=== PATIENT | male | born 1970 | race Two or more races ===

== ENCOUNTER 2023-01-15 14:01 | Outpatient (OUT) | payer MEDICAID, SELFPAY ==
--- NOTE | 2023-01-15 14:15 | ECG_ITS ---
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
[2023-01-15 15:31] LABS: Basophils Absolute Auto 0.1 10^3/uL (0.0-0.1); Basophils Percent Auto 0.5 % (0.2-2.0); Eosinophils Absolute Auto 0.2 10^3/uL (0.0-0.7); Hematocrit 49.3 % (42.0-54.0); Hemoglobin 16.5 g/dL (14.0-18.0); Immature Granulocytes Abs Auto 0.05 10^3/uL (0.00-0.03); Immature Granulocytes Pct Auto 0.5 % (0.0-0.5); Lymphocytes Percent Auto 26.6 % (20.5-60.0); Mean Corpuscular HGB Conc 33.5 g/dL (29.9-35.2); Mean Corpuscular Hemoglobin 26.8 pg (25.9-34.0); Mean Corpuscular Volume 80.2 fL (80.0-94.0); Mean Platelet Volume 10.3 fL (9.5-13.5); Monocytes Absolute Auto 0.8 10^3/uL (0.3-0.8); Neutrophils Percent Auto 63.4 % (43.0-75.0); Platelet Count 332 10^3/uL (150-450); Red Blood Count 6.15 10^6/uL (4.70-6.10); Red Cell Distribution Width 13.2 % (11.0-15.0); White Blood Count 11.1 10^3/uL (4.0-11.0)
[2023-01-15 15:54] LABS: Partial Thromboplastin Time 26.9 sec (22.3-36.2); Prothrombin Time 9.5 sec (9.0-11.6)
[2023-01-15 15:57] LABS: INR <0.93
[2023-01-15 16:13] LABS: Anion Gap 14.4; BUN Creatinine Ratio 12.8; Calcium 9.3 mg/dL (8.5-10.1); Carbon Dioxide 25.8 mmol/L (21.0-32.0); Chloride 96 mmol/L (98-107); Estimated GFR (African America >60 (>=60); Estimated GFR (Non-African Ame 52 (>=60); Glucose 239 mg/dL (74-106); Potassium 3.2 mmol/L (3.5-5.1); Sodium 133 mmol/L (136-145)
== END 2023-01-15 14:02 | disposition home or self-care (01) ==
PROVIDERS: Visit Provider Otolaryngology
DX: Z01.812 Encounter for preprocedural laboratory examination (principal); Z01.810 Encounter for preprocedural cardiovascular examination; J34.2 Deviated nasal septum; J34.3 Hypertrophy of nasal turbinates; E11.9 Type 2 diabetes mellitus without complications
CPT/HCPCS: 80048; 85025; 85610; 85730; 93005

== ENCOUNTER 2023-02-26 11:37 | Outpatient (OUT) | payer MEDICAID, SELFPAY | END 2023-02-26 11:38 | disposition home or self-care (01) | LOC: PST 11:38 | PROVIDERS: Visit Provider Otolaryngology | DX: Z01.818 Encounter for other preprocedural examination (principal); J34.2 Deviated nasal septum; J34.3 Hypertrophy of nasal turbinates; E11.9 Type 2 diabetes mellitus without complications ==

== ENCOUNTER 2023-03-05 07:06 | Day surgery (SDC) | payer MEDICAID, SELFPAY ==
[2023-03-05] VITALS (9 sets, daily range): BP systolic 115–129; BP diastolic 78–93; PULSE 50–85; RESP 14–49; TEMP 36.3–36.5; O2SAT 94–97; BMI 32.5
--- NOTE | 2023-03-05 | OP_ITS ---
OPERATION DATE: ??03/05/2023 PRIMARY CARE PHYSICIAN:? Elda Ritchie D.O. SURGEON:? Sara Saab M.D. PREOPERATIVE DIAGNOSIS:? Deviated nasal septum and bilateral inferior turbinate hypertrophy. POSTOPERATIVE DIAGNOSIS: Deviated nasal septum and bilateral inferior turbinate hypertrophy. PROCEDURE:? Septoplasty and bilateral inferior turbinate submucosal resection. ANESTHESIA:? General endotracheal. COMPLICATIONS:? None. FINDINGS:? Marked buckling and overlapping of the cartilaginous septum to the left with areas of septal cartilage which had multiple layers.? Bilateral inferior turbinate hypertrophy. INDICATIONS:? This 52-year-old man with an apparent remote history of a severe nasal fracture presented with bilateral nasal obstruction, unresponsive to aggressive medical management, due to deviated nasal septum and inferior turbinate hypertrophy. PROCEDURE:? Patient identified in the holding area and taken back to the OR where he was placed in a supine position.? After induction of general endotracheal anesthesia, the table was turned, the head elevated 20 degrees and the face draped in a sterile fashion.? Afrin soaked pledgets were placed in each side of the nose and, after waiting adequate time for decongestion, the nose was copiously irrigated.? Lidocaine 1% with 1:100,000 epinephrine was then injected into the inferior turbinates.? After waiting adequate time for hemostasis, the right nose was approached with the nasal speculum.? A stab incision was made anteriorly in the inferior turbinate and a caudal elevator was used to create a tunnel along the medial surface of the turbinate bone.? A 2.0 mm microdebrider blade was then used to exenterate the submucosal tissues of the turbinate and the turbinate was outfractured.? ?Attention was then turned to the left inferior turbinate and the same procedure performed.? Then lidocaine 1% with 1:100,000 epinephrine was injected into the nasal septum and floor of the nose on each side.? After waiting adequate time for hemostasis, a left sided [place] incision was made and then a mucoperichondrial and mucoperiosteal flap was elevated on the left hand side.? As the flap was being elevated, it became apparent that there was both buckling and overlapping of the cartilaginous septum with a large section of cartilaginous septum overlapping and extending into almost the left lateral nasal wall.? This cartilage was then trimmed with a 15 blade knife until the anterior most portion of the cartilage and the posterior portion of the cartilage were in continuity with each other.? Removing this section of cartilage resulted in a dramatic improvement of the left nasal airway with only some mild buckling persisting.? The 15 blade knife was then used to carefully trim a residual portion of the buccal cartilage down to the floor of nose, and this resulted in an equal left and right airway.? At this point, given the patient?s prior history, it was decided that further efforts to improve the nasal airway would likely cause undermining of underlying nasal structure.? Both sides of the nose and the septal flap were copiously irrigated.? The [place] incision was closed with a 5-0 chromic suture and bilateral ventilating silastic splints were coated with antibiotic ointment and sutured in place with a 2-0 nylon transseptal stitch.? The patient was then awakened and taken to the recovery room in good condition.? . LANCED
[2023-03-05 08:39] LABS: Glucometer 363 mg/dL (74-106)
[2023-03-05] MEDS: LACTATED RINGER'S SOLUTION 1,000 ML 50 ML IV (08:45)
[2023-03-05] MEDS: LIDOCAINE HCL 1%-EPINEPHRINE 1:100,000 20 ML MDV INJ (11:27)
[2023-03-05] MEDS: LACTATED RINGER'S SOLUTION 1,000 ML 1000 ML IV (11:40)
[2023-03-05] MEDS: BACITRACIN OINTMENT 28.4 GM TUBE 1 APPLIC TOPICAL (11:48)
== END 2023-03-05 13:21 | disposition home or self-care (01) ==
PROVIDERS: PCP Physician Assistant; Visit Provider Otolaryngology
PROC: (CPT 160; principal; 2023-03-05 09:10)
DX: J34.2 Deviated nasal septum (principal); J34.3 Hypertrophy of nasal turbinates; E11.9 Type 2 diabetes mellitus without complications; G47.33 Obstructive sleep apnea (adult) (pediatric); J32.9 Chronic sinusitis, unspecified; E78.5 Hyperlipidemia, unspecified; I10 Essential (primary) hypertension; Z79.84 Long term (current) use of oral hypoglycemic drugs
CPT/HCPCS: 30140; 30520; 36415; 82948; 88304; 88311; J2704

== ENCOUNTER 2023-09-03 14:33 | Emergency (ER) | payer MEDICAID, SELFPAY ==
[2023-09-03 14:41] VITALS: BP 156/98; PULSE 108; RESP 20; TEMP 36.4; O2SAT 95; BMI 32.9
--- NOTE | 2023-09-03 14:48 | ED.GENADUL1 ---
HPI - General Adult General Chief complaint: Extremity Problem, Nontraumatic Stated complaint: LOWER EXTREMITY PAIN, LEFT FOOT Time Seen by Provider: 09/03/23 14:46 Source: patient Mode of arrival: walk-in Limitations: no limitations History of Present Illness HPI narrative: Patient is a 53-year-old Male who presents to the ER for pain in the left foot and right wrist. Patient states the symptoms have been ongoing for years. He does report hitting the right wrist over a year ago and states pain flares up from time to time over the distal right ulna. His most pressing complaint is a 1 month increase in pain to the ball of the left great toe on the plantar aspect of the foot. He has a history of diabetes. He states he had his left knee evaluated by orthopedics 1 month ago with arthroscopy performed. He has not informed his orthopedist of any of his other joint complaints. He has been using ibuprofen. No fevers or vomiting. Related Data Home Medications ?Medication ?Instructions ?Recorded ?Confirmed amlodipine 5 mg tablet 5 mg PO QDAY 01/15/23 09/03/23 empagliflozin 25 mg tablet 25 mg PO DAILY 01/15/23 09/03/23 (Jardiance) losartan/hct 100 mg PO DAILY 01/15/23 03/05/23 losartan 100 1 tab PO DAILY 09/03/23 09/03/23 mg-hydrochlorothiazide 12.5 mg tablet metformin 1,000 mg tablet 1,000 mg PO BID 09/03/23 09/03/23 sitagliptin phosphate 100 mg 100 mg PO DAILY 09/03/23 09/03/23 tablet (Januvia) Previous Rx's ?Medication ?Instructions ?Recorded hydrocodone 5 mg-acetaminophen 325 1 tab PO Q6H PRN pain 3 days #12 09/03/23 mg tablet tabs ketorolac 10 mg tablet 10 mg PO TID PRN pain #10 tabs 09/03/23 Allergies Allergy/AdvReac Type Severity Reaction Status Date / Time No Known Drug Allergies Allergy Verified 03/05/23 08:27 Review of Systems ROS Constitutional Denies: fever or chills Ears, nose, mouth, and throat Denies: throat pain or nasal congestion Cardiovascular Denies: chest pain Respiratory Denies: shortness of breath or cough Gastrointestinal Denies: nausea or vomiting Musculoskeletal Reports: extremity pain, extremity swelling and joint pain; Denies: back pain or neck pain Integumentary/Breast Denies: rash Neurological Denies: headache Hematologic/Lymphatic Denies: easy bruising or easy bleeding [facility] Medical History (Updated 09/03/23 @ 16:05 by GALEN De La Torre) Cataracts, bilateral ?H26.9 - Unspecified cataract (ICD-10) Respiratory arrest ?R09.2 - Respiratory arrest (ICD-10) Acquired equinus deformity of right foot ?M21.6X1 - Other acquired deformities of right foot (ICD-10) Broken finger ?S62.609A - Fracture of unspecified phalanx of unspecified finger, initial encounter for closed fracture (ICD-10) COVID-19 ?U07.1 - COVID-19 (ICD-10) Arthritis ?M19.90 - Unspecified osteoarthritis, unspecified site (ICD-10) Dog bite ?W54.0XXA - Bitten by dog, initial encounter (ICD-10) Facial laceration ?S01.81XA - Laceration without foreign body of other part of head, initial encounter (ICD-10) Hypertension ?I10 - Essential (primary) hypertension (ICD-10) Hyperlipidemia ?E78.5 - Hyperlipidemia, unspecified (ICD-10) Diabetes ?E11.9 - Type 2 diabetes mellitus without complications (ICD-10) Derangement of right knee ?M23.91 - Unspecified internal derangement of right knee (ICD-10) Arthritis of knee ?M17.10 - Unilateral primary osteoarthritis, unspecified knee (ICD-10) Hypertrophy of both inferior nasal turbinates ?J34.3 - Hypertrophy of nasal turbinates (ICD-10) Deviated septum ?J34.2 - Deviated nasal septum (ICD-10) Chronic sinusitis ?J32.9 - Chronic sinusitis, unspecified (ICD-10) Sleep apnea ?G47.30 - Sleep apnea, unspecified (ICD-10) Surgical History (Updated 01/15/23 @ 14:32 by Mackenzie Dickson RN) H/O wisdom tooth extraction ?K08.409 - Partial loss of teeth, unspecified cause, unspecified class (ICD-10) History of phacoemulsification of cataract of right eye with intraocular lens implantation ?Z98.41 - Cataract extraction status, right eye (ICD-10) ?Z96.1 - Presence of intraocular lens (ICD-10) H/O knee surgery ?Z98.890 - Other specified postprocedural states (ICD-10) H/O facial fracture repair ?Z98.890 - Other specified postprocedural states (ICD-10) ?Z87.81 - Personal history of (healed) traumatic fracture (ICD-10) History of appendectomy ?Z90.49 - Acquired absence of other specified parts of digestive tract (ICD-10) Family History (Updated 01/15/23 @ 14:35 by Mackenzie Dickson RN) Other Family history of diabetes mellitus Heart disease Hyperlipidemia Kidney failure Social History Within the past year, how often did you have a drink containing alcohol: monthly or less Within the past year, how many standard drinks containing alcohol did you have on a typical day: 1 or 2 Within the past year, how often did you have six or more drinks on one occasion: less than monthly Total score: 1 Score interpretation: A score less than 4 is consistent with normal alcohol consumption. Smoking status: Never smoker Second hand tobacco smoke exposure: Yes Non-prescribed substance use: denies use Previous occupational history: unemployed Known occupational exposures/hazards: No Highest level of school completed/degree received: high school graduate Are you now , , , , never or living with a partner: In a typical week, how many times do you talk on the telephone with family, friends, or neighbors: twice per week How often do you get together with friends or relatives: once per week Little interest or pleasure in doing things: not at all Feeling down, depressed, or hopeless: not at all Feel stressed/tense/nervous/anxious/difficulty sleeping: decline to answer Life stressors: divorce/separation Do you think of yourself as: straight/heterosexual Gender Identity: male Exam Narrative Exam Narrative: Gen.: Awake, alert, in no distress Head: Normocephalic, atraumatic ENT: Moist mucous membranes Respiratory: No respiratory distress Extremities: Moves extremities equally, Tenderness of the dorsum of the right wrist with normal range of motion, no obvious deformity. Tenderness and swelling with mild erythema noted to the plantar aspect of the left foot at the first MTP joint. No obvious deformity or ecchymosis Psych: Normal mood and affect Neuro: No focal neuro deficit Skin: Warm, dry, intact Constitutional Vital Signs, click to edit/add: Last Vital Signs Temp 97.6 F 09/03/23 14:41 Pulse 108 H 09/03/23 14:41 Resp 20 09/03/23 14:41 BP 156/98 H 09/03/23 14:41 Pulse Ox 95 09/03/23 14:41 O2 Del Method Room Air 09/03/23 14:41 Course Vital Signs Vital signs: Vital Signs Temperature 97.6 F 09/03/23 14:41 Pulse Rate 108 H 09/03/23 14:41 Respiratory Rate 20 09/03/23 14:41 Blood Pressure 156/98 H 09/03/23 14:41 Pulse Oximetry 95 09/03/23 14:41 Oxygen Delivery Method Room Air 09/03/23 14:41 Temperature 97.6 F 09/03/23 14:41 Pulse Rate 108 H 09/03/23 14:41 Respiratory Rate 20 09/03/23 14:41 Blood Pressure 156/98 H 09/03/23 14:41 Pulse Oximetry 95 09/03/23 14:41 Oxygen Delivery Method Room Air 09/03/23 14:41 Medical Decision Making MDM Narrative Medical decision making narrative: X-rays of the left foot and right wrist with no evidence of acute process. Labs show the patient has elevated uric acid, otherwise stable labs. He will be treated for gout with a short course of analgesics and anti-inflammatories. As he has diabetes we will avoid steroids. Follow-up with PCP and orthopedics and return to the ER if symptoms change or worsen Medical Records Medical records reviewed: Yes I reviewed the patient's medical records Lab Data Lab results reviewed: Yes I reviewed the patient's lab results Labs: Lab Results 09/03/23 Range/Units 15:28 WBC 12.3 H (4.0-11.0) 10^3/uL RBC 5.92 (4.70-6.10) 10^6/uL Hgb 15.5 (14.0-18.0) g/dL Hct 47.4 (42.0-54.0) % MCV 80.1 (80.0-94.0) fL MCH 26.2 (25.9-34.0) pg MCHC 32.7 (29.9-35.2) g/dL RDW 13.2 (11.0-15.0) % Plt Count 326 (150-450) 10^3/uL MPV 10.1 (9.5-13.5) fL Neut % (Auto) 51.9 (43.0-75.0) % Lymph % (Auto) 34.4 (20.5-60.0) % Gove % (Auto) 9.3 (1.7-12.0) % Eos % (Auto) 3.3 (0.9-7.0) % Baso % (Auto) 0.7 (0.2-2.0) % Neut # (Auto) 6.4 (1.4-6.5) 10^3/uL Lymph # (Auto) 4.2 H (1.2-3.8) 10^3/uL Gove # (Auto) 1.2 H (0.3-0.8) 10^3/uL Eos # (Auto) 0.4 (0.0-0.7) 10^3/uL Baso # (Auto) 0.1 (0.0-0.1) 10^3/uL Abs Immat Gran (auto) 0.05 H (0.00-0.03) 10^3/uL Imm/Tot Granulo (auto) 0.4 (0.0-0.5) % ESR 39 H (<=20) mm/hr Sodium 140 (136-145) mmol/L Potassium 3.5 (3.5-5.1) mmol/L Chloride 100 (98-107) mmol/L Carbon Dioxide 24.3 (21.0-32.0) mmol/L Anion Gap 19.2 BUN 22.0 H (7.0-18.0) mg/dL Creatinine 1.34 H (0.70-1.30) mg/dL Est GFR ( Amer) >60 (>=60) Est GFR (Non-Af Amer) 55 L (>=60) BUN/Creatinine Ratio 16.4 Glucose 198 H (74-106) mg/dL Uric Acid 10.3 H (3.5-7.2) mg/dL Calcium 9.2 (8.5-10.1) mg/dL C-Reactive Protein 0.83 H (<=0.50) mg/dL Imaging Data xr foot: Attestation: I have reviewed the pertinent imaging results. Radiologist's impression: ITS Impressions Foot X-Ray 09/03/23 15:20 IMPRESSION: Moderate first metatarsal-phalangeal joint osteoarthritis Electronically authenticated by: PEG BANERJEE Date: 09/03/2023 15:41 Wrist X-Ray 09/03/23 15:20 IMPRESSION: Mild osteoarthritis Electronically authenticated by: PEG BANERJEE Date: 09/03/2023 15:39 Discharge Plan Discharge Stand Alone Forms: Portal Instructions Chief Complaint: Extremity Problem, Nontraumatic Clinical Impression: Gout, Acute pain of right wrist, Acute pain of left foot Patient Disposition: Home, Self-Care Time of Disposition Decision: 16:04 Condition: Good Prescriptions / Home Meds: New hydrocodone-acetaminophen 5-325 mg tablet 1 tab PO Q6H PRN (Reason: pain) 3 Days Qty: 12 0RF Rx Instructions: DX: M10.9 ketorolac 10 mg tablet 10 mg PO TID PRN (Reason: pain) Qty: 10 0RF No Action Jardiance 25 mg tablet 25 mg PO DAILY losartan/hct 100 mg PO DAILY amlodipine 5 mg tablet 5 mg PO QDAY losartan-hydrochlorothiazide 100-12.5 mg tablet 1 tab PO DAILY metformin 1,000 mg tablet 1,000 mg PO BID Januvia 100 mg tablet 100 mg PO DAILY Print Language: Telugu Instructions: Gout (ED), Arthralgia (ED) Additional Instructions: Follow up with your orthopedist Referrals: Alex Gorman [Primary Care Provider] - 1 week
--- NOTE | 2023-09-03 15:20 | XR_ITS ---
The [address] [address] Patient Name: GIDEON JOSUE MRN: [id number] date: 1970 Sex: M Assigned Patient Location: ER Current Patient Location: ER Accession/Order Number: [id number] Exam Date: 09/03/2023 15:05 Report Date: 09/03/2023 15:39 At the request of: JB MCKAY Procedure: XR wrist RT min 3V PROCEDURE: XR wrist RT min 3V COMPARISON: None. HISTORY: pain FINDINGS: BONES:No acute fracture or dislocation. Mild degenerative changes along the medial carpus SOFT TISSUES:Negative. No visible soft tissue swelling. EFFUSION:None visible. OTHER: Negative. XR/XR wrist RT min 3V IMPRESSION: Mild osteoarthritis Electronically authenticated by: PEG BANERJEE Date: 09/03/2023 15:39
--- NOTE | 2023-09-03 15:20 | XR_ITS ---
The [address] [address] Patient Name: GIDEON JOSUE MRN: [id number] date: 1970 Sex: M Assigned Patient Location: ER Current Patient Location: ER Accession/Order Number: [id number] Exam Date: 09/03/2023 15:05 Report Date: 09/03/2023 15:41 At the request of: JB MCKAY Procedure: XR foot LT min 3V PROCEDURE: XR foot LT min 3V COMPARISON: None. HISTORY: left foot pain FINDINGS: BONES:No acute fracture or dislocation. Moderate degenerative change of the first metatarsal phalangeal joint with joint space narrowing and marginal osteophyte formation. Mild enthesopathic spurring of the calcaneus at the Achilles insertion SOFT TISSUES:Negative. No visible soft tissue swelling. EFFUSION:None visible. OTHER: Negative. XR/XR foot LT min 3V IMPRESSION: Moderate first metatarsal-phalangeal joint osteoarthritis Electronically authenticated by: PEG BANERJEE Date: 09/03/2023 15:41
[2023-09-03 15:37] LABS: Basophils Absolute Auto 0.1 10^3/uL (0.0-0.1); Basophils Percent Auto 0.7 % (0.2-2.0); Eosinophils Absolute Auto 0.4 10^3/uL (0.0-0.7); Eosinophils Percent Auto 3.3 % (0.9-7.0); Hematocrit 47.4 % (42.0-54.0); Hemoglobin 15.5 g/dL (14.0-18.0); Immature Granulocytes Abs Auto 0.05 10^3/uL (0.00-0.03); Immature Granulocytes Pct Auto 0.4 % (0.0-0.5); Lymphocytes Absolute Auto 4.2 10^3/uL (1.2-3.8); Lymphocytes Percent Auto 34.4 % (20.5-60.0); Mean Corpuscular HGB Conc 32.7 g/dL (29.9-35.2); Mean Corpuscular Hemoglobin 26.2 pg (25.9-34.0); Mean Corpuscular Volume 80.1 fL (80.0-94.0); Mean Platelet Volume 10.1 fL (9.5-13.5); Monocytes Absolute Auto 1.2 10^3/uL (0.3-0.8); Monocytes Percent Auto 9.3 % (1.7-12.0); Neutrophils Absolute Auto 6.4 10^3/uL (1.4-6.5); Neutrophils Percent Auto 51.9 % (43.0-75.0); Platelet Count 326 10^3/uL (150-450); Red Blood Count 5.92 10^6/uL (4.70-6.10); Red Cell Distribution Width 13.2 % (11.0-15.0); White Blood Count 12.3 10^3/uL (4.0-11.0)
[2023-09-03 15:46] LABS: Erythrocyte Sedimentation Rate 39 mm/hr (<=20)
[2023-09-03 15:52] LABS: Anion Gap 19.2; BUN Creatinine Ratio 16.4; C Reactive Protein 0.83 mg/dL (<=0.50); Calcium 9.2 mg/dL (8.5-10.1); Carbon Dioxide 24.3 mmol/L (21.0-32.0); Chloride 100 mmol/L (98-107); Estimated GFR (African America >60 (>=60); Estimated GFR (Non-African Ame 55 (>=60); Glucose 198 mg/dL (74-106); Potassium 3.5 mmol/L (3.5-5.1); Sodium 140 mmol/L (136-145); Uric Acid 10.3 mg/dL (3.5-7.2)
== END 2023-09-03 16:21 | disposition home or self-care (01) ==
PROVIDERS: Physician Assistant; Emergency Provider Emergency Medicine; PCP Physician Assistant
DX: M10.9 Gout, unspecified (principal); M79.672 Pain in left foot; M25.531 Pain in right wrist; E11.9 Type 2 diabetes mellitus without complications; Z79.84 Long term (current) use of oral hypoglycemic drugs; Z79.899 Other long term (current) drug therapy; Z86.16 Personal history of COVID-19; M19.90 Unspecified osteoarthritis, unspecified site; I10 Essential (primary) hypertension; E78.5 Hyperlipidemia, unspecified; G47.30 Sleep apnea, unspecified; Z90.49 Acquired absence of other specified parts of digestive tract; Z98.890 Other specified postprocedural states; Z98.41 Cataract extraction status, right eye; Z96.1 Presence of intraocular lens
CPT/HCPCS: 36415; 73110; 73630; 80048; 84550; 85025; 85652; 86140; 99284

== ENCOUNTER 2023-09-10 19:25 | Emergency (ER) | payer MEDICAID, SELFPAY ==
[2023-09-10 19:28] VITALS: BP 152/104; PULSE 114; RESP 22; TEMP 36.8; O2SAT 96; BMI 32.8
--- NOTE | 2023-09-10 19:39 | ECG_ITS ---
The 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
--- NOTE | 2023-09-10 19:39 | XR_ITS ---
The [address] [address] Patient Name: GIDEON JOSUE MRN: [id number] date: 1970 Sex: M Assigned Patient Location: ER Current Patient Location: ER Accession/Order Number: [id number] Exam Date: 09/10/2023 19:48 Report Date: 09/10/2023 20:26 At the request of: CINDI LOERA Procedure: XR chest 1V EXAM: XR chest 1V HISTORY: CP COMPARISON: 02/26/2021 and earlier TECHNIQUE: AP portable upright chest x-ray FINDINGS: Clear lungs without infiltrate or edema. Normal heart size for technique. No pleural effusion or pneumothorax. XR/XR chest 1V IMPRESSION: Negative chest x-ray, no acute findings. Clear lungs. Electronically authenticated by: SAUL GAYLE Date: 09/10/2023 20:26
--- NOTE | 2023-09-10 19:40 | ED_ITS ---
HPI - General Adult General Chief complaint: Extremity Injury, Upper Stated complaint: Upper Extremity Pain Time Seen by Provider: 09/10/23 19:33 Source: patient Mode of arrival: walk-in History of Present Illness HPI narrative: 53-year-old male presents for pain in his left shoulder which goes into his left upper chest. No injury. He has had it continuously since last night and the pain is moderate to severe. No fever cough or complaints of shortness of breath or back pain. The pain does not go into his lower arm. No pain on the right side of his chest or his right arm. Related Data Home Medications ?Medication ?Instructions ?Recorded ?Confirmed amlodipine 5 mg tablet 5 mg PO QDAY 01/15/23 09/03/23 empagliflozin 25 mg tablet 25 mg PO DAILY 01/15/23 09/03/23 (Jardiance) losartan/hct 100 mg PO DAILY 01/15/23 03/05/23 losartan 100 1 tab PO DAILY 09/03/23 09/03/23 mg-hydrochlorothiazide 12.5 mg tablet metformin 1,000 mg tablet 1,000 mg PO BID 09/03/23 09/03/23 sitagliptin phosphate 100 mg 100 mg PO DAILY 09/03/23 09/03/23 tablet (Januvia) Previous Rx's ?Medication ?Instructions ?Recorded hydrocodone 5 mg-acetaminophen 325 1 tab PO Q6H PRN pain 3 days #12 09/03/23 mg tablet tabs ketorolac 10 mg tablet 10 mg PO TID PRN pain #10 tabs 09/03/23 acetaminophen 300 mg-codeine 30 mg 1 tab PO Q6H PRN pain 5 days #20 09/10/23 tablet tabs ibuprofen 800 mg tablet 800 mg PO Q8H PRN pain #20 tabs 09/10/23 Allergies Allergy/AdvReac Type Severity Reaction Status Date / Time No Known Drug Allergies Allergy Verified 03/05/23 08:27 Review of Systems ROS Narrative A ten point review of systems is negative except as noted above. [facility] Medical History (Updated 09/10/23 @ 21:40 by Adams Kowalski MD) Cataracts, bilateral ?H26.9 - Unspecified cataract (ICD-10) Respiratory arrest ?R09.2 - Respiratory arrest (ICD-10) Acquired equinus deformity of right foot ?M21.6X1 - Other acquired deformities of right foot (ICD-10) Broken finger ?S62.609A - Fracture of unspecified phalanx of unspecified finger, initial encounter for closed fracture (ICD-10) COVID-19 ?U07.1 - COVID-19 (ICD-10) Arthritis ?M19.90 - Unspecified osteoarthritis, unspecified site (ICD-10) Dog bite ?W54.0XXA - Bitten by dog, initial encounter (ICD-10) Facial laceration ?S01.81XA - Laceration without foreign body of other part of head, initial encounter (ICD-10) Hypertension ?I10 - Essential (primary) hypertension (ICD-10) Hyperlipidemia ?E78.5 - Hyperlipidemia, unspecified (ICD-10) Diabetes ?E11.9 - Type 2 diabetes mellitus without complications (ICD-10) Derangement of right knee ?M23.91 - Unspecified internal derangement of right knee (ICD-10) Arthritis of knee ?M17.10 - Unilateral primary osteoarthritis, unspecified knee (ICD-10) Hypertrophy of both inferior nasal turbinates ?J34.3 - Hypertrophy of nasal turbinates (ICD-10) Deviated septum ?J34.2 - Deviated nasal septum (ICD-10) Chronic sinusitis ?J32.9 - Chronic sinusitis, unspecified (ICD-10) Sleep apnea ?G47.30 - Sleep apnea, unspecified (ICD-10) Surgical History (Updated 01/15/23 @ 14:32 by Mackenzie Dickson RN) H/O wisdom tooth extraction ?K08.409 - Partial loss of teeth, unspecified cause, unspecified class (ICD- 10) History of phacoemulsification of cataract of right eye with intraocular lens implantation ?Z98.41 - Cataract extraction status, right eye (ICD-10) ?Z96.1 - Presence of intraocular lens (ICD-10) H/O knee surgery ?Z98.890 - Other specified postprocedural states (ICD-10) H/O facial fracture repair ?Z98.890 - Other specified postprocedural states (ICD-10) ?Z87.81 - Personal history of (healed) traumatic fracture (ICD-10) History of appendectomy ?Z90.49 - Acquired absence of other specified parts of digestive tract (ICD- 10) Family History (Updated 01/15/23 @ 14:35 by Mackenzie Dickson RN) Other Family history of diabetes mellitus Heart disease Hyperlipidemia Kidney failure Social History Within the past year, how often did you have a drink containing alcohol: monthly or less Within the past year, how many standard drinks containing alcohol did you have on a typical day: 1 or 2 Within the past year, how often did you have six or more drinks on one occasion: less than monthly Total score: 1 Score interpretation: A score less than 4 is consistent with normal alcohol consumption. Smoking status: Never smoker Second hand tobacco smoke exposure: Yes Non-prescribed substance use: denies use Previous occupational history: unemployed Known occupational exposures/hazards: No Highest level of school completed/degree received: high school graduate Are you now , , , , never or living with a partner: In a typical week, how many times do you talk on the telephone with family, friends, or neighbors: twice per week How often do you get together with friends or relatives: once per week Little interest or pleasure in doing things: not at all Feeling down, depressed, or hopeless: not at all Feel stressed/tense/nervous/anxious/difficulty sleeping: decline to answer Life stressors: divorce/separation Do you think of yourself as: straight/heterosexual Gender Identity: male Exam Narrative Exam Narrative: Nurses note and vital signs reviewed and patient is not hypoxic. General: The patient appears uncomfortable and in no apparent respiratory distress. Skin: Warm, dry, no pallor noted. There is no rash noted. Head: Normocephalic, atraumatic Eye: Normal conjunctiva, no drainage Ears, Nose, Mouth, and Throat: oral mucosa is moist. Nares patent. Cardiovascular: Regular Rate and Rhythm Respiratory: Patient is in no distress, no accessory muscle use, lungs are clear to auscultation, no wheezing, rales or rhonchi Back: non-tender GI: Soft and nontender Musculoskeletal: Left shoulder is nontender nonswollen. No bruise or rash. Radial pulse 2+ Neurological: A&O, normal speech Psychiatric: Cooperative Constitutional Vital Signs, click to edit/add: Last Vital Signs Temp 98.2 F 09/10/23 19:28 Pulse 114 H 09/10/23 19:28 Resp 22 09/10/23 19:28 BP 152/104 H 09/10/23 19:28 Pulse Ox 96 09/10/23 19:28 O2 Del Method Room Air 09/10/23 19:28 Course Vital Signs Vital signs: Vital Signs Temperature 98.2 F 09/10/23 19:28 Pulse Rate 114 H 09/10/23 19:28 Respiratory Rate 22 09/10/23 19:28 Blood Pressure 152/104 H 09/10/23 19:28 Pulse Oximetry 96 09/10/23 19:28 Oxygen Delivery Method Room Air 09/10/23 19:28 Temperature 98.2 F 09/10/23 19:28 Pulse Rate 114 H 09/10/23 19:28 Respiratory Rate 22 09/10/23 19:28 Blood Pressure 152/104 H 09/10/23 19:28 Pulse Oximetry 96 09/10/23 19:28 Oxygen Delivery Method Room Air 09/10/23 19:28 Medical Decision Making MDM Narrative Medical decision making narrative: His workup including troponin is negative. He said the pain all day and it is worse with movement. X-ray finding of degenerative changes at the acromioclavicular joint was discussed with the patient. He has an established orthopedist and he will follow-up with him and he is provided pain medication. At this point I do not suspect cardiac etiology. Treatment diagnosis and follow-up were discussed with the patient. Lab Data Lab results reviewed: Yes I reviewed the patient's lab results Labs: Lab Results 09/10/23 Range/Units 19:47 WBC 16.0 H (4.0-11.0) 10^3/uL RBC 6.15 H (4.70-6.10) 10^6/uL Hgb 16.0 (14.0-18.0) g/dL Hct 49.3 (42.0-54.0) % MCV 80.2 (80.0-94.0) fL MCH 26.0 (25.9-34.0) pg MCHC 32.5 (29.9-35.2) g/dL RDW 13.3 (11.0-15.0) % Plt Count 338 (150-450) 10^3/uL MPV 10.1 (9.5-13.5) fL Seg Neuts % (Manual) 69.0 Band Neutrophils % 2.0 (0-5) % Lymphocytes % (Manual) 11.0 L (20.5-60.0) % Atypical Lymphs % (Man) 4.0 % Monocytes % (Manual) 11.0 (1.7-12.0) % Eosinophils % (Manual) 3.0 (0.9-7.0) % Basophils % (Manual) 0.0 L (0.2-2.0) % Neutrophils # (Manual) 11.04 H (1.4-6.5) 10^3/uL Band Neutrophils # 0.3 (0.0-0.3) 10^3/uL Lymphocytes # (Manual) 1.76 (1.20-3.80) 10^3/uL Abs Atypical Lymphs Man 0.64 Monocytes # (Manual) 1.76 H (0.30-0.80) 10^3/uL Eosinophils # (Manual) 0.48 (0.00-0.70) 10^3/uL Basophils # (Manual) 0.00 (0.00-0.10) 10^3/uL Sodium 130 L (136-145) mmol/L Potassium 4.0 (3.5-5.1) mmol/L Chloride 94 L (98-107) mmol/L Carbon Dioxide 25.4 (21.0-32.0) mmol/L Anion Gap 14.6 BUN 21.0 H (7.0-18.0) mg/dL Creatinine 1.51 H (0.70-1.30) mg/dL Est GFR ( Amer) 58 L (>=60) Est GFR (Non-Af Amer) 48 L (>=60) BUN/Creatinine Ratio 13.9 Glucose 288 H (74-106) mg/dL Calcium 9.1 (8.5-10.1) mg/dL Troponin I High Sens <4.0 L (4.0-76.1) pg/mL Imaging Data Chest x-ray: Radiologist's impression: ITS Impressions Chest X-Ray 09/10/23 19:39 IMPRESSION: Negative chest x-ray, no acute findings. Clear lungs. Electronically authenticated by: SAUL GAYLE Date: 09/10/2023 20:26 Shoulder X-Ray 09/10/23 20:37 IMPRESSION: Negative for fracture or dislocation. Mild AC joint DJD. Electronically authenticated by: SAUL GAYLE Date: 09/10/2023 21:17 ECG Data Attestation: I personally reviewed and interpreted this ECG as follows: (EKG on my interpretation shows sinus rhythm with a rate of 108. No acute change.) Discharge Plan Discharge Stand Alone Forms: Portal Instructions Chief Complaint: Extremity Injury, Upper Clinical Impression: Acute pain of left shoulder Patient Disposition: Home, Self-Care Time of Disposition Decision: 21:38 Condition: Good Mode of Transportation: Private Vehicle Prescriptions / Home Meds: New acetaminophen-codeine 300-30 mg tablet 1 tab PO Q6H PRN (Reason: pain) 5 Days Qty: 20 0RF ibuprofen 800 mg tablet 800 mg PO Q8H PRN (Reason: pain) Qty: 20 0RF No Action Jardiance 25 mg tablet 25 mg PO DAILY losartan/hct 100 mg PO DAILY amlodipine 5 mg tablet 5 mg PO QDAY losartan-hydrochlorothiazide 100-12.5 mg tablet 1 tab PO DAILY metformin 1,000 mg tablet 1,000 mg PO BID Januvia 100 mg tablet 100 mg PO DAILY hydrocodone-acetaminophen 5-325 mg tablet 1 tab PO Q6H PRN (Reason: pain) 3 Days Qty: 12 0RF Rx Instructions: DX: M10.9 ketorolac 10 mg tablet 10 mg PO TID PRN (Reason: pain) Qty: 10 0RF Print Language: Indonesian Instructions: Shoulder Pain (ED) Additional Instructions: For follow-up with your orthopedist Referrals: Alex Gorman [Primary Care Provider] - 1 week
--- NOTE | 2023-09-10 19:50 | PC.NURSE ---
Pt reports left shoulder pain that began last night around 3am, pt cooncerned for disslocation due to hx of shoulder dislocation 40 years ago. Pt ahs pain with any small movement. Took 1 norco around 5pm with no relief.
[2023-09-10 19:53] LABS: Hematocrit 49.3 % (42.0-54.0); Mean Corpuscular HGB Conc 32.5 g/dL (29.9-35.2); Mean Corpuscular Volume 80.2 fL (80.0-94.0); Mean Platelet Volume 10.1 fL (9.5-13.5); Platelet Count 338 10^3/uL (150-450); Red Blood Count 6.15 10^6/uL (4.70-6.10); Red Cell Distribution Width 13.3 % (11.0-15.0)
[2023-09-10 20:13] LABS: Anion Gap 14.6; BUN Creatinine Ratio 13.9; Calcium 9.1 mg/dL (8.5-10.1); Carbon Dioxide 25.4 mmol/L (21.0-32.0); Chloride 94 mmol/L (98-107); Estimated GFR (African America 58 (>=60); Estimated GFR (Non-African Ame 48 (>=60); Glucose 288 mg/dL (74-106); Sodium 130 mmol/L (136-145); Troponin I High Sensitivity <4.0 pg/mL (4.0-76.1)
[2023-09-10 20:15] LABS: Atypical Lymphocytes Abs Man 0.64; Band Neutrophils Absolute 0.3 10^3/uL (0.0-0.3); Eosinophils Absolute Manual 0.48 10^3/uL (0.00-0.70); Lymphocytes Absolute Manual 1.76 10^3/uL (1.20-3.80); Monocytes Absolute Manual 1.76 10^3/uL (0.30-0.80); Segmented Neut Absolute Manual 11.04 10^3/uL (1.4-6.5)
--- NOTE | 2023-09-10 20:37 | XR_ITS ---
The [address] [address] Patient Name: GIDEON JOSUE MRN: [id number] date: 1970 Sex: M Assigned Patient Location: ER Current Patient Location: ER Accession/Order Number: [id number] Exam Date: 09/10/2023 20:56 Report Date: 09/10/2023 21:17 At the request of: CINDI LOERA Procedure: XR shoulder LT min 2V EXAM: XR shoulder LT min 2V HISTORY: Atraumatic pain COMPARISON: None. TECHNIQUE: The neutral, external rotation, Y view left shoulder. FINDINGS: No fracture or dislocation. Minor spurring of the AC joint. Articular surfaces glenoid smooth. No focal bone lesion. No soft tissue calcification. Visualized clavicle, left ribs and left lung unremarkable. XR/XR shoulder LT min 2V IMPRESSION: Negative for fracture or dislocation. Mild AC joint DJD. Electronically authenticated by: SAUL GAYLE Date: 09/10/2023 21:17
[2023-09-10] MEDS: KETOROLAC TROMETHAMINE 30 MG/ML VIAL IVP (21:30)
[2023-09-10 21:56] VITALS: BP 148/98; PULSE 94; RESP 18; O2SAT 97
== END 2023-09-10 21:56 | disposition home or self-care (01) ==
PROVIDERS: Emergency Provider Emergency Medicine; PCP Physician Assistant
DX: M25.512 Pain in left shoulder (principal); Z79.84 Long term (current) use of oral hypoglycemic drugs; Z79.899 Other long term (current) drug therapy; M19.90 Unspecified osteoarthritis, unspecified site; I10 Essential (primary) hypertension; E78.5 Hyperlipidemia, unspecified; E11.9 Type 2 diabetes mellitus without complications; G47.30 Sleep apnea, unspecified; Z90.49 Acquired absence of other specified parts of digestive tract; Z98.890 Other specified postprocedural states
CPT/HCPCS: 36415; 71045; 73030; 80048; 84484; 85007; 85027; 93005; 96374; 99285

== ENCOUNTER 2024-06-30 18:42 | Emergency (ER) | payer MEDICAID, SELFPAY ==
[2024-06-30 18:50] VITALS: BP 140/82; PULSE 81; TEMP 36.8; O2SAT 96; BMI 34.5
--- NOTE | 2024-06-30 19:28 | ECG_ITS ---
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
--- NOTE | 2024-06-30 19:28 | XR_ITS ---
The [address] [address] Patient Name: GIDEON JOSUE MRN: [id number] date: 1970 Sex: M Assigned Patient Location: ER Current Patient Location: Accession/Order Number: [id number] Exam Date: 06/30/2024 19:50 Report Date: 06/30/2024 20:22 At the request of: JB MCKAY Procedure: XR chest 1V SINGLE VIEW CHEST: 06/30/2024 7:50 PM EST CLINICAL HISTORY:Epigastric pain COMPARISONS: None. TECHNIQUE: Single frontal view of the chest, utilizing portable technique. Portable radiography should be considered a technically compromised study. Strongly consider dedicated PA and lateral chest radiographs, as clinically indicated. FINDINGS: LINES AND TUBES: Cardiac monitoring leads and wires overlie the patient. CARDIAC SILHOUETTE: Within normal limits. MEDIASTINAL AND HILAR CONTOUR: Within normal limits. PULMONARY PARENCHYMA AND PLEURA: No consolidation, edema, effusion, or pneumothorax. OSSEOUS STRUCTURES:Nothing significant. OTHER COMMENTS:None. XR/XR chest 1V IMPRESSION: No acute cardiopulmonary disease. This report was generated with voice recognition software. Effort has been made to ensure accuracy of this report, however, occasional wording errors may persist. Please contact our office with any questions. Electronically authenticated by: TORRES JAMES Date: 06/30/2024 20:22
--- NOTE | 2024-06-30 19:28 | CT_ITS ---
The [address] [address] Patient Name: GIDEON JOSUE MRN: [id number] date: 1970 Sex: M Assigned Patient Location: ER Current Patient Location: Accession/Order Number: [id number] Exam Date: 06/30/2024 19:50 Report Date: 06/30/2024 20:21 At the request of: JB MCKAY Procedure: CT abdomen pelvis w con CT OF THE ABDOMEN AND PELVIS WITH CONTRAST: 06/30/2024 7:50 PM EST CLINICAL HISTORY: Abdominal pain. COMPARISONS: None. TECHNIQUE: Thin section axial CT images were obtained from the lung bases to the pubis symphysis. This CT exam was performed using one or more of the following dose reduction techniques: Automated exposure control, adjustment of the mA and/or kV according to patient size, or use of iterative reconstruction technique. Thin section coronal and sagittal images were reconstructed from the axial data set. All images were reviewed and interpreted. CONTRAST: Intravenous contrast was administered. Type and amount is documented at the local institution. FINDINGS: LUNG BASES: No consolidation or pleural fluid. LIVER: Diffuse hepatic steatosis with secondary mild hepatic enlargement. No liver mass or cyst. Normal portal vein enhancement. GALLBLADDER: Normal. BILIARY TREE: No ductal dilatation. PANCREAS: Normal. SPLEEN: Normal. ADRENALS: Normal. KIDNEYS: Normal, without urolithiasis or hydronephrosis. URINARY BLADDER: Grossly unremarkable. PELVIC STRUCTURES: Unremarkable. BOWEL: No evidence of obstruction, gross mass, or inflammatory change. There is minimal diverticulosis. There is no evidence of diverticulitis. APPENDIX: The appendix is not clearly identified and there are no secondary findings to suggest acute appendicitis. LYMPH NODES: No pathologically enlarged lymph nodes identified. PERITONEUM: No intraperitoneal free air. No free intraperitoneal fluid. MESENTERY: Unremarkable. RETROPERITONEUM: The retroperitoneum is unremarkable. AORTA: Normal in caliber. BODY WALL: No body wall mass. OSSEOUS STRUCTURES: Severe degenerative disc disease with endplate sclerosis and vacuum disc phenomenon at L5-S1. Osseous structures and joints otherwise normal for age. CT/CT abdomen pelvis w con IMPRESSION: 1. No acute abdominal or pelvic pathology. 2. Severe hepatic steatosis with mild hepatic enlargement. 3. Incidental diverticulosis without evidence of colitis. Electronically authenticated by: TORRES Saleh: 06/30/2024 20:21
--- NOTE | 2024-06-30 19:29 | ED.ABDPAIN1 ---
HPI - Abdominal Pain General Chief Complaint: Abdominal Pain Stated Complaint: Abdominal Pain Time Seen by Provider: 06/30/24 19:15 Source: patient Mode of arrival: walk-in History of Present Illness HPI narrative: Patient is a 54-year-old male who presents to the emergency department for evaluation of epigastric pain for the last 4 days. He states the pain is now starting to move down into the umbilicus. He has had no vomiting or diarrhea. He states he took Pepto-Bismol at the beginning of the course of his illness and noticed that his stools were dark and tarry. He has subsequently stopped the Pepto-Bismol and his stool is now back to a normal light brown color. He has not had any chest pain or upper respiratory symptoms. He reports a previous appendectomy, no other abdominal surgeries. Related Data Home Medications ?Medication ?Instructions ?Recorded ?Confirmed amlodipine 5 mg tablet 5 mg PO QDAY 01/15/23 09/03/23 empagliflozin 25 mg tablet 25 mg PO DAILY 01/15/23 09/03/23 (Jardiance) losartan/hct 100 mg PO DAILY 01/15/23 03/05/23 losartan 100 1 tab PO DAILY 09/03/23 09/03/23 mg-hydrochlorothiazide 12.5 mg tablet metformin 1,000 mg tablet 1,000 mg PO BID 09/03/23 09/03/23 sitagliptin phosphate 100 mg 100 mg PO DAILY 09/03/23 09/03/23 tablet (Januvia) Previous Rx's ?Medication ?Instructions ?Recorded hydrocodone 5 mg-acetaminophen 325 1 tab PO Q6H PRN pain 3 days #12 09/03/23 mg tablet tabs ketorolac 10 mg tablet 10 mg PO TID PRN pain #10 tabs 09/03/23 acetaminophen 300 mg-codeine 30 mg 1 tab PO Q6H PRN pain 5 days #20 09/10/23 tablet tabs ibuprofen 800 mg tablet 800 mg PO Q8H PRN pain #20 tabs 09/10/23 hyoscyamine sulfate 0.125 mg 0.125 mg PO Q6H PRN abdominal pain 06/30/24 tablet (Levsin) #12 tabs ondansetron 4 mg disintegrating 4 mg PO Q6H PRN nausea and 06/30/24 tablet vomiting #12 tabs pantoprazole 40 mg tablet,delayed 40 mg PO DAILY #7 tabs 06/30/24 release (Protonix) Allergies Allergy/AdvReac Type Severity Reaction Status Date / Time No Known Drug Allergies Allergy Verified 03/05/23 08:27 Review of Systems ROS Constitutional Denies: fever or chills Ears, nose, mouth, and throat Denies: throat pain or nasal congestion Cardiovascular Denies: chest pain Respiratory Denies: shortness of breath Gastrointestinal Reports: abdominal pain; Denies: nausea, vomiting or diarrhea Genitourinary Denies: painful urination Musculoskeletal Denies: back pain Integumentary/Breast Denies: rash Neurological Denies: numbness in extremities or weakness in extremities Hematologic/Lymphatic Denies: easy bruising or easy bleeding [facility] Medical History (Updated 06/30/24 @ 21:02 by GALEN De La Torre) Cataracts, bilateral ?H26.9 - Unspecified cataract (ICD-10) Respiratory arrest ?R09.2 - Respiratory arrest (ICD-10) Acquired equinus deformity of right foot ?M21.6X1 - Other acquired deformities of right foot (ICD-10) Broken finger ?S62.609A - Fracture of unspecified phalanx of unspecified finger, initial encounter for closed fracture (ICD-10) COVID-19 ?U07.1 - COVID-19 (ICD-10) Arthritis ?M19.90 - Unspecified osteoarthritis, unspecified site (ICD-10) Dog bite ?W54.0XXA - Bitten by dog, initial encounter (ICD-10) Facial laceration ?S01.81XA - Laceration without foreign body of other part of head, initial encounter (ICD-10) Hypertension ?I10 - Essential (primary) hypertension (ICD-10) Hyperlipidemia ?E78.5 - Hyperlipidemia, unspecified (ICD-10) Diabetes ?E11.9 - Type 2 diabetes mellitus without complications (ICD-10) Derangement of right knee ?M23.91 - Unspecified internal derangement of right knee (ICD-10) Arthritis of knee ?M17.10 - Unilateral primary osteoarthritis, unspecified knee (ICD-10) Hypertrophy of both inferior nasal turbinates ?J34.3 - Hypertrophy of nasal turbinates (ICD-10) Deviated septum ?J34.2 - Deviated nasal septum (ICD-10) Chronic sinusitis ?J32.9 - Chronic sinusitis, unspecified (ICD-10) Sleep apnea ?G47.30 - Sleep apnea, unspecified (ICD-10) Surgical History (Updated 01/15/23 @ 14:32 by Mackenzie Dickson RN) H/O wisdom tooth extraction ?K08.409 - Partial loss of teeth, unspecified cause, unspecified class (ICD-10) History of phacoemulsification of cataract of right eye with intraocular lens implantation ?Z98.41 - Cataract extraction status, right eye (ICD-10) ?Z96.1 - Presence of intraocular lens (ICD-10) H/O knee surgery ?Z98.890 - Other specified postprocedural states (ICD-10) H/O facial fracture repair ?Z98.890 - Other specified postprocedural states (ICD-10) ?Z87.81 - Personal history of (healed) traumatic fracture (ICD-10) History of appendectomy ?Z90.49 - Acquired absence of other specified parts of digestive tract (ICD-10) Family History (Updated 01/15/23 @ 14:35 by Mackenzie Dickson RN) Other Family history of diabetes mellitus Heart disease Hyperlipidemia Kidney failure Social History Within the past year, how often did you have a drink containing alcohol: monthly or less Within the past year, how many standard drinks containing alcohol did you have on a typical day: 1 or 2 Within the past year, how often did you have six or more drinks on one occasion: less than monthly Total score: 1 Score interpretation: A score less than 4 is consistent with normal alcohol consumption. Smoking status: Never smoker Second hand tobacco smoke exposure: Yes Non-prescribed substance use: denies use Previous occupational history: unemployed Known occupational exposures/hazards: No Highest level of school completed/degree received: high school graduate Are you now , , , , never or living with a partner: In a typical week, how many times do you talk on the telephone with family, friends, or neighbors: twice per week How often do you get together with friends or relatives: once per week Little interest or pleasure in doing things: not at all Feeling down, depressed, or hopeless: not at all Feel stressed/tense/nervous/anxious/difficulty sleeping: decline to answer Life stressors: divorce/separation Do you think of yourself as: straight/heterosexual Gender Identity: male Exam Narrative Exam Narrative: Gen.: Awake, alert, in no distress Head: Normocephalic, atraumatic ENT: Moist mucous membranes Respiratory: No respiratory distress, lungs clear bilaterally Cardio: Regular rate and rhythm Gastrointestinal: Abdomen is soft, nondistended and nontender to palpation Extremities: Moves extremities equally Psych: Normal mood and affect Neuro: No focal neuro deficit Skin: Warm, dry, intact Constitutional Vital Signs, click to edit/add: Last Vital Signs Temp 98.3 F 06/30/24 18:50 Pulse 81 06/30/24 18:50 Resp 16 06/30/24 18:50 BP 140/82 06/30/24 18:50 Pulse Ox 96 06/30/24 18:50 O2 Del Method Room Air 06/30/24 18:50 Course Vital Signs Vital signs: Vital Signs Temperature 98.3 F 06/30/24 18:50 Pulse Rate 81 06/30/24 18:50 Respiratory Rate 16 06/30/24 18:50 Blood Pressure 140/82 06/30/24 18:50 Pulse Oximetry 96 06/30/24 18:50 Oxygen Delivery Method Room Air 06/30/24 18:50 Temperature 98.3 F 06/30/24 18:50 Pulse Rate 81 06/30/24 18:50 Respiratory Rate 16 06/30/24 18:50 Blood Pressure 140/82 06/30/24 18:50 Pulse Oximetry 96 06/30/24 18:50 Oxygen Delivery Method Room Air 06/30/24 18:50 MDM - Abdominal Pain MDM Narrative Medical decision making narrative: Patient is found to have mild acute kidney injury with an increase of his typical creatinine at 1.5-1.6 in the past to 2.4 today. BUN is 31. Lactic acid is minimally elevated at 2.1. The remainder of the labs are unremarkable. Patient has not been vomiting and requested to not be given any pain medication in the ER for his abdominal pain. He is resting comfortably on reevaluation. EKG, chest x-ray and CT of the abdomen show the patient has hepatic steatosis with no other acute process. Abdomen is soft and benign, vital signs are stable. Patient will be placed on Protonix and Levsin for home. Follow-up with PCP for reevaluation and return to the emergency department if symptoms change or worsen. Patient was given IV fluids in the ER for his increasing creatinine and BUN. He was encouraged to keep up with fluids for home. SUPERVISED APC VISIT, PHYSICIAN ATTESTATION: Based on the medical record the care appears appropriate. ? Medical Records Attestation: I reviewed the patient's medical records. Lab Data Attestation: I reviewed the patient's lab results. Labs: Lab Results 06/30/24 06/30/24 Range/Units 19:40 20:25 WBC 10.6 (4.0-11.0) 10^3/uL RBC 5.73 (4.70-6.10) 10^6/uL Hgb 15.3 (14.0-18.0) g/dL Hct 46.8 (42.0-54.0) % MCV 81.7 (80.0-94.0) fL MCH 26.7 (25.9-34.0) pg MCHC 32.7 (29.9-35.2) g/dL RDW 13.2 (11.0-15.0) % Plt Count 275 (150-450) 10^3/uL MPV 10.3 (9.5-13.5) fL Neut % (Auto) 58.9 (43.0-75.0) % Lymph % (Auto) 25.8 (20.5-60.0) % [place] % (Auto) 11.8 (1.7-12.0) % Eos % (Auto) 2.7 (0.9-7.0) % Baso % (Auto) 0.5 (0.2-2.0) % Neut # (Auto) 6.3 (1.4-6.5) 10^3/uL Lymph # (Auto) 2.7 (1.2-3.8) 10^3/uL [place] # (Auto) 1.3 H (0.3-0.8) 10^3/uL Eos # (Auto) 0.3 (0.0-0.7) 10^3/uL Baso # (Auto) 0.1 (0.0-0.1) 10^3/uL Abs Immat Gran (auto) 0.03 (0.00-0.03) 10^3/uL Imm/Tot Granulo (auto) 0.3 (0.0-0.5) % PT 11.9 H (9.0-11.6) sec INR 1.14 Sodium 138 (136-145) mmol/L Potassium 4.6 (3.5-5.1) mmol/L Chloride 103 (98-107) mmol/L Carbon Dioxide 25.7 (21.0-32.0) mmol/L Anion Gap 13.9 BUN 31.0 H (7.0-18.0) mg/dL Creatinine 2.44 H (0.70-1.30) mg/dL Est GFR ( Amer) 34 L (>=60 mL/min/1.73m^2) Est GFR (Non-Af Amer) 28 L (>=60 mL/min/1.73m^2) BUN/Creatinine Ratio 12.7 Glucose 176 H (74-106) mg/dL Lactate 2.1 H (0.4-2.0) mmol/L Calcium 9.2 (8.5-10.1) mg/dL Total Bilirubin 0.5 (0.2-1.0) mg/dL AST 15 (15-37) U/L ALT 33 (16-63) U/L Alkaline Phosphatase 95 (46-116) U/L Troponin I High Sens <4.0 L (4.0-76.1) pg/mL Total Protein 7.9 (6.4-8.2) g/dL Albumin 3.8 (3.4-5.0) g/dL Globulin 4.1 g/dL Albumin/Globulin Ratio 0.9 Lipase 65.0 (16.0-77.0) U/L Urine Color Lt. yellow (YELLOW) Urine Clarity Clear (CLEAR) Urine pH 6.0 (5.0-9.0) Ur Specific [place] <=1.005 A (1.005-1.025) Urine Protein Negative (NEG/TRACE) mg/dL Urine Glucose (UA) Negative (NEGATIVE) mg/dL Urine Ketones Negative (NEGATIVE) mg/dL Urine Occult Blood Negative (NEGATIVE) Urine Nitrite Negative (NEGATIVE) Urine Bilirubin Negative (NEGATIVE) Urine Urobilinogen 0.2 (0.2-1.0) EU/dL Ur Leukocyte Esterase Negative (NEGATIVE) Imaging Data CT scan - abdomen: Attestation: I have reviewed the pertinent imaging results. Radiologist's impression: ITS Impressions Abdomen/Pelvis CT 06/30/24 19:28 IMPRESSION: 1. No acute abdominal or pelvic pathology. 2. Severe hepatic steatosis with mild hepatic enlargement. 3. Incidental diverticulosis without evidence of colitis. Electronically authenticated by: TORRES JAMES Date: 06/30/2024 20:21 Chest X-Ray 06/30/24 19:28 IMPRESSION: No acute cardiopulmonary disease. This report was generated with voice recognition software. Effort has been made to ensure accuracy of this report, however, occasional wording errors may persist. Please contact our office with any questions. Electronically authenticated by: TORRES JAMES Date: 06/30/2024 20:22 ECG Data Attestation: I personally reviewed and interpreted this ECG as follows: (Normal sinus rhythm at a rate of 70, no acute ST elevation or ectopy. EKG reviewed by attending physician.) Discharge Plan Discharge Chief Complaint: Abdominal Pain Clinical Impression: Abdominal pain, Acute kidney injury Patient Disposition: Home, Self-Care Time of Disposition Decision: 21:03 Condition: Good Prescriptions / Home Meds: New pantoprazole [Protonix] 40 mg tablet,delayed release (DR/EC) 40 mg PO DAILY Qty: 7 0RF hyoscyamine sulfate [Levsin] 0.125 mg tablet 0.125 mg PO Q6H PRN (Reason: abdominal pain) Qty: 12 0RF ondansetron 4 mg tablet,disintegrating 4 mg PO Q6H PRN (Reason: nausea and vomiting) Qty: 12 0RF No Action Jardiance 25 mg tablet 25 mg PO DAILY losartan/hct 100 mg PO DAILY amlodipine 5 mg tablet 5 mg PO QDAY losartan-hydrochlorothiazide 100-12.5 mg tablet 1 tab PO DAILY metformin 1,000 mg tablet 1,000 mg PO BID Januvia 100 mg tablet 100 mg PO DAILY hydrocodone-acetaminophen 5-325 mg tablet 1 tab PO Q6H PRN (Reason: pain) 3 Days Qty: 12 0RF Rx Instructions: DX: M10.9 ketorolac 10 mg tablet 10 mg PO TID PRN (Reason: pain) Qty: 10 0RF acetaminophen-codeine 300-30 mg tablet 1 tab PO Q6H PRN (Reason: pain) 5 Days Qty: 20 0RF ibuprofen 800 mg tablet 800 mg PO Q8H PRN (Reason: pain) Qty: 20 0RF Print Language: Czech Instructions: Acute Abdominal Pain (ED) Additional Instructions: Please keep drinking fluids at home, please avoid taking NSAIDs like motrin (ibuprofen) or aleve (naproxen) Referrals: Alex Gorman [Primary Care Provider] - 1 week
[2024-06-30 19:51] LABS: Basophils Absolute Auto 0.1 10^3/uL (0.0-0.1); Basophils Percent Auto 0.5 % (0.2-2.0); Eosinophils Absolute Auto 0.3 10^3/uL (0.0-0.7); Eosinophils Percent Auto 2.7 % (0.9-7.0); Hematocrit 46.8 % (42.0-54.0); Hemoglobin 15.3 g/dL (14.0-18.0); Immature Granulocytes Abs Auto 0.03 10^3/uL (0.00-0.03); Immature Granulocytes Pct Auto 0.3 % (0.0-0.5); Lymphocytes Absolute Auto 2.7 10^3/uL (1.2-3.8); Lymphocytes Percent Auto 25.8 % (20.5-60.0); Mean Corpuscular HGB Conc 32.7 g/dL (29.9-35.2); Mean Corpuscular Hemoglobin 26.7 pg (25.9-34.0); Mean Corpuscular Volume 81.7 fL (80.0-94.0); Mean Platelet Volume 10.3 fL (9.5-13.5); Monocytes Absolute Auto 1.3 10^3/uL (0.3-0.8); Monocytes Percent Auto 11.8 % (1.7-12.0); Neutrophils Absolute Auto 6.3 10^3/uL (1.4-6.5); Neutrophils Percent Auto 58.9 % (43.0-75.0); Platelet Count 275 10^3/uL (150-450); Red Blood Count 5.73 10^6/uL (4.70-6.10); Red Cell Distribution Width 13.2 % (11.0-15.0); White Blood Count 10.6 10^3/uL (4.0-11.0)
[2024-06-30 20:10] LABS: INR 1.14; Prothrombin Time 11.9 sec (9.0-11.6)
[2024-06-30 20:23] LABS: Alanine Aminotransferase 33 U/L (16-63); Albumin Globulin Ratio 0.9; Albumin Level 3.8 g/dL (3.4-5.0); Alkaline Phosphatase 95 U/L (46-116); Anion Gap 13.9; Aspartate Amino Transferase 15 U/L (15-37); BUN Creatinine Ratio 12.7; Bilirubin Total 0.5 mg/dL (0.2-1.0); Calcium 9.2 mg/dL (8.5-10.1); Carbon Dioxide 25.7 mmol/L (21.0-32.0); Chloride 103 mmol/L (98-107); Estimated GFR (African America 34 (>=60 mL/min/1.73m^2); Estimated GFR (Non-African Ame 28 (>=60 mL/min/1.73m^2); Globulin 4.1 g/dL; Glucose 176 mg/dL (74-106); Potassium 4.6 mmol/L (3.5-5.1); Sodium 138 mmol/L (136-145); Total Protein 7.9 g/dL (6.4-8.2)
[2024-06-30 20:25] LABS: Troponin I High Sensitivity <4.0 pg/mL (4.0-76.1)
[2024-06-30 20:29] LABS: Lactate/Lactic Acid 2.1 mmol/L (0.4-2.0)
[2024-06-30 20:32] LABS: Bilirubin Urine NEGATIVE (NEGATIVE); Blood Urine NEGATIVE (NEGATIVE); Clarity Urine CLEAR (CLEAR); Color Urine LT. YELLOW (YELLOW); Glucose Urine UA NEGATIVE (NEGATIVE); Ketones Urine NEGATIVE (NEGATIVE); Leukocyte Esterase Urine NEGATIVE (NEGATIVE); Nitrite Urine NEGATIVE (NEGATIVE); Protein Urine NEGATIVE (NEG/TRACE); Specific Gravity Urine <=1.005 (1.005-1.025); Urobilinogen Urine 0.2 EU/dL (0.2-1.0)
[2024-06-30 20:36] LABS: Urine Microscopic Indicated NO
[2024-06-30] MEDS: 0.9 % SODIUM CHLORIDE 1,000 ML 1000 ML IV (20:44)
== END 2024-06-30 21:45 | disposition home or self-care (01) ==
PROVIDERS: Physician Assistant; Emergency Provider Emergency Medicine; PCP Physician Assistant
DX: R10.13 Epigastric pain (principal); N17.9 Acute kidney failure, unspecified; Z90.49 Acquired absence of other specified parts of digestive tract; K76.0 Fatty (change of) liver, not elsewhere classified; K57.90 Diverticulosis of intestine, part unspecified, without perforation or abscess without bleeding
CPT/HCPCS: 36415; 71045; 74177; 80053; 81003; 83605; 83690; 84484; 85025; 85610; 93005; 99285; Q9967

== ENCOUNTER 2024-11-14 23:12 | Emergency (ER) | payer MEDICAID, SELFPAY ==
[2024-11-14 23:18] VITALS: BP 186/106; PULSE 76; TEMP 36.7; O2SAT 96; BMI 82.9
--- OUTSIDE RECORDS SUMMARY | 2024-11-14 23:18 | XMS_ITS | CCD ---
Author Organization [facility] Care Team Providers Care Credit Administration Specialist Name Role Phone GALEN MCKAY Consulting Unavailable PAY, DR MEJIA Attending Unavailable PAY, DR MEJIA Admitting Unavailable REQUEST, NONE LISTED Primary Care Unavaila ble PAY, DR MEJIA Attending Unavailable PAY, DR MEJIA Admitting Unavailable WEST, DR PEG Xavier Consulting Unavailable REQUEST, NONE LISTED Primary Care Unavaila ble PAY, DR MEJIA Consulting Unavailable GALEN MCKAY Consulting Unavailable Shahram Vergara Unavailable DO Shahram Vergara Attending Provider NON STAFF Primary Care Provider UnavailMERLE Roman Primary Care Provider DO Shahram Vergara Attending Provider [phone] MERLE Gorman Primary Care Provider NELLY DON Attending UnavailPARKER Roman Referring Unavailable PARKER GORMAN Primary Care Unavailable BOMMANA, FERMIN GOPALA R Admitting Unavailab le ARUN, FERMIN GOPALA R Attending Unavailab JOSEF Wheeler Referring Un[facility] Unava ilable AMMY FLEMING Consulting Unavailable SARA WALKER Referring Unavailable SERVICES, [facility] Care Unava ilable MYNOR JOSHUA Attending Unavailable KELLY PORRAS Referring Unavailable MYNOR JOSHUA Attending Unavailable MYNOR JOSHUA Referring Unavailable MYNOR JOSHUA Attending Unavailable MYNOR JOSHUA [facility]ending [facility] Shahram Vergara DO Attending Provider [phone] Parker Gorman PA-C Primary Care Provider Parker Gorman PA-C [facility] Provider Shahram Vergara DO A Attending Provider Vita BLOOM, Parker Machado Primary Care Provider Services, [facility] Care Provider JANET VENTURA Attending Unavailable KELLY PORRAS Referring Unavailable SERVICES, [facility] Care Unava ilable JANET VENTURA Attending Unavailable SERVICES, [facility] Care Unava ilable Lelo Vergarain A Attending Unavailable Alejandra Shahram A Admitting Unavailable Parker Gorman Primary Care Unavailable Lelo Vergarain A Attending Unavailable Alejandra Shahram A Admitting Unavailable Parker Gorman Primary Care Unavailable Lelo Vergarain A Attending Unavailable Lelo Vergarain A Admitting Unavailable Parker Gorman Primary Care Unavailable Shahram Vergara A Attending Unavailable Parker Gorman Primary Care Unavailable Lelo Vergarain A Admitting Unavailable Services, [facility] Primary Care Provider SARA CARRIZALES Attending Unavailable PARKER GORMAN Referring Unavailable SERVICES, [facility] Primary Care Unava ilable SERVICES, [facility] Care Unava ilable MASON AMAYA Attending Unavailable MASON AMAYA Referring Unavailable SERVICES, [facility] Unava ilable SERVICES, [facility] Unava ilable LYUDMILA PLATA Attending Unavailable LELO VERGARAIN A Referring Unavailable SERVICES, [facility] Unava ilable JANET VENTURA Referring Unavailable SERVICES, [facility] Care Unava ilable PORRAS, KELLY Referring Unavailable PARKER GORMAN Primary Care Unavailable KELLY PORRAS Referring Unavailable PARKER GORMAN Primary Care Unavailable SHAHRAM VERGARA A Referring Unavailable SERVICES, [facility] Care Unava ilable SERVICES, [facility] Care Unava ilable RUFINO MEHTA Attending Unavailable KARINE BALTAZAR Attending Unavailable SERVICES, [facility] Unava ilable JANET VENTURA Referring Unavailable SERVICES, [facility] Unava ilable SARA CARRIZALES Attending Unavailable SARA CARRIZALES Referring Unavailable SERVICES, [facility] Unava ilable SVETA CORNELL Attending Unavailable SVETA CORNELL Referring Unavailable SERVICES, [facility] Care Unava ilable SVETA CORNELL Attending Unavailable SERVICES, [facility] Unava ilable PORRAS, KELLY Referring Unavailable PARKER GORMAN Primary Care Unavailable Medications Current Medications Medication Drug Class(es) Dates Sig (Normalized) Sig (Original) [id number] 200 actuat albuterol 0.09 mg/actuat metered dose inhaler (20 sources) beta2-Adrenergic Agonist take 2 puff(s) by inhalation every six hours as needed for wheezing albuterol (PROVENTIL HFA;VENTOLIN HFA) 90 mcg/actuation inhaler Inhale 2 puffs every 6 (six) hours as needed for wheezing. Active atorvastatin 40 mg oral tablet (20 sources) HMG-CoA Reductase Inhibitor Start: 11-07-2023 End: 11-08-2023 take 1 tablet by mouth once daily atorvastatin (LIPITOR) 40 mg tablet Take 1 tablet (40 mg total) by mouth nightly. 30 tablet 11/08/2023 Active carvedilol 12.5 mg oral tablet (18 sources) alpha-Adrenergic Lanie, beta-Adrenergic Lanie Start: 12-03-2023 take 1 tablet by mouth in the morning, then take 1 tablet by mouth at bedtime carvediloL (COREG) 12.5 mg tablet Take 1 tablet (12.5 mg total) by mouth in the morning and 1 tablet (12.5 mg total) before bedtime. 180 tablet 3 12/03/2023 Active colchicine 0.6 mg oral tablet (7 sources) Start: 07-31-2024 End: 08-03-2024 take 2 tablets by mouth once, then take 1 tablet by mouth every hour Colchicine 0.6 mg tablet Active 0.6 MG PO Once August 03, 2024 3:43pm take two tablets now, then take one tablet in one hour may repeat in 72 hours if needed docosahexaenoic acid/epa (FISH OIL ORAL) (2 sources) docosahexaenoic acid/epa (FISH OIL ORAL) Take by mouth. Active hydroCHLOROthiazide 12.5 mg / losartan potassium 100 mg oral tablet (20 sources) Thiazide Diuretic, Angiotensin 2 Receptor Lanie Start: 03-26-2023 take 1 tablet by mouth once daily Losartan-Hydrochlor othiazide 100-12.5 mg tablet Active 1 TAB PO Daily March 26, 2023 12:00am take 1 tablet by jaimie th once in the morning losartan-hydroCHLOROthiazide (HYZAAR) 10 0-12.5 mg per tablet Take 1 tablet by mouth in the morning. Active ibuprofen 200 mg oral capsule (20 sources) Nonsteroidal Anti-inflammatory Drug Start: 07-31-2024 End: 08-03-2024 take 4 capsules by mouth three times daily Ibuprofen 200 mg capsule Active 800 MG PO Three times daily 90 August 03, 2024 3:43pm Start: 03-26-2023 End: 07-31-2024 take 4 capsules by mouth once daily Ibuprofen 200 mg Capsule Discontinued 800 MG PO Daily March 26, 2023 12:00am July 31, 2024 11:13am Start: 03-26-2023 take 800 mg by mouth once kitty y Ibuprofen Active 800 MG PO Daily March 26, 2023 12:00am lidocaine 0.05 mg/mg medicated patch (4 sources) Antiarrhythmic, Amide Local Anesthetic Start: 07-03-2024 apply 1 dose transdermal route once daily, then apply 1 dose transdermal route every twelve hours lidocaine (LIDODERM) 5 % Place 1 patch on the skin daily. Remove & Discard patch within 12 hours or as directed by MD Anabel carter 07/03/2024 Active metFORMIN hydrochloride 1000 mg oral tablet (20 sources) Biguanide Start: 07-23-2023 take 1 tablet by mouth in the morning, then take 1 tablet by mouth at mealtime metFORMIN (GLUCOPHAGE) 1000 mg tablet Take 1 tablet (1,000 mg total) by mouth in the morning and 1 tablet (1,000 mg total) in the evening. Take with meals. 07/23/2023 Active naproxen 500 mg oral tablet (3 sources) Nonsteroidal Anti-inflammatory Drug Start: 08-19-2024 take 1 tablet by mouth twice daily Naproxen 500 mg tablet Active 500 MG PO Twice daily 60 August 19, 2024 1:00am SITagliptin 100 mg oral tablet (20 sources) Dipeptidyl Peptidase 4 Inhibitor Start: 03-26-2023 End: 11-08-2023 take 1 tablet by mouth once daily Sitagliptin Phosphate (Januvia) 100 mg tablet Active 100 MG PO Daily March 26, 2023 12:00am Completed/Discontinued Medications Medication Drug Class(es) Dates Sig (Normalized) Sig (Original) acetaminophen 325 mg oral tablet (16 sources) Start: 11-07-2023 End: 11-08-2023 take 1 tablet by mouth every four hours as needed for pain and headache and fever 650 mg, oral, Every 4 hours PRN, mild pain - pain scale 1-3, headaches, temperature greater than 38 C, Temperature greater than 38.3 C, Starting on Sat11/07/23 at 1135, [Warning: Total Acetaminophen not to exceed more than 4 grams (4000 mg) in 24 hours] Start: 03-26-2023 Acetaminophen (Tylenol Ex Str Arthritis Pain) 500 mg Tablet Active 1000 MG PO Daily as needed for Pain March 26, 2023 12:00am amLODIPine 10 mg oral tablet (20 sources) Dihydropyridine Calcium Channel Lanie Start: 11-08-2023 End: 12-03-2023 take 10 mg by mouth once daily 10 mg, oral, Daily, First dose (after last modification) on Sat11/08/23 at 0900, Look-alike/sound-alike medication - verify indication for use. Avoid grapefruit juice. Start: 03-26-2023 End: 04-01-2024 take 1 tablet by mouth once daily Amlodipine 5 mg tablet Discontinued 5 MG PO Daily March 26, 2023 12:00am April 01, 2024 1:39pm aspirin 81 mg delayed release oral tablet (14 sources) Platelet Aggregation Inhibitor, Nonsteroidal Anti-inflammatory Drug Start: 11-08-2023 End: 11-08-2023 take 81 mg by mouth once daily 81 mg, oral, Daily, First dose on Sat11/08/23 at 0900, Do not crush or chew. Start: 08-02-2023 End: 04-01-2024 take 1 tablet by mouth twice daily Aspirin 81 mg tablet,chewable Discontinued 81 MG PO Twice daily August 02, 2023 1:00am April 01, 2024 1:38pm FreeTextSi tablet Orally Twice a day; Note: Source Status: Start; Refills: 0; Qty: 42 Tablet; Provider: Alejandra So Start: 07-17-2023 take 1 tablet by jaimie every twelve hours Aspirin 81 MG 1 tablet Orally Twice a day for 21 days Jun, Active 100 ml calcium gluconate 20 mg/ml injection (1 source) Start: 11-07-2023 End: 11-08-2023 take 4-4.3 mg intravenously every hour as needed 2,000 mg, intravenous, at 50 mL/hr, Administer over 2 Hours, As needed, ionized calcium 4 to 4.3 mg/dL, Starting on Alyx 11/07/23 at 1135, IV Administration of calcium via a central or deep vein preferred. Avoid administration in small hand veins VESICANT (RED) calcium gluconate 3,000 mg in sodium chloride 0.9 % 100 mL IVPB (1 source) Start: 11-07-2023 End: 11-08-2023 take 3.5-3.9 mg intravenously every hour as needed 3,000 mg, intravenous, at 43.3 mL/hr, Administer over 3 Hours, As needed, ionized calcium 3.5 to 3.9 mg/dL, Starting on Alyx 11/07/23 at 1135, IV Administration of calcium via a central or deep vein preferred. Avoid administration in small hand veins VESICANT (RED) calcium gluconate 4,000 mg in sodium chloride 0.9 % 250 mL IVPB (1 source) Start: 11-07-2023 End: 11-08-2023 take 3.4 mg intravenously every hour as needed 4,000 mg, intravenous, at 72.5 mL/hr, Administer over 4 Hours, As needed, ionized calcium 3.4 mg/dL or less, Starting on Alyx 11/07/23 at 1135, IV administration of calcium via a central or deep vein is preferred. Avoid administration in small hand veins. VESICANT (RED) docusate sodium 50 mg / sennosides, fci 8.6 mg oral tablet (1 source) Start: 11-07-2023 End: 11-08-2023 take 1 tablet by mouth every twelve hours as needed for constipation 1 tablet, oral, Every 12 hours PRN, constipation, Starting on Alyx 11/07/23 at 1135 empagliflozin 10 mg oral tablet (20 sources) Sodium-Glucose Cotransporter 2 Inhibitor Start: 11-08-2023 End: 11-08-2023 take 25 mg by mouth once daily 25 mg, oral, Daily, First dose (after last modification) on Sat11/08/23 at 0900 Start: 07-23-2023 End: 07-22-2024 take 1 tablet by mouth once daily Empagliflozin (Jardiance) 25 mg tablet Discontinued 25 MG PO Daily July 23, 2023 1:00am July 22, 2024 2:54pm glucagon (rdna) 1 mg injection (1 source) Antihypoglycemic Agent Start: 11-07-2023 End: 11-08-2023 1 mg, intramuscular, As needed, low blood sugar, blood glucose less than 70 mg/dL and unconscious or NPO without IV access., Starting on Alyx 11/07/23 at 1135, If conscious and not NPO, immediately follow with meal tray or high protein (7Grams) snack if tray not available. If NPO, initiate IV 5% Dextrose/Water at 100 mL/hr and contact prescriber for additional orders. If blood glucose is not greater than 70 mg/dL after initial treatment, repeat treatment. 150 ml glucose 50 mg/ml injection (3 sources) Start: 11-07-2023 End: 11-08-2023 15 g, oral, As needed, low blood sugar, blood glucose less than 70 mg/dL, Starting on Alyx 11/07/23 at 1135, If patient conscious and taking PO. If blood glucose is not greater than 70 mg/dL after initial treatment, repeat treatment. Start: 11-07-2023 End: 11-08-2023 25 mL, intravenous, As neede d, low blood sugar, blood glucose less than 70 mg/dL and unconscious or NPO with IV access, Starting on Alyx 11/07/23 at 1135, Push over 1-3 minutes STAT. If conscious and not NPO, immediately follow with meal tray or high protein (7 grams) snack if tray not available. If NPO, initiate 5% dextrose in water at 100 mL/hr and contact prescriber for additional orders. If blood glucose is not greater than 70 mg/dL after initial treatment, repeat treatment. VESICANT (RED) Warning: HYPERTONIC solution. Start: 11-07-2023 End: 11-08-2023 take 70 mg intravenously every hour 100 mL/hr, intravenous, Continuous PRN, blood glucose less than 70 mg/dL, Starting on Alyx 11/07/23 at 1135, Use immediately following dextrose 50% or glucagon treatment for patients who are unconscious or NPO. Contact prescriber for additional orders. If blood glucose is not greater than 70 mg/dL after initial treatment, repeat treatment. indomethacin 50 mg oral capsule (7 sources) Nonsteroidal Anti-inflammatory Drug Start: 07-31-2024 End: 08-19-2024 take 1 capsule by mouth three times daily at mealtime Indomethacin 50 mg capsule Discontinued 50 MG PO Three times daily 42 August 03, 2024 3:43pm August 19, 2024 3:58pm administer with food or milk 3 ml insulin lispro 100 unt/ml pen injector (2 sources) Insulin Analog Start: 11-08-2023 End: 11-08-2023 inject 400 mg by subcutaneous injection three times daily at mealtime, then inject 2 [IU] by subcutaneous injection 15 minutes after mealtime 2-10 Units, subcutaneous, 3 times daily with meals, First dose on Sat11/08/23 at 0800, Daytime hyperglycemia dosing. For blood glucose 151-200 mg/dL, give 2 units. For blood glucose 201-250 mg/dL, give 4 units. For blood glucose 251-300 mg/dL, give 6 units. For blood glucose 301-350 mg/dL, give 8 units. For blood glucose 351-400 mg/dL, give 10 units. Give even if NPO or meals skipped. Do NOT give more often then every 4 hours when NPO. Notify prescriber if blood glucose greater than 400 mg/dL. Look-alike/sound- alike medication - verify indication for use. Prime with 2 units of insulin prior to administration. Prandial/suppleme ntal Insulin. Pre-filled pens stable 28 days at room temperature. Insulin lispro should be administered within 15 minutes before or immediately after a meal. Start: 11-07-2023 End: 11-08-2023 inject 400 mg by subcutaneous injection once daily, then inject 2 [IU] by subcutaneous injection 15 minutes after mealtime 2-8 Units, subcutaneous, Nightly, First dose on Sat11/07/23 at 2200, Bedtime hyperglycemia dosing. For blood glucose 201-250 mg/dL, give 2 units. For blood glucose 251-300 mg/dL, give 4 units. For blood glucose 301-350 mg/dL, give 6 units. For blood glucose 351-400 mg/dL, give 8 units. Give even if NPO or meals skipped. Do NOT give more often then every 4 hours when NPO. Notify prescriber if blood glucose greater than 400 mg/dL. Look-alike/sound-alike medication - verify indication for use. Prime with 2 units of insulin prior to administration. Prandial/supplemental Insulin. Pre-filled pens stable 28 days at room temperature. Insulin lispro should be administered within 15 minutes before or immediately after a meal. losartan (COZAAR) 50 mg, hydroCHLOROthiazide (HYDRODIURIL) 12.5 mg for HYZAAR 50/12.5 (1 source) Start: 11-08-2023 End: 11-08-2023 take 1 dose by mouth once daily oral, Daily, First dose (after last modification) on Sat11/08/23 at 0900, Give both components as replacement for Hyzaar 50/12.5. 50 ml magnesium sulfate 40 mg/ml injection (2 sources) Start: 11-07-2023 End: 11-08-2023 2,000 mg, intravenous, at 25 mL/hr, Administer over 120 Minutes, As needed, Magnesium level 1.7 to 1.9 mg/dL, or Ionized Magnesium level 0.45 to 0.5 mmol/L., Starting on Alyx 11/07/23 at 1135, Recheck magnesium level 4 hours after infusion complete. With each magnesium result continue the replacement orders as needed. Start: 11-07-2023 End: 11-08-2023 4,000 mg, intravenous, at 25 mL/hr, Administer over 240 Minutes, As needed, Magnesium level 1.6 mg/dL or less, or Ionized Magnesium level 0.44 mmol/L or less, Starting on Alyx 11/07/23 at 1135, Recheck magnesium level 4 hours after infusion complete. With each magnesium result continue the replacement orders as needed. methylPREDNISolone 4 mg oral tablet (15 sources) Corticosteroid Start: 07-31-2024 End: 08-19-2024 Methylprednisolone 4 mg tablets,dose pack Discontinued 0 PO per package directions August 03, 2024 3:43pm August 19, 2024 3:58pm PO PER PKG DIR for 6 days Start: 07-22-2024 End: 07-31-2024 take 1 tablet by mouth once Methylprednisolone (Medrol (Gd)) 4 mg tablets,dose pack Discontinued 0 PO per package directions July 22, 2024 1:00am July 31, 2024 10:19am PO PER PKG DIR for 6 days 2 ml ondansetron 2 mg/ml injection (1 source) Serotonin-3 Receptor Antagonist Start: 11-07-2023 End: 11-08-2023 take 4 mg intravenously every eight hours as needed for nausea and vomiting 4 mg, intravenous, Every 8 hours PRN, nausea, vomiting, Starting on Sat11/07/23 at 1135, Administer over 2-5 minutes. oxyCODONE hydrochloride 5 mg oral tablet (13 sources) Opioid Agonist Start: 08-02-2023 End: 08-05-2023 take 1 tablet by mouth every four hours as needed for pain Oxycodone 5 mg tablet Discontinued 1 TAB PO Every 4 hours August 02, 2023 1:00am August 05, 2023 2:13pm FreeTextSi tablet Orally Every 4 hours, as needed for pain; Note: Source Status: StartDEA # [id number]; Refills: 0; Qty: 42 Tablet; Provider: Alejandra So Start: 07-17-2023 take 1 tablet by jaimie th every four hours as needed for pain oxyCODONE HCl 5 MG 1 tablet Orally Every 4 hours, as needed for pain for 7 days LIZZ # [id number] Jun, Active Potassium Chloride (1 source) Start: 11-07-2023 End: 11-08-2023 potassium chloride (K-TAB,KLOR-CON) CR tablet 30-50 mEq 1000 ml sodium chloride 9 mg/ml injection (7 sources) Start: 11-08-2023 End: 11-08-2023 take 250 mL intravenously every hour 250 mL/hr, intravenous, Continuous, Starting on Sat11/08/23 at 0900, For 2 hours Start: 11-07-2023 End: 11-08-2023 3 mL, intravenous, Every 12 hours scheduled, First dose on Sat11/07/23 at 1145 Start: 11-07-2023 End: 11-08-2023 Start: 11-07-2023 End: 11-08-2023 take 20 mL intravenously every hour as needed 20 mL/hr, intravenous, Continuous PRN, to maintain patency of lines, Starting on Sat11/07/23 at 1135 Start: 11-07-2023 End: 11-08-2023 take 25 mL intravenously every hour as needed 25 mL, intravenous, at 100 mL/hr, Administer over 15 Minutes, As needed, line care, line care after IVPB administration, Starting on Alyx 11/07/23 at 1135 sodium phosphate 20 mmol in sodium chloride 0.9 % 250 mL IVPB (1 source) Start: 11-07-2023 End: 11-08-2023 sodium phosphate 20 mmol in sodium chloride 0.9 % 250 mL IVPB traMADol hydrochloride 50 mg oral tablet (8 sources) Opioid Agonist Start: 07-22-2024 End: 07-31-2024 take 1 tablet by mouth every four hours as needed for pain Tramadol 50 mg tablet Discontinued 50 MG PO Every 4 hours as needed for pain 30 July 22, 2024 1:00am July 31, 2024 10:19am Dispense quantity of thirty tablets M79.631 Problems Active Problems Problem Classification Problem Date Documented Date Episodic/Chronic Acute myocardial infarction (20 sources) Non-ST elevation (NSTEMI) myocardial infarction; Translations: [Acute non-ST segment elevation myocardial infarction] Onset: 11-07-2023 11-07-2023 Chronic Diabetes mellitus without complication (14 sources) Type 2 diabetes mellitus without complications; Translations: [Diabetes mellitus] Onset: 11-06-2021 08-02-2023 Chronic Disorders of lipid metabolism (3 sources) Hyperlipidemia; Translations: [Hyperlipidemia, unspecified] Onset: 06-08-2024 06-05-2024 Chronic Essential hypertension (20 sources) Hypertensive disorder; Translations: [Essential (primary) hypertension] Onset: 10-09-2023 08-02-2023 Chronic Gout and other crystal arthropathies (13 sources) Gout; Translations: [Gout, unspecified] 07-31-2024 Chronic Joint disorders and dislocations; trauma-related (6 sources) Derangement of left knee; Translations: [Unspecified internal derangement of left knee] Chronic Osteoarthritis (1 source) Primary osteoarthritis, left shoulder; Translations: [Primary osteoarthritis, left shoulder] Onset: 07-03-2024 Chronic Other aftercare (1 source) FDC (current) use of oral hypoglycemic drugs; Translations: [BEVERAGE INSPECTION MACHINE TENDER USE ORAL HYPOGLYCEMIC DX] Onset: 05-23-2022 Episodic Other aftercare (1 source) Other extermination inspector (current) drug therapy; Translations: [OTH BEVERAGE INSPECTION MACHINE TENDER CURRENT DRUG THERAPY] Onset: 05-23-2022 Episodic Other aftercare (6 sources) Encounter for removal of sutures; Translations: [Encounter for removal of sutures] 08-05-2023 Episodic Other bone disease and musculoskeletal deformities (6 sources) Chondromalacia, left knee; Translations: [Chondromalacia] Episodic Other bone disease and musculoskeletal deformities (12 sources) Chondromalacia; Translations: [Chondromalacia, right knee] 08-02-2023 Episodic Other bone disease and musculoskeletal deformities (3 sources) Chondromalacia, right knee; Translations: [Chondromalacia] 08-05-2023 Episodic Other bone disease and musculoskeletal deformities (11 sources) Chondromalacia; Translations: [Chondromalacia, left knee] 09-02-2023 Episodic Other connective tissue disease (8 sources) Pain of right forearm; Translations: [Pain in right forearm] 07-22-2024 Episodic Other connective tissue disease (19 sources) Pain in right forearm; Translations: [Pain in limb] Onset: 07-29-2024 07-22-2024 Episodic Other connective tissue disease (1 source) Pain in upper limb Onset: 07-03-2024 Episodic Other non-traumatic joint disorders (4 sources) Pain in right knee; Translations: [PAIN IN RIGHT KNEE] Onset: 05-21-2022 Episodic Other non-traumatic joint disorders (1 source) Effusion, right knee; Translations: [EFFUSION RIGHT KNEE] Onset: 05-23-2022 Episodic Other non-traumatic joint disorders (3 sources) Other instability, left knee Episodic Other non-traumatic joint disorders (3 sources) Pain in left knee Episodic Other non-traumatic joint disorders (8 sources) Pain in elbow; Translations: [Pain in right elbow] 07-22-2024 Episodic Other non-traumatic joint disorders (9 sources) Pain in wrist; Translations: [Pain in right wrist] Onset: 07-17-2024 07-22-2024 Episodic Other non-traumatic joint disorders (7 sources) Pain in right wrist; Translations: [Pain in joint, forearm] Onset: 07-22-2024 08-19-2024 Episodic Other non-traumatic joint disorders (1 source) Pain in right elbow; Translations: [Pain in right elbow] Onset: 07-22-2024 Episodic Other nutritional; endocrine; and metabolic disorders (1 source) Obese class I; Translations: [Obesity (BMI 30.0-34.9)] 06-05-2024 Chronic Other nutritional; endocrine; and metabolic disorders (1 source) Obesity, unspecified; Translations: [Obesity, unspecified] Onset: 09-02-2024 Chronic Other upper respiratory infections (20 sources) Chronic sinusitis; Translations: [Chronic sinusitis, unspecified] Onset: 11-06-2022 01-21-2023 Chronic Residual codes; unclassified (3 sources) Obstructive sleep apnea (adult) (pediatric); Translations: [OBSTRUCTIVE SLEEP APNEA] Onset: 05-23-2022 Chronic Residual codes; unclassified (20 sources) Obstructive sleep apnea syndrome; Translations: [Obstructive sleep apnea (adult) (pediatric)] Onset: 03-26-2013 01-21-2023 Chronic Residual codes; unclassified (3 sources) Sleep related hypoxemia; Translations: [Sleep related hypoventilation in conditions classified elsewhere] 06-08-2024 Chronic Residual codes; unclassified (1 source) Sleep related hypoventilation in conditions classified elsewhere; Translations: [Sleep related hypoventilation in conditions classified elsewhere] Onset: 09-02-2024 Chronic Residual codes; unclassified (1 source) Sleep apnea Onset: 12-11-2023 Chronic Residual codes; unclassified (12 sources) Postprocedural state finding; Translations: [Other specified postprocedural states] 08-02-2023 Episodic Residual codes; unclassified (7 sources) Other specified postprocedural states; Translations: [Other postprocedural status] 08-05-2023 Episodic Residual codes; unclassified (8 sources) Inflammatory disorder 07-22-2024 Episodic Residual codes; unclassified (1 source) Pain, unspecified; Translations: [Pain, unspecified] Onset: 07-03-2024 Episodic Sprains and strains (20 sources) Injury of shoulder and upper arm; Translations: [Strain of muscle, fascia and tendon of other parts of biceps, unspecified arm, initial encounter] Onset: 07-29-2024 07-22-2024 Episodic Unclassified (1 source) New Patient Onset: 12-11-2023 Unclassified (1 source) Obesity, class 1; Translations: [Obesity, class 1] Onset: 06-08-2024 Unclassified (1 source) Hand Pain, Injury Onset: 12-12-2023 Past or Other Problems Problem Classification Problem Date Documented Date Episodic/Chronic Allergic reactions (1 source) Unspecified contact dermatitis, unspecified cause; Translations: [UNS CONTACT DERMATITIS UNS CAUSE] Onset: 11-06-2021 Episodic Mood disorders (20 sources) Mood disorders Onset: 11-07-2023 11-07-2023 Nonspecific chest pain (3 sources) Chest pain, unspecified; Translations: [Chest pain] Onset: 10-29-2023 Episodic Other connective tissue disease (1 source) Hand pain Onset: 12-12-2023 Episodic Other lower respiratory disease (2 sources) Shortness of breath; Translations: [Shortness of breath] Onset: 10-09-2023 Episodic Other lower respiratory disease (20 sources) Dyspnea; Translations: [Shortness of breath] Onset: 10-09-2023 10-09-2023 Episodic Other screening for suspected conditions (not mental disorders or infectious disease) (20 sources) Electrocardiogram abnormal; Translations: [Abnormal electrocardiogram [ECG] [EKG]] Onset: 01-21-2023 01-21-2023 Episodic Other skin disorders (3 sources) Rash and other nonspecific skin eruption; Translations: [RASH OTH NONSPECIFIC SKIN ERUPTION] Onset: 11-03-2021 Episodic Other upper respiratory disease (20 sources) Deviated nasal septum; Translations: [Deviated nasal septum] Onset: 11-19-2022 01-21-2023 Episodic Other upper respiratory disease (20 sources) Hypertrophy of nasal turbinates; Translations: [Hypertrophy of nasal turbinates] Onset: 11-19-2022 01-21-2023 Episodic Results Test Name Value Interpretation Reference Range Facility X-ray reportOrdered By: Vel Dominguez on 09-09-2024 Study report [facility] [address] [place] [address] XRay Report Signed Patient: Merlin Fish MR#: [id number] : 1970 Acct:[id number] Age/Sex: 54 / M ADM Date: 5 Loc: [facility] Room: Type: [facility] Attending Dr: Shahram Vergara DO Copies to: Shahram Vergara DO~ Ordering Provider: Shahram Vergara DO Date of Service: 09/09/24 XR/XR wrist RT min 3V*: M25.531 - Pain in right wrist RIGHT WRIST - 4 views CLINICAL HISTORY: Injury right wrist. Now with pain for one day. COMPARISON: Right wrist 07/22/2024 FINDINGS: No focal soft tissue abnormality. No acute bony process is seen. Mild degenerative changes involving the carpus particularly involving the scaphotrapezial joint. No bony erosions. XR/XR wrist RT min 3V* IMPRESSION: MILD DEGENERATIVE CHANGES WITHOUT ACUTE BONY PROCESS. Impression dictated by: Dorina Hollins Jr..OAbraham09/09/2024 5:56 PM Dictation Location: RADIO-PC-18 Transcribed By: SAMIA 09/09/241755 Dictated By: Mauro Dominguez Jr, DO 09/09/241754 Signed By: 09/09/241755 [facility] XR wrist RT min 3V*on 2024 XR wrist RT min 3V* [facility] [address] [place] [address] XRay Report Signed Patient: Merlin Fish MR#: [id number] : 1970 Acct:[id number] Age/Sex: 54 / M ADM Date: 09/09/24 Loc: [facility] Room: Type: [facility] Attending Dr: Shahram Vergara DO Copies to: Shahram Vergara DO Ordering Provider: Shahram Vergara DO Date of Service: 09/09/24 XR/XR wrist RT min 3V*: M25.531 - Pain in right wrist RIGHT WRIST - 4 views CLINICAL HISTORY: Injury right wrist. Now with pain for one day. COMPARISON: Right wrist 07/22/2024 FINDINGS: No focal soft tissue abnormality. No acute bony process is seen. Mild degenerative changes involving the carpus particularly involving the scaphotrapezial joint. No bony erosions. XR/XR wrist RT min 3V* IMPRESSION: MILD DEGENERATIVE CHANGES WITHOUT ACUTE BONY PROCESS. Impression dictated by: Faith Hollins Jr.OAbraham09/09/2024 5:56 PM Dictation Location: RADIO-PC-18 Transcribed By: SAMIA 09/09/241755 Dictated By: Mauro Dominguez Jr, DO 09/09/241754 Signed By: 09/09/241755 Normal [facility] MR forearm RT wo conon 07-29 MR forearm RT wo con [facility] [place] [id number] MRI Report Signed Patient: Merlin Fish MR#: [id number] : 1970 Acct:[id number] Age/Sex: 54 / M ADM Date: 07/29/24 Loc: [facility] Room: Type: [facility] Attending Dr: Shahram Vergara DO Copies to: Shahram Vergara DO Ordering Provider: Shahram Vergara DO Date of Service: 07/29/24 MR/MR forearm RT wo con: eval for bicipital aponeurosis MRI of the right forearm without contrast Routine technique HISTORY: Injury 3 weeks ago. Pain around wrist. Evaluate bicipital aponeurosis. Radius and ulna are intact. No fracture. No bone marrow edema. No bony lesion. Normal Homogeneous normal signal intensity of the muscles. Hematoma or edema. The distal biceps tendon intact. No bursitis. Diffuse subcutaneous soft tissue edema of the wrist. No fluid collection. MR/MR forearm RT wo con IMPRESSION: Intact distal biceps tendon. No bursitis. Soft tissue swelling of the wrist. No bone marrow edema or acute fracture. Impression dictated by: Carl Quiñones M.D.07/29/2024 9:48 AM Dictation Location: RADIO--23 Transcribed By: SAMIA 07/29/24947 Dictated By: Carl Quiñones DO 07/29/24917 Signed By: 07/29/24947 Normal [facility] Magnetic resonance imaging r eportOrdered By: Carl Quiñones on 07-29-2024 Study report [facility] [place] [id number] MRI Report Signed Patient: Merlin Fish MR#: [id number] : 1970 Acct:[id number] Age/Sex: 54 / M ADM Date: 5 Loc: [facility] Room: Type: [facility] Attending Dr: Shahram Vergara DO Copies to: Shahram Vergara DO~ Ordering Provider: Shahram Vergara DO Date of Service: 07/29/24 MR/MR forearm RT wo con: eval for bicipital aponeurosis MRI of the right forearm without contrast Routine technique HISTORY: Injury 3 weeks ago. Pain around wrist. Evaluate bicipital aponeurosis. Radius and ulna are intact. No fracture. No bone marrow edema. No bony lesion. Normal Homogeneous normal signal intensity of the muscles. Hematoma oredema. The distal biceps tendon intact. No bursitis. Diffuse subcutaneous soft tissue edema of the wrist. No fluid collection. MR/MR forearm RT wo con IMPRESSION: Intact distal biceps tendon. No bursitis. Soft tissue swelling of the wrist. No bone marrow edema or acute fracture. Impression dictated by: Carl Quiñones M.D.07/29/2024 9:48 AM Dictation Location: [place] [address] Transcribed By: [facility] 07/29/24947 Dictated By: Carl Quiñones DO 07/29/2418 Signed By: 07/29/2448 [facility] Basic Metabolic Panelon Anion gap [Moles/Vol] 12.4 mmol/L Normal 6.0-15.0 [facility] Comment on above: Performed By: #### B MP, CRP, CBC, ESR #### [facility] [address] [place] [address] [place] Calcium [Mass/Vol] 9.1 mg/dL Normal 8.6-10.3 [facility] Comment on above: Performed By: #### B MP, CRP, CBC, ESR #### [facility] [address] [place] [id number] [place] Chloride [Moles/Vol] 103 mmol/L Normal 98-107 [facility] Comment on above: Performed By: #### B MP, CRP, CBC, ESR #### [facility] [address] [place] [address] [place] CO2 [Moles/Vol] 27.7 mmol/L Normal 21.0-31.0 [facility] Comment on above: Performed By: #### B MP, CRP, CBC, ESR #### [facility] [address] Creatinine [Mass/Vol] 1.40 mg/dL High 0.70-1.30 [facility] Comment on above: Performed By: #### B MP, CRP, CBC, ESR #### [address] Estimated GFR 58.989 mL/Min Normal [facility] Comment on above: Performed By: #### B MP, CRP, CBC, ESR #### [address] Glucose [Mass/Vol] 284 mg/dL High 70-100 [facility] Comment on above: Result Comment: [facility] Glucose Reference Range is dependent on time and content of last meal. Glucose of more than 200 mg/dL in a nonstressed, ambulatory subject supports the diagnosis of Diabetes Mellitus. ADA recommended reference range Performed By: #### B MP, CRP, CBC, ESR #### [address] Potassium [Moles/Vol] 4.1 mmol/L Normal 3.5-5.1 [facility] Comment on above: Performed By: #### B MP, CRP, CBC, ESR #### [address] Sodium [Moles/Vol] 139 mmol/L Normal 136-145 [facility] Comment on above: Performed By: #### B MP, CRP, CBC, ESR #### [address] Urea nitrogen [Mass/Vol] 18 mg/dL Normal 7-25 [facility] Comment on above: Performed By: #### B MP, CRP, CBC, ESR #### [address] Basophils Auto (Bld) [#/Vol] Ordered By: Shahram Vergara on 07-22-2024 Basophils (Bld) [#/Vol] Automated basoph il count 0.0-0.2 [facility] Basophils/100 WBC Auto (Bld) Ordered By: Shahram Vergara on 07-22-2024 Basophils/100 WBC (Bld) Automated basophil % . [facility] C reactive protein [Mass/vol ume] in Serum or PlasmaOrdered By: Shahram Vergara on 07-22-2024 CRP [Mass/Vol] C reactive protein [Mass/volume] in Serum or Plasma High 0.0-0.5 [facility] C-Reactive Proteinon 025 C-Reactive Protein 1.2 mg/dL High 0.0-0.5 [facility] Comment on above: Result Comment: PERF ORMED BY: [facility] [address] [facility] [place] [address] PATHOLOGIST [employer] ENGAG[employer] MANAGER KEITH AGUILAR M.D. Performed By: #### B MP, CRP, CBC, ESR #### [facility] [address] Calcium [Mass/volume] in Ser um or PlasmaOrdered By: Shahram Vergara on 07-22-2024 Calcium [Mass/Vol] Calcium [Mass/volume] in Serum or Plasma 8.6-10.3 [facility] Carbon dioxide, total [Moles /volume] in Serum or PlasmaOrdered By: Shahram Vergara on 07-22-2024 CO2 [Moles/Vol] Carbon dioxide, total [Moles/volume] in Serum or Plasma 21.0-31.0 [facility] Chloride [Moles/volume] in S stacy or PlasmaOrdered By: Shahram Vergara on 07-22-2024 Chloride [Moles/Vol] Chloride [Moles/volume] in Serum or Plasma 98-107 [facility] Complete Blood Count Auto Di ffon 07-22-2024 Basophils (Bld) [#/Vol] 0.1 10*3/uL Normal 0.0-0.2 [facility] Comment on above: Performed By: #### B MP, CRP, CBC, ESR #### [facility] [address] [place] [id number] [place] Basophils/100 WBC (Bld) 0.5 % Normal . [facility] Comment on above: Performed By: #### B MP, CRP, CBC, ESR #### [address] Eosinophils (Bld) [#/Vol] 0.3 10*3/uL Normal 0.0-0.45 [facility] Comment on above: Performed By: #### B MP, CRP, CBC, ESR #### [address] Eosinophils/100 WBC (Bld) 3.4 % Normal . [facility] Comment on above: Performed By: #### B MP, CRP, CBC, ESR #### [address] Erythrocyte distribution width (RBC) [Ratio] 13.6 % Normal 12.0-14.8 [facility] Comment on above: Performed By: #### B MP, CRP, CBC, ESR #### [address] Hematocrit (Bld) [Volume fraction] 41.2 % Normal 38.8-50.0 [facility] Comment on above: Performed By: #### B MP, CRP, CBC, ESR #### [address] Hemoglobin (Bld) [Mass/Vol] 13.9 g/dL Normal 13.0-17.0 [facility] Comment on above: Performed By: #### B MP, CRP, CBC, ESR #### [address] Lymphocytes (Bld) [#/Vol] 3.1 10*3/uL Normal 1.00-4.8 [facility] Comment on above: Performed By: #### B MP, CRP, CBC, ESR #### [address] Lymphocytes/100 WBC (Bld) 30.9 % Normal . [facility] Comment on above: Performed By: #### B MP, CRP, CBC, ESR #### [address] MCH (RBC) [Entitic mass] 27.0 pg Low 27.5-35.2 [facility] Comment on above: Performed By: #### B MP, CRP, CBC, ESR #### [address] MCV (RBC) [Entitic vol] 79.8 fL Low 83.5-101 [facility] Comment on above: Performed By: #### B MP, CRP, CBC, ESR #### [address] Mean Corpuscular HGB Conc 33.8 g/dL Normal 32.5-35.6 [facility] Comment on above: Performed By: #### B MP, CRP, CBC, ESR #### [address] Monocytes (Bld) [#/Vol] 0.9 10*3/uL High 0.0-0.8 [facility] Comment on above: Performed By: #### B MP, CRP, CBC, ESR #### [address] Monocytes/100 WBC (Bld) 8.8 % Normal . [facility] Comment on above: Performed By: #### B MP, CRP, CBC, ESR #### [address] Neutrophils (Bld) [#/Vol] 5.7 10*3/uL Normal 1.8-7.7 [facility] Comment on above: Performed By: #### B MP, CRP, CBC, ESR #### [address] Neutrophils/100 WBC (Bld) 56.4 % Normal . [facility] Comment on above: Performed By: #### B MP, CRP, CBC, ESR #### [address] NRBC% 0.0 /100{WBC} Normal 0-0.5 [facility] Comment on above: Performed By: #### B MP, CRP, CBC, ESR #### [facility] [address] Platelet mean volume (Bld) [Entitic vol] 8.8 fL Normal 6.6-10.1 [facility] Comment on above: Performed By: #### B MP, CRP, CBC, ESR #### [facility] [address] Platelets (Bld) [#/Vol] 293 10*3/uL Normal 150-450 [facility] Comment on above: Performed By: #### B MP, CRP, CBC, ESR #### [facility] [address] RBC (Bld) [#/Vol] 5.16 10*6/uL Normal 3.90-5.[address] [facility] Comment on above: Performed By: #### B MP, CRP, CBC, ESR #### [facility] [address] WBC (Bld) [#/Vol] 10.1 10*3/uL Normal 4.1-10.[address] [facility] Comment on above: Performed By: #### B MP, CRP, CBC, ESR #### [facility] [address] Creatinine [Mass/volume] in Serum or PlasmaOrdered By: Shahram Vergara on 07-22-2024 Creatinine [Mass/Vol] Creatinine [Mass/volume] in Serum or Plasma High 0.70-1.30 [facility] Eosinophils Auto (Bld) [#/Vo l]Ordered By: Shahram Vergara on 07-22-2024 Eosinophils (Bld) [#/Vol] Automated eosinophil count 0.0-0.45 [facility] Eosinophils/100 WBC Auto (Bl d)Ordered By: Shahram Vergara on 07-22-2024 Eosinophils/100 WBC (Bld) Automated eosinophil % . [facility] Erythrocyte Sedimentation Ra lesvia 07-22-2024 ESR (Bld) [Velocity] 38 mm/h High 0-19 [facility] Comment on above: Result Comment: PERF ORMED BY: [facility] [address] [place] [address] PATHOLOGIST SALES ENGAGEMENT MANAGER KEITH AGUILAR M.D. Performed By: #### B MP, CRP, CBC, ESR #### [facility] [address] Erythrocyte distribution wid th Auto (RBC) [Ratio]Ordered By: Shahram Vergara on 07-22-2024 Erythrocyte distribution width (RBC) [Ratio] Erythrocyte distribution width [Ratio] by Automated count 12.0-14.8 [facility] Erythrocyte sedimentation ra te by Photometric methodOrdered By: Shahram Vergara on 07-22-2024 ESR Photometric method (Bld) [Velocity] Erythrocyte sedimentation rate by Photometric method High 0-19 [facility] Glucose [Mass/volume] in Ser um or PlasmaOrdered By: Shahram Vergara on 07-22-2024 Glucose [Mass/Vol] Glucose [Mass/volume] in Serum or Plasma High 70-100 [facility] Comment on above: ADA recommended refe rence rangeRandom Glucose Reference Range is dependent on time and content of last meal. Glucose of more than 200 mg/dL in a nonstressed, ambulatory subject supports the diagnosis of Diabetes Mellitus. Hematocrit Auto (Bld) [Volum e fraction]Ordered By: Shahram Vergara on 07-22-2024 Hematocrit (Bld) [Volume fraction] Hematocrit [Volume Fraction] of Blood by Automated count 38.8-50.0 [facility] Hemoglobin [Mass/volume] in BloodOrdered By: Shahram Vergara on 07-22-2024 Hemoglobin (Bld) [Mass/Vol] Hemoglobin [Mass/volume] in Blood 13.0-17.0 [facility] Leukocytes [#/volume] correc nataliia for nucleated erythrocytes in Blood by Automated counOrdered By: Shahram Vergara on 07-22-2024 WBC corrected for nucl RBC Auto (Bld) [#/Vol] Leukocytes [#/volume] corrected for nucleated erythrocytes in Blood by Automated coun 4.1-10.5 [facility] Lymphocytes Auto (Bld) [#/Vo l]Ordered By: Shahram Vergara on 07-22-2024 Lymphocytes (Bld) [#/Vol] Lymphocytes [#/volume] in Blood by Automated count 1.00-4.8 [facility] Lymphocytes/100 WBC Auto (Bl d)Ordered By: Shahram Vergara on 07-22-2024 Lymphocytes/100 WBC (Bld) Lymphocytes/100 leukocytes in Blood by Automated count . [facility] MCH Auto (RBC) [Entitic mass ]Ordered By: Shahram Vergara on 07-22-2024 MCH (RBC) [Entitic mass] MCH [Entitic mass] by Automated count Low 27.5-35.2 [facility] MCHC Auto (RBC) [Mass/Vol]Or dered By: Shahram Vergara on 07-22-2024 MCHC (RBC) [Mass/Vol] MCHC [Mass/volume] by Automated count 32.5-35.6 [facility] MCV Auto (RBC) [Entitic vol] Ordered By: Shahram Vergara on 07-22-2024 MCV (RBC) [Entitic vol] MCV [Entitic vol ume] by Automated count Low 83.5-101 [facility] Monocytes Auto (Bld) [#/Vol] Ordered By: Shahram Vergara on 07-22-2024 Monocytes (Bld) [#/Vol] Automated blood monocyte count High 0.0-0.8 [facility] Monocytes/100 WBC Auto (Bld) Ordered By: Shahram Vergara on 07-22-2024 Monocytes/100 WBC (Bld) Automated monocyte % . [facility] Neutrophils Auto (Bld) [#/Vo l]Ordered By: Shahram Vergara on 07-22-2024 Neutrophils (Bld) [#/Vol] Neutrophils [#/volume] in Blood by Automated count 1.8-7.7 [facility] Neutrophils/100 WBC Auto (Bl d)Ordered By: Shahram Vergara on 07-22-2024 Neutrophils/100 WBC (Bld) Automated neutrophil % . [facility] No Panel InformationOrdered By: Shahram Vergara on 07-22-2024 Estimated GFR (CKD-EPI) 58.989 mL/Min [facility] Creatinine Clearance (Chem N/A [facility] Nucleated erythrocytes [Pres ence] in Blood by Automated countOrdered By: Shahram Vergara on 07-22-2024 Nucleated RBC Auto Ql (Bld) Nucleated erythrocytes [Presence] in Blood by Automated count 0-0.5 [facility] Platelet mean volume Auto (B ld) [Entitic vol]Ordered By: Shahram Vergara on 07-22-2024 Platelet mean volume (Bld) [Entitic vol] Platelet mean volume [Entitic volume] in Blood by Automated count 6.6-10.1 [facility] Platelets Auto (Bld) [#/Vol] Ordered By: Shahram Vergara on 07-22-2024 Platelets (Bld) [#/Vol] Platelets [#/vol ume] in Blood by Automated count 150-450 [facility] Potassium [Moles/volume] in Serum or PlasmaOrdered By: Shahram Vergara on 07-22-2024 Potassium [Moles/Vol] Potassium [Moles/volume] in Serum or Plasma 3.5-5.1 [facility] RBC Auto (Bld) [#/Vol]Ordere d By: Shahram Vergara on 07-22-2024 RBC (Bld) [#/Vol] Erythrocytes [#/volume] in Blood by Automated count 3.90-5.60 [facility] Serum or plasma anion gap de terminationOrdered By: Shahram Vergara on 07-22-2024 Anion gap [Moles/Vol] Serum or plasma anion gap determination 6.0-15.0 [facility] Sodium [Moles/volume] in Ser um or PlasmaOrdered By: Shahram Vergara on 07-22-2024 Sodium [Moles/Vol] Sodium [Moles/volume] in Serum or Plasma 136-145 [facility] Urea nitrogen [Mass/volume] in Serum or PlasmaOrdered By: Shahram Vergara on 07-22-2024 Urea nitrogen [Mass/Vol] Urea nitrogen [Mass/volume] in Serum or Plasma 7-25 [facility] WBC Auto (Bld) [#/Vol]Ordere d By: Shahram Vergara on 07-22-2024 WBC (Bld) [#/Vol] Leukocytes [#/volume] in Blood by Automated count 4.1-10.5 [facility] X-ray reportOrdered By: Vel Dominguez on 07-22-2024 Study report [facility] [address] [place] [address] XRay Report Signed Patient: Merlin Fish MR#: [id number] : 1970 Acct:[id number] Age/Sex: 54 / M ADM Date: 5 Loc: [facility] Room: Type: REG CLI Attending Dr: Shahram Vergara DO Copies to: Shahram Vergara DO~ Ordering Provider: Shahram Vergara DO Date of Service: 07/22/24 XR/XR elbow RT 2V: M25.521 - Pain in right elbow RIGHT ELBOW - 2 views. CLINICAL HISTORY: Right upper extremity pain and decreased range of motion. COMPARISON: None FINDINGS: No focal soft tissue abnormality. No elbow joint effusion. No acute bony process is seen. Irregularity is seen along the epicondyles suggestive of priorinjury. XR/XR elbow RT 2V IMPRESSION: NO ACUTE BONY PROCESS. Impression dictated by: Mauro Dominguez Jr., D.OAbraham07/22/2024 4:20 PM Dictation Location: [place] [address] Transcribed By: [facility] 07/22/24 1620 Dictated By: Mauro Dominguez Jr, DO 07/22/24 1619 Signed By: 07/22/24 1620 [facility] X-ray reportOrdered By: Haroon Quiñones on 07-22-2024 Study report [facility] [address] [place] [address] XRay Report Signed Patient: Merlin Fish MR#: [id number] : 1970 Acct:[id number] Age/Sex: 54 / M ADM Date: 5 Loc: [facility] Room: Type: REG CLI Attending Dr: Shahram Vergara DO Copies to: Shahram Vergara DO~ Ordering Provider: Shahram Vergara DO Date of Service: 07/22/24 XR/XR wrist RT min 3V*: M25.531 - Pain in right wrist 4 views right wrist plain film COMPARISON: None HISTORY: Right wrist pain for one week. Painful range of motion. ACUTE FINDINGS: None DEGENERATIVE CHANGE: Mild SOFT TISSUE FINDINGS: Unremarkable JOINT EFFUSION: None POSTOP CHANGES: None BONE MINERALIZATION: Adequate XR/XR wrist RT min 3V* IMPRESSION: Mild degenerative changes. Impression dictated by: Carl Quiñones M.D.07/22/2024 4:15 PM Dictation Location: RADIO-PC-20 Transcribed By: [facility] 07/22/24 1615 Dictated By: Carl Quiñones DO 07/22/24 161 Signed By: 07/22/24 1615 [facility] XR elbow RT 2Von 07-22-2024 XR elbow RT 2V [facility] [address] [place] [address] XRay Report Signed Patient: Merlin Fish MR#: [id number] : 1970 Acct:[id number] Age/Sex: 54 / M ADM Date: 07/22/24 Loc: [facility] Room: Type: [facility] Attending Dr: Shahram Vergara DO Copies to: Shahram Vergara DO Ordering Provider: Shahram Vergara DO Date of Service: 07/22/24 XR/XR elbow RT 2V: M25.521 - Pain in right elbow RIGHT ELBOW - 2 views. CLINICAL HISTORY: Right upper extremity pain and decreased range of motion. COMPARISON: None FINDINGS: No focal soft tissue abnormality. No elbow joint effusion. No acute bony process is seen. Irregularity is seen along the epicondyles suggestive of prior injury. XR/XR elbow RT 2V IMPRESSION: NO ACUTE BONY PROCESS. Impression dictated by: Mauro Dominguez Jr., D.OAbraham07/22/2024 4:20 PM Dictation Location: RADIO-PC-19 Transcribed By: [facility] 07/22/24 1620 Dictated By: Mauro Dominguez Jr, DO 07/22/24 161 Signed By: 07/22/24 1620 Normal [facility] XR wrist RT min 3V*on 2024 XR wrist RT min 3V* [facility] [address] [place] [address] XRay Report Signed Patient: Merlin Fish MR#: [id number] : 1970 Acct:[id number] Age/Sex: 54 / M ADM Date: 07/22/24 Loc: [facility] Room: Type: [facility] Attending Dr: Shahram Vergara DO Copies to: Shahram Vergara DO Ordering Provider: Shahram Vergara DO Date of Service: 07/22/24 XR/XR wrist RT min 3V*: M25.531 - Pain in right wrist 4 views right wrist plain film COMPARISON: None HISTORY: Right wrist pain for one week. Painful range of motion. ACUTE FINDINGS: None DEGENERATIVE CHANGE: Mild SOFT TISSUE FINDINGS: Unremarkable JOINT EFFUSION: None POSTOP CHANGES: None BONE MINERALIZATION: Adequate XR/XR wrist RT min 3V* IMPRESSION: Mild degenerative changes. Impression dictated by: Carl Quiñones M.D.07/22/2024 4:15 PM Dictation Location: [facility] Transcribed By: [facility] 07/22/24 1615 Dictated By: Carl Quiñones DO 07/22/24 1613 Signed By: 07/22/24 1615 Normal [facility] XR WRIST RT MIN 3 VWSon 06-19 XR WRIST RT MIN 3 VWS XR WRIST RT MIN 3 VWS CLINICAL INFORMATION: Right wrist pain TECHNIQUE: XR WRIST RT MIN 3 VWS 3 views of the right wrist are obtained. There is no acute osseous, articular, or soft tissue abnormality. IMPRESSION: Negative exam. Finalized by Karl Ontiveros MD on 07/17/2024 12:29 PM Normal [facility] XR SHOULDER LT MIN 2 VWSon 0 07-03-2024 XR SHOULDER LT MIN 2 VWS XR SHOULDER LT MIN 2 VWS History: Pain Exam/Technique: AP Grashey and scapular Y views of the left shoulder were obtained. Comparison: None Findings: There are osteoarthritic changes in the acromioclavicular joint. There is no evidence for an acute osseous abnormality. No dislocation is demonstrated. 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 Otherwise normal left shoulder. Finalized by Peg Lopez MD on 07/03/2024 8:30 PM Normal [facility] XR HAND LT MIN 3 VWSon 12-11 XR HAND LT MIN 3 VWS XR HAND LT MIN 3 VW S XR HAND LT MIN 3 VWS CLINICAL INFORMATION: pain COMPARISON: None. IMPRESSION: * No evidence of acute fracture. Scattered degenerative changes. Degenerative changes are most significant in the first carpometacarpal and triscaphe the regions. Finalized by Jonh Enriquez MD on 12/12/2023 3:46 PM Normal [facility] CBC AND AUTO DIFFon 11-08-19 ABSOLUTE BASOPHIL 0.1 X10E9/L Normal 0.0-0.2 [facility] Comment on above: Performed By: #### C PATRICIA [facility], 34347-3 #### [facility] ([id number]) [address], [address] [place] [address] ABSOLUTE NEUTROPHIL 9.7 X10E9/L High 1.5-6.6 [facility] Comment on above: Performed By: #### C PATRICIA [facility], 80085-1 #### [facility] ([id number]) [address], [address] [place] [address] Basophils/100 WBC (Bld) 0.9 % Normal P [facility] Comment on above: Performed By: #### Ricardo GOMEZ CMP, 90140-5 #### [facility] ([id number]) [address], [address] [place] [address] Eosinophils (Bld) [#/Vol] 0.4 10*3/uL Normal 0.0-0.4 [facility] Comment on above: Performed By: #### C PATRICIA, CMP, 48898-2 #### [facility] ([id number]) [address], [address] [place] [address] Eosinophils/100 WBC (Bld) 2.6 % Normal [facility] Comment on above: Performed By: #### Ricardo GOMEZ CMP, #### [facility] ([id number]) [address], [address] [place] [address] Erythrocyte distribution width (RBC) [Ratio] 14.9 % Normal 11.5-15.0 [facility] Comment on above: Performed By: #### Ricardo GOMEZ CMP, #### [facility] ([id number]) [address], [address] [place] [address] Hematocrit (Bld) [Volume fraction] 49.2 % High 39-49 [facility] Comment on above: Performed By: #### Ricardo GOMEZ CMP, #### [facility] ([id number]) [address], [address] [place] [address] Hemoglobin (Bld) [Mass/Vol] 16.2 g/dL Normal 13.0-17.0 [facility] Comment on above: Performed By: #### Ricardo GOMEZ CMP, #### [facility] ([id number]) [address], [address] [place] [address] Lymphocytes (Bld) [#/Vol] 4.7 10*3/uL High 1.0-3.5 [facility] Comment on above: Performed By: #### Ricardo GOMEZ CMP, #### [facility] ([id number]) [address], [address] [place] [address] Lymphocytes/100 WBC (Bld) 28.7 % Normal [facility] Comment on above: Performed By: #### Ricardo GOMEZ CMP, #### [facility] ([id number]) [address], [address] [place] [address] MCH (RBC) [Entitic mass] 26.3 pg Low 27-34 [facility] Comment on above: Performed By: #### C PATRICIA, CMP, #### [facility] ([id number]) [address], [address] [place] [address] MCHC (RBC) [Mass/Vol] 32.9 g/dL Normal 32-36 [facility] Comment on above: Performed By: #### C BCA, CMP, #### [facility] ([id number]) [address], [address] [place] [address] MCV (RBC) [Entitic vol] 80 fL Normal 80-100 [facility] Comment on above: Performed By: #### C BCA, CMP, #### [facility] ([id number]) [address], [address] [place] [address] Monocytes (Bld) [#/Vol] 1.3 10*3/uL High 0-0.9 [facility] Comment on above: Performed By: #### C BCA, CMP, #### [facility] ([id number]) [address], [address] [place] [address] Monocytes/100 WBC (Bld) 8.2 % Normal [facility] Comment on above: Performed By: #### C BCA, CMP, #### [facility] ([id number]) [address], [address] [place] [address] Neutrophils/100 WBC (Bld) 59.6 % Normal [facility] Comment on above: Performed By: #### C BCA, CMP, #### [facility] ([id number]) [address], [address] [place] [address] Platelet mean volume (Bld) [Entitic vol] 9.0 fL Normal 7-12 [facility] Comment on above: Performed By: #### C BCA, CMP, #### [facility] ([id number]) [address], [address] [place] [address] Platelets (Bld) [#/Vol] 273 10*3/uL Normal 150-450 [facility] Comment on above: Performed By: #### Ricardo GOMEZ CMP, 00611-0 #### [facility] ([id number]) [address], [address] [place] [address] RBC COUNT 6.16 X10E12/L High 4.10-5.70 [facility] Comment on above: Performed By: #### Ricardo GOMEZ CMP, 29866-1 #### [facility] ([id number]) [address], [address] [place] [address] WBC (Bld) [#/Vol] 16.2 10*3/uL High 4.0-11.0 [facility] Comment on above: Performed By: #### Ricardo GOMEZ CMP, 68329-1 #### [facility] ([id number]) [address], [address] [place] [address] CBC auto differentialon 05-2 Basophils (Bld) [#/Vol] 0.1 10*3/uL [facility] Basophils/100 WBC (Bld) 0.9 % P [facility] Eosinophils (Bld) [#/Vol] 0.4 10*3/uL [facility] Eosinophils/100 WBC (Bld) 2.6 % [facility] Erythrocyte distribution width (RBC) [Ratio] 14.9 % 11.5 - 15.0 % [facility] Hematocrit (Bld) [Volume fraction] 49.2 % High 39 - 49 % [facility] Hemoglobin (Bld) [Mass/Vol] 16.2 g/dL 13.0 - 17.0 g/dL [facility] Interpretation and review of laboratory results Abnormal [facility] Lymphocytes (Bld) [#/Vol] 4.7 10*3/uL High [facility] Lymphocytes/100 WBC (Bld) 28.7 % [facility] MCH (RBC) [Entitic mass] 26.3 pg Low 27 - 34 pg [facility] MCHC (RBC) [Mass/Vol] 32.9 g/dL 32 - 36 g/dL [facility] MCV (RBC) [Entitic vol] 80 fL 80 - 100 fL [facility] Monocytes (Bld) [#/Vol] 1.3 10*3/uL High [facility] Monocytes/100 WBC (Bld) 8.2 % P [facility] Neutrophils (Bld) [#/Vol] 9.7 10*3/uL High [facility] Neutrophils/100 WBC (Bld) 59.6 % [facility] Platelet mean volume (Bld) [Entitic vol] 9.0 fL 7 - 12 fL [facility] Platelets (Bld) [#/Vol] 273 10*3/uL [facility] RBC (Bld) [#/Vol] 6.16 10*6/uL High [facility] WBC corrected for nucl RBC Auto (Bld) [#/Vol] 16.2 High [facility] COMPREHENSIVE METABOLIC PANE Reynaldo 11-08-2023 Albumin [Mass/Vol] 4.5 g/dL Normal 3.2-5.3 [facility] Comment on above: Performed By: #### C PATRICIA, CMP, 06139-4 #### [facility] ([id number]) [address], [address] [place] [address] ALP [Catalytic activity/Vol] 76 U/L Normal 39-130 [facility] Comment on above: Performed By: #### C BCA, CMP, 39486-4 #### [facility] ([id number]) [address], [address] [place] [address] ALT [Catalytic activity/Vol] 21 U/L Normal 0-40 [facility] Comment on above: Performed By: #### C BCA, CMP, 44693-6 #### [facility] ([id number]) [address], [address] [place] [address] Anion gap [Moles/Vol] 12 mmol/L Normal 5-15 [facility] Comment on above: Performed By: #### C BCA, CMP, #### [facility] ([id number]) [address], [address] [place] [address] AST [Catalytic activity/Vol] 14 U/L Normal 0-41 [facility] Comment on above: Performed By: #### C BCA, CMP, #### [facility] ([id number]) [address], [address] [place] [address] Bilirubin [Mass/Vol] 1.0 mg/dL Normal 0.3-1.2 [facility] Comment on above: Performed By: #### C BCA, CMP, #### [facility] ([id number]) [address], [address] [place] [address] Calcium [Mass/Vol] 9.3 mg/dL Normal 8.5-10.5 [facility] Comment on above: Performed By: #### C BCA, CMP, #### [facility] ([id number]) [address], [address] [place] [address] Chloride [Moles/Vol] 100 mmol/L Normal 98-109 [facility] Comment on above: Performed By: #### C BCA, CMP, #### [facility] ([id number]) [address], [address] [place] [address] CO2 [Moles/Vol] 25 mmol/L Normal 22-32 [facility] Comment on above: Performed By: #### C BCA, CMP, 82415-9 #### [facility] ([id number]) [address], [address] [place] [address] Creatinine [Mass/Vol] 1.04 mg/dL Normal 0.60-1.30 [facility] Comment on above: Result Comment: METH OD TRACEABLE TO IDMS STANDARD Performed By: #### C PATRICIA CMP, #### [facility] ([id number]) [address], [address] [place] [address] GFR/1.73 sq M.predicted among non-blacks MDRD (S/P/Bld) [Vol rate/Area] 85 mL/min/{1.73_m2} Normal >59 [facility] Comment on above: Result Comment: Reported eGFR is based on the CKD-EPI 2020 equation that does not use a race coefficient. Performed By: #### C PATRICIA CMP, #### [facility] ([id number]) [address], [address] [place] [address] Glucose [Mass/Vol] 164 mg/dL High 65-99 [facility] Comment on above: Performed By: #### Ricardo GOMEZ CMP, #### [facility] ([id number]) [address], [address] [place] [address] Potassium [Moles/Vol] 4.3 mmol/L Normal 3.5-5.0 [facility] Comment on above: Performed By: #### Ricardo GOMEZ CMP, #### [facility] ([id number]) [address], [address] [place] [address] Protein [Mass/Vol] 7.8 g/dL Normal 6.0-8.0 [facility] Comment on above: Performed By: #### C PATRICIA CMP, #### [facility] ([id number]) [address], [address] [place] [address] Sodium [Moles/Vol] 137 mmol/L Normal 134-146 [facility] Comment on above: Performed By: #### C BCA CMP, #### [facility] ([id number]) [address], [address] [place] [address] Urea nitrogen [Mass/Vol] 20 mg/dL Normal 5- [facility] Comment on above: Performed By: #### C BCA, [facility], 18190-0 #### [facility] ([id number]) [address], [address] [place] [address] Cardiac Invasiveon Cath EF Calculated 65 % [facility] 1. Angiographically normal coronary arteries 2. 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 Most likely clinically insignificant given normal echocardiogram and age of 53 with no previous clinical presentation. 3. Normal left ventricular end-diastolic pressure Recommendations: 1. Continue medical therapy. 2. Risk factor modification. Coronary Findings Diagnostic Dominance: Left Left Main: The vessel was visualized by angiography and is angiographically normal. Left Anterior Descending: The vessel was visualized by angiography and is angiographically normal. Left Circumflex: The vessel was visualized by angiography and is angiographically normal. 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 It appears to be of no clinical significance as the patient's echocardiogram is normal and he is 53 years old. Right Coronary Artery: The vessel was visualized by angiography and is angiographically normal. Intervention No interventions have been documented. Left Ventricle The left ventricular size is normal. The left ventricular systolic function is normal. LV end diastolic pressure is normal. The ejection fraction is calculated to be 65%. There are no wall motion abnormalities in the left ventricle. Wall Motion The following segments are normal: mid anterior, mid inferior, basilar anterior, basilar inferior, apical anterior and apical inferior. XPER [facility] Study observation (narrative) [facility] Comprehensive metabolic pane reynaldo 11-08-2023 Albumin [Mass/Vol] 4.5 g/dL 3.2 - 5.3 g/dL [facility] ALP [Catalytic activity/Vol] 76 U/L 39 - 130 U/L [facility] ALT No additional P-5'-P [Catalytic activity/Vol] 21 U/L 0 - 40 U/L [facility] Anion gap [Moles/Vol] 12 mmol/L 5 - 15 mmol/L [facility] AST [Catalytic activity/Vol] 14 U/L 0 - 41 U/L [facility] Bilirubin [Mass/Vol] 1.0 mg/dL 0.3 - 1 .2 mg/dL [facility] Calcium [Mass/Vol] 9.3 mg/dL 8.5 - 10. 5 mg/dL [facility] Chloride [Moles/Vol] 100 mmol/L 98 - 10 9 mmol/L [facility] CO2 [Moles/Vol] 25 mmol/L 22 - 32 mmol/L [facility] Creatinine [Mass/Vol] 1.04 mg/dL 0.60 - 1.30 mg/dL [facility] Comment on above: METHOD TRACEABLE TO [facility] STANDARD eGFR (CKD-EPI)non-race dependent 85 - PINF [facility] Comment on above: Reported eGFR is based on the CKD-EPI 2020 equation that does not use a race coefficient. Glucose [Mass/Vol] 164 mg/dL High 65 - 99 mg/dL [facility] Interpretation and review of laboratory results Abnormal [facility] Potassium [Moles/Vol] 4.3 mmol/L 3.5 - 5.0 mmol/L [facility] Protein [Mass/Vol] 7.8 g/dL 6.0 - 8.0 g/dL [facility] Sodium [Moles/Vol] 137 mmol/L 134 - 146 mmol/L [facility] Urea nitrogen [Mass/Vol] 20 mg/dL 5 - 23 mg/dL [facility] Glucose Glucometer (BldC) [M ass/Vol]on 11-08-2023 Glucose [Mass/Vol] 157 mg/dL High 65-99 [facility] Glucose [Mass/Vol] 157 mg/dL High 65 - 99 mg/dL [facility] Interpretation and review of laboratory results Abnormal [facility] Glucose [Mass/Vol] 188 mg/dL High 65-99 [facility] MAGNESIUMon 11-08-2023 Magnesium [Mass/Vol] 2.1 mg/dL Normal 1.8-2.6 [facility] Comment on above: Performed By: #### C BCA, CMP, 74187-6 #### [facility] ([id number]) [address] [place] [address] Magnesiumon 11-08-2023 Magnesium [Mass/Vol] 2.1 mg/dL 1.8 - 2 .6 mg/dL [facility] No Panel Informationon 11-07 [facility] CBC AND AUTO DIFFon 11-07-19 ABSOLUTE BASOPHIL 0.1 X10E9/L Normal 0.0-0.2 [facility] Comment on above: Performed By: #### Ricardo GOMEZ CMP, #### [facility] ([id number]) [address], [address] [place] [address] ABSOLUTE NEUTROPHIL 8.7 X10E9/L High 1.5-6.6 [facility] Comment on above: Performed By: #### Ricardo GOMEZ CMP, #### [facility] ([id number]) [address], [facility] [address] [place] [address] Basophils/100 WBC (Bld) 0.4 % Normal [facility] Comment on above: Performed By: #### Ricardo GOMEZ CMP, #### [facility] ([id number]) [address], [address] [place] [address] Eosinophils (Bld) [#/Vol] 0.3 10*3/uL Normal 0.0-0.4 [facility] Comment on above: Performed By: #### Ricardo GOMEZ CMP, #### [facility] ([id number]) [address], [address] [place] [address] Eosinophils/100 WBC (Bld) 2.0 % Normal [facility] Comment on above: Performed By: #### Ricardo GOMEZ CMP, #### [facility] ([id number]) [address], [address] [place] [address] Erythrocyte distribution width (RBC) [Ratio] 14.6 % Normal 11.5-15.0 [facility] Comment on above: Performed By: #### Ricardo GOMEZ CMP, #### [facility] ([id number]) [address], [address] [place] [address] Hematocrit (Bld) [Volume fraction] 45.5 % Normal 39-49 [facility] Comment on above: Performed By: #### C BCA, CMP, #### [facility] ([id number]) [address], [address] [place] [address] Hemoglobin (Bld) [Mass/Vol] 14.9 g/dL Normal 13.0-17.0 [facility] Comment on above: Performed By: #### C PATRICIA, CMP, #### [facility] ([id number]) [address], [address] [place] [address] Lymphocytes (Bld) [#/Vol] 4.2 10*3/uL High 1.0-3.5 [facility] Comment on above: Performed By: #### Ricardo BCA, CMP, #### [facility] ([id number]) [address], [address] [place] [address] Lymphocytes/100 WBC (Bld) 28.9 % Normal [facility] Comment on above: Performed By: #### Ricardo BCA, CMP, #### [facility] ([id number]) [address], [address] [place] [address] MCH (RBC) [Entitic mass] 26.2 pg Low 27-34 [facility] Comment on above: Performed By: #### C BCA, CMP, #### [facility] ([id number]) [address], [address] [place] [address] MCHC (RBC) [Mass/Vol] 32.7 g/dL Normal 32-36 [facility] Comment on above: Performed By: #### C BCA, CMP, #### [facility] ([id number]) [address], [address] [place] [address] MCV (RBC) [Entitic vol] 80 fL Normal 80-100 P [facility] Comment on above: Performed By: #### Ricardo GOMEZ, CMP, #### [facility] ([id number]) [address], [address] [place] [address] Monocytes (Bld) [#/Vol] 1.2 10*3/uL High 0-0.9 [facility] Comment on above: Performed By: #### Ricardo GOMEZ, CMP, #### [facility] ([id number]) [address] [place] [address] Monocytes/100 WBC (Bld) 8.3 % Normal [facility] Comment on above: Performed By: #### Ricardo GOMEZ, CMP, #### [facility] ([id number]) [address] [place] [address] Neutrophils/100 WBC (Bld) 60.4 % Normal [facility] Comment on above: Performed By: #### Ricardo GOMEZ, CMP, #### [facility] ([id number]) [address] [place] [address] Platelet mean volume (Bld) [Entitic vol] 8.6 fL Normal 7-12 [facility] Comment on above: Performed By: #### Ricardo BCA, CMP, #### [facility] ([id number]) [address], [address] [place] [address] Platelets (Bld) [#/Vol] 265 10*3/uL Normal 150-450 [facility] Comment on above: Performed By: #### Ricardo BCA, CMP, #### [facility] ([id number]) [address], [address] [place] [address] RBC COUNT 5.68 X10E12/L Normal 4.10-5.70 [facility] Comment on above: Performed By: #### C PATRICIA [facility], 22437-9 #### [facility] ([id number]) [address] [place] [address] WBC (Bld) [#/Vol] 14.4 10*3/uL High 4.0-11.0 [facility] Comment on above: Performed By: #### C PATRICIA, [facility], 14509-9 #### [facility] ([id number]) [address] [place] [address] CBC auto differentialon 10-16 Basophils (Bld) [#/Vol] 0.1 10*3/uL [facility] Basophils/100 WBC (Bld) 0.4 % P [facility] Eosinophils (Bld) [#/Vol] 0.3 10*3/uL [facility] Eosinophils/100 WBC (Bld) 2.0 % [facility] Erythrocyte distribution width (RBC) [Ratio] 14.6 % 11.5 - 15.0 % [facility] Hematocrit (Bld) [Volume fraction] 45.5 % 39 - 49 % [facility] Hemoglobin (Bld) [Mass/Vol] 14.9 g/dL 13.0 - 17.0 g/dL [facility] Interpretation and review of laboratory results Abnormal [facility] Lymphocytes (Bld) [#/Vol] 4.2 10*3/uL High [facility] Lymphocytes/100 WBC (Bld) 28.9 % [facility] MCH (RBC) [Entitic mass] 26.2 pg Low 27 - 34 pg [facility] MCHC (RBC) [Mass/Vol] 32.7 g/dL 32 - 36 g/dL P [facility] MCV (RBC) [Entitic vol] 80 fL 80 - 100 fL [facility] Monocytes (Bld) [#/Vol] 1.2 10*3/uL High [facility] Monocytes/100 WBC (Bld) 8.3 % P [facility] Neutrophils (Bld) [#/Vol] 8.7 10*3/uL High [facility] Neutrophils/100 WBC (Bld) 60.4 % [facility] Platelet mean volume (Bld) [Entitic vol] 8.6 fL 7 - 12 fL [facility] Platelets (Bld) [#/Vol] 265 10*3/uL [facility] RBC (Bld) [#/Vol] 5.68 10*6/uL [facility] WBC corrected for nucl RBC Auto (Bld) [#/Vol] 14.4 High [facility] COMPREHENSIVE METABOLIC PANE Reynaldo 11-07-2023 Albumin [Mass/Vol] 4.3 g/dL Normal 3.2-5.3 [facility] Comment on above: Performed By: #### C PATRICIA CMP, 68078-8 #### [facility] ([id number]) [address], [address] [place] [address] ALP [Catalytic activity/Vol] 71 U/L Normal 39-130 [facility] Comment on above: Performed By: #### Ricardo BCA, CMP, 85081-4 #### [facility] ([id number]) [address], [address] [place] [address] ALT [Catalytic activity/Vol] 17 U/L Normal 0-40 [facility] Comment on above: Performed By: #### Ricardo BCA, CMP, #### [facility] ([id number]) [address] [place] [address] Anion gap [Moles/Vol] 15 mmol/L Normal 5-15 [facility] Comment on above: Performed By: #### Ricardo BCA, CMP, 32360-1 #### [facility] ([id number]) [address], [address] [place] [address] AST [Catalytic activity/Vol] 15 U/L Normal 0-41 [facility] Comment on above: Performed By: #### C BCA, CMP, #### [facility] ([id number]) [address], [address] [place] [address] Bilirubin [Mass/Vol] 0.4 mg/dL Normal 0.3-1.2 [facility] Comment on above: Performed By: #### C BCA, CMP, 32594-8 #### [facility] ([id number]) [address], [address] [place] [address] Calcium [Mass/Vol] 9.6 mg/dL Normal 8.5-10.5 [facility] Comment on above: Performed By: #### Ricardo GOMEZ, CMP, #### [facility] ([id number]) [address], [address] [place] [address] Chloride [Moles/Vol] 99 mmol/L Normal 98-109 [facility] Comment on above: Performed By: #### Ricardo GOMEZ, [facility], #### [facility] ([id number]) [address], [address] [place] [address] CO2 [Moles/Vol] 24 mmol/L Normal 22-32 [facility] Comment on above: Performed By: #### C BCA, CMP, #### [facility] ([id number]) [address], [address] [place] [address] Creatinine [Mass/Vol] 1.09 mg/dL Normal 0.60-1.30 [facility] Comment on above: Result Comment: METH OD TRACEABLE TO IDMS STANDARD Performed By: #### C PATRICIA, CMP, #### [facility] ([id number]) [address], [address] [place] [address] GFR/1.73 sq M.predicted among non-blacks MDRD (S/P/Bld) [Vol rate/Area] 80 mL/min/{1.73_m2} Normal >59 [facility] Comment on above: Result Comment: Reported eGFR is based on the CKD-EPI 2020 equation that does not use a race coefficient. Performed By: #### C ALEXANDRA GOMEZ, 34923-4 #### [facility] ([id number]) [address], [address] [place] [address] Glucose [Mass/Vol] 171 mg/dL High 65-99 [facility] Comment on above: Performed By: #### C ALEXANDRA GOMEZ, 08194-1 #### [facility] ([id number]) [address], [address] [place] [address] Potassium [Moles/Vol] 3.4 mmol/L Low 3.5-5.0 [facility] Comment on above: Performed By: #### Ricardo GOMEZ CMP, 69408-0 #### [facility] ([id number]) [address], [address] [place] [address] Protein [Mass/Vol] 7.5 g/dL Normal 6.0-8.0 [facility] Comment on above: Performed By: #### C ALEXANDRA GOMEZ, 48529-4 #### [facility] ([id number]) [address], [address] [place] [address] Sodium [Moles/Vol] 138 mmol/L Normal 134-146 [facility] Comment on above: Performed By: #### Ricardo GOMEZ CMP, #### [facility] ([id number]) [address], [address] [place] [address] Urea nitrogen [Mass/Vol] 24 mg/dL High 5-23 [facility] Comment on above: Performed By: #### Ricardo GOMEZ CMP, 66545-0 #### [facility] ([id number]) [address], [address] [place] [address] Comprehensive metabolic pane reynaldo 11-07-2023 Albumin [Mass/Vol] 4.3 g/dL 3.2 - 5.3 g/dL [facility] ALP [Catalytic activity/Vol] 71 U/L 39 - 130 U/L [facility] ALT No additional P-5'-P [Catalytic activity/Vol] 17 U/L 0 - 40 U/L [facility] Anion gap [Moles/Vol] 15 mmol/L 5 - 15 mmol/L [facility] AST [Catalytic activity/Vol] 15 U/L 0 - 41 U/L [facility] Bilirubin [Mass/Vol] 0.4 mg/dL 0.3 - 1 .2 mg/dL [facility] Calcium [Mass/Vol] 9.6 mg/dL 8.5 - 10. 5 mg/dL [facility] Chloride [Moles/Vol] 99 mmol/L 98 - 10 9 mmol/L [facility] CO2 [Moles/Vol] 24 mmol/L 22 - 32 mmol/L [facility] Creatinine [Mass/Vol] 1.09 mg/dL 0.60 - 1.30 mg/dL [facility] Comment on above: METHOD TRACEABLE TO [facility] STANDARD eGFR (CKD-EPI)non-race dependent 80 - PINF [facility] Comment on above: Reported eGFR is based on the CKD-EPI 2020 equation that does not use a race coefficient. Glucose [Mass/Vol] 171 mg/dL High 65 - 99 mg/dL [facility] Interpretation and review of laboratory results Abnormal [facility] Potassium [Moles/Vol] 3.4 mmol/L Low 3.5 - 5.0 mmol/L [facility] Protein [Mass/Vol] 7.5 g/dL 6.0 - 8.0 g/dL [facility] Sodium [Moles/Vol] 138 mmol/L 134 - 146 mmol/L [facility] Urea nitrogen [Mass/Vol] 24 mg/dL High 5 - 23 mg/dL [facility] Glucose Glucometer (BldC) [M ass/Vol]on 11-07-2023 Glucose [Mass/Vol] 188 mg/dL High 65 - 99 mg/dL [facility] Interpretation and review of laboratory results Abnormal [facility] Glucose [Mass/Vol] 167 mg/dL High 65-99 [facility] Glucose [Mass/Vol] 167 mg/dL High 65 - 99 mg/dL [facility] Interpretation and review of laboratory results Abnormal [facility] MAGNESIUMon 11-07-2023 Magnesium [Mass/Vol] 2.1 mg/dL Normal 1.8-2.6 [facility] Comment on above: Performed By: #### 2 823-3, 73580-9 #### [facility] ([id number]) [address], [address] [place] [address] Magnesium [Mass/Vol] 1.9 mg/dL Normal 1.8-2.6 [facility] Comment on above: Performed By: #### C BCA, CMP, #### [facility] ([id number]) [address], [address] [place] [address] Magnesiumon 11-07-2023 Magnesium [Mass/Vol] 2.1 mg/dL 1.8 - 2 .6 mg/dL [facility] Magnesium [Mass/Vol] 1.9 mg/dL 1.8 - 2 .6 mg/dL [facility] No Panel Informationon 11-06 [facility] POTASSIUMon 11-07-2023 Potassium [Moles/Vol] 4.1 mmol/L Normal 3.5-5.0 [facility] Comment on above: Performed By: #### 2 823-3, #### [facility] ([id number]) [address], [address] [place] [address] Potassiumon 11-07-2023 Potassium [Moles/Vol] 4.1 mmol/L 3.5 - 5.0 mmol/L [facility] CBC AND AUTO DIFFon 11-06-19 24 ABSOLUTE BASOPHIL 0.1 X10E9/L Normal 0.0-0.2 [facility] Comment on above: Performed By: #### 4 8066-5, 89677-2, 3040-3, CBCA, CMP #### [facility] ([id number]) [address] [place] [address] ABSOLUTE NEUTROPHIL 13.4 X10E9/L High 1.5-6.6 [facility] Comment on above: Performed By: #### 4 8066-5, 39323-9, 3040-3, CBCA, CMP #### [facility] ([id number]) [address] [place] [address] Basophils/100 WBC (Bld) 0.4 % Normal [facility] Comment on above: Performed By: #### 4 8066-5, 05457-9, 3040-3, CBCA, CMP #### [facility] ([id number]) [address] [place] [address] Eosinophils (Bld) [#/Vol] 0.1 10*3/uL Normal 0.0-0.4 [facility] Comment on above: Performed By: #### 4 8066-5, 97055-4, 3040-3, CBCA, CMP #### [facility] ([id number]) [address] [place] [address] Eosinophils/100 WBC (Bld) 0.8 % Normal [facility] Comment on above: Performed By: #### 4 8066-5, 83189-1, 3040-3, CBCA, CMP #### [facility] ([id number]) [address] [place] [address] Erythrocyte distribution width (RBC) [Ratio] 14.9 % Normal 11.5-15.0 [facility] Comment on above: Performed By: #### 4 8066-5, 49876-9, 3040-3, CBCA, CMP #### [facility] ([id number]) [address] [place] [address] Hematocrit (Bld) [Volume fraction] 45.1 % Normal 39-49 [facility] Comment on above: Performed By: #### 4 8066-5, 49901-8, 3040-3, CBCA, CMP #### [facility] ([id number]) [address] [place] [address] Hemoglobin (Bld) [Mass/Vol] 15.5 g/dL Normal 13.0-17.0 [facility] Comment on above: Performed By: #### 4 8066-5, 56111-9, 3040-3, CBCA, CMP #### [facility] ([id number]) [address] [place] [address] Lymphocytes (Bld) [#/Vol] 2.1 10*3/uL Normal 1.0-3.5 [facility] Comment on above: Performed By: #### 4 8066-5, 53949-9, 3040-3, CBCA, CMP #### [facility] ([id number]) [address] [place] [address] Lymphocytes/100 WBC (Bld) 12.8 % Normal [facility] Comment on above: Performed By: #### 4 8066-5, 47402-7, 3040-3, CBCA, CMP #### [facility] ([id number]) [address] [place] [address] 16180 MCH (RBC) [Entitic mass] 26.9 pg Low 27-34 [facility] Comment on above: Performed By: #### 4 8066-5, 24456-5, 3040-3, CBCA, CMP #### [facility] ([id number]) [address] [place] [address] MCHC (RBC) [Mass/Vol] 34.3 g/dL Normal 32-36 [facility] Comment on above: Performed By: #### 4 8066-5, 54860-7, 3040-3, CBCA, CMP #### [facility] ([id number]) [address] [place] [address] [place] [address] MCV (RBC) [Entitic vol] 78 fL Low 80-100 [facility] Comment on above: Performed By: #### 4 8066-5, 30243-6, 3040-3, CBCA, CMP #### [facility] ([id number]) [address] [place] [address] Monocytes (Bld) [#/Vol] 0.9 10*3/uL Normal 0-0.9 [facility] Comment on above: Performed By: #### 4 8066-5, 15832-5, 3040-3, CBCA, CMP #### [facility] ([id number]) [address] [place] [address] 46233 Monocytes/100 WBC (Bld) 5.7 % Normal [facility] Comment on above: Performed By: #### 4 8066-5, 74607-9, 3040-3, CBCA, CMP #### [facility] ([id number]) [address] [place] [address] 98473 Neutrophils/100 WBC (Bld) 80.3 % Normal [facility] Comment on above: Performed By: #### 4 8066-5, 93410-4, 3040-3, CBCA, CMP #### [facility] ([id number]) [address] [place] [address] [place] [address] Platelet mean volume (Bld) [Entitic vol] 8.3 fL Normal 7-12 [facility] Comment on above: Performed By: #### 4 8066-5, 84975-4, 3040-3, CBCA, CMP #### [facility] ([id number]) [address] [place] [address]116 Platelets (Bld) [#/Vol] 307 10*3/uL Normal 150-450 [facility] Comment on above: Performed By: #### 4 8066-5, 65836-8, 3040-3, CBCA, CMP #### [facility] ([id number]) [address] [place] [address] 45[address] RBC COUNT 5.75 X10E12/L High 4.10-5.70 [facility] Comment on above: Performed By: #### 4 8066-5, 01034-8, 3040-3, CBCA, CMP #### [facility] ([id number]) [address] [place] [address] 56342 WBC (Bld) [#/Vol] 16.7 10*3/uL High 4.0-11.0 [facility] Comment on above: Performed By: #### 4 8066-5, 67292-8, 3040-3, CBCA, CMP #### [facility] ([id number]) [address] [place] [address] COMPREHENSIVE METABOLIC PANE [facility] 11-06-2023 Albumin [Mass/Vol] 4.5 g/dL Normal 3.2-5.3 [facility] Comment on above: Performed By: #### 4 8066-5, 40951-1, 3040-3, CBCA, CMP #### [facility] ([id number]) [address] [place] [address] ALP [Catalytic activity/Vol] 78 U/L Normal 39-130 [facility] Comment on above: Performed By: #### 4 8066-5, 91337-8, 3040-3, CBCA, CMP #### [facility] ([id number]) [address] [place] [address] 38372 ALT [Catalytic activity/Vol] 27 U/L Normal 0-40 [facility] Comment on above: Performed By: #### 4 8066-5, 38705-4, 3040-3, CBCA, CMP #### [facility] ([id number]) [address] [place] [address] 81093 Anion gap [Moles/Vol] 12 mmol/L Normal 5-15 [facility] Comment on above: Performed By: #### 4 8066-5, 94358-0, 3040-3, CBCA, CMP #### [facility] ([id number]) [address] [place] [address] 41189 AST [Catalytic activity/Vol] 19 U/L Normal 0-41 [facility] Comment on above: Performed By: #### 4 8066-5, 23338-0, 3040-3, CBCA, CMP #### [facility] ([id number]) [address] [place] [address] 14082 Bilirubin [Mass/Vol] 0.7 mg/dL Normal 0.3-1.2 [facility] Comment on above: Performed By: #### 4 8066-5, 65781-5, 3040-3, CBCA, CMP #### [facility] ([id number]) [address] [place] [address] 36464 Calcium [Mass/Vol] 9.3 mg/dL Normal 8.5-10.5 [facility] Comment on above: Performed By: #### 4 8066-5, 88140-3, 3040-3, CBCA, CMP #### [facility] ([id number]) [address] [place] [address] 31571 Chloride [Moles/Vol] 101 mmol/L Normal 98-109 [facility] Comment on above: Performed By: #### 4 8066-5, 19570-4, 3040-3, CBCA, CMP #### [facility] ([id number]) [address] [place] [address] 86686 CO2 [Moles/Vol] 23 mmol/L Normal 22-32 [facility] Comment on above: Performed By: #### 4 8066-5, 41717-2, 3040-3, CBCA, CMP #### [facility] ([id number]) [address] [place] [address]40 Creatinine [Mass/Vol] 1.31 mg/dL High 0.70-1.20 [facility] Comment on above: Result Comment: METH OD TRACEABLE TO IDMS STANDARD Performed By: #### 4 8066-5, 01002-5, 3040-3, CBCA, CMP #### [facility] ([id number]) [address] [place] [address] 72292 GFR/1.73 sq M.predicted among non-blacks MDRD (S/P/Bld) [Vol rate/Area] 64 mL/min/{1.73_m2} Normal >59 [facility] Comment on above: Result Comment: Reported eGFR is based on the CKD-EPI 2020 equation that does not use a race coefficient. Performed By: #### 4 8066-5, 69710-7, 3040-3, CBCA, CMP #### [facility] ([id number]) [address] [place] [address] 36187 Glucose [Mass/Vol] 226 mg/dL High 65-99 [facility] Comment on above: Performed By: #### 4 8066-5, 40830-5, 3040-3, CBCA, CMP #### [facility] ([id number]) [address] [place] [address] 28487 Potassium [Moles/Vol] 3.6 mmol/L Normal 3.5-5.0 [facility] Comment on above: Performed By: #### 4 8066-5, 05763-1, 3040-3, CBCA, CMP #### [facility] ([id number]) [address] [place] [address] 22912 Protein [Mass/Vol] 8.1 g/dL High 6.0-8.0 [facility] Comment on above: Performed By: #### 4 8066-5, 04437-7, 3040-3, CBCA, CMP #### [facility] ([id number]) [address] [place] [address] 64353 Sodium [Moles/Vol] 136 mmol/L Normal 134-146 [facility] Comment on above: Performed By: #### 4 8066-5, 12865-0, 3040-3, CBCA, CMP #### [facility] ([id number]) [address] [place] [address] 95395 Urea nitrogen [Mass/Vol] 26 mg/dL High 5-23 [facility] Comment on above: Performed By: #### 4 8066-5, 23911-0, 3040-3, CBCA, CMP #### [facility] ([id number]) [address] [place] [address] 36190 Fibrin D-dimer DDU (PPP) [Ma ss/Vol]on 11-06-2023 D DIMER <150 Normal <255 [facility] Comment on above: Result Comment: Results <255 ng/mL DDU: The presence of a VTE can safely be excluded with a negative D-Dimer result and Wells score. A negative result doesn't exclude the possibility of DIC. The test be repeated along with other diagnostic tests if the patient's symptoms persist or worsen. [email or web address] Performed By: #### 4 8066-5, 03852-1, 3040-3, CBCA, CMP #### [facility] ([id number]) [address] [place] [address] 35038 LIPASEon 11-06-2023 Lipase [Catalytic activity/Vol] 62 U/L High 17-40 [facility] Comment on above: Performed By: #### 4 8066-5, 26530-5, 3040-3, CBCA, CMP #### [facility] ([id number]) [address] [place] [address] 26457 Troponin I.cardiac High sens itivity method [Mass/Vol]on 11-06-2023 1 HOUR TROP I, HIGH SENSITIVITY 4 ng/L Normal <21 [facility] Comment on above: Performed By: #### 8 9579-7 #### [facility] ([id number]) [address] [place] [address] 63369 TROPONIN I, HIGH SENSITIVITY 3 ng/L Normal <21 [facility] Comment on above: Performed By: #### 4 8066-5, 73537-6, 3040-3, CBCA, CMP #### [facility] ([id number]) [address] [place] [address] 66631 XR CHEST 1 VWon 11-06-2023 XR CHEST 1 VW XR CHEST 1 VW Clinical history: Left-sided chest pain. Comparisons: 11/30/2014 through 11/05/2022. Findings: Portable upright chest radiograph obtained 3:42 PM. Heart size and pulmonary vasculature appear within normal limits. Lungs appear clear. There is no pleural effusion nor pneumothorax. IMPRESSION: No evidence for acute cardiopulmonary disease. Finalized by Everton Alarcon MD on 11/06/2023 3:47 PM Normal [facility] Alanine aminotransferase [En zymatic activity/volume] in Serum or PlasmaOrdered By: Shahram Vergara on 03-26-2023 ALT [Catalytic activity/Vol] 12 U/L 7-52 [facility] Albumin [Mass/volume] in Ser um or Plasma by Bromocresol green (BCG) dye binding methoOrdered By: Shahram Vergara on 03-26-2023 Albumin BCG dye [Mass/Vol] 4.3 g/dL 3.5-5.7 [facility] Alkaline phosphatase [Enzyma tic activity/volume] in Serum or PlasmaOrdered By: Shahram Vergara on 03-26-2023 ALP [Catalytic activity/Vol] 115 U/L 34-104 [facility] Aspartate aminotransferase [ Enzymatic activity/volume] in Serum or PlasmaOrdered By: Shahram Vergara on 03-26-2023 AST [Catalytic activity/Vol] 13 U/L 13-39 [facility] Basophils Auto (Bld) [#/Vol] Ordered By: Shahram Vergara on 03-26-2023 Basophils (Bld) [#/Vol] 0.1 10*3/uL 0.0-0.2 [facility] Basophils/100 WBC Auto (Bld) Ordered By: Shahram Vergara on 03-26-2023 Basophils/100 WBC (Bld) 0.7 % . F [facility] Bilirubin.total [Mass/volume ] in Serum or PlasmaOrdered By: Shahram Vergara on 03-26-2023 Bilirubin [Mass/Vol] 0.5 mg/dL 0.3-1.0 [facility] Calcium [Mass/volume] in Ser um or PlasmaOrdered By: Shahram Vergara on 03-26-2023 Calcium [Mass/Vol] 9.7 mg/dL 8.6-10.3 [facility] Carbon dioxide, total [Moles /volume] in Serum or PlasmaOrdered By: Shahram Vergara on 03-26-2023 CO2 [Moles/Vol] 29.0 mmol/L 21.0-31.0 [facility] Chloride [Moles/volume] in S stacy or PlasmaOrdered By: Shahram Vergara on 03-26-2023 Chloride [Moles/Vol] 93 mmol/L 98-107 [facility] Creatinine [Mass/volume] in Serum or PlasmaOrdered By: Shahram Vergara on 03-26-2023 Creatinine [Mass/Vol] 0.99 mg/dL 0.70-1.30 [facility] Eosinophils Auto (Bld) [#/Vo l]Ordered By: Shahram Vergara on 03-26-2023 Eosinophils (Bld) [#/Vol] 0.1 10*3/uL 0.0-0.45 [facility] Eosinophils/100 WBC Auto (Bl d)Ordered By: Shahram Vergara on 03-26-2023 Eosinophils/100 WBC (Bld) 1.5 % . [facility] Erythrocyte distribution wid th Auto (RBC) [Ratio]Ordered By: Shahram Vergara on 03-26-2023 Erythrocyte distribution width (RBC) [Ratio] 13.3 % 12.0-14.8 [facility] Globulin Calc (S) [Mass/Vol] Ordered By: Shahram Vergara on 03-26-2023 Globulin (S) [Mass/Vol] 3.3 g/dL [facility] Glucose [Mass/volume] in Ser um or PlasmaOrdered By: Shahram Vergara on 03-26-2023 Glucose [Mass/Vol] 389 mg/dL 70-100 [facility] Comment on above: ADA recommended refe rence range Glucose mean value [Mass/vol ume] in Blood Estimated from glycated hemoglobinOrdered By: Shahram Vergara on 03-26-2023 Average glucose Estimated from glycated hemoglobin (Bld) [Mass/Vol] 433 mg/dL [facility] Hematocrit Auto (Bld) [Volum e fraction]Ordered By: Shahram Vergara on 03-26-2023 Hematocrit (Bld) [Volume fraction] 45.1 % 38.8-50.0 [facility] Hemoglobin [Mass/volume] in BloodOrdered By: Shahram Vergara on 03-26-2023 Hemoglobin (Bld) [Mass/Vol] 15.3 g/dL 13.0-17.0 [facility] Laboratory - Hematology and Cell countsOrdered By: Shahram Vergara on 03-26-2023 HbA1c (Bld) [Mass fraction] 16.7 % 4.3-5.6 [facility] Comment on above: Increased risk for d iabetes: 5.7 - 6.4diabetes: >6.4glycemic control for adults with diabetes: <7.0 Leukocytes [#/volume] correc nataliia for nucleated erythrocytes in Blood by Automated counOrdered By: Shahram Vergara on 03-26-2023 WBC corrected for nucl RBC Auto (Bld) [#/Vol] 9.5 10*3/uL 4.1-10.5 [facility] Lymphocytes Auto (Bld) [#/Vo l]Ordered By: Shahram Vergara on 03-26-2023 Lymphocytes (Bld) [#/Vol] 2.2 10*3/uL 1.00-4.8 [facility] Lymphocytes/100 WBC Auto (Bl d)Ordered By: Shahram Vergara on 03-26-2023 Lymphocytes/100 WBC (Bld) 23.6 % . [facility] MCH Auto (RBC) [Entitic mass ]Ordered By: Shahram Vergara on 03-26-2023 MCH (RBC) [Entitic mass] 26.8 pg 27.5-35.2 [facility] MCHC Auto (RBC) [Mass/Vol]Or dered By: Shahram Vergara on 03-26-2023 MCHC (RBC) [Mass/Vol] 33.9 g/dL 32.5-35.6 [facility] MCV Auto (RBC) [Entitic vol] Ordered By: Shahram Vergara on 03-26-2023 MCV (RBC) [Entitic vol] 79.2 fL 83.5-101 F [facility] Monocytes Auto (Bld) [#/Vol] Ordered By: Shahram Vergara on 03-26-2023 Monocytes (Bld) [#/Vol] 0.7 10*3/uL 0.0-0.8 [facility] Monocytes/100 WBC Auto (Bld) Ordered By: Shahram Vergara on 03-26-2023 Monocytes/100 WBC (Bld) 7.1 % . F [facility] Neutrophils Auto (Bld) [#/Vo l]Ordered By: Shahram Vergara on 03-26-2023 Neutrophils (Bld) [#/Vol] 6.4 10*3/uL 1.8-7.7 [facility] Neutrophils/100 WBC Auto (Bl d)Ordered By: Shahram Vergara on 03-26-2023 Neutrophils/100 WBC (Bld) 67.1 % . [facility] No Panel InformationOrdered By: Shahram Vergara on 03-26-2023 Estimated GFR (CKD-EPI) > 60.0 mL/Min [facility] Creatinine Clearance (Chem N/A [facility] Nucleated erythrocytes [Pres ence] in Blood by Automated countOrdered By: Shahram Vergara on 03-26-2023 Nucleated RBC Auto Ql (Bld) 0.2 /100{WBC} 0-0.5 [facility] Platelet mean volume Auto (B ld) [Entitic vol]Ordered By: Shahram Vergara on 03-26-2023 Platelet mean volume (Bld) [Entitic vol] 8.9 fL 6.6-10.1 [facility] Platelets Auto (Bld) [#/Vol] Ordered By: Shahram Vergara on 03-26-2023 Platelets (Bld) [#/Vol] 325 10*3/uL 150-450 [facility] Potassium [Moles/volume] in Serum or PlasmaOrdered By: Shahram Vergara on 03-26-2023 Potassium [Moles/Vol] 3.7 mmol/L 3.5-5.1 [facility] Protein [Mass/volume] in Ser um or PlasmaOrdered By: Shahram Vergara on 03-26-2023 Protein [Mass/Vol] 7.6 g/dL 6.4-8.9 [facility] RBC Auto (Bld) [#/Vol]Ordere d By: Shahram Vergara on 03-26-2023 RBC (Bld) [#/Vol] 5.69 10*6/uL 3.90-5.60 [facility] Serum or plasma albumin/glob ulin mass ratioOrdered By: Shahram Vergara on 03-26-2023 Albumin/Globulin [Mass ratio] 1.3 {ratio} [facility] Serum or plasma anion gap de terminationOrdered By: Shahram Vergara on 03-26-2023 Anion gap [Moles/Vol] 14.7 mmol/L 6.0-15.0 [facility] Sodium [Moles/volume] in Ser um or PlasmaOrdered By: Shahram Vergara on 03-26-2023 Sodium [Moles/Vol] 133 mmol/L 136-145 [facility] Urea nitrogen [Mass/volume] in Serum or PlasmaOrdered By: Shahram Vergara on 03-26-2023 Urea nitrogen [Mass/Vol] 13 mg/dL 7-25 [facility] WBC Auto (Bld) [#/Vol]Ordere d By: Shahram Vergara on 03-26-2023 WBC (Bld) [#/Vol] 9.5 10*3/uL 4.1-10.5 [facility] XR knee LT 3Von 02-25-2023 XR knee LT 3V [facility] [employer] Other XR knee LT 3V [facility] [employer] Other XR knee LT 3V 1[address] [facility] [employer] Other XR knee LT 3[place] [address] [facility] [employer] Other XR knee LT 3V XRay Report [employer] Other XR knee LT 3V Signed [employer] Other XR knee LT 3V Patient: Merlin Fish MR#: [id number] Win[place] [employer] Other XR knee LT 3V 9556 [employer] Other XR knee LT 3V : 1970 Acct:[id number] [employer] Other XR knee LT 3V Age/Sex: 52 / M ADM Date: 02/25/23 [employer] Other XR knee LT 3V Loc: SOXD Room: Type: [facility] [employer] Other XR knee LT 3V Attending Dr: Shahram Vergara DO [employer] Other XR knee LT 3V Copies to: Shahram Vergara DO [employer] Other XR knee LT 3V Ordering Provider: Shahram Vergara DO [employer] Other XR knee LT 3V Date of Service: 02/25/23 [employer] Other XR knee LT 3V XR/XR knee LT 3V - NOT FOR ER USE: PAIN [employer] Other XR knee LT 3V LEFT KNEE - 3 views No rt [employer] Other XR knee LT 3V CLINICAL HISTORY: Left knee pain for one year. [employer] Other XR knee LT 3V COMPARISON: None [employer] Other XR knee LT 3V FINDINGS: [employer] Other XR knee LT 3V No knee joint effusion. Mild degenerative changes without acute bony process. Calcification is [employer] Other XR knee LT 3V seen along the medial condyle of the femur suggestive of prior injury. [employer] Other XR knee LT 3V XR/XR knee LT 3V - NOT FOR ER USE [employer] Other XR knee LT 3V IMPRESSION: [employer] Other XR knee LT 3V MILD DEGENERATIVE CHANGES WITHOUT ACUTE BONY PROCESS. [employer] Other XR knee LT 3V Impression dictated by: Mauro Dominguez Jr., Yecenia02/25/2023 4:20 PM [employer] Other XR knee LT 3V Dictation Location: [place] [address] [employer] Other XR knee LT 3V Transcribed By: PWS 02/25/23 [facility] [employer] Other XR knee LT 3V Dictated By: Mauro Dominguez Jr, DO 02/25/23 1619 [employer] Other XR knee LT 3V Signed By: [employer] Other XR knee LT 3V 02/25/23 1620 [employer] Other US ANGELITO DOP LEG RTon 05-21-20 US ANGELITO DOP LEG RT EXAMINATION: US ANGELITO DOP LEG RT HISTORY: Deep venous thrombosis COMPARISON: No relevant comparison available. TECHNIQUE: Grayscale, color and Doppler ultrasound FINDINGS: Region: Right leg Thrombus: None Flow: Normal Augmentation: Normal Compressibility: Normal IMPRESSION: No deep or superficial vein thrombus in the right leg *Exam performed in accordance with [facility] practice guidelines- Peripheral venous ultrasound, September 10, 2009. Electronically authenticated by: PEG BANERJEE Date: 2022-05-21 15:[address] [facility] Vital Signs Date Time Vital Sign Value Performing Clinician Facility 09-28-2024 20:26-0400 Body height 170.2 cm [facility] 3 [facility] 09-28-2024 20:26-0400 Body mass index (BMI) [Ratio] 34.46 kg/m2 P[facility] 3 [facility] 09-28-2024 20:26-0400 Body weight 99.79 kg [facility] 3 [facility] 07-22-2024 13:52-0500 Body height 170.18 cm Parker Gorman PA-C Work Phone: [facility] 07-22-2024 13:52-0500 Body mass index (BMI) [Ratio] 34.2 kg/m2 Parker Gorman PA-C Work Phone: [facility] 07-22-2024 13:52-0500 Body weight 99 kg Parker Gorman PA-C Work Phone: [facility] 06-08-2024 11:32-0500 Body height 170.2 cm Karine Baltazar MD Work Phone: [facility] 06-08-2024 11:32-0500 Body mass index (BMI) [Ratio] 34.46 kg/m2 Karine Baltazar MD Work Phone: [facility] 06-08-2024 11:32-0500 Body weight 99.79 kg Karine Baltazar MD Work Phone: [facility] 06-08-2024 11:32-0500 Diastolic blood pressure 76 mm[Hg] Karine Baltazar MD Work Phone: [facility] 06-08-2024 11:32-0500 Heart rate 76 /min Karine Baltazar MD Work Phone: [facility] 06-08-2024 11:32-0500 SaO2% (BldA) [Mass fraction] 95 % Karine Baltazar MD Work Phone: [facility] 06-08-2024 11:32-0500 Systolic blood pressure 110 mm[Hg] Karine Baltazar MD Work Phone: [facility] 03-31-2024 08:30-0400 Body height 170.18 cm [facility] 03-31-2024 08:30-0400 Body mass index (BMI) [Ratio] 34.4 kg/m2 [facility] 03-31-2024 08:30-0400 Body weight 99.79 kg [facility] 12-03-2023 10:40-0400 Body height 170.2 cm Sara Carrizales MD Work Phone: [facility] 12-03-2023 10:40-0400 Body mass index (BMI) [Ratio] 34.46 kg/m2 Sara Carrizales MD Work Phone: [facility] 12-03-2023 10:40-0400 Body weight 99.79 kg Sara Carrizales MD Work Phone: [facility] 12-03-2023 10:40-0400 Diastolic blood pressure 78 mm[Hg] Sara Carrizales MD Work Phone: [facility] 12-03-2023 10:40-0400 Heart rate 81 /min Sara Carrizales MD Work Phone: [facility] 12-03-2023 10:40-0400 SaO2% (BldA) [Mass fraction] 97 % Sara Carrizales MD Work Phone: [facility] 12-03-2023 10:40-0400 Systolic blood pressure 120 mm[Hg] Sara Carrizales MD Work Phone: [facility] 11-08-2023 11:37-0400 Body temperature 97.5 [degF] Saar Carrizales MD Work Phone: [facility] 11-08-2023 11:37-0400 Diastolic blood pressure 83 mm[Hg] Sara Carrizales MD Work Phone: [facility] [employer] [facility] 11-08-2023 11:37-0400 Heart rate 76 /min Sara Carrizales MD Work Phone: [facility] 11-08-2023 11:37-0400 SaO2% (BldA) [Mass fraction] 95 % Sara Carrizales MD Work Phone: [facility] [employer] [facility] 11-08-2023 11:37-0400 Systolic blood pressure 116 mm[Hg] Sara Carrizales MD Work Phone: [facility] [employer] [facility] 11-08-2023 09:40-0400 Respiratory rate 14 /min Sara Carrizales MD Work Phone: [facility] 11-08-2023 05:00-0400 Body mass index (BMI) [Ratio] 33.91 kg/m2 Sara Carrizales MD Work Phone: [facility] [employer] [facility] 11-08-2023 05:00-0400 Body weight 98.2 kg Sara Carrizales MD Work Phone: [facility] [employer] [facility] 11-07-2023 10:54-0400 Body height 170.2 cm Sara Carrizales MD Work Phone: [facility] [employer] [facility] 10-09-2023 15:07-0400 Body height 170.2 cm Nelly Don MD Work Phone: [facility] [employer] [facility] 10-09-2023 15:07-0400 Body mass index (BMI) [Ratio] 34.07 kg/m2 Nelly Don MD Work Phone: [facility] [employer] [facility] 10-09-2023 15:07-0400 Body weight 98.66 kg Nelly Don MD Work Phone: [facility] [employer] [facility] 10-09-2023 15:07-0400 Diastolic blood pressure 80 mm[Hg] Nelly Don MD Work Phone: [facility] [employer] [facility] 10-09-2023 15:07-0400 Heart rate 49 /min Nelly Don MD Work Phone: [facility] 10-09-2023 15:07-0400 SaO2% (BldA) [Mass fraction] 96 % Nelly Don MD Work Phone: [facility] 10-09-2023 15:07-0400 Systolic blood pressure 126 mm[Hg] Nelly Don MD Work Phone: [facility] 09-02-2023 13:24-0400 Body height 170.18 cm [facility] 09-02-2023 13:24-0400 Body mass index (BMI) [Ratio] 32.9 kg/m2 [facility] 09-02-2023 13:24-0400 Body weight 95.33 kg [facility] 07-23-2023 14:21-0500 Diastolic blood pressure 78 mm[Hg] [facility] 07-23-2023 14:21-0500 Heart rate 80 /min [facility] 07-23-2023 14:21-0500 Respiratory rate 16 /min [facility] 07-23-2023 14:21-0500 SaO2% (BldA) [Mass fraction] 90 % [facility] 07-23-2023 14:21-0500 Systolic blood pressure 117 mm[Hg] [facility] 07-23-2023 13:20-0500 Inhaled oxygen flow rate 8 L/min [facility] 07-23-2023 13:05-0500 Body temperature 97.3 [degF] [facility] 07-23-2023 10:36-0500 Body height 170.18 cm [facility] 07-23-2023 10:36-0500 Body mass index (BMI) [Ratio] 32.8 kg/m2 [facility] 07-23-2023 10:36-0500 Body weight 95.25 kg [facility] 07-17-2023 14:45-0500 Body height 170.18 cm Shahram Vergara Other [facility] 07-17-2023 14:45-0500 Body mass index (BMI) [Ratio] 32.89 kg/m2 Shahram Vergara Other [employer] [facility] [employer] Other 07-17-2023 14:45-0500 Body weight 95.26 kg Shahram Vergara Other [employer] [facility] [employer] Other 07-17-2023 14:45-0500 Body weight 95.25 kg [facility] 03-26-2023 14:38-0400 Body height 170.18 cm PASydney Gorman Work Phone: [facility] 03-26-2023 14:38-0400 Body temperature 98.2 [degF] MERLE Gorman Work Phone: [facility] 03-26-2023 14:38-0400 Body weight 93.6 kg MERLE Gorman Work Phone: [facility] 03-26-2023 14:38-0400 Diastolic blood pressure 81 mm[Hg] MERLE Gorman Work Phone: [facility] 03-26-2023 14:38-0400 Heart rate 79 /min MERLE Gorman Work Phone: [facility] 03-26-2023 14:38-0400 Respiratory rate 16 /min MERLE Gorman Work Phone: [facility] 03-26-2023 14:38-0400 SaO2% (BldA) [Mass fraction] 97 % MERLE Gorman Work Phone: [facility] 03-26-2023 14:38-0400 Systolic blood pressure 117 mm[Hg] MERLE Gorman Work Phone: [facility] 03-25-2023 14:15-0400 Body height 170.18 cm Shahram Vergara Other [employer] [facility] [employer] Other 03-25-2023 14:15-0400 Body mass index (BMI) [Ratio] 30.07 kg/m2 Shahram Vergara Other [employer] Other 03-25-2023 14:15-0400 Body weight 87.09 kg Shahram Vergara Other [employer] Other 02-25-2023 15:30-0400 Body height 170.18 cm Shahram Vergara Other [employer] Other 02-25-2023 15:30-0400 Body mass index (BMI) [Ratio] 32.89 kg/m2 Shahram Vergara Other [employer] Other 02-25-2023 15:30-0400 Body weight 95.26 kg Shahram Vergara Other [employer] Other Encounters Encounter Date Encounter Type Care Provider Facility Start: 10-08-2024 End: 10-08-2024 Telephone encounter Hedy Us MD Work Phone: [facility] Start: 09-28-2024 End: 09-28-2024 Clinical Support [facility] Sleep Lab 3 [place] - Sleep Disorders Comment on above: CINTHYA (obstructive sle ep apnea) Start: 09-15-2024 ambulatory SHAHRAM VERGARA [facility] Start: 09-09-2024 End: 09-09-2024 ambulatory Parker Gorman PA-C Work Phone: [facility] Work Phone: Start: 09-09-2024 End: 09-09-2024 Patient encounter procedure Parker Gorman PA-C Work Phone: [facility] Work Phone: Start: 09-09-2024 End: 09-09-2024 Patient encounter procedure Parker Gorman PA-C Work Phone: [facility] Start: 09-09-2024 End: 09-09-2024 ambulatory Parker SHOEMAKERC Work Phone: [facility] Work Phone: Start: 09-04-2024 End: 09-04-2024 [facility] [employer]OCI[employer]DEEP [employer] Work Phone: [facility] Comment on above: CINTHYA (obstructive sle ep apnea) (Primary Dx) Start: 09-02-2024 End: 09-02-2024 ambulatory CHRISTIANACARE Mari [facility] [place] [place] Ambulatory [facility] Start: 08-24-2024 ambulatory SHAHRAM VERGARA [facility] Start: 08-19-2024 End: 08-19-2024 ambulatory Parker Gorman PA-C Work Phone: [facility] Work Phone: Start: 08-19-2024 End: 08-19-2024 Patient encounter procedure Parker Gorman PA-C Work Phone: [facility] Work Phone: Start: 07-31-2024 End: 07-31-2024 ambulatory Parker SHOMEAKERC Work Phone: [facility] Work Phone: Start: 07-31-2024 End: 07-31-2024 Patient encounter procedure Parker Gorman PA-C Work Phone: [facility] Work Phone: Start: 07-29-2024 End: 07-29-2024 Patient encounter procedure Parker SHOEMAKERC Work Phone: [facility] [address] Work Phone: Start: 07-29-2024 End: 07-29-2024 ambulatory Parker AARON-C Work Phone: [facility] Work Phone: Start: 07-22-2024 End: 07-22-2024 Patient encounter procedure Parker Gorman PA-C Work Phone: [facility] [address] [place] Work Phone: Start: 07-22-2024 End: 07-22-2024 ambulatory Parker Gorman PA-C Work Phone: [facility] Work Phone: Start: 07-22-2024 End: 07-22-2024 ambulatory Parker Carter Gorman PA-C Work Phone: [facility] Work Phone: Start: 07-22-2024 End: 07-22-2024 Patient encounter procedure Parker Gorman PA-C Work Phone: [facility] Work Phone: Start: 07-17-2024 End: 07-17-2024 Emergency department patient visit [facility] Start: 07-03-2024 End: 07-03-2024 Emergency department patient visit [facility] Start: 07-01-2024 Non-patient / Non-visit Parker Gorman PA-C Work Phone: [facility] Work Phone: Start: 06-23-2024 End: 06-23-2024 Orders Only Yolanda [facility] Comment on above: CINTHYA (obstructive sle ep apnea) (Primary Dx); Hypoxemia associated with sleep Start: 06-08-2024 End: 06-08-2024 Telephone encounter Hedy Us MD Work Phone: [facility] Comment on above: Obstructive sleep ap pito (adult) (pediatric) (Primary Dx); Hypoxemia associated with sleep Sleep Lab (PAP) Start: 06-08-2024 End: 06-08-2024 Office outpatient visit 15 minutes Karine Baltazar MD Work Phone: [facility] Comment on above: Primary hypertension (Primary Dx); Hyperlipidemia, unspecified hyperlipidemia type; Obesity (BMI 30.0-34.9) Start: 06-08-2024 End: 06-08-2024 ambulatory KARINE BALTAZAR [facility] Start: 06-05-2024 End: 06-05-2024 Telephone encounter Nicci Dyer CMA [facility] Start: 06-01-2024 ambulatory JANET VENTURA [facility] Start: 05-12-2024 End: 05-12-2024 Telephone encounter Janet Ventura [employer]EP [employer] Work Phone: [facility] - Sleep Disorders Comment on above: Sleep Lab (HST) CINTHYA (obstructive sle ep apnea) (Primary Dx) Start: 04-01-2024 End: 04-01-2024 ambulatory [facility] Work Phone: Start: 04-01-2024 End: 04-01-2024 Patient encounter procedure [facility] Work Phone: Start: 01-22-2024 End: 02-05-2024 Telephone encounter Mackenzie Omalley RN [facility] Start: 01-02-2024 End: 01-02-2024 ambulatory MYNOR JOSHUA Not Available Start: 12-24-2023 End: 12-24-2023 Telephone encounter Yolanda Jean Baptiste [facility] Start: 12-16-2023 End: 12-16-2023 Telephone encounter Janet Ventura [employer]OCIATE[employer]DEEP [employer] [facility] Comment on above: Sleep Lab (Split nig ht ) Start: 12-13-2023 End: 12-13-2023 Telephone encounter Janet Ventura [employer]OCIATE[employer]DEEP [employer] Work Phone: [facility] - Sleep Disorders Comment on above: Sleep Lab (PT Inquir y) Start: 12-12-2023 End: 12-13-2023 Emergency department patient visit MASON AMAYA [facility] Start: 12-12-2023 End: 12-12-2023 ambulatory [facility] Start: 12-11-2023 End: 12-11-2023 ambulatory JANET VENTURA [facility] Start: 12-05-2023 End: 12-05-2023 ambulatory MYNOR JOSHUA Not Available Start: 12-03-2023 End: 12-03-2023 Office outpatient visit 15 minutes Sara Carrizales MD Work Phone: [facility] Comment on above: NSTEMI (non-ST eleva nataliia myocardial infarction) ([facility]) (Primary Dx); Essential hypertension; Shortness of breath Start: 12-03-2023 End: 12-03-2023 ambulatory [facility] Start: 12-02-2023 End: 12-02-2023 Telephone encounter Yesenia Babcock CMA [facility] Start: 11-13-2023 End: 11-13-2023 ambulatory MYNOR JOSHUA Not Available Start: 11-08-2023 End: 11-08-2023 ambulatory SARA Dorina [facility] Start: 11-07-2023 End: 11-08-2023 Evaluation and management of inpatient [facility]ER[facility] Start: 11-07-2023 End: 11-08-2023 Evaluation and management [facility] Work Phone: [facility] - GEN 5 Acute Start: 11-06-2023 End: 11-08-2023 Emergency department patient visit [facility] Start: 10-30-2023 End: 11-05-2023 Telephone encounter Gayatri Flores RN [facility] Comment on above: Abnormal Stress Test Start: 10-29-2023 End: 10-29-2023 [facility] Start: 10-29-2023 End: 10-29-[address] [facility] Start: 10-28-2023 End: 10-28-2023 ambulatory [facility] Work Phone: Start: 10-28-2023 End: 10-28-2023 Patient encounter procedure [facility] Work Phone: Start: 10-23-2023 End: 10-23-2023 ambulatory MYNOR JOSHUA Not Available Start: 10-09-2023 End: 10-09-2023 ambulatory NELLY DON [facility] Start: 10-09-2023 End: 10-09-2023 Office outpatient visit 15 minutes Nelly Don MD Work Phone: [facility] Comment on above: Essential hypertensi on (Primary Dx); Shortness of breath Start: 10-08-2023 End: 10-08-2023 Telephone encounter Yesenia Babcock CMA [facility] Start: 09-02-2023 End: 09-02-2023 ambulatory [facility] Work Phone: Start: 09-02-2023 End: 09-02-2023 Patient encounter procedure [facility] Work Phone: Start: 08-05-2023 End: 08-05-2023 ambulatory [facility] Work Phone: Start: 08-05-2023 End: 08-05-2023 Patient encounter procedure [facility] Work Phone: Start: 07-23-2023 Non-patient / Non-visit [facility] Work Phone: Start: 07-17-2023 End: 07-17-2023 ambulatory Shahram Vergara Other [employer] Other Start: 07-17-2023 Encounter for other preprocedural examination Shahram Vergara [facility] Start: 07-17-2023 Office outpatient vi sit 25 minutes Shahram Vergara [facility] Start: 07-17-2023 End: 07-17-2023 Patient encounter procedure [facility] Start: 04-04-2023 End: 04-04-2023 ambulatory MERLE Gorman Work Phone: [facility] Work Phone: Start: 04-04-2023 End: 04-04-2023 Departed Referred MERLE Gorman Work Phone: [facility] [place] Start: 03-26-2023 End: 03-26-2023 ambulatory NON STAFF [facility] Work Phone: Start: 03-26-2023 End: 03-26-2023 Patient encounter procedure DO Shahram Vergara Work Phone: [facility] Work Phone: Start: 03-25-2023 End: 03-25-2023 ambulatory Shahram Vergara Other [employer] Other Start: 03-25-2023 Office outpatient vi sit 25 minutes Shahram Vergara [facility] Start: 03-20-2023 End: 03-20-2023 ambulatory NON STAFF [facility] Work Phone: Start: 03-20-2023 End: 03-20-2023 Patient encounter procedure DO Shahram Vergara Work Phone: [facility] [place] Work Phone: Start: 02-25-2023 End: 02-25-2023 ambulatory Shahram Vergara Other [employer] Other Start: 02-25-2023 Office outpatient ne w 45 minutes Shahram Vergara [facility] Start: 02-25-2023 End: 02-25-2023 Patient encounter procedure DO Shahram Vergara Work Phone: [facility] Start: 05-21-2022 End: 05-21-[address] CARL LAINEZ Facility: Start: 11-03-2021 End: 11-03-2021 ambulatory GALEN MCKAY Facility: Procedures Date Procedure Procedure Detail Performing Clinician Start: 09-09-2024 Plain X-ray of right wrist Parker Vita PA-C Work Phone: Start: 07-29-2024 MRI of right forearm Jaret dunbar Vita PA-C Work Phone: Start: 07-22-2024 Plain X-ray of right elbow Parker Vita PA-C Work Phone: Start: 07-22-2024 Plain X-ray of right wrist Parker Vita PA-C Work Phone: Start: 12-03-2023 Follow-up visit Follow-up SARA CARRIZALES Start: 11-08-2023 CARDIAC INVASIVE Sara Carrizales MD Work Phone: Start: 11-08-2023 CARDIAC INVASIVE Sara Carrizales MD Work Phone: Start: 11-08-2023 End: 11-08-2023 Comprehensive metabolic panel Hue Eller [employer]OCI[employer] Work Phone: Start: 11-07-2023 Gluc bld gluc mntr d ev cleared fda spec home use Fermin Mejía MD Work Phone: Start: 11-07-2023 Assay of magnesium Fermin Mejía MD Work Phone: Start: 11-07-2023 Gluc bld gluc mntr d ev cleared fda spec home use Fermin Mejía MD Work Phone: Start: 11-07-2023 Comprehensive metabo lic panel Hue Eller [employer]OCI[employer]EP [employer] Work Phone: Start: 11-07-2023 Adult depression scr eening assessment Yesenia Babcock CMA Start: 10-09-2023 Follow-up visit Follow-up PAVEL DON Start: 03-20-2023 MRI of left knee DO Masoud Vergara Work Phone: Start: 02-25-2023 X-ray of left knee DO Jimmy Vergara Work Phone: Plan of Treatment Date Care Activity Detail Author Start: 09-28-2025 Adult BMI Screening Adult BMI Screen ing [facility] Start: 09-02-2025 Adult BMI Screening Adult BMI Screen ing [facility] Start: 09-02-2025 Tobacco Screening Tobacco Screening [facility] Start: 06-08-2025 Adult BMI Screening Adult BMI Screen ing [facility] Start: 06-08-2025 Tobacco Screening Tobacco Screening [facility] Start: 06-01-2025 Adult BMI Screening Adult BMI Screen ing [facility] Start: 06-01-2025 Tobacco Screening Tobacco Screening [facility] Start: 03-10-2025 End: 03-10-2025 Patient encounter procedure 03/10/2025 2:45 PM EDT Office Visit [facility] [address] [place] [address] Janet Ventura, SCHOOL [employer]GE PROGRAM ASSOCIATE-[employer]EP [employer]OOK [address] [place] [address], [facility] [address] [id number] [facility] Start: 02-15-2025 Influenza vaccination Influenza Vacc ine [facility] Start: 12-15-2024 Tobacco Screening Tobacco Screening [facility] Start: 12-11-2024 Adult BMI Screening Adult BMI Screen ing [facility] Start: 12-11-2024 Tobacco Screening Tobacco Screening [facility] Start: 12-02-2024 Adult BMI Screening Adult BMI Screen ing [facility] Start: 12-02-2024 Tobacco Screening Tobacco Screening [facility] Start: 11-07-2024 Adult BMI Screening Adult BMI Screen ing [facility] Start: 11-06-2024 Depression Screening Depression Scre ening [facility] Start: 11-06-2024 Tobacco Screening Tobacco Screening [facility] Start: 10-28-2024 Adult BMI Screening Adult BMI Screen ing [facility] Start: 10-28-2024 Tobacco Screening Tobacco Screening [facility] Start: 09-28-2024 End: 09-28-2024 Clinical Support 09/28/2024 8:00 PM EDT Clinical Support [facility] [address] [place] [address] [facility] Start: 09-09-2024 Plain X-ray of right wrist XR wrist RT min 3V* [facility] Start: 09-09-2024 XR Wrist - right GE 3 Views [facility] Start: 09-02-2024 End: 09-02-2024 Patient encounter procedure 09/02/2024 2:45 PM EDT Office Visit [facility] [address] [place] [address] Janet Ventura, SCHOOL AGE PROGRAM ASSOCIATE[employer]DEEP [employer]OOK [address] [address] [facility] Start: 08-04-2024 End: 08-04-2024 Clinical Support 08/04/2024 8:00 PM EST Clinical Support [facility] [address] [place] [address] [facility] Start: 07-22-2024 Plain X-ray of right elbow XR elbow RT 2V [facility] Start: 07-22-2024 XR Elbow - right 2 Views [facility] Start: 07-22-2024 Plain X-ray of right wrist XR wrist RT min 3V* [facility] Start: 07-22-2024 XR Wrist - right GE 3 Views [facility] Start: 06-24-2024 End: 06-24-2024 Patient encounter procedure 06/24/2024 3:15 PM EST Office Visit [facility] [address] [place] [id number] Janet Ventura, SCHOOL AGE PROGRAM ASSOCIATE-DEEP [employer]OOK [address] [address] [facility] Start: 06-08-2024 End: 06-08-2025 Polysomnography 4 or more parameters with PAP titration Polysomnography 4 or more parameters with PAP titration Sleep Center Routine Obstructive sleep apnea (adult) (pediatric) Hypoxemia associated with sleep Expected: 06/08/2024 (Approximate), Expires: 06/08/2025 [facility] Work Phone: Comment on above: Expected: 06/08/2024 (Approximate), Expires: 06/08/2025 Start: 06-08-2024 End: 06-08-2024 Patient encounter procedure 06/08/2024 11:45 AM EST Office Visit [facility] [address] [id number] Karine Baltazar MD [address] [place] [address] [facility] Start: 06-01-2024 End: 06-01-2024 Clinical Support 06/01/2024 7:00 PM EST Clinical Support [facility] [address] [place] [id number] [facility] Start: 05-20-2024 End: 05-20-2024 Clinical Support 05/20/2024 8:00 PM EST Clinical Support [facility] [address] [place] [id number] [facility] Start: 05-01-2024 End: 05-01-2024 Admission to same day surgery center 05/01/2024 7:30 AM EST - 05/01/2024 9:00 AM EST Surgery [facility] [address] [place] [id number] Mynor Joshua, ABBIE [address] [place], [place] [id number] REPAIR MUSCLE RECESSION GASTROCNEMIUS [53780 (CPT )] [facility] Comment on above: REPAIR MUSCLE RECESS ION GASTROCNEMIUS [71648 (CPT )] Start: 05-01-2024 End: 05-01-2024 Gastrocnemius recession REPAIR MUSCLE RECESSION GASTROCNEMIUS GASTROCNEMIUS EQUINUS; insertional calcific tenorrhaphy 05/01/2024 7:30 AM EST [facility] Start: 05-01-2024 Subsequent hospital visit by physician 05/01/2024 7:30 AM EST Hospital Encounter [facility] [address] [place] [id number] Mynor Joshua, ABBIE [address] [place], [place] [id number] [facility] Start: 05-01-2024 End: 05-01-2024 Tenolysis flxr/xtnsr tendon leg&/ankle 1 each TENOLYSIS ANKLE/FOOT GASTROCNEMIUS EQUINUS; insertional calcific tenorrhaphy 05/01/2024 7:30 AM EST [facility] Start: 04-06-2024 End: 04-06-2024 Patient encounter procedure 04/06/2024 2:15 PM EDT Procedure visit [facility] [address] [facility] [place] [phone] [facility] Start: 02-16-2024 COVID-19 Vaccine ( season) COVID-19 Vaccine ( season) [facility] Start: 02-16-2024 Influenza vaccination Influenza Vacc ine [facility] Start: 02-15-2024 Adult BMI Screening Adult BMI Screen ing [facility] Start: 01-29-2024 Tobacco Screening Tobacco Screening [facility] Start: 12-11-2023 End: 12-11-2023 Patient encounter procedure 12/11/2023 11:00 AM EDT [facility] [address] [place] [address] Janet Ventura, SCHOOL AGE PROGRAM ASSOCIATE-DEEP FAT FRY COOK [address] [facility], [address] [place] [address] [facility] Start: 12-03-2023 End: 12-03-2023 Patient encounter procedure 12/03/2023 10:45 AM EDT Office Visit [facility] [address] [facility] [address] [place] [phone] Sara Carrizales MD [address], [place] [id number] [facility] Start: 10-09-2023 End: 10-09-2023 Patient encounter procedure 10/09/2023 3:15 PM EDT Office Visit [facility] [address] [place] [phone] Nelly Don MD [address] [place] [address] [facility] Start: 07-23-2023 End: 07-23-2023 [facility] Start: 04-04-2023 Arthroscopy of knee OR Knee Ar throscopy (Left) [facility] Start: 02-15-2023 COVID-19 Vaccine ( season) COVID-19 Vaccine ( season) [facility] Start: 2018 Administration of varicella zoster vaccine Zoster (Shingles) Vaccine (1 of 2) [facility] Start: 1987 DTaP,Tdap and Td Vac cines (1 - Tdap) DTaP,Tdap and Td Vaccines (1 - Tdap) [facility] Start: 1986 Adult BMI Follow Up Plan Adult BMI F ollow Up Plan [facility] Start: 1986 Diabetic foot examination Diabetic F oot Exam [facility] Start: 1980 Depression Screening Depression Scre ening [facility] Start: 1968 Glaucoma screening Diabetic Op hthalmology Exam [facility] Start: 1968 Statin Use: Cardiovascular Statin Use: Cardiovascular [facility] Start: 1968 Statin Use: Diabetic Statin Use: Chiara betic [facility] Glucose measurement estimated from glycated hemoglobin [facility] Hemoglobin A1c measurement [facility] End: 05-12-2025 Home sleep study Home sleep study Sleep Center Routine CINTHYA (obstructive sleep apnea) 1 Occurrences starting 05/12/2024 until 05/12/2025 [facility] Work Phone: Comment on above: 1 Occurrences starti ng 05/12/2024 until 05/12/2025 End: 06-08-2025 Lipid 1996 panel - Serum or Plasma Lipid profile Lab Routine Primary hypertension Hyperlipidemia, unspecified hyperlipidemia type 1 Occurrences starting 06/08/2024 until 06/08/2025 [facility] Work Phone: Comment on above: 1 Occurrences starti ng 06/08/2024 until 06/08/2025 End: 11-03-2024 Lipid 1996 panel - Serum or Plasma Lipid profile Lab Routine Mixed hyperlipidemia 1 Occurrences starting 11/04/2023 until 11/03/2024 [facility] Work Phone: Comment on above: 1 Occurrences starti ng 11/04/2023 until 11/03/2024 MR Forearm - right W O contrast [facility] Patient referral [facility] Work Phone: End: 12-02-2024 Pulmonary function test Complete PFT w/ BD (Spirometry (Flow Volume Loop) pre/post short acting bronchodilator w/ DLCO (diffusion study) and Lung Volume) Pulmonary function test Complete PFT w/ BD (Spirometry (Flow Volume Loop) pre/post short acting bronchodilator w/ DLCO (diffusion study) and Lung Volume) PFT Routine Shortness of breath 1 Occurrences starting 12/03/2023 until 12/02/2024 [facility] Work Phone: Comment on above: 1 Occurrences starti ng 12/03/2023 until 12/02/2024 [facility] Immunizations Immunization Date Immunization Notes Care Provider Fa cility 04-18-2021 COVID-19 mRNA, Comirnaty (Pfizer) DO Shahram Vergara Work Phone: [facility] 03-28-2021 COVID-19 mRNA, Comirnaty (Pfizer) DO Shahram Alejandra Work Phone: [facility] Payers Date Payer Category Payer Self-pay 2022 Medicaid [id number] 1968 Unknown [id number] 2.16.84 0.1.875758.3.579.2.593 1968 Unknown [id number] 2.16.84 0.1.123133.3.579.2.593 1968 Unknown [id number] 2.16.8 40.1.455612.3.579.2.1286 1968 Unknown [id number] 2.16.8 40.1.031370.3.579.2.1286 1968 Unknown [id number] 2.16.8 40.1.978875.3.579.2.1286 1968 Unknown [id number] 2.16.84 0.1.320163.3.579.2.1259 1968 Unknown [id number] 2.16.84 0.1.579167.3.579.2.1259 1968 Unknown [id number] 2.16.84 0.1.787508.3.579.2.1259 1968 Unknown [id number] 2.16.84 0.1.837916.3.579.2.1259 1968 Unknown [id number] 2.16.84 0.1.935450.3.579.2.1259 1968 Unknown [id number] 2.16. 840.1.022116.3.579.2.1286 1968 Unknown [id number] 2.16.8 40.1.059668.3.579.2.1286 1968 Unknown [id number] 2.16. 840.1.999879.3.579.2.1285 1968 Unknown [id number] 2.16. 840.1.844483.3.579.2.1285 1968 Unknown [id number] 2.16. 840.1.127539.3.579.2.1285 1968 Unknown [id number] 2.16. 840.1.428990.3.579.2.1285 1968 Unknown [id number] 2.16. 840.1.196230.3.579.2.1285 1968 Unknown [id number] 2.16.8 40.1.619215.3.579.2.1285 1968 Unknown [id number] 2.16.8 40.1.835672.3.579.2.1285 1968 Unknown [id number] 2.16.8 40.1.821629.3.579.2.1285 1968 Unknown [id number] 2.16.8 40.1.411086.3.579.2.1285 1968 Unknown [id number] 2.16.8 40.1.657912.3.579.2.1285 1968 Unknown [id number] 2.16.8 40.1.787518.3.579.2.1285 1968 Unknown [id number] 2.16.8 40.1.643528.3.579.2.1285 1968 Unknown [id number] 2.16.8 40.1.067172.3.579.2.1285 1968 Unknown [id number] 2.16.8 40.1.733437.3.579.2.1285 1968 Unknown [id number] 2.16.8 40.1.791970.3.579.2.1285 1968 Unknown [id number] 2.16.8 40.1.684657.3.579.2.1286 1968 Unknown [id number] 2.16.8 40.1.971959.3.579.2.1286 1961 Medicaid [id number] 1959 Unknown [id number] Unknown [id number] 2.16.8 40.1.982222.3.579.2.531 Unknown [id number] 2.16.8 40.1.451400.3.579.2.531 Unknown [id number] 2.16.8 40.1.095506.3.579.2.531 Unknown [id number] 2.16.8 40.1.125244.3.579.2.531 Social History Date Type Detail Facility Start: 07-28-2020 End: 11-07-2023 Sex Assigned At [facility] [employer] Other Start: 1970 Sex Assigned At Male F [facility] Start: 09-06-2022 End: 03-26-2023 Tobacco smoking status NHIS Never smoked tobacco (finding) [facility] Start: 09-06-2022 Tobacco use and exposure Smokeless tobacco non-user [facility] Start: 06-01-2024 End: 09-02-2024 Alcoholic beverage intake Current drinker of alcohol (finding) [facility] Start: 07-28-2020 End: 11-07-2023 History of Social function [facility] Has the [employer], or C-sam threatened to shut off services in your home in past 12Mo No [facility] How often to you hav e a drink containing alcohol? Monthly or less [facility] How many standard drinks containing alcohol do you have on a typical day? 1 or 2 [facility] How often do you hav e 6 or more drinks on 1 occasion? Never [facility] How hard is it for y ou to pay for the very basics like food, housing, medical care, and heating Not hard at all [facility] Start: 11-05-2022 Alcohol Comment occasional [facility] Start: 1970 Sex assigned at Not on file [facility] Start: 01-20-2015 End: 09-10-2024 Sex Male (finding) [facility] Procedure Code Equipment Code Equipment Origin al Text Equipment Identifier Dates Acrysof Iq Vivit y Uv Iol [id number] Start: 11-29-2022 Clinical Notes 05-21-2022 to 10-08-2024 Telephone Encounter - Hedy Us MD - 10/08/2024 1:21 PM EDTTelephone Encounter - Jennifer Duran - 10/08/2024 1:21 PM EDTTelephone Encounter - Hedy Us MD - 10/08/2024 1:21 PM EDT Note Date & Type Note Facility 10-08-2024 Miscellaneous Notes Formattin g of this note might be different from the original. Patient of SK Please let him know results BiPAP ordered Titration study on 09/28/2024 (Mkgseg=730.0 lbs; BMI=34.5 kg/m2) DIAGNOSIS: Obstructive Sleep Apnea (G47.33) Periodic Limb Movements of Sleep - ICD Code R25.9 COMMENTS: This titration tested CPAP settings of 19-20 cm of water with EPR of 3. CPAP failed to treat this patient's obstructive sleep apnea and BiPAP was then initiated. BiPAP 25/19 cm of water effectively treated this patient's obstructive sleep apnea and was tested in lateral REM and NREM sleep. Scored hypopneas at this setting lacked clear obstructive features. There was no sleep related hypoventilation. There were clusters of frequent periodic leg movements. Faxed all information to [facility] for switch to BiPAP setup. Patient informed through DME letter and lvm. Recall placed for RV with SK for compliance as current 03/10/25 likely too far out. documented in this encounter [facility] 10-08-2024 Telephone encount er Note Patient of SK Please let him know results BiPAP ordered Titration study on 09/28/2024 (Ihemqp=246.0 lbs; BMI=34.5 kg/m2) DIAGNOSIS: Obstructive Sleep Apnea (G47.33) Periodic Limb Movements of Sleep - ICD Code R25.9 COMMENTS: This titration tested CPAP settings of 19-20 cm of water with EPR of 3. CPAP failed to treat this patient's obstructive sleep apnea and BiPAP was then initiated. BiPAP 25/19 cm of water effectively treated this patient's obstructive sleep apnea and was tested in lateral REM and NREM sleep. Scored hypopneas at this setting lacked clear obstructive features. There was no sleep related hypoventilation. There were clusters of frequent periodic leg movements. [facility]: 10-08-2024 Telephone encount er Note Faxed all information to [facility] for switch to BiPAP setup. Patient informed through DME letter and lvm. Recall placed for RV with SK for compliance as current 03/10/25 likely too far out. [facility] 09-04-2024 Miscellaneous Notes Formattin g of this note might be different from the original. PAP mask and supplies order with supportive documentation faxed to [facility]. documented in this encounter [facility] 09-04-2024 Telephone encount er Note PAP mask and supplies order with supportive documentation faxed to [facility]. [facility] 07-22-2024 Evaluation note Diagnosis Onset Date Resolution Right forearm pain acute Februa 2024 1:50pm [facility] Work Phone: 1(799) 124-632402-05-2025 Evaluation note* Diagnosis Onset Date Resolution Status Admit Date Right forearm pain acute Februa 2024 1:50pm Gout acute July 31, 2024 9:12am Right forearm pain acute Februa 2024 9:12am [facility] Work Phone: 1(331) 539-480702-05-2025 Evaluation note* Diagnosis Onset Date Resolution Status Admit Date Right forearm pain acute Februa 2024 1:50pm Gout acute July 31, 2024 9:12am Right forearm pain acute Februa 2024 9:12am Gout acute August 19 1:33pm Right forearm pain acute August 19, 2024 1:33pm Right wrist pain acute August h2024 1:33pm [facility] Work Phone: 1(258) 407-983802-05-2025 Evaluation note* Diagnosis Onset Date Resolution Status Admit Date Right forearm pain acute 2024 1:50pm Gout acute July 31, 2024 9:12am Right forearm pain acute 2024 9:12am Gout acute August 19 1:33pm Right forearm pain acute August 19, 2024 1:33pm Right wrist pain acute August h2024 1:33pm Gout acute September 09 2:43pm Right forearm pain acute September 09, 2024 2:43pm Right wrist pain acute September 092024 2:43pm [facility] Work Phone: 1(853) 922-443301-07-2025 Miscellaneous Notes* Telephone Encounter - Yolanda Jean Baptiste - 06/23/2024 2:49 PM EST Images from the original note were not included. Per sleep lab, 08/06 titration pending due to having same code as originally ordered Split study. Ptcompleted HST vs Split, which showed severe CINTHYA and hypoxemia with titration /TCO2 recommended. [place],can't submit for approval again for 90 days. Tried calling for P/P and each time spent 45 min-1hour holding with no answer. Per SK, ok to order APAP with pulse ox to be done once compliant. Sleeplab r/s his titration appt for 09/28 in case ends up being needed -will cx if not necessary. Reviewed plan for APAP setup and compliance RV with SK on 09/02 / overnight pulse ox and possible titration as needed on 09/28 (cx if not needed)- pt voiced understanding. Faxed all info for APAP setupto Zena at [facility] for amber setup due to severity. Fax confirmation received. documented in this encounterMansfield HospitalTSO3 [facility] [id number] Telephone encounter Note* Telephone Encounter - Yolanda Zi Jean Baptiste - 06/23/2024 2:49 PM EST Images from the original note were not included. Per sleep lab, 08/06 titration pending due to having same code as originally ordered Split study. Ptcompleted HST vs Split, which showed severe CINTHYA and hypoxemia with titration /TCO2 recommended. [place],can't submit for approval again for 90 days. Tried calling for P/P and each time spent 45 min-1hour holding with no answer. Per SK, ok to order APAP with pulse ox to be done once compliant. Sleeplab r/s his titration appt for 09/28 in case ends up being needed -will cx if not necessary. Reviewed plan for APAP setup and compliance RV with SK on 09/02 / overnight pulse ox and possible titration as needed on 09/28 (cx if not needed)- pt voiced understanding. Faxed all info for APAP setupto Zena at [facility] for amber setup due to severity. Fax confirmation received. [facility] [employer][id number] History of Present illness Narrative* Karine Baltazar MD - 06/08/2024 11:45 AM EST Merlin Fish Date of visit: 06/08/2024 Date of : 1970 Age: 54 y.o. Patient Active Problem List Diagnosis Chronic sinusitis DNS (deviated nasal septum) Hypertrophy of both inferior nasal turbinates Obstructive sleep apnea syndrome Abnormal EKG Essential hypertension Shortness of breath NSTEMI (non-ST elevated myocardial infarction) ([facility]) No Known Allergies Current Outpatient Medications Medication Sig Dispense Refill albuterol (PROVENTIL HFA;VENTOLIN HFA) 90 mcg/actuation inhaler Inhale 2 puffs every 6 (six) hours as needed for wheezing. atorvastatin (LIPITOR) 40 mg tablet Take 1 tablet (40 mg total) by mouth nightly. 30 tablet 0 carvediloL (COREG) 12.5 mg tablet Take 1 tablet (12.5 mg total) by mouth in the morning and 1 tablet (12.5 mg total) before bedtime. 180 tablet 3 empagliflozin (JARDIANCE) 25 mg tablet tablet TAKE 1 TABLET BY MOUTH ONCE DAILY Oral for 90 Days losartan-hydroCHLOROthiazide (HYZAAR) 100-12.5 mg per tablet Take 1 tablet by mouth in the morning. metFORMIN (GLUCOPHAGE) 1000 mg tablet Take 1 tablet (1,000 mg total) by mouth in the morning and 1 tablet (1,000 mg total) in the evening. Take with meals. SITagliptin phosphate (JANUVIA) 100 mg tablet Take 1 tablet (100 mg total) by mouth in the morning. No current facility-administered medications for this visit. Chief Complaint Patient presents with Follow-up 6 mo f/u-l/s TLM-no labs or testing-sched appt wpt History of Present Illness Patient is here for follow-up visit. Has been having recurrent atypical type chest pain. Had a heart catheterization in October that showed no significant coronary disease. Stated that he still has occasional discomfort in his left upper chest occurs once or twice per month, not related to exertion, sharp in nature, last for seconds up to a minute. When it happens he feels short of breath although does not feel short of breath otherwise. No dyspnea with exertion. No palpitations. No dizzy spells orsyncope or presyncope no orthopnea. Occasional pedal edema. No tobacco use or alcohol use or recreational drug use. Vitals within normal limits. Scheduled to have sleep study done in July. Past Medical History: Diagnosis Date Abnormal EKG Arthritis Asthma Cataract Diabetes ([facility]) Diabetes mellitus type 2, controlled ([facility]) Headache Hyperlipidemia Hypertension Sleep apnea Visual impairment No data recorded No data recorded No data recorded Past Surgical History: Procedure Laterality Date APPENDECTOMY Cardiac Invasive N/A 11/08/2023 Performed by Sara Carrizales MD at [facility] CATH [facility]S Coronary angiogram and left ventricular gram/pressure N/A 11/08/2023 Performed by Sara Carrizales MD at [facility] CARDIAC CATH LABS EXTRACTION CATARACT INTRAOCULAR LENS Right 11/29/2022 Performed by Marya Robbins MD at [facility] EXPRESS KNEE SURGERY x4 WISDOM TOOTH EXTRACTION Family History Problem Relation Age of Onset Diabetes Mother Heart disease Father Diabetes Father Social History Socioeconomic History Marital status: Legally Spouse name: Not on file Number of children: Not on file Years of education: Not on file Highest education level: Not on file Occupational History Not on file Tobacco Use Smoking status: Never Smokeless tobacco: Never Vaping Use Vaping status: Never Used Substance and Sexual Activity Alcohol use: Yes Comment: occasional Drug use: Never Sexual activity: Defer Partners: Female Other Topics Concern Caffeine Use Yes Social History Narrative Not on file Social Drivers of Health Financial Resource Strain: Low Risk (11/07/2023) Overall Financial Resource Strain (CARDIA) Difficulty of Paying Living Expenses: Not hard at all Food Insecurity: No Food Insecurity (06/08/2024) Hunger Screening Food Insecurity - Worry: Never True Food Insecurity - Inability: Never True Transportation Needs: No Transportation Needs (11/07/2023) PRAPARE - Transportation Lack of Transportation (Medical): No Lack of Transportation (Non-Medical): No Physical Activity: Not on file Stress: Not on file Social Connections: Not on file Interpersonal Safety: Not At Risk (11/07/2023) Humiliation, Afraid, Rape, and Kick questionnaire Fear of Current or Ex-Partner: No Emotionally Abused: No Physically Abused: No Sexually Abused: No Housing Instability: Low Risk (11/07/2023) Housing Instability Housing Instability: No Review of Systems Review of Systems Respiratory: Negative for cough, hemoptysis and wheezing. Musculoskeletal: Positive for joint pain. Gastrointestinal: Negative for abdominal pain, change in bowel habit and hematochezia. Genitourinary: Negative for dysuria and hematuria. Neurological: Positive for headaches. Negative for focal weakness and paresthesias. CARDIOVASCULAR: Please review HPI. Physical Examination General appearance: Alert, oriented and cooperative. In no acute distress. Skin: Warm and dry to touch. Head: Normocephalic, without obvious abnormality, atraumatic. Ears, Nose, Mouth, Throat: Throat clear without erythema or exudate. Dentition intact. Eyes: Conjunctivae unremarkable, EOM intact. Neck: No JVD, No carotid bruit. Neck supple, trachea midline. Respiratory: Clear to auscultation bilaterally, no use of accessory muscles. Cardiovascular: RRR with normal S1 and S2 with no murmurs. Gastrointestinal: Soft, non-tender. Bowel sounds normal. Musculoskeletal: No peripheral edema. Neurologic: Oriented to time, person and place, affect appropriate. No focal/major motor defects noted. Psychiatric: Appropriate mood, memory and judgement. VITAL SIGNS: BP 110/76 (BP Site: Left Arm, BP Postition: Sitting) Pulse 76 Ht 170.2 cm (5' 7 ) Wt 99.8 kg (220 lb) SpO2 95% BMI 34.46 kg/m No orders of the defined types were placed in this encounter. There are no discontinued medications. IMPRESSIONS/PLAN 1. Primary hypertension - Lipid profile; Future 2. Hyperlipidemia, unspecified hyperlipidemia type - Lipid profile; Future 3. Obesity (BMI 30.0-34.9) Previous cardiac related labs and test results were reviewed and discussed with the patient. Noncardiac type chest pain Hypertension Angiographically normal coronary arteries [facility] 10/2023 Normal EF TTE 02/2023 Hyperlipidemia -07/2022: Total cholesterol 176, HDL 38, LDL 67, triglycerides 357 Type 2 diabetes mellitus Asthma Sleep apnea/ scheduled for sleep study 07/2023 Obesity, BMI 34 Patient here for follow-up visit. Has some noncardiac type chest pain which could be GI in nature. Recommended considering seeing agricultural inspector if discomfort becomes more frequent and to discuss with PCP. No further ischemic workup planned at this time. Routine lipid function test ordered. Will follow-up on results with recommendations as needed. No change in his medications. Patient would like to continue follow-up with his PCP and come back to our office as needed moving forward. Patient to call us with any cardiac questions or concerns TODAYS ORDERS Orders Placed This Encounter Procedures Lipid profile FOLLOW UP Return if symptoms worsen or fail to improve. PCP: [facility] [place] Referring Physician: No referring provider defined for this encounter. documented in this encounterMansfield HospitalTSO3 [facility] [id number] Miscellaneous Notes* Telephone Encounter - Jeannine Peres - 06/08/2024 11:42 AM EST 06/08 Order received STAT Scheduled PAP at [facility] on 08/04/24 Chat to pre auth [employer] Medicaid PAP Order and use 12/11/23 [facility] Notes STAT due to Severe CINTHYA, Run with TCO2, wakeful baseline to start * Telephone Encounter - Marci Carroll - 06/08/2024 11:42 AM EST Pt has a previously denied auth (SN from ) with same code 66711 within the past 90 days.. Ins can not submit another auth until 08/04/24 There is an option for an appeal to be filed for the 81648 code will have to either call [phone] Or fax a request and clinicals to [phone] C#[id number] [facility] Rhoda Ness# [id number] Thank you documented [facility] Telephone encounter Note* Telephone Encounter - Jeannine Peres - 06/08/2024 11:42 AM EST 06/08 Order received STAT Scheduled PAP at [facility] on 08/04/24 Chat to pre auth [place] Medicaid PAP Order and use 12/11/23 [facility] Notes STAT due to Severe CINTHYA, Run with TCO2, wakeful baseline to start [facility]12-23-2024 Telephone encounter Note* Telephone Encounter - Marci Carroll - 06/08/2024 11:42 AM EST Pt has a previously denied auth (SN from ) with same code 05134 within the past 90 days.. Ins can not submit another auth until 08/04/24 There is an option for an appeal to be filed for the 78829 code will have to either call [phone] Or fax a request and clinicals to [phone] C#[id number] [facility] Rhoda Ness# [id number] Thank you [facility]12-23-2024 Miscellaneous Notes* Telephone Encounter - Hedy Us MD - 06/08/2024 10:03 AM EST Patient of Janetzi Ventura Please let him know results. IN Lab CPAP titration recommended with TCO2 Janet, he will need the order, would add comments to expedite due to severity and his ESS Home sleep apnea test on 2024-06-01 (WARD (3%)=83.1 events/hour; WARD (4%)=76.1 events/hour; Alfredo SpO2=68.0%; Asxxmo=272.0 lbs; BMI=34.5 kg/m2) DIAGNOSIS: Obstructive Sleep Apnea (G47.33) Sleep Related Hypoxemia - ICD code G47.36 COMMENTS: This home sleep apnea test demonstrates severe obstructive sleep apnea characterized primarily by obstructive apneas and hypopneas. There were additional central and mixed apneas. Please note that some of the scored obstructive apneas appeared to have decreased respiratory effort but were associated with snoring. While oxygen saturations typically returned to the low-to-mid nineties after events,there was a period where baseline oxygen saturations were maintained 87-88% for over 5 minutes in the absence of obstructive events. Clinical correlation recommended for possible underlying cardio-pulmonary disease. TREATMENT CONSIDERATIONS: A CPAP titration with transcutaneous CO2 monitoring is recommended. If treatment other than CPAP isbeing considered, an in lab baseline polysomnogram should be considered to clarify the degree of central and mixed events. * Telephone Encounter - Jennifer Duran - 06/08/2024 10:03 AM EST LVM with HST results, recommended sleeping Sides only and/or partially elevated while waiting for treatment. Ticket Worker provided her direct number for call back if questions and Sleep Lab number to schedule. Order placed and note to HUB for scheduling. documented in this encounterWayne Hospital12-23-2024 Telephone encounter Note* Telephone Encounter - Hedy Us MD - 06/08/2024 10:03 AM EST Patient of Janet Ventura Please let him know results. IN Lab CPAP titration recommended with TCCecy Gonzales, he will need the order, would add comments to expedite due to severity and his ESS Home sleep apnea test on 2024-06-01 (WARD (3%)=83.1 events/hour; WARD (4%)=76.1 events/hour; Alfredo SpO2=68.0%; Qaezfv=931.0 lbs; BMI=34.5 kg/m2) DIAGNOSIS: Obstructive Sleep Apnea (G47.33) Sleep Related Hypoxemia - ICD code G47.36 COMMENTS: This home sleep apnea test demonstrates severe obstructive sleep apnea characterized primarily by obstructive apneas and hypopneas. There were additional central and mixed apneas. Please note that some of the scored obstructive apneas appeared to have decreased respiratory effort but were associated with snoring. While oxygen saturations typically returned to the low-to-mid nineties after events,there was a period where baseline oxygen saturations were maintained 87-88% for over 5 minutes in the absence of obstructive events. Clinical correlation recommended for possible underlying cardio-pulmonary disease. TREATMENT CONSIDERATIONS: A CPAP titration with transcutaneous CO2 monitoring is recommended. If treatment other than CPAP isbeing considered, an in lab baseline polysomnogram should be considered to clarify the degree of central and mixed events. [employer] [employer] Work Phone: [phone] Telephone encounter Note* Telephone Encounter - Jennifer Duran - 06/08/2024 10:03 AM EST LVM with HST results, recommended sleeping Sides only and/or partially elevated while waiting for treatment. Ticket Worker provided her direct number for call back if questions and Sleep Lab number to schedule. Order placed and note to HUB for scheduling. [employer] [facility]12-20-2024 Miscellaneous Notes* Telephone Encounter - Nicci Dyer CMA - 06/05/2024 9:21 AM EST Left message for patient to remind them to bring their most current medication list with them to their appointment. documented [facility] Telephone encounter Note* Telephone Encounter - Nicci Dyer CMA - 06/05/2024 9:21 AM EST Left message for patient to remind them to bring their most current medication list with them to their appointment. [facility]11-26-2024 Miscellaneous Notes* Telephone Encounter - Hue Helm - 05/12/2024 10:01 AM EST 05/12 HST order received Called PT LM to schedule sleep study. HST order & 12/10 Kregel notes in epic * Telephone Encounter - Jeannine Peres - 05/12/2024 10:01 AM EST Scheduled HST at [facility] on 06/01 7:00 pm Confirmation emailed [employer] HST order & 12/10 Kregel notes in epic documented in this encounterWayne Hospital11-26-2024 Telephone encounter Note* Telephone Encounter - Hue Helm - 05/12/2024 10:01 AM EST 05/12 HST order received Called PT LM to schedule sleep study. HST order & 12/10 Kregel notes in epic [facility]11-26-2024 Telephone encounter Note* Telephone Encounter - Jeannine Peres - 05/12/2024 10:01 AM EST Scheduled HST at [facility] on 06/01 7:00 pm Confirmation emailed [employer] HST order & 12/10 Kregel notes in epic [facility]08-07-2024 Miscellaneous Notes* Telephone Encounter - Mackenzie Omalley RN - 01/22/2024 11:10 AM EDT Surgeon: Dr Joshua Type of surgery:Robby Lt foot viaflow injection Date of surgery: 05/01/24 Surgery location: [place] Type of anesthesia: general On a blood thinner?: no On an antiplatelet?: no Date of last EK11/11/23 Last office visit date and who they saw: 12/03/23 History of CVA/TIA, DVT/PE? Not documented ATTN: Do they need any additional info faxed(such as office note, ekg, testing, Etc?) Please review upon your return. Pt needs pre-op clearance.slm * Telephone Encounter - Sara Carrizales MD - 01/22/2024 11:10 AM EDT Medically optimized and OK to proceed at low risk. * Telephone Encounter - Mackenzie Omalley RN - 01/22/2024 11:10 AM EDT Faxed clearance letter to Dr Joshua in [place].slm documented in this encounterWayne Hospital08-07-2024 Telephone encounter Note* Telephone Encounter - Mackenzie Omalley RN - 01/22/2024 11:10 AM EDT Surgeon: Dr Joshua Type of surgery:Robby Lt foot viaflow injection Date of surgery: 05/01/24 Surgery location: [place] Type of anesthesia: general On a blood thinner?: no On an antiplatelet?: no Date of last EK11/11/23 Last office visit date and who they saw: 12/03/23 History of CVA/TIA, DVT/PE? Not documented ATTN: Do they need any additional info faxed(such as office note, ekg, testing, Etc?) Please review upon your return. Pt needs pre-op clearance.slm [facility] [employer][id number] Telephone encounter Note* Telephone Encounter - Sara Carrizales MD - 01/22/2024 11:10 AM EDT Medically optimized and OK to proceed at low risk. [facility]08-07-2024 Telephone encounter Note* Telephone Encounter - Mackenzie Omalley RN - 01/22/2024 11:10 AM EDT Faxed clearance letter to Dr Joshua in [place].slm [facility]07-09-2024 Miscellaneous Notes* Telephone Encounter - Yolanda Jean Baptiste - 12/24/2023 12:40 PM EDT Images from the original note were not included. Per Ya, trying to locate previous sleep studies. Appears Dr Woods did interp so emailed Devin at [facility] to see if has copy. Devin responded that office does not have copy of diagnostic study on file. Forwarded emailed to Ya to inform. * Telephone Encounter - JONAS Archuleta - 12/24/2023 12:40 PM EDT That is fine documented in this encounterWayne Hospital07-09-2024 Telephone encounter Note* Telephone Encounter - Yolanda Jean Baptiste - 12/24/2023 12:40 PM EDT Images from the original note were not included. Per Ya, trying to locate previous sleep studies. Appears Dr Woods did interp so emailed Devin at [facility] to see if has copy. Devin responded that office does not have copy of diagnostic study on file. Forwarded emailed to Ya to inform. [facility]07-09-2024 Telephone encounter Note* Telephone Encounter - JONAS Archuleta - 12/24/2023 12:40 PM EDT That is fine [facility]07-01-2024 Miscellaneous Notes* Telephone Encounter - Carrie Saldana - 12/16/2023 2:48 PM EDT 12/15 order received Called PT LM to schedule sleep study. Split night order & 12/10 Kregel notes in epic documented in this encounterWayne Hospital07-01-2024 Telephone encounter Note* Telephone Encounter - Carrie Saldana - 12/16/2023 2:48 PM EDT 12/15 order received Called PT LM to schedule sleep study. Split night order & 12/10 Kregel notes in epic [facility]06-28-2024 Miscellaneous Notes* Telephone Encounter - Hue Helm - 12/13/2023 3:34 PM EDT PT called to schedule, he was seen on 12/10 with Lorenzo he stated. Routed documented in this encounterWayne Hospital06-28-2024 Telephone encounter Note* Telephone Encounter - Hue Helm - 12/13/2023 3:34 PM EDT PT called to schedule, he was seen on 12/10 with Lorenzo he stated. Routed [facility]06-18-2024 History of Present illness Narrative* Sara Carrizales MD - 12/03/2023 10:45 AM EDT Merlin Fish Date of visit: 12/03/2023 Date of : 1970 Age: 53 y.o. Patient Active Problem List Diagnosis Chronic sinusitis DNS (deviated nasal septum) Hypertrophy of both inferior nasal turbinates Obstructive sleep apnea syndrome Abnormal EKG Essential hypertension Shortness of breath NSTEMI (non-ST elevated myocardial infarction) ([facility]) No Known Allergies Current Outpatient Medications Medication Sig Dispense Refill albuterol (PROVENTIL HFA;VENTOLIN HFA) 90 mcg/actuation inhaler Inhale 2 puffs every 6 (six) hours as needed for wheezing. atorvastatin (LIPITOR) 40 mg tablet Take 1 tablet (40 mg total) by mouth nightly. 30 tablet 0 empagliflozin (JARDIANCE) 25 mg tablet tablet TAKE 1 TABLET BY MOUTH ONCE DAILY Oral for 90 Days losartan-hydroCHLOROthiazide (HYZAAR) 100-12.5 mg per tablet Take 1 tablet by mouth in the morning. metFORMIN (GLUCOPHAGE) 1000 mg tablet Take 1 tablet (1,000 mg total) by mouth in the morning and 1 tablet (1,000 mg total) in the evening. Take with meals. SITagliptin phosphate (JANUVIA) 100 mg tablet Take 1 tablet (100 mg total) by mouth in the morning. carvediloL (COREG) 12.5 mg tablet Take 1 tablet (12.5 mg total) by mouth in the morning and 1 tablet (12.5 mg total) before bedtime. 180 tablet 3 No current facility-administered medications for this visit. Chief Complaint Patient presents with Follow-up EST PT EARLY SCHED W/PT*CATH 11/08/2023 W/TLM*KCS History of Present Illness Mr. Fish is seen in follow-up. He had a cardiac catheterization performed at [facility]. He had angiographically normal coronary arteries with an incidental finding of a non bolus branch of his circumflex feeding into the pulmonary artery. This is not caused any chamber dilatation on echocardiography. Patient has not had any further episodes of chest discomfort. He does have some exertional dyspnea.He does have occasional dizziness and lightheadedness with changes in position. Past Medical History: Diagnosis Date Abnormal EKG Arthritis Asthma Cataract Diabetes ([facility]) Diabetes mellitus type 2, controlled ([facility]) Headache Hyperlipidemia Hypertension Sleep apnea Visual impairment No data recorded No data recorded No data recorded Past Surgical History: Procedure Laterality Date APPENDECTOMY Cardiac Invasive N/A 11/08/2023 Performed by Sara Carrizales MD at [facility]ARDIAC CATH LABS Coronary angiogram and left ventricular gram/pressure N/A 11/08/2023 Performed by Sara Carrizales MD at [facility] CARDIAC CATH LABS EXTRACTION CATARACT INTRAOCULAR LENS Right 11/29/2022 Performed by Marya Robbins MD at [facility] KNEE SURGERY x4 WISDOM TOOTH EXTRACTION Family History Problem Relation Age of Onset Diabetes Mother Heart disease Father Diabetes Father Social History Socioeconomic History Marital status: Legally Spouse name: Not on file Number of children: Not on file Years of education: Not on file Highest education level: Not on file Occupational History Not on file Tobacco Use Smoking status: Never Smokeless tobacco: Never Vaping Use Vaping status: Never Used Substance and Sexual Activity Alcohol use: Yes Comment: occasional Drug use: Never Sexual activity: Defer Partners: Female Other Topics Concern Caffeine Use Yes Social History Narrative Not on file Social Determinants of Health Financial Resource Strain: Low Risk (11/07/2023) Overall Financial Resource Strain (CARDIA) Difficulty of Paying Living Expenses: Not hard at all Food Insecurity: No Food Insecurity (12/03/2023) Hunger Screening Food Insecurity - Worry: Never True Food Insecurity - Inability: Never True Transportation Needs: No Transportation Needs (11/07/2023) PRAPARE - Transportation Lack of Transportation (Medical): No Lack of Transportation (Non-Medical): No Physical Activity: Not on file Stress: Not on file Social Connections: Not on file Interpersonal Safety: Not At Risk (11/07/2023) Humiliation, Afraid, Rape, and Kick questionnaire Fear of Current or Ex-Partner: No Emotionally Abused: No Physically Abused: No Sexually Abused: No Housing Instability: Low Risk (11/07/2023) Housing Instability Housing Instability: No Review of Systems Review of Systems Constitutional: Positive for malaise/fatigue. HENT: Negative. Eyes: Positive for blurred vision and double vision. Cardiovascular: Negative. Respiratory: Positive for cough, shortness of breath and wheezing. Endocrine: Negative. Hematologic/Lymphatic: Negative. Skin: Positive for rash. Musculoskeletal: Positive for back pain and muscle weakness. Gastrointestinal: Negative. Genitourinary: Negative. Neurological: Positive for headaches, light-headedness, loss of balance and numbness. Psychiatric/Behavioral: Negative. Allergic/Immunologic: Positive for environmental allergies. Vascular: Negative. CARDIOVASCULAR: Please review HPI. Physical Examination General appearance: Alert, oriented and cooperative. In no acute distress. Skin: Warm and dry to touch. Head: Normocephali Neck: No JVD, No carotid bruit. Respiratory: Clear to auscultation bilaterally, Cardiovascular: RRR with normal S1 and S2 with no murmurs. Musculoskeletal: No peripheral edema. Neurologic: Nonfocal VITAL SIGNS: BP 120/78 (BP Site: Left Arm, BP Postition: Sitting) Pulse 81 Ht 170.2 cm (5' 7 ) Wt 99.8 kg (220 lb) SpO2 97% BMI 34.46 kg/m Orders Placed or Reconciled This Encounter Medications carvediloL (COREG) 12.5 mg tablet Sig: Take 1 tablet (12.5 mg total) by mouth in the morning and 1 tablet (12.5 mg total) before bedtime. Dispense: 180 tablet Refill: 3 Medications Discontinued During This Encounter Medication Reason amLODIPine (NORVASC) 10 mg tablet IMPRESSIONS/PLAN 1. NSTEMI (non-ST elevated myocardial infarction) ([facility]) 2. Essential hypertension 3. Shortness of breath - Pulmonary function test Complete PFT w/ BD (Spirometry (Flow Volume Loop) pre/post short acting bronchodilator w/ DLCO (diffusion study) and Lung Volume); Future - albuterol (PROVENTIL,VENTOLIN) nebulizer solution 2.5 mg 1. NSTEMI with angiographically normal coronary arteries. Continue medical therapy for risk factor modification. 2. Primary hypertension. Will discontinue amlodipine and start patient on carvedilol 12.5 mg twice a day. In the long run I believe that carvedilol will be better for him from a symptom standpoint. 3. Shortness of breath /dyspnea on exertion. Will have patient check pulmonary function testing with DLCO with and without bronchodilator. Abnormal referral to Pulmonary Medicine. Total time spent on this patient was 24 minutes: Preparing to see the patient(e.g. review of tests and prior office/hospital notes) Obtaining and/or reviewing separately obtained history Performing and medical specialty appropriate examination and/or evaluation Counseling and educating the patient/family/caregiver Ordering medications,tests or procedures TODAYS ORDERS Orders Placed This Encounter Procedures Pulmonary function test Complete PFT w/ BD (Spirometry (Flow Volume Loop) pre/post short acting bronchodilator w/ DLCO (diffusion study) and Lung Volume) FOLLOW UP Return in about 6 months (around 06/03/2024). PCP: [facility] [place] Referring Physician: Parker Gorman PA-C [address] [place] [address] documented in this encounterRockingham [facility] HospitalR[facility]06-17-20[facility] Miscellaneous Notes* Telephone Encounter - Yesenia Babcock CMA - 12/02/2023 9:05 AM EDT Called patient to remind them to bring their most current copy of their medication list with them to their appt. Patient verbalizes understanding. documented in this encounterWayne Hospital06-17-2024 Telephone encounter Note* Telephone Encounter - Yesenia Babcock CMA - 12/02/2023 9:05 AM EDT Called patient to remind them to bring their most current copy of their medication list with them to their appt. Patient verbalizes understanding. [facility]05-24-2024 Hospital course Narrative* JONAS Shi - 11/08/2023 9:14 AM EDT Images from the original note were not included. [facility] [address] [place] [address] DISCHARGE SUMMARY Merlin Fish Primary Carburetor Expert: ISSAC PCP: DESIREE Duque Admission Date: 11/07/2023 Discharge Date: 11/08/2023 Reason for Admission: Principal Problem: NSTEMI (non-ST elevated myocardial infarction) ([facility]) Chest discomfort HOSPITAL SUMMARY This is a 53-year-old male with a past medical history of primary hypertension, hypertriglyceridemia, type 2 diabetes, CINTHYA. Patient initially presented to [facility] with complaints of stabbing chest discomfort along with left lateral chest wall that began suddenly in progress pretty quickly. Symptoms started when he was doing some paperwork. High sensitivity troponins were 3.13 and 3.85. EKG showed no ischemic changes. Frequent PVCs which is not new for him. He had a Holter monitor last fall that showed a PVC burden of 7.5%. He had a recent stress test that was intermediate risk and showed reversible perfusion defect in the lateral wall. He was then transferred to [facility] for diagnostic cardiac catheterization. Cardiac catheterization completed 11/08/2023 showing angiographically normal coronary arteries. 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 Normal LVEDP. Previous echocardiogram in 2022 showing an EF of 55-60% with no significant valvulopathy. Per Dr. Carrizales, patient is ready for discharge. Continue with medical therapy. He will follow-up inthe office. PROCEDURES Cardiac catheterization 11/08/2023 BP 112/63 Pulse 69 Temp 36.6 C (97.9 F) (Oral) Resp 12 Ht 170.2 cm (5' 7 ) Wt 98.2 kg (216 lb 7.9 oz) SpO2 94% BMI 33.91 kg/m Admit Weight Weight: 99.6 kg (219 lb 9.3 oz) Last 3 Weight Readings 11/07/23 1054 11/08/23 0500 Weight: 99.6 kg (219 lb 9.3 oz) 98.2 kg (216 lb 7.9 oz) EKG: No results found. LAST ECHO (Within 2 Years) Echo complete W/O contrast Result Date: 02/15/2023 Left Ventricle: There is mild concentric increased wall thickness/hypertrophy. Systolic function isnormal with an ejection fraction of 55-60%. Right Ventricle: Right ventricular size appears normal.The right ventricular basal diameter is 34.0 mm. Systolic function is normal. Aortic Valve: There is no regurgitation or stenosis. Mitral Valve: There is trace regurgitation. There is no evidence of m itral valve stenosis. LAST STRESS (Within 2 Years) Nuc stress Lexiscan Result Date: 10/29/2023 No ECG evidence of ischemia. Myocardial perfusion imaging reveals a moderate size and intensity reversible lateral perfusion defect. This is consistent with ischemia. This is an intermediate risk study. Stress test (exercise only) Result Date: 09/07/2022 No evidence of stress-induced myocardial ischemia by ECG criteria Occasional scattered multiform PACs and PVCs noted during exercise, however no runs of sustained SVT or ventricular tachycardia Hypertensive response to exercise with peak blood pressure of 215/100 Patient walked per Abel protocol reaching stage III exercising for 7 minutes 0 seconds Patient achieved 96% of age predicted maximum heart rate and 8.57 Mets of physical activity Suboptimal exercise capacity Low risk study overall forstress-induced myocardial ischemia however findings consistent with inhibited functional capacity and hypertensive response to exercise Correlate clinically CATH: (11/07/23) Conclusion 1. Angiographically normal coronary arteries 2. 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 Most likely clinically insignificant given normal echocardiogram and age of 53 with no previous clinical presentation. 3. Normal left ventricular end-diastolic pressure Recommendations: 1. Continue medical therapy. 2. Risk factor modification. Pre Procedure Diagnosis Abnormal stress test/atypical chest pain LV Gram Left Ventricle The left ventricular size is normal. The left ventricular systolic function is normal. LV end diastolic pressure is normal. The ejection fraction is calculated to be 65%. There are no wall motion abnormalities in the left ventricle. Measurements Cath EF Calculated: 65 % Wall Motion The following segments are normal: mid anterior, mid inferior, basilar anterior, basilar inferior, apical anterior and apical inferior. Coronary Vessel Findings Diagnostic Dominance: Left Left Main The vessel was visualized by angiography and is angiographically normal. Left Anterior Descending The vessel was visualized by angiography and is angiographically normal. Left Circumflex The vessel was visualized by angiography and is angiographically normal. 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 Itappears to be of no clinical significance as the patient's echocardiogram is normal and he is 53 years old. Right Coronary Artery The vessel was visualized by angiography and is angiographically normal. RADIOLOGY: Cardiac Invasive Result Date: 11/08/2023 1. Angiographically normal coronary arteries 2. 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 Most likely clinically insignificant given normal echocardiogram and age of 53 with no previous clinical presentation. 3. Normal left ventricular end-diastolic pressure Recommendations: 1. Continue medical therapy. 2. Risk factor modification. LABORATORY CBC: Results from last 7 days Lab Units 11/08/23 0701 11/07/23 1205 11/06/23 1520 WBC X10E9/L 16.2* 14.4* 16.7* HEMOGLOBIN g/dL 16.2 14.9 15.5 HEMATOCRIT % 49.2* 45.5 45.1 MCV fL 80 80 78* PLATELETS X10E9/L 273 265 307 BMP: Results from last 7 days Lab Units 11/08/23 0701 11/07/23 1849 11/07/23 1205 11/06/23 1520 SODIUM mmol/L 137 -- 138 136 POTASSIUM mmol/L 4.3 4.1 3.4* 3.6 CHLORIDE mmol/L 100 -- 99 101 CO2 mmol/L 25 -- 24 23 BUN mg/dL 20 -- 24* 26* CREATININE mg/dL 1.04 -- 1.09 1.31* CALCIUM mg/dL 9.3 -- 9.6 9.3 MAGNESIUM mg/dL 2.1 2.1 1.9 -- PT/INR: APTT: MAG: Results from last 7 days Lab Units 11/08/23 0701 11/07/23 1849 11/07/23 1205 MAGNESIUM mg/dL 2.1 2.1 1.9 D Dimer: Results from last 7 days Lab Units 11/06/23 1520 D DIMER ng/mL DDU <150 Troponin I ProBNP Lipid Panel: Lab Results Component Value Date CHOL 176 07/20/2022 TRIG 357 (H) 07/20/2022 HDL 38 (L) 07/20/2022 Liver Panel: No results found for: ALB HgA1C: Lab Results Component Value Date HGBA1C 9.6 (H) 07/20/2022 DISCHARGE INSTRUCTIONS Institution Not Defined Elsewhere Activity: No heavy lifting. Diet: low fat and low sodium Medications: Medication List CONTINUE taking these medications Instructions Last Dose Given Next Dose Due albuterol 90 mcg/actuation inhaler Commonly known as: PROVENTIL HFA;VENTOLIN HFA Inhale 2 puffs every 6 (six) hours as needed for wheezing. amLODIPine 10 mg tablet Commonly known as: NORVASC Take 1 tablet (10 mg total) by mouth in the morning. JARDIANCE 25 mg tablet tablet Generic drug: empagliflozin TAKE 1 TABLET BY MOUTH ONCE DAILY Oral for 90 Days losartan-hydroCHLOROthiazide 100-12.5 mg per tablet Commonly known as: HYZAAR Take 1 tablet by mouth in the morning. metFORMIN 1000 mg tablet Commonly known as: GLUCOPHAGE Take 1 tablet (1,000 mg total) by mouth in the morning and 1 tablet (1,000 mg total) in the evening. Take with meals. SITagliptin phosphate 100 mg tablet Commonly known as: JANUVIA Take 1 tablet (100 mg total) by mouth in the morning. Follow-up To office in: in 2-3 weeks [facility] Consulting Providers: Consulting Providers Provider Service Specialty Ammy Fleming MD Cardiology Cardiology This note was completed using a voice clothing presser system. Every effort was made to ensure accuracy. However, inadvertent computerized clothing presser errors may be present. JONAS Shi 11/08/23 0917 [facility]* Pre-Sedation Documentation - Sara Carrizales MD - 11/08/2023 8:12 AM EDT Pre Procedure Evaluation: H&P was reviewed and the patient was examined. No change has occurredin the patient's condition since the H&P was completed. 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 No change has occurredin the patient's condition since the H&P was completed. 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 * Perioperative Nursing Note - Jeannine Dougherty RN - 11/08/2023 6:39 AM EDT Predicted Risk Adjusted CathPCI Bleeding Event Risk Patient's Risk 0.7% National Average 3.3% as of January, In the [place], the average bleeding event risk for all patients undergoing this procedure is3.3%. Taking into account the patient s specific clinical condition, the statistical estimate that the patient may experience a bleeding event is 0.7%. This means that for every 100 patients having a similar clinical makeup, there would be 0.7 that experienced a bleeding event. Bleeding Event is an absolute drop in hemoglobin ? 4g/dL, a RBC transfusion and/or a procedural intervention/surgery to reverse/stop bleeding that occurs within 72 hours of the PCI procedure. The model provides an objective risk-adjusted estimate of bleeding which has real value for both patient and provider. It should be considered as one element in the evaluation process, to be considered along with the other traditional factors that determine whether the patient is an appropriate candidate for the procedure. Based on following evaluation Patient Demographics Age : 53 Years Sex : Male Race : Other Patient Pre-Procedural Characteristics Body Mass Index (BMI) 33.83 kg/m2 Height 5 Feet 7 Inches Weight 216 lbs Baseline Hemoglobin 14.9 g/dL Prior STEMI No Prior Cardiogenic Shock No Prior PCI No Dialysis No Glomerular Filtration Rate (estimated) 74.65 mL/min/1.73m2 Serum Creatinine (SCr) 1.09 mg/dL * Plan of Care - Lenora Arthur RN - 11/08/2023 12:49 AM EDT Problem: Pain Goal: Patient goal is pain score less than 4, able to rest, and participant in treatment plan as appropriate Description: INTERVENTIONS: 1. Encourage patient or legal contracts representative to report early pain and ask for pain medicine when needed 2. Assess pain using appropriate pain scale and include the scale used when documenting 3. Administer analgesics based on type and severity of pain and evaluate response within appropriate time frame 4. Implement non-pharmacological measures as appropriate and evaluate response 5. Consider cultural and social influences on pain and pain management 6. Notify LIP if interventions ineffective or patient reports new pain 7. Monitor vital signs including pulse ox, end-tidal CO2 based on pain intervention 8. Reassess pain per policy 9. Teach patient or legal contracts representative interventions for comforting Outcome: Progressing Note: Evaluation of progress towards goal: Patient denies pain upon assessment and reassessment. Problem: Safety Goal: Patient will be injury free during hospitalization Description: INTERVENTIONS: 1. Assess patient's risk for falls and implement fall prevention plan of care per policy 2. Provide and maintain a safe environment 3. Proper use of double Identifiers 4. Medication administration using the 5 rights 5. Hand hygiene 6. Specimens are labeled at the bedside 7. Instruct patient/ patient contracts representative about use of safety devices 8. Include patient/ patient contracts representative in decisions related to safety Outcome: Progressing Note: Evaluation of progress towards goal: Patient remains free from any new injuries throughout the duration of their stay. Problem: Infection Goal: Absence of infection during hospitalization Description: Interventions: 1. Assess and monitor for signs and symptoms of infection 2. Monitor lab/diagnostic results 3. Monitor all insertion sites i.e., indwelling lines, tubes and drains 4. Monitor endotracheal (as able) and nasal secretions for changes in amount and color 5. Administer medications as ordered 6. Instruct and encourage patient and family to use good hand hygiene technique 7. Identify and instruct patient/patient contracts representative in use of appropriate isolation precautionsfor identified infection/symptoms 8. Provide and discuss with patient/patient contracts representative on educational MDRO sheet 9. Encourage and monitor nutritional status daily and consult feller buncher operator if indicated 10. Implement neutropenic guidelines as needed 11. Review exposure to history of communicable disease and recent travel history on admission 12. Encourage annual influenza vaccine 13. Encourage pneumonia vaccine Outcome: Progressing Note: Evaluation of progress towards goal: Patient remains free from and new infections at this point during their stay. Problem: Knowledge Deficit Goal: Patient/patient contracts representative demonstrates understanding of disease process, treatment plan,medications, and discharge instructions Description: INTERVENTIONS 1. Complete learning assessment and assess knowledge base 2. Provide teaching at level of understanding 3. Provide teaching via preferred learning method(s) Outcome: Progressing Note: Evaluation of progress towards goal: Patient has been educated, and has no further questions at this time. Problem: Discharge Planning Goal: Discharge to post-acute care, other facility, or home with appropriate resources Description: Patient's goal is: INTERVENTIONS 1. Conduct assessment to determine patient/family and health care team treatment goals, and need for post-acute services based on payer coverage, community resources, and patient preferences, and barriers to discharge 2. Coordinate with Social work, Care Navigation, and Utilization Review to arrange appropriate level of services according to patient's needs based on patient preference and payer coverage in collaboration with the physician and health care team 3. Address psychosocial, clinical, and financial barriers to discharge as identified in assessment in conjunction with the patient/family and health care team 4. Consult appropriate ancillary services (i.e.. PT/OT/ST, etc) as needed 5. Communicate with and update the patient/family, physician, and health care team regarding progress on the discharge plan 6. Identify discharge learning needs (meds, wound care, etc). 7. Arrange for needed discharge transportation as appropriate Outcome: Progressing Note: Evaluation of progress towards goal: Discharge is pending Problem: Anxiety Goal: Anxiety is at manageable level Description: Patient's goal is: INTERVENTIONS 1. Assess and monitor patient's anxiety level 2. Monitor for signs and symptoms of anxiety both physical and emotional (heart palpitations, chestpain, shortness of breath, headaches, nausea, feeling jumpy, restlessness, irritable, apprehensive) 3. Reorient/orient patient to unit/surroundings 4. Explain treatment plan 5. Explain tests/procedures prior to initiation 6. Encourage participation in care 7. Encourage verbalization of concerns/fears 8. Assess coping mechanisms 9. Assist in developing anxiety-reducing skills 10. Administer complimentary therapies 11. Manage patient's environment 12. Limit or eliminate stimulants such as caffeine and nicotine 13. Collaborate with ancillary departments 14. Include patient/patient contracts representative in decisions related to anxiety Outcome: Progressing Note: Evaluation of progress towards goal: Patient has not presented with any signs of anxiety, will continue to monitor Problem: Hemodynamic Status Goal: Maintains optimal cardiac output and hemodynamic stability Description: Patient's goal is: INTERVENTIONS 1. Assess and monitor patient's heart rate, rhythm, respiratory rate, peripheral pulses, capillary refill, color, body temperature, intake and output 2. Monitor labs and diagnostic testing 3. Observe for signs of chest pain (note location, duration, severity, radiation and associated symptoms such as diaphoresis, nausea, indigestion) 4. Monitor for signs and symptoms of heart failure (i.e. shortness of breath, edema of feet/ankles/legs, rapid irregular heart rate, coughing, wheezing, white/pink blood tinged sputum, sudden weight gain, chest pain) 5. Plan activities to conserve energy 6. Monitor for signs and symptoms of bleeding Outcome: Progressing Note: Evaluation of progress towards goal: Will continue to monitor Problem: Inadequate Coping Goal: Demonstrates and verbalizes ability to cope effectively Description: Patient's goal is: INTERVENTIONS 1. Patient is able to verbalize feelings related to emotional state 2. Encourage verbalization of feelings, perceptions, fears, stressors, loss of loved ones 3. Encourage verbalization of problems out of their control 4. Encourage participation in care and self management 5. Inform patient of all treatment/care prior to providing care 6. Collaborate with pastoral/spiritual care, vp digital marketing social media and crm, mental health counselor as needed. 7. Instruct patient on diversional activities such as physical activity, distraction, and deep breathing exercises to assist with coping 8. Involve patient's contracts representative in care Outcome: Progressing Note: Evaluation of progress towards goal: Patient shows no signs of inappropriate coping measures,will continue to monitor. Problem: Activity Intolerance/Impaired Mobility Goal: Mobility/activity is maintained at optimum level for patient Description: Patient's goal is: INTERVENTIONS 1. Assess and monitor patient barriers to mobility and need for assistive/adaptive devices 2. Assess patient's emotional response to limitations 3. Collaborate with interdisciplinary teams and initiate plans and interventions as ordered 4. Encourage independent activity per tolerance 5. Maintain proper body alignment 6. Perform active/passive ROM as tolerated/ordered 7. Coordinate activities to conserve energy 8. Reposition patient 9. Ensure adequate rest/sleep time Outcome: Progressing Note: Evaluation of progress towards goal: Will continue to monitor Problem: Nutrition Goal: Patient's nutritional intake is adequate Description: Patient's goal is: INTERVENTIONS 1. Assess and monitor food intake and supplements, patient food preferences, nausea, vomiting, labs, oral cavity (gums, teeth, tongue, mucosa), proper denture fit, and cultural beliefs 2. Monitor for signs of hypoglycemia and hyperglycemia 3. Collaborate with interdisciplinary team and initiate plan and interventions as ordered 4. Monitor patient's weight 5. Assist patient with meals/food selection 6. Assist patient with eating 7. Allow adequate time for meals 8. Provide pleasant environment during mealtime 9. Increase social contact during mealtimes 10. Plan activities to conserve energy 11. Encourage/perform oral hygiene as appropriate 12. Encourage patient to take dietary supplement as ordered 13. Collaborate with clinical feller buncher operator 14. Include patient/ patient's contracts representative in decisions related to nutrition Outcome: Progressing Note: Evaluation of progress towards goal: Nutrition is adequate at this time. Problem: Low Risk Fall Score Description: Zambrano Fall Score of 0 - 24 or indicated by [facility] Assessment Goal: Patient should be free from fall Description: Interventions: 1. Gardner to environment 2. Hourly rounds addressing the 4 P's (Pain, Positioning, Possessions, Potty) 3. Clear area of hazards (spills, clutter, electrical cords, unnecessary equipment) 4. Place equipment (bed & TV controls, call light, phone, urinal) within reach 5. Encourage patient to wear glasses and hearing aides as appropriate 6. Maintain bed in lowest position 7. Lock wheels on bed/wheelchair 8. Provide adequate lighting, including night light 9. Assess need for additional bedding, food/fluids, pain med's prior to sleep/routinely 10. Provide gripper slippers or personal non-skid footwear 11. Teach patient and patient contracts representative to maintain environment for safety and engage in all aspects of fall prevention program Outcome: Progressing Note: Evaluation of progress towards goal: Patient remains free from injuy due to falls throughout this hospitalization stay. Problem: Glucose Imbalance Goal: Clinical indication of glucose balance is achieved Description: Patient's goal is: INTERVENTIONS 1. Monitor blood glucose levels as ordered 2. Administer medications as ordered 3. Notify physician of ineffective treatment plan Outcome: Progressing Note: Evaluation of progress towards goal: Will continue to monitor Goal: Patient's discharge needs are met Description: Patient's goal is: INTERVENTIONS 1. Assess patient for self-management skills 2. Encourage participation in diabetes management 3. Identify potential discharge barriers on admission and throughout hospital stay 4. Involve patient/S.O. in discharge planning process 5. Communicate referral to perinatal educator as appropriate 6. Communicate referral to feller buncher operator as appropriate 7. Collaborate with case management/vp digital marketing social media and crm for discharge needs Outcome: Progressing Note: Evaluation of progress towards goal: Will continue to monitor * Plan of Care - Marina Boo RN - 11/07/2023 1:29 PM EDT Problem: Pain Goal: Patient goal is pain score less than 4, able to rest, and participant in treatment plan as appropriate Description: INTERVENTIONS: 1. Encourage patient or legal contracts representative to report early pain and ask for pain medicine when needed 2. Assess pain using appropriate pain scale and include the scale used when documenting 3. Administer analgesics based on type and severity of pain and evaluate response within appropriate time frame 4. Implement non-pharmacological measures as appropriate and evaluate response 5. Consider cultural and social influences on pain and pain management 6. Notify LIP if interventions ineffective or patient reports new pain 7. Monitor vital signs including pulse ox, end-tidal CO2 based on pain intervention 8. Reassess pain per policy 9. Teach patient or legal contracts representative interventions for comforting Outcome: Progressing Note: Evaluation of progress towards goal: Patient utilizes numerical pain scale and understands pain management. Pharmacological and non-pharmacological pain interventions discussed with patient. Pain medications administered as needed. Problem: Safety Goal: Patient will be injury free during hospitalization Description: INTERVENTIONS: 1. Assess patient's risk for falls and implement fall prevention plan of care per policy 2. Provide and maintain a safe environment 3. Proper use of double Identifiers 4. Medication administration using the 5 rights 5. Hand hygiene 6. Specimens are labeled at the bedside 7. Instruct patient/ patient contracts representative about use of safety devices 8. Include patient/ patient contracts representative in decisions related to safety Outcome: Progressing Note: Evaluation of progress towards goal: Patient remains free from injury. Bed has all four wheels locked and in lowest position. Call light within reach and hourly rounding in progress. Problem: Infection Goal: Absence of infection during hospitalization Description: Interventions: 1. Assess and monitor for signs and symptoms of infection 2. Monitor lab/diagnostic results 3. Monitor all insertion sites i.e., indwelling lines, tubes and drains 4. Monitor endotracheal (as able) and nasal secretions for changes in amount and color 5. Administer medications as ordered 6. Instruct and encourage patient and family to use good hand hygiene technique 7. Identify and instruct patient/patient contracts representative in use of appropriate isolation precautionsfor identified infection/symptoms 8. Provide and discuss with patient/patient contracts representative on educational MDRO sheet 9. Encourage and monitor nutritional status daily and consult feller buncher operator if indicated 10. Implement neutropenic guidelines as needed 11. Review exposure to history of communicable disease and recent travel history on admission 12. Encourage annual influenza vaccine 13. Encourage pneumonia vaccine Outcome: Progressing Note: Evaluation of progress towards goal: Patient remains free from s/s of infection as evidence by labs and VS. Problem: Knowledge Deficit Goal: Patient/patient contracts representative demonstrates understanding of disease process, treatment plan,medications, and discharge instructions Description: INTERVENTIONS 1. Complete learning assessment and assess knowledge base 2. Provide teaching at level of understanding 3. Provide teaching via preferred learning method(s) Outcome: Progressing Note: Evaluation of progress towards goal: Patient educated before medication administration and updated on plan of care as changes occur. Problem: Low Risk Fall Score Description: Zambrano Fall Score of 0 - 24 or indicated by [facility] Assessment Goal: Patient should be free from fall Description: Interventions: 1. Gardner to environment 2. Hourly rounds addressing the 4 P's (Pain, Positioning, Possessions, Potty) 3. Clear area of hazards (spills, clutter, electrical cords, unnecessary equipment) 4. Place equipment (bed & TV controls, call light, phone, urinal) within reach 5. Encourage patient to wear glasses and hearing aides as appropriate 6. Maintain bed in lowest position 7. Lock wheels on bed/wheelchair 8. Provide adequate lighting, including night light 9. Assess need for additional bedding, food/fluids, pain med's prior to sleep/routinely 10. Provide gripper slippers or personal non-skid footwear 11. Teach patient and patient contracts representative to maintain environment for safety and engage in all aspects of fall prevention program Outcome: Progressing Note: Evaluation of progress towards goal: Patient remains free from falls. Area is clear of hazards and call light is within reach. documented in this encounterMansfield HospitalSpinGo [id number] Attending History and physical note* Sara Carrizales MD - 11/08/2023 8:11 AM EDT HISTORY AND PHYSICAL INTERVAL NOTE: Merlin Fish 1970 [id number] H&P reviewed. The patient was examined and there are no changes to the H&P. SARA CARRIZALES MD Source Note - Sara Carrizales MD - 11/07/2023 12:18 PM EDT Images from the original note were not included. [facility] [address] [place] [address] CONSULT NOTE Merlin Fish PCP: [facility] Date of Admission: 11/07/2023 Date of Consultation: 11/07/2023 12:18 PM Consult for NSTEMI, Unstable Angina SUBJECTIVE History of Present Illness: Merlin Fish is a 53 y.o. male who is known to our service and was seen on 10/09/[address] Don. Past medical history of hypertension, hypertriglyceridemia, diabetes mellitus, obstructive sleep apnea, obesity. Tells me he presented to [facility] for symptoms of stabbing chest discomfort along his left lateral chest wall that began Suddenly and progressed pretty quickly while he was at rest working on paperwork. He has had this discomfort before, happening infrequently. Nonexertional. No relieving factors. No accompanying symptoms. Mild shortness of breath which does not necessarily appear correlated. Not necessarily progressed either. He did have a recent intermediate risk nuclear stress test which showed reversible perfusion defectin the lateral wall. High sensitivity troponins were negative at 3.13, 3.85. EKG does not appear ischemic when compared to previous. Frequent PVCs which is not new. He had a Holter monitor last fall which showed PVC burden of 7.5%. Previous Medical History: Past Medical History: Diagnosis Date Abnormal EKG Arthritis Asthma Cataract Diabetes ([facility]) Diabetes mellitus type 2, controlled ([facility]) Headache Hyperlipidemia Hypertension Sleep apnea Visual impairment Previous Surgical History: Past Surgical History: Procedure Laterality Date APPENDECTOMY EXTRACTION CATARACT INTRAOCULAR LENS Right 11/29/2022 Performed by Marya Robbins MD at [facility] SURGERY x4 WISDOM TOOTH EXTRACTION Allergies: No Known Allergies Hospital Meds: Current Facility-Administered Medications Medication Dose Route Frequency Provider Last Rate Last Admin acetaminophen (TYLENOL) tablet 650 mg 650 mg oral Q4H PRN Hue Eller APRN-DEEP [employer]OOK [START ON 11/08/2023] amLODIPine (NORVASC) tablet 10 mg 10 mg oral Daily Hue L Veselka, SCHOOL AGE PROGRAM ASSOCIATE-[employer]EP [employer] calcium gluconate 3,000 mg in sodium chloride 0.9 % 100 mL IVPB 3,000 mg intravenous PRN Hue L Veselka, SCHOOL AGE PROGRAM ASSOCIATE-[employer]EP [employer] calcium gluconate 4,000 mg in sodium chloride 0.9 % 250 mL IVPB 4,000 mg intravenous PRN Hue L Veselka, SCHOOL AGE PROGRAM ASSOCIATE-DEEP [employer] calcium gluconate IVPB 2000 mg/100 mL (20 mg/mL premix) 2,000 mg intravenous PRN Hue L Veselka, SCHOOL AGE PROGRAM ASSOCIATE-[employer]EP [employer] dextrose (GLUTOSE) 40 % gel 15 g 15 g oral PRN Hue L Veselka, SCHOOL AGE PROGRAM ASSOCIATE-DEEP [employer] dextrose 5 % (D5W) infusion 100 mL/hr intravenous Continuous PRN Hue L Veselka, SCHOOL AGE PROGRAM ASSOCIATE-DEEP [employer] dextrose 50 % in water (D50W) 50% solution 25 mL 25 mL intravenous PRN Hue L Veselka, SCHOOL AGE PROGRAM ASSOCIATE-DEEP [employer] [START ON 11/08/2023] empagliflozin (JARDIANCE) tablet 25 mg 25 mg oral Daily Hue L Veselka, SCHOOL AGE PROGRAM ASSOCIATE-DEEP [employer]OOK glucagon HCL injection 1 mg 1 mg intramuscular PRN Hue L Veselka, SCHOOL AGE PROGRAM ASSOCIATE-DEEP [employer] [START ON 11/08/2023] losartan (COZAAR) 50 mg, hydroCHLOROthiazide (HYDRODIURIL) 12.5 mg for HYZAAR 50/12.5 oral Daily Hue L Veselka, SCHOOL AGE PROGRAM [employer]EP [employer] magnesium sulfate IVPB 2000 mg/50 mL in iso-osmotic water (40 mg/mL premix) 2,000 mg intravenous PRN Hue L Veselka, SCHOOL AGE PROGRAM ASSOCIATE[employer]EP [employer] magnesium sulfate IVPB 4000 mg/100 mL in iso-osmotic water (40 mg/mL premix) 4,000 mg intravenous PRN Hue L Veselka, SCHOOL AGE PROGRAM ASSOCIATE-DEEP [employer] ondansetron (PF) (ZOFRAN) injection 4 mg 4 mg intravenous Q8H PRN Hue L Veselka, SCHOOL AGE PROGRAM ASSOCIATE-DEEP [employer] potassium chloride (K-TAB,KLOR-CON) CR tablet 30-50 mEq 30-50 mEq oral PRN Hue L Veselka, SCHOOL AGE PROGRAM ASSOCIATE-DEEP [employer] Or potassium chloride (KAYCIEL) 20 mEq/15 mL solution 30-50 mEq 30-50 mEq oral PRN Hue L Veselka, SCHOOL AGE PROGRAM ASSOCIATE-DEEP [employer] sennosides-docusate sodium (SENOKOT-S) 8.6-50 mg 1 tablet 1 tablet oral Q12H PRN Hue L Veselka, SCHOOL AGE PROGRAM ASSOCIATE-DEEP [employer] [START ON 11/08/2023] SITagliptin phosphate (JANUVIA) tablet 100 mg 100 mg oral Daily Hue L Veselka, SCHOOL AGE PROGRAM ASSOCIATE[employer]DEEP [employer] sodium phosphate 20 mmol in sodium chloride 0.9 % 250 mL IVPB 20 mmol intravenous PRN Hue L Veselka, SCHOOL AGE PROGRAM ASSOCIATE-DEEP [employer] Or sodium phosphate 20 mmol in sodium chloride 0.9 % 100 mL IVPB 20 mmol intravenous PRN Hue L Veselka, SCHOOL AGE PROGRAM ASSOCIATE-DEEP [employer] Or sod phos di, mono-K phos mono (K-PHOS NEUTRAL) 250 mg tablet 2 tablet 2 tablet oral PRN Hue LVeselka, SCHOOL AGE PROGRAM ASSOCIATE-DEEP [employer] sodium chloride 0.9 % flush 3 mL 3 mL intravenous PRN Hue L Veselka, SCHOOL AGE PROGRAM ASSOCIATE-DEEP [employer] sodium chloride 0.9 % flush 3 mL 3 mL intravenous Q12H MIGDALIA Hue L Veselka, SCHOOL AGE PROGRAM ASSOCIATE-DEEP [employer] sodium chloride 0.9 % flush bag 25 mL intravenous PRN Hue L Veselka, SCHOOL AGE PROGRAM ASSOCIATE[employer]DEEP [employer] sodium chloride 0.9 % infusion 20 mL/hr intravenous Continuous PRN Hue L Veselka, SCHOOL AGE PROGRAM ASSOCIATE[employer]EP [employer] Home Meds: Prior to Admission medications Medication Sig Start Date End Date Taking? Authorizing Provider amLODIPine (NORVASC) 10 mg tablet Take 1 tablet (10 mg total) by mouth in the morning. Yes Not In System Ref Prov empagliflozin (JARDIANCE) 25 mg tablet tablet TAKE 1 TABLET BY MOUTH ONCE DAILY Oral for 90 Days Yes Not In System Ref Prov losartan-hydroCHLOROthiazide (HYZAAR) 100-12.5 mg per tablet Take 1 tablet by mouth in the morning.Yes Not In System Ref Prov metFORMIN (GLUCOPHAGE) 1000 mg tablet Take 1 tablet (1,000 mg total) by mouth in the morning and 1 tablet (1,000 mg total) in the evening. Take with meals. 07/23/23 Yes Not In System Ref Prov SITagliptin phosphate (JANUVIA) 100 mg tablet Take 1 tablet (100 mg total) by mouth in the morning.Yes Not In System Ref Prov albuterol (PROVENTIL HFA;VENTOLIN HFA) 90 mcg/actuation inhaler Inhale 2 puffs every 6 (six) hours as needed for wheezing. Not In System Ref Prov Social History: TOBACCO: reports that he has never smoked. He has never used smokeless tobacco. ETOH: reports current alcohol use. DRUGS: reports no history of drug use. OCCUPATION: Family History: Family History Problem Relation Age of Onset Diabetes Mother Heart disease Father Diabetes Father Review of Systems: Constitutional: there has been no unanticipated weight loss, no change in energy level, sleep pattern, or activity level. Eyes: No visual changes or diplopia, no scleral icterus. ENT: No Headaches, hearing loss or vertigo, no mouth sores or sore throat. Cardiovascular: see hpi Respiratory: see hpi Musculoskeletal: No gait disturbance, weakness or joint complaints Integumentary: No rash or pruritis Neurological: No headache, diplopia, change in muscle strength, numbness or tingling OBJECTIVE LAST LABS: CBC: BMP: PT/INR: APTT: MAG: D Dimer: Troponin I ProBNP Lipid Panel: Lab Results Component Value Date CHOL 176 07/20/2022 TRIG 357 (H) 07/20/2022 HDL 38 (L) 07/20/2022 Liver Panel: No results found for: ALB HgA1C: Lab Results Component Value Date HGBA1C 9.6 (H) 07/20/2022 ABG: CV HISTORY: ECHO: Echo complete W/O contrast Result Date: 02/15/2023 Left Ventricle: There is mild concentric increased wall thickness/hypertrophy. Systolic function isnormal with an ejection fraction of 55-60%. Right Ventricle: Right ventricular size appears normal.The right ventricular basal diameter is 34.0 mm. Systolic function is normal. Aortic Valve: There is no regurgitation or stenosis. Mitral Valve: There is trace regurgitation. There is no evidence of m itral valve stenosis. STRESS: Nuc stress Lexiscan Result Date: 10/29/2023 No ECG evidence of ischemia. Myocardial perfusion imaging reveals a moderate size and intensity reversible lateral perfusion defect. This is consistent with ischemia. This is an intermediate risk study. Stress test (exercise only) Result Date: 09/07/2022 No evidence of stress-induced myocardial ischemia by ECG criteria Occasional scattered multiform PACs and PVCs noted during exercise, however no runs of sustained SVT or ventricular tachycardia Hypertensive response to exercise with peak blood pressure of 215/100 Patient walked per Abel protocol reaching stage III exercising for 7 minutes 0 seconds Patient achieved 96% of age predicted maximum heart rate and 8.57 Mets of physical activity Suboptimal exercise capacity Low risk study overall forstress-induced myocardial ischemia however findings consistent with inhibited functional capacity and hypertensive response to exercise Correlate clinically HOLTER: Holter monitor 24-48 hour Result Date: 02/13/2023 Interpretation: 1. Sinus rhythm with average heart rate of 85 beats per minute. Heart rate 64-138 beats per minute. 2. Rare PACs. 3. Frequent PVCs. [place] is 7.5%. Two morphologies but 1 dominant morphology accounted for 98.5% of all PVCs. 4. No AFib/SVT/pauses/AV block or VT noted. 5. Patient reported symptoms of shortness of breath and lightheadedness correlated with sinus rhythm with intermittent PVCs. CARDIAC CATH: No results found. CAROTID: No results found. CXR: X-ray chest 1 view Result Date: 11/06/2023 Clinical history: Left-sided chest pain. Comparisons: 11/30/2014 through 11/05/2022. Findings: Portable upright chest radiograph obtained 3:42 PM. Heart size and pulmonary vasculature appear within normal limits. Lungs appear clear. There is no pleural effusion nor pneumothorax. IMPRESSION: No evidence for acute cardiopulmonary disease. Finalized by Everton Alarcon MD on 11/06/2023 3:47 PM EKG: TELEMETRY: PHYSICAL EXAM Admission Weight: Weight: 99.6 kg (219 lb 9.3 oz) No intake/output data recorded. Weight change: Wt Readings from Last 3 Encounters: 11/07/23 99.6 kg (219 lb 9.3 oz) 10/29/23 98.4 kg (217 lb) 10/09/23 98.7 kg (217 lb 8 oz) Vitals: Vitals: 11/07/23 1054 11/07/23 1109 BP: 131/86 Pulse: 83 Resp: 16 Temp: 36.4 C (97.6 F) TempSrc: Oral SpO2: 94% Weight: 99.6 kg (219 lb 9.3 oz) Height: 170.2 cm (5' 7 ) Admit Weight Weight: 99.6 kg (219 lb 9.3 oz) Last 3 Weights Last 3 Weight Readings 11/07/23 1054 Weight: 99.6 kg (219 lb 9.3 oz) Body mass index is 34.39 kg/m . INTAKE/OUTPUT No intake/output data recorded. Intake/Output Summary (Last 24 hours) at 11/07/2023 1218 Last data filed at 11/07/2023 1109 Gross per 24 hour Intake 0 ml Output 0 ml Net 0 ml General appearance: Alert oriented and cooperative, in no acute distress Skin: Warm and dry to touch Neck: No JVD, no carotid bruit, neck supple, trachea midline Lungs: Clear to ausculation bilaterally, no use of accessory muscles. Heart:: RRR with normal S1 and S2 , no murmurs and no gallops. Extremities: No edema Neurologic: Oriented to time, person and place, affect appropriate, no focal/major motor or sensorydefects noted Psychiatric: Appropriate mood, memory and judgment ASSESSMENT/PLAN Stabbing chest pain Troponin negative x2: High sensitivity troponin 3.13, 3.85 Abnormal nuclear stress Lexiscan 10/29/2023: Moderate size and intensity reversible lateral perfusion defect consistent with ischemia: Intermediate risk Hypertension Obstructive sleep apnea Frequent PVCs 7.5% on Holter monitor 02/13/2023 Diabetes mellitus Mild renal insufficiency at admission Serum creatinine 1.3, BUN 26 hypertriglyceridemia Chest pain is atypical. Troponins negative. EKG does not appear acutely ischemic when compared to EKG from last month. Currently pain-free. Recent abnormal stress test. Would 1st up titrate antianginals. Patient had breakfast. No documented dye allergy. Will review with attending ig inpatient coronary angiography is warranted JONAS Limon This note was completed using a voice clothing presser system. Every effort was made to ensure accuracy. However, inadvertent computerized clothing presser errors may be present. JONAS Limon 11/07/23 1309 CARDIOLOGY ATTENDING NOTE Patient interviewed and evaluated by our certified nurse practitioner or certified physician's hospital nursing assistant and discussed in detail with me. Agree with interval history, examination, assessment and plan as outlined in their note Patient was seen separately by me. Patient has atypical left-sided stabbing chest pain. Unfortunately he also has a abnormal stress test with evidence of lateral ischemia ordered by his primary care physician. He does have risk factors for coronary artery disease including diabetes hypertension hype rlipidemia and questionable family history of premature coronary disease. Risks benefits and alternatives to cardiac catheterization were discussed with the patient and he is willing to proceed. Will plan for early tomorrow morning. [employer] Work Phone: [phone] History and physical note* Sara Carrizales MD - 11/08/2023 8:11 AM EDT HISTORY AND PHYSICAL INTERVAL NOTE: Merlin Fish 1970 [id number] H&P reviewed. The patient was examined and there are no changes to the H&P. SARA CARRIZALES MD Source Note - Sara Carrizales MD - 11/07/2023 12:18 PM EDT Images from the original note were not included. [facility] [address] [place] [address] CONSULT NOTE Merlin Fish PCP: [facility] Date of Admission: 11/07/2023 Date of Consultation: 11/07/2023 12:18 PM Consult for NSTEMI, Unstable Angina SUBJECTIVE History of Present Illness: Merlin Fish is a 53 y.o. male who is known to our service and was seen on 10/09/[address] Don. Past medical history of hypertension, hypertriglyceridemia, diabetes mellitus, obstructive sleep apnea, obesity. Tells me he presented to [facility] for symptoms of stabbing chest discomfort along his left lateral chest wall that began Suddenly and progressed pretty quickly while he was at rest working on paperwork. He has had this discomfort before, happening infrequently. Nonexertional. No relieving factors. No accompanying symptoms. Mild shortness of breath which does not necessarily appear correlated. Not necessarily progressed either. He did have a recent intermediate risk nuclear stress test which showed reversible perfusion defectin the lateral wall. High sensitivity troponins were negative at 3.13, 3.85. EKG does not appear ischemic when compared to previous. Frequent PVCs which is not new. He had a Holter monitor last fall which showed PVC burden of 7.5%. Previous Medical History: Past Medical History: Diagnosis Date Abnormal EKG Arthritis Asthma Cataract Diabetes ([facility]) Diabetes mellitus type 2, controlled ([facility]) Headache Hyperlipidemia Hypertension Sleep apnea Visual impairment Previous Surgical History: Past Surgical History: Procedure Laterality Date APPENDECTOMY EXTRACTION CATARACT INTRAOCULAR LENS Right 11/29/2022 Performed by Marya Robbins MD at [facility] KNEE SURGERY x4 WISDOM TOOTH EXTRACTION Allergies: No Known Allergies Hospital Meds: Current Facility-Administered Medications Medication Dose Route Frequency Provider Last Rate Last Admin acetaminophen (TYLENOL) tablet 650 mg 650 mg oral Q4H PRN Hue L Veselka, SCHOOL AGE PROGRAM ASSOCIATE-DEEP [employer] [START ON 11/08/2023] amLODIPine (NORVASC) tablet 10 mg 10 mg oral Daily Hue L Veselka, SCHOOL AGE PROGRAM ASSOCIATE-DEEP [employer] calcium gluconate 3,000 mg in sodium chloride 0.9 % 100 mL IVPB 3,000 mg intravenous PRN Hue L Veselka, SCHOOL AGE PROGRAM ASSOCIATE[employer]DEEP [employer] calcium gluconate 4,000 mg in sodium chloride 0.9 % 250 mL IVPB 4,000 mg intravenous PRN Hue L Veselka, SCHOOL AGE PROGRAM ASSOCIATE-DEEP [employer] calcium gluconate IVPB 2000 mg/100 mL (20 mg/mL premix) 2,000 mg intravenous PRN Hue L Veselka, SCHOOL AGE PROGRAM ASSOCIATE-DEEP [employer] dextrose (GLUTOSE) 40 % gel 15 g 15 g oral PRN Hue L Veselka, SCHOOL AGE PROGRAM ASSOCIATE-DEEP [employer] dextrose 5 % (D5W) infusion 100 mL/hr intravenous Continuous PRN Hue L Veselka, SCHOOL AGE PROGRAM ASSOCIATE-DEEP [employer] dextrose 50 % in water (D50W) 50% solution 25 mL 25 mL intravenous PRN Hue L Veselka, SCHOOL AGE PROGRAM ASSOCIATE-DEEP [employer] [START ON 11/08/2023] empagliflozin (JARDIANCE) tablet 25 mg 25 mg oral Daily Hue L Veselka, SCHOOL AGE PROGRAM ASSOCIATE-DEEP [employer] glucagon HCL injection 1 mg 1 mg intramuscular PRN Hue L Veselka, SCHOOL AGE PROGRAM ASSOCIATE-DEEP [employer] [START ON 11/08/2023] losartan (COZAAR) 50 mg, hydroCHLOROthiazide (HYDRODIURIL) 12.5 mg for HYZAAR 50/12.5 oral Daily Hue L Iramelka, SCHOOL AGE PROGRAM ASSOCIATE-DEEP [employer] magnesium sulfate IVPB 2000 mg/50 mL in iso-osmotic water (40 mg/mL premix) 2,000 mg intravenous PRN Hue L Veselka, SCHOOL AGE PROGRAM ASSOCIATE-DEEP [employer] magnesium sulfate IVPB 4000 mg/100 mL in iso-osmotic water (40 mg/mL premix) 4,000 mg intravenous PRN Hue L Veselka, SCHOOL AGE PROGRAM ASSOCIATE-DEEP [employer] ondansetron (PF) (ZOFRAN) injection 4 mg 4 mg intravenous Q8H PRN Hue L Veselka, SCHOOL AGE PROGRAM ASSOCIATE-DEEP [employer] potassium chloride (K-TAB,KLOR-CON) CR tablet 30-50 mEq 30-50 mEq oral PRN Hue L Veselka, SCHOOL AGE PROGRAM ASSOCIATE-DEEP [employer] Or potassium chloride (KAYCIEL) 20 mEq/15 mL solution 30-50 mEq 30-50 mEq oral PRN Hue L Veselka, SCHOOL AGE PROGRAM ASSOCIATE-DEEP [employer] sennosides-docusate sodium (SENOKOT-S) 8.6-50 mg 1 tablet 1 tablet oral Q12H PRN Hue L Veselka, SCHOOL AGE PROGRAM ASSOCIATE-DEEP [employer] [START ON 11/08/2023] SITagliptin phosphate (JANUVIA) tablet 100 mg 100 mg oral Daily Hue L Veselka, SCHOOL AGE PROGRAM ASSOCIATE-DEEP [employer] sodium phosphate 20 mmol in sodium chloride 0.9 % 250 mL IVPB 20 mmol intravenous PRN Hue L Veselka, SCHOOL AGE PROGRAM ASSOCIATE-DEEP [employer] Or sodium phosphate 20 mmol in sodium chloride 0.9 % 100 mL IVPB 20 mmol intravenous PRN Hue L Veselka, SCHOOL AGE PROGRAM ASSOCIATE-DEEP [employer] Or sod phos di, mono-K phos mono (K-PHOS NEUTRAL) 250 mg tablet 2 tablet 2 tablet oral PRN Hue LVeselka, SCHOOL AGE PROGRAM ASSOCIATE-DEEP [employer] sodium chloride 0.9 % flush 3 mL 3 mL intravenous PRN Hue L Veselka, SCHOOL AGE PROGRAM ASSOCIATE-DEEP [employer] sodium chloride 0.9 % flush 3 mL 3 mL intravenous Q12H MIGDALIA Hue L Veselka, SCHOOL AGE PROGRAM ASSOCIATE-DEEP [employer] sodium chloride 0.9 % flush bag 25 mL intravenous PRN Hue L Veselka, SCHOOL AGE PROGRAM ASSOCIATE-DEEP [employer] sodium chloride 0.9 % infusion 20 mL/hr intravenous Continuous PRN Hue L Veselka, SCHOOL AGE PROGRAM ASSOCIATE-DEEP [employer] Home Meds: Prior to Admission medications Medication Sig Start Date End Date Taking? Authorizing Provider amLODIPine (NORVASC) 10 mg tablet Take 1 tablet (10 mg total) by mouth in the morning. Yes Not In System Ref Prov empagliflozin (JARDIANCE) 25 mg tablet tablet TAKE 1 TABLET BY MOUTH ONCE DAILY Oral for 90 Days Yes Not In System Ref Prov losartan-hydroCHLOROthiazide (HYZAAR) 100-12.5 mg per tablet Take 1 tablet by mouth in the morning.Yes Not In System Ref Prov metFORMIN (GLUCOPHAGE) 1000 mg tablet Take 1 tablet (1,000 mg total) by mouth in the morning and 1 tablet (1,000 mg total) in the evening. Take with meals. 07/23/23 Yes Not In System Ref Prov SITagliptin phosphate (JANUVIA) 100 mg tablet Take 1 tablet (100 mg total) by mouth in the morning.Yes Not In System Ref Prov albuterol (PROVENTIL HFA;VENTOLIN HFA) 90 mcg/actuation inhaler Inhale 2 puffs every 6 (six) hours as needed for wheezing. Not In System Ref Prov Social History: TOBACCO: reports that he has never smoked. He has never used smokeless tobacco. ETOH: reports current alcohol use. DRUGS: reports no history of drug use. OCCUPATION: Family History: Family History Problem Relation Age of Onset Diabetes Mother Heart disease Father Diabetes Father Review of Systems: Constitutional: there has been no unanticipated weight loss, no change in energy level, sleep pattern, or activity level. Eyes: No visual changes or diplopia, no scleral icterus. ENT: No Headaches, hearing loss or vertigo, no mouth sores or sore throat. Cardiovascular: see hpi Respiratory: see hpi Musculoskeletal: No gait disturbance, weakness or joint complaints Integumentary: No rash or pruritis Neurological: No headache, diplopia, change in muscle strength, numbness or tingling OBJECTIVE LAST LABS: CBC: BMP: PT/INR: APTT: MAG: D Dimer: Troponin I ProBNP Lipid Panel: Lab Results Component Value Date CHOL 176 07/20/2022 TRIG 357 (H) 07/20/2022 HDL 38 (L) 07/20/2022 Liver Panel: No results found for: ALB HgA1C: Lab Results Component Value Date HGBA1C 9.6 (H) 07/20/2022 ABG: CV HISTORY: ECHO: Echo complete W/O contrast Result Date: 02/15/2023 Left Ventricle: There is mild concentric increased wall thickness/hypertrophy. Systolic function isnormal with an ejection fraction of 55-60%. Right Ventricle: Right ventricular size appears normal.The right ventricular basal diameter is 34.0 mm. Systolic function is normal. Aortic Valve: There is no regurgitation or stenosis. Mitral Valve: There is trace regurgitation. There is no evidence of m itral valve stenosis. STRESS: Nuc stress Lexiscan Result Date: 10/29/2023 No ECG evidence of ischemia. Myocardial perfusion imaging reveals a moderate size and intensity reversible lateral perfusion defect. This is consistent with ischemia. This is an intermediate risk study. Stress test (exercise only) Result Date: 09/07/2022 No evidence of stress-induced myocardial ischemia by ECG criteria Occasional scattered multiform PACs and PVCs noted during exercise, however no runs of sustained SVT or ventricular tachycardia Hypertensive response to exercise with peak blood pressure of 215/100 Patient walked per Abel protocol reaching stage III exercising for 7 minutes 0 seconds Patient achieved 96% of age predicted maximum heart rate and 8.57 Mets of physical activity Suboptimal exercise capacity Low risk study overall forstress-induced myocardial ischemia however findings consistent with inhibited functional capacity and hypertensive response to exercise Correlate clinically HOLTER: Holter monitor 24-48 hour Result Date: 02/13/2023 Interpretation: 1. Sinus rhythm with average heart rate of 85 beats per minute. Heart rate 64-138 beats per minute. 2. Rare PACs. 3. Frequent PVCs. [place] is 7.5%. Two morphologies but 1 dominant morphology accounted for 98.5% of all PVCs. 4. No AFib/SVT/pauses/AV block or VT noted. 5. Patient reported symptoms of shortness of breath and lightheadedness correlated with sinus rhythm with intermittent PVCs. CARDIAC CATH: No results found. CAROTID: No results found. CXR: X-ray chest 1 view Result Date: 11/06/2023 Clinical history: Left-sided chest pain. Comparisons: 11/30/2014 through 11/05/2022. Findings: Portable upright chest radiograph obtained 3:42 PM. Heart size and pulmonary vasculature appear within normal limits. Lungs appear clear. There is no pleural effusion nor pneumothorax. IMPRESSION: No evidence for acute cardiopulmonary disease. Finalized by Everton Alarcon MD on 11/06/2023 3:47 PM EKG: TELEMETRY: SR PHYSICAL EXAM Admission Weight: Weight: 99.6 kg (219 lb 9.3 oz) No intake/output data recorded. Weight change: Wt Readings from Last 3 Encounters: 11/07/23 99.6 kg (219 lb 9.3 oz) 10/29/23 98.4 kg (217 lb) 10/09/23 98.7 kg (217 lb 8 oz) Vitals: Vitals: 11/07/23 1054 11/07/23 1109 BP: 131/86 Pulse: 83 Resp: 16 Temp: 36.4 C (97.6 F) TempSrc: Oral SpO2: 94% Weight: 99.6 kg (219 lb 9.3 oz) Height: 170.2 cm (5' 7 ) Admit Weight Weight: 99.6 kg (219 lb 9.3 oz) Last 3 Weights Last 3 Weight Readings 11/07/23 1054 Weight: 99.6 kg (219 lb 9.3 oz) Body mass index is 34.39 kg/m . INTAKE/OUTPUT No intake/output data recorded. Intake/Output Summary (Last 24 hours) at 11/07/2023 1218 Last data filed at 11/07/2023 1109 Gross per 24 hour Intake 0 ml Output 0 ml Net 0 ml General appearance: Alert oriented and cooperative, in no acute distress Skin: Warm and dry to touch Neck: No JVD, no carotid bruit, neck supple, trachea midline Lungs: Clear to ausculation bilaterally, no use of accessory muscles. Heart:: RRR with normal S1 and S2 , no murmurs and no gallops. Extremities: No edema Neurologic: Oriented to time, person and place, affect appropriate, no focal/major motor or sensorydefects noted Psychiatric: Appropriate mood, memory and judgment ASSESSMENT/PLAN Stabbing chest pain Troponin negative x2: High sensitivity troponin 3.13, 3.85 Abnormal nuclear stress Lexiscan 10/29/2023: Moderate size and intensity reversible lateral perfusion defect consistent with ischemia: Intermediate risk Hypertension Obstructive sleep apnea Frequent PVCs 7.5% on Holter monitor 02/13/2023 Diabetes mellitus Mild renal insufficiency at admission Serum creatinine 1.3, BUN 26 hypertriglyceridemia Chest pain is atypical. Troponins negative. EKG does not appear acutely ischemic when compared to EKG from last month. Currently pain-free. Recent abnormal stress test. Would 1st up titrate antianginals. Patient had breakfast. No documented dye allergy. Will review with attending ig inpatient coronary angiography is warranted Jonh Malloy APRN-LORI This note was completed using a voice clothing presser system. Every effort was made to ensure accuracy. However, inadvertent computerized clothing presser errors may be present. JONAS Limon 11/07/23 1309 CARDIOLOGY ATTENDING NOTE Patient interviewed and evaluated by our certified nurse practitioner or certified physician's hospital nursing assistant and discussed in detail with me. Agree with interval history, examination, assessment and plan as outlined in their note Patient was seen separately by me. Patient has atypical left-sided stabbing chest pain. Unfortunately he also has a abnormal stress test with evidence of lateral ischemia ordered by his primary care physician. He does have risk factors for coronary artery disease including diabetes hypertension hype rlipidemia and questionable family history of premature coronary disease. Risks benefits and alternatives to cardiac catheterization were discussed with the patient and he is willing to proceed. Will plan for early tomorrow morning. * Fermin Mejía MD - 11/07/2023 9:12 PM EDT Images from the original note were not included. [facility] - GEN 5 ACUTE [address] [facility] [id number] Hospital Medicine History & Physical Patient: Merlin Fish Date of : 1970 Room: [place] [address] PCP: DESIREE Duque Admission date: 11/07/2023 10:53 AM Encounter date: 11/07/23 Hospital Day: 1 SUBJECTIVE Merlin Fish is a 53 y.o. male who presents with hx of HTN DM HLD CINTHYA with chest pain left chest wall pressure no radiation . intermediate risk nuclear stress test which showed reversible perfusion defect in the lateral wall EKG no st changes Allergies: Patient has no known allergies. Prior to Admission medications Medication Sig Start Date End Date Taking? Authorizing Provider amLODIPine (NORVASC) 10 mg tablet Take 1 tablet (10 mg total) by mouth in the morning. Yes Not In System Ref Prov empagliflozin (JARDIANCE) 25 mg tablet tablet TAKE 1 TABLET BY MOUTH ONCE DAILY Oral for 90 Days Yes Not In System Ref Prov losartan-hydroCHLOROthiazide (HYZAAR) 100-12.5 mg per tablet Take 1 tablet by mouth in the morning.Yes Not In System Ref Prov metFORMIN (GLUCOPHAGE) 1000 mg tablet Take 1 tablet (1,000 mg total) by mouth in the morning and 1 tablet (1,000 mg total) in the evening. Take with meals. 07/23/23 Yes Not In System Ref Prov SITagliptin phosphate (JANUVIA) 100 mg tablet Take 1 tablet (100 mg total) by mouth in the morning.Yes Not In System Ref Prov albuterol (PROVENTIL HFA;VENTOLIN HFA) 90 mcg/actuation inhaler Inhale 2 puffs every 6 (six) hours as needed for wheezing. Not In System Ref Prov Past Medical History: Patient has a past medical history of Abnormal EKG, Arthritis, Asthma, Cataract, Diabetes ([facility]), Diabetes mellitus type 2, controlled ([facility]), Headache, Hyperlipidemia, Hypertension, Sleep apnea, and Visual impairment. Past Surgical History: Patient has a past surgical history that includes Knee surgery; Appendectomy; [place] tooth extraction; and Cataract extraction w/ intraocular lens implant (Right, 11/29/2022). Family History: Patient's family history includes Diabetes in his father and mother; Heart disease in his father. Social History: Patient reports that he has never smoked. He has never used smokeless tobacco. He reports current alcohol use. He reports that he does not use drugs. Review of Systems Constitutional: Negative for activity change, appetite change, chills, fatigue, fever and unexpected weight change. HENT: Negative for congestion, dental problem, hearing loss, rhinorrhea, sore throat, trouble swallowing and voice change. Eyes: Negative for visual disturbance. Respiratory: Negative for cough, sputum production, shortness of breath and wheezing. Cardiovascular: Negative for chest pain, palpitations and leg swelling. Gastrointestinal: Negative for abdominal pain, blood in stool, melena, constipation, diarrhea, nausea and vomiting. Genitourinary: Negative for difficulty urinating, dysuria, enuresis, frequency and hematuria. Musculoskeletal: Negative for arthralgias, joint swelling and myalgias. Skin: Negative for color change, rash and wound. Neurological: Negative for dizziness, seizures, syncope, speech difficulty, weakness, numbness and headaches. Hematological: Negative for adenopathy. Does not bruise/bleed easily. Psychiatric/Behavioral: Negative for dysphoric mood and sleep disturbance. The patient is not nervous/anxious. OBJECTIVE BP 124/81 Pulse 87 Temp 36.4 C (97.5 F) (Oral) Resp 16 Ht 170.2 cm (5' 7 ) Wt 99.6 kg (219 lb 9.3 oz) SpO2 94% BMI 34.39 kg/m Temp: [36.4 C (97.5 F)-36.6 C (97.8 F)] 36.4 C (97.5 F) Pulse: [64-98] 87 Resp: [10-22] 16 BP: (94-154)/(55-89) 124/81 SpO2: [86 %-99 %] 94 % O2 Device: None (Room air) O2 Flow Rate (L/min): [2 L/min] 2 L/min Intake/Output Summary (Last 24 hours) at 11/07/2023 2112 Last data filed at 11/07/2023 1617 Gross per 24 hour Intake 100 ml Output 300 ml Net -200 ml Physical Exam Constitutional: General: Not in acute distress. Appearance: Normal appearance and is well-developed. HENT: Head: Normocephalic and atraumatic. Right Ear: External ear normal. Left Ear: External ear normal. Nose: Nose normal. Right Sinus: No maxillary sinus tenderness or frontal sinus tenderness. Left Sinus: No maxillary sinus tenderness or frontal sinus tenderness. Mouth/Throat: Lips: [place]. Mouth: Mucous membranes are moist. Pharynx: Oropharynx is clear. Eyes: General: No scleral icterus. Extraocular Movements: Extraocular movements intact. Pupils: Pupils are equal, round, and reactive to light. Neck: Vascular: No carotid bruit or JVD. Cardiovascular: Rate and Rhythm: Normal rate and regular rhythm. Pulses: Radial pulses are 2+ on the right side and 2+ on the left side. Heart sounds: Normal heart sounds, S1 normal and S2 normal. No murmur heard. No friction rub. No gallop. Pulmonary: Effort: Pulmonary effort is normal. Breath sounds: Normal breath sounds. No decreased breath sounds, wheezing, rhonchi or rales. Abdominal: General: Bowel sounds are normal. Palpations: Abdomen is soft. Tenderness: There is no abdominal tenderness. Musculoskeletal: Right lower leg: No edema. Left lower leg: No edema. Skin: General: Skin is warm and dry. Capillary Refill: Capillary refill takes less than 2 seconds. Findings: No erythema, rash or wound. Neurological: General: No focal deficit present. Mental Status: Alert and oriented to person, place, and time. Psychiatric: Attention and Perception: Attention normal. Mood and Affect: Mood and affect normal. Behavior: Behavior normal. Behavior is cooperative. Medications Scheduled: [START ON 11/08/2023] amLODIPine, 10 mg, oral, Daily [START ON 11/08/2023] empagliflozin, 25 mg, oral, Daily [START ON 11/08/2023] insulin lispro, 2-10 Units, subcutaneous, TID with meals insulin lispro, 2-8 Units, subcutaneous, Nightly [START ON 11/08/2023] losartan (COZAAR) 50 mg, hydroCHLOROthiazide (HYDRODIURIL) 12.5 mg for HYZAAR 50/12.5, , oral, Daily [START ON 11/08/2023] SITagliptin phosphate, 100 mg, oral, Daily sodium chloride, 3 mL, intravenous, Q12H MIGDALIA Infusions: dextrose 5 % in water, 100 mL/hr sodium chloride 0.9 %, 20 mL/hr, Last Rate: 20 mL/hr (11/07/23 1417) As Needed: acetaminophen calcium gluconate calcium gluconate calcium gluconate dextrose dextrose 5 % in water dextrose 50 % in water (D50W) glucagon (human recombinant) magnesium sulfate magnesium sulfate ondansetron potassium chloride OR potassium chloride sennosides-docusate sodium sodium phosphate IV OR sodium phosphate IV - central line OR sod phos di, mono-K phos mono sodium chloride sodium chloride sodium chloride 0.9 % Allergies: Patient has no known allergies. Labs Recent Results (from the past 24 hour(s)) Comprehensive metabolic panel Collection Time: 11/07/23 12:05 PM Result Value Ref Range Sodium 138 134 - 146 mmol/L Potassium, Bld 3.4 (L) 3.5 - 5.0 mmol/L Chloride 99 98 - 109 mmol/L CO2 24 22 - 32 mmol/L Anion gap 15 5 - 15 mmol/L BUN 24 (H) 5 - 23 mg/dL Creatinine 1.09 0.60 - 1.30 mg/dL Glucose 171 (H) 65 - 99 mg/dL Calcium 9.6 8.5 - 10.5 mg/dL Total Protein 7.5 6.0 - 8.0 g/dL Albumin 4.3 3.2 - 5.3 g/dL Alkaline Phosphatase 71 39 - 130 U/L AST 15 0 - 41 U/L ALT 17 0 - 40 U/L Total bilirubin 0.4 0.3 - 1.2 mg/dL eGFR (CKD-EPI)non-race dependent 80 >59 ml/min/1.73sq.m Magnesium Collection Time: 11/07/23 12:05 PM Result Value Ref Range Magnesium 1.9 1.8 - 2.6 mg/dL CBC auto differential Collection Time: 11/07/23 12:05 PM Result Value Ref Range White Blood Cells 14.4 (H) 4.0 - 11.0 X10E9/L RBC count 5.68 4.10 - 5.70 X10E12/L Hemoglobin 14.9 13.0 - 17.0 g/dL Hematocrit 45.5 39 - 49 % MCV 80 80 - 100 fL MCH 26.2 (L) 27 - 34 pg MCHC 32.7 32 - 36 g/dL RDW 14.6 11.5 - 15.0 % Platelets 265 150 - 450 X10E9/L MPV 8.6 7 - 12 fL % neutrophils 60.4 % % lymphocytes 28.9 % % monocytes 8.3 % % eosinophils 2.0 % % Basophils 0.4 % Neutrophils Absolute (A) 8.7 (H) 1.5 - 6.6 X10E9/L Lymphocytes Absolute 4.2 (H) 1.0 - 3.5 X10E9/L Monocytes Absolute 1.2 (H) 0 - 0.9 X10E9/L Eosinophils Absolute 0.3 0.0 - 0.4 X10E9/L Basophils Absolute 0.1 0.0 - 0.2 X10E9/L Bedside Glucose *Place/Obtain serum glucose if >500(>600 MRH) per glucometer. Collection Time: 11/07/23 4:13 PM Result Value Ref Range Bedside glucose 167 (H) 65 - 99 mg/dL Potassium Collection Time: 11/07/23 6:49 PM Result Value Ref Range Potassium, Bld 4.1 3.5 - 5.0 mmol/L Magnesium Collection Time: 11/07/23 6:49 PM Result Value Ref Range Magnesium 2.1 1.8 - 2.6 mg/dL Radiology X-ray chest 1 view Result Date: 11/06/2023 Narrative: Clinical history: Left-sided chest pain. Comparisons: 11/30/2014 through 11/05/2022. Findings: Portable upright chest radiograph obtained 3:42 PM. Heart size and pulmonary vasculature appearwithin normal limits. Lungs appear clear. There is no pleural effusion nor pneumothorax. IMPRESSION: No evidence for acute cardiopulmonary disease. Finalized by Everton Alarcon MD on 11/06/2023 3:47 PM Nuc stress Lexiscan Result Date: 10/29/2023 Narrative: No ECG evidence of ischemia. Myocardial perfusion imaging reveals a moderate size and intensity reversible lateral perfusion defect. This is consistent with ischemia. This is an intermediate risk study. HOSPITAL PROBLEM LIST Principal Problem: NSTEMI (non-ST elevated myocardial infarction) ([facility]) ASSESSMENT & PLAN Chest pressure with stress test showing lateral wall ischemia ASA lipitor cath am Admission orders placed and home medications reconciled. Fermin Mejía MD 11/07/2023 9:12 PM [facility] Internal Medicine 7AM-7PM (all facilities): EpicChat or page through [email or web address]. 7PM-7AM ([facility], [facility]iat[facility] and [facility]patient Rehab): EpicChat or page, [phone]. 7PM-7AM ([place], [place], [place], [place] and [facility] Rehab): EpicChat or page through Vocera. [facility] Note* Perioperative Nursing Note - Leslie Mayer RN - 11/08/2023 7:56 AM EDT Patient arrived to CVU, r and d lab technician taking patient before pre procedure complete. [facility] [id number] Nurse Note* Perioperative Nursing Note - Jeannine Dougherty RN - 11/08/2023 6:39 AM EDT Predicted Risk Adjusted CathPCI Bleeding Event Risk Patient's Risk 0.7% National Average 3.3% as of January, In the [place], the average bleeding event risk for all patients undergoing this procedure is3.3%. Taking into account the patient s specific clinical condition, the statistical estimate that the patient may experience a bleeding event is 0.7%. This means that for every 100 patients having a similar clinical makeup, there would be 0.7 that experienced a bleeding event. Bleeding Event is an absolute drop in hemoglobin ? 4g/dL, a RBC transfusion and/or a procedural intervention/surgery to reverse/stop bleeding that occurs within 72 hours of the PCI procedure. The model provides an objective risk-adjusted estimate of bleeding which has real value for both patient and provider. It should be considered as one element in the evaluation process, to be considered along with the other traditional factors that determine whether the patient is an appropriate candidate for the procedure. Based on following evaluation Patient Demographics Age : 53 Years Sex : Male Race : Other Patient Pre-Procedural Characteristics Body Mass Index (BMI) 33.83 kg/m2 Height 5 Feet 7 Inches Weight 216 lbs Baseline Hemoglobin 14.9 g/dL Prior STEMI No Prior Cardiogenic Shock No Prior PCI No Dialysis No Glomerular Filtration Rate (estimated) 74.65 mL/min/1.73m2 Serum Creatinine (SCr) 1.09 mg/dL [facility] Plan of care note* Plan of Care - Lenora Arthur RN - 11/08/2023 12:49 AM EDT Problem: Pain Goal: Patient goal is pain score less than 4, able to rest, and participant in treatment plan as appropriate Description: INTERVENTIONS: 1. Encourage patient or legal contracts representative to report early pain and ask for pain medicine when needed 2. Assess pain using appropriate pain scale and include the scale used when documenting 3. Administer analgesics based on type and severity of pain and evaluate response within appropriate time frame 4. Implement non-pharmacological measures as appropriate and evaluate response 5. Consider cultural and social influences on pain and pain management 6. Notify LIP if interventions ineffective or patient reports new pain 7. Monitor vital signs including pulse ox, end-tidal CO2 based on pain intervention 8. Reassess pain per policy 9. Teach patient or legal contracts representative interventions for comforting Outcome: Progressing Note: Evaluation of progress towards goal: Patient denies pain upon assessment and reassessment. Problem: Safety Goal: Patient will be injury free during hospitalization Description: INTERVENTIONS: 1. Assess patient's risk for falls and implement fall prevention plan of care per policy 2. Provide and maintain a safe environment 3. Proper use of double Identifiers 4. Medication administration using the 5 rights 5. Hand hygiene 6. Specimens are labeled at the bedside 7. Instruct patient/ patient contracts representative about use of safety devices 8. Include patient/ patient contracts representative in decisions related to safety Outcome: Progressing Note: Evaluation of progress towards goal: Patient remains free from any new injuries throughout the duration of their stay. Problem: Infection Goal: Absence of infection during hospitalization Description: Interventions: 1. Assess and monitor for signs and symptoms of infection 2. Monitor lab/diagnostic results 3. Monitor all insertion sites i.e., indwelling lines, tubes and drains 4. Monitor endotracheal (as able) and nasal secretions for changes in amount and color 5. Administer medications as ordered 6. Instruct and encourage patient and family to use good hand hygiene technique 7. Identify and instruct patient/patient contracts representative in use of appropriate isolation precautionsfor identified infection/symptoms 8. Provide and discuss with patient/patient contracts representative on educational MDRO sheet 9. Encourage and monitor nutritional status daily and consult feller buncher operator if indicated 10. Implement neutropenic guidelines as needed 11. Review exposure to history of communicable disease and recent travel history on admission 12. Encourage annual influenza vaccine 13. Encourage pneumonia vaccine Outcome: Progressing Note: Evaluation of progress towards goal: Patient remains free from and new infections at this point during their stay. Problem: Knowledge Deficit Goal: Patient/patient contracts representative demonstrates understanding of disease process, treatment plan,medications, and discharge instructions Description: INTERVENTIONS 1. Complete learning assessment and assess knowledge base 2. Provide teaching at level of understanding 3. Provide teaching via preferred learning method(s) Outcome: Progressing Note: Evaluation of progress towards goal: Patient has been educated, and has no further questions at this time. Problem: Discharge Planning Goal: Discharge to post-acute care, other facility, or home with appropriate resources Description: Patient's goal is: INTERVENTIONS 1. Conduct assessment to determine patient/family and health care team treatment goals, and need for post-acute services based on payer coverage, community resources, and patient preferences, and barriers to discharge 2. Coordinate with Social work, Care Navigation, and Utilization Review to arrange appropriate level of services according to patient's needs based on patient preference and payer coverage in collaboration with the physician and health care team 3. Address psychosocial, clinical, and financial barriers to discharge as identified in assessment in conjunction with the patient/family and health care team 4. Consult appropriate ancillary services (i.e.. PT/OT/ST, etc) as needed 5. Communicate with and update the patient/family, physician, and health care team regarding progress on the discharge plan 6. Identify discharge learning needs (meds, wound care, etc). 7. Arrange for needed discharge transportation as appropriate Outcome: Progressing Note: Evaluation of progress towards goal: Discharge is pending Problem: Anxiety Goal: Anxiety is at manageable level Description: Patient's goal is: INTERVENTIONS 1. Assess and monitor patient's anxiety level 2. Monitor for signs and symptoms of anxiety both physical and emotional (heart palpitations, chestpain, shortness of breath, headaches, nausea, feeling jumpy, restlessness, irritable, apprehensive) 3. Reorient/orient patient to unit/surroundings 4. Explain treatment plan 5. Explain tests/procedures prior to initiation 6. Encourage participation in care 7. Encourage verbalization of concerns/fears 8. Assess coping mechanisms 9. Assist in developing anxiety-reducing skills 10. Administer complimentary therapies 11. Manage patient's environment 12. Limit or eliminate stimulants such as caffeine and nicotine 13. Collaborate with ancillary departments 14. Include patient/patient contracts representative in decisions related to anxiety Outcome: Progressing Note: Evaluation of progress towards goal: Patient has not presented with any signs of anxiety, will continue to monitor Problem: Hemodynamic Status Goal: Maintains optimal cardiac output and hemodynamic stability Description: Patient's goal is: INTERVENTIONS 1. Assess and monitor patient's heart rate, rhythm, respiratory rate, peripheral pulses, capillary refill, color, body temperature, intake and output 2. Monitor labs and diagnostic testing 3. Observe for signs of chest pain (note location, duration, severity, radiation and associated symptoms such as diaphoresis, nausea, indigestion) 4. Monitor for signs and symptoms of heart failure (i.e. shortness of breath, edema of feet/ankles/legs, rapid irregular heart rate, coughing, wheezing, white/pink blood tinged sputum, sudden weight gain, chest pain) 5. Plan activities to conserve energy 6. Monitor for signs and symptoms of bleeding Outcome: Progressing Note: Evaluation of progress towards goal: Will continue to monitor Problem: Inadequate Coping Goal: Demonstrates and verbalizes ability to cope effectively Description: Patient's goal is: INTERVENTIONS 1. Patient is able to verbalize feelings related to emotional state 2. Encourage verbalization of feelings, perceptions, fears, stressors, loss of loved ones 3. Encourage verbalization of problems out of their control 4. Encourage participation in care and self management 5. Inform patient of all treatment/care prior to providing care 6. Collaborate with pastoral/spiritual care, vp digital marketing social media and crm, mental health counselor as needed. 7. Instruct patient on diversional activities such as physical activity, distraction, and deep breathing exercises to assist with coping 8. Involve patient's contracts representative in care Outcome: Progressing Note: Evaluation of progress towards goal: Patient shows no signs of inappropriate coping measures,will continue to monitor. Problem: Activity Intolerance/Impaired Mobility Goal: Mobility/activity is maintained at optimum level for patient Description: Patient's goal is: INTERVENTIONS 1. Assess and monitor patient barriers to mobility and need for assistive/adaptive devices 2. Assess patient's emotional response to limitations 3. Collaborate with interdisciplinary teams and initiate plans and interventions as ordered 4. Encourage independent activity per tolerance 5. Maintain proper body alignment 6. Perform active/passive ROM as tolerated/ordered 7. Coordinate activities to conserve energy 8. Reposition patient 9. Ensure adequate rest/sleep time Outcome: Progressing Note: Evaluation of progress towards goal: Will continue to monitor Problem: Nutrition Goal: Patient's nutritional intake is adequate Description: Patient's goal is: INTERVENTIONS 1. Assess and monitor food intake and supplements, patient food preferences, nausea, vomiting, labs, oral cavity (gums, teeth, tongue, mucosa), proper denture fit, and cultural beliefs 2. Monitor for signs of hypoglycemia and hyperglycemia 3. Collaborate with interdisciplinary team and initiate plan and interventions as ordered 4. Monitor patient's weight 5. Assist patient with meals/food selection 6. Assist patient with eating 7. Allow adequate time for meals 8. Provide pleasant environment during mealtime 9. Increase social contact during mealtimes 10. Plan activities to conserve energy 11. Encourage/perform oral hygiene as appropriate 12. Encourage patient to take dietary supplement as ordered 13. Collaborate with clinical feller buncher operator 14. Include patient/ patient's contracts representative in decisions related to nutrition Outcome: Progressing Note: Evaluation of progress towards goal: Nutrition is adequate at this time. Problem: Low Risk Fall Score Description: Zambrano Fall Score of 0 - 24 or indicated by [facility] Re[facility] Assessment Goal: Patient should be free from fall Description: Interventions: 1. [place] to environment 2. Hourly rounds addressing the 4 P's (Pain, Positioning, Possessions, Potty) 3. Clear area of hazards (spills, clutter, electrical cords, unnecessary equipment) 4. Place equipment (bed & TV controls, call light, phone, urinal) within reach 5. Encourage patient to wear glasses and hearing aides as appropriate 6. Maintain bed in lowest position 7. Lock wheels on bed/wheelchair 8. Provide adequate lighting, including night light 9. Assess need for additional bedding, food/fluids, pain med's prior to sleep/routinely 10. Provide gripper slippers or personal non-skid footwear 11. Teach patient and patient contracts representative to maintain environment for safety and engage in all aspects of fall prevention program Outcome: Progressing Note: Evaluation of progress towards goal: Patient remains free from injuy due to falls throughout this hospitalization stay. Problem: Glucose Imbalance Goal: Clinical indication of glucose balance is achieved Description: Patient's goal is: INTERVENTIONS 1. Monitor blood glucose levels as ordered 2. Administer medications as ordered 3. Notify physician of ineffective treatment plan Outcome: Progressing Note: Evaluation of progress towards goal: Will continue to monitor Goal: Patient's discharge needs are met Description: Patient's goal is: INTERVENTIONS 1. Assess patient for self-management skills 2. Encourage participation in diabetes management 3. Identify potential discharge barriers on admission and throughout hospital stay 4. Involve patient/S.O. in discharge planning process 5. Communicate referral to perinatal educator as appropriate 6. Communicate referral to feller buncher operator as appropriate 7. Collaborate with case management/vp digital marketing social media and crm for discharge needs Outcome: Progressing Note: Evaluation of progress towards goal: Will continue to monitor [facility] Consult note* Valente Lilli - 11/07/2023 9:18 PM EDTAssociated Order(s): IP CONSULT TO SPIRITUAL CARE Summary: Spiritual Care Consult for Advance Directives Assistance Spiritual Care Consult for Advance Directives Assistance Advance Directive: Sleeve Setter Lockstitch assisted patient in completing the advance directives. Patient completed and signed a healthcare power of employment law attorney. Patient named only 1 of 4 children as a Health care power of employment law attorney. Patient also nominated his daughter Anusha as a possible guardian of his person and his estate ifever such a need should arise, Patient was given the original and a copy. One copy placed in patient's chart. A name plate stamper is available 07/01 to offer spiritual and emotional support and may be reached through the [facility] shooting gallery operator at [phone]. [facility]05-[facility] Consult note* Valente Reeder - 11/07/2023 9:18 PM EDTAssociated Order(s): IP CONSULT TO SPIRITUAL CARE Summary: Spiritual Care Consult for Advance Directives Assistance Spiritual Care Consult for Advance Directives Assistance Advance Directive: Sleeve Setter Lockstitch assisted patient in completing the advance directives. Patient completed and signed a healthcare power of employment law attorney. Patient named only 1 of 4 children as a Health care power of employment law attorney. Patient also nominated his daughter Anusha as a possible guardian of his person and his estate ifever such a need should arise, Patient was given the original and a copy. One copy placed in patient's chart. A name plate stamper is available 07/01 to offer spiritual and emotional support and may be reached through the [facility] shooting gallery operator at [phone]. * Sara Carrizales MD - 11/07/2023 12:18 PM EDTAssociated Order(s): IP CONSULT TO CARDIOLOGY Images from the original note were not included. [facility] [address] [place] [address] CONSULT NOTE Merlin Fish PCP: [facility] Date of Admission: 11/07/2023 Date of Consultation: 11/07/2023 12:18 PM Consult for NSTEMI, Unstable Angina SUBJECTIVE History of Present Illness: Merlin Fish is a 53 y.o. male who is known to our service and was seen on 10/09/[address] Don. Past medical history of hypertension, hypertriglyceridemia, diabetes mellitus, obstructive sleep apnea, obesity. Tells me he presented to [facility] for symptoms of stabbing chest discomfort along his left lateral chest wall that began Suddenly and progressed pretty quickly while he was at rest working on paperwork. He has had this discomfort before, happening infrequently. Nonexertional. No relieving factors. No accompanying symptoms. Mild shortness of breath which does not necessarily appear correlated. Not necessarily progressed either. He did have a recent intermediate risk nuclear stress test which showed reversible perfusion defectin the lateral wall. High sensitivity troponins were negative at 3.13, 3.85. EKG does not appear ischemic when compared to previous. Frequent PVCs which is not new. He had a Holter monitor last fall which showed PVC burden of 7.5%. Previous Medical History: Past Medical History: Diagnosis Date Abnormal EKG Arthritis Asthma Cataract Diabetes ([facility]) Diabetes mellitus type 2, controlled ([facility]) Headache Hyperlipidemia Hypertension Sleep apnea Visual impairment Previous Surgical History: Past Surgical History: Procedure Laterality Date APPENDECTOMY EXTRACTION CATARACT INTRAOCULAR LENS Right 11/29/2022 Performed by Marya Robbins MD at [facility] KNEE SURGERY x4 WISDOM TOOTH EXTRACTION Allergies: No Known Allergies Hospital Meds: Current Facility-Administered Medications Medication Dose Route Frequency Provider Last Rate Last Admin acetaminophen (TYLENOL) tablet 650 mg 650 mg oral Q4H PRN Hue Eller APRN-[employer] [START ON 11/08/2023] amLODIPine (NORVASC) tablet 10 mg 10 mg oral Daily Hue L Veselka, SCHOOL AGE PROGRAM ASSOCIATE-[employer] calcium gluconate 3,000 mg in sodium chloride 0.9 % 100 mL IVPB 3,000 mg intravenous PRN Hue L Veselka, SCHOOL AGE PROGRAM ASSOCIATE-[employer] calcium gluconate 4,000 mg in sodium chloride 0.9 % 250 mL IVPB 4,000 mg intravenous PRN Hue L Veselka, SCHOOL AGE PROGRAM ASSOCIATE-[employer] calcium gluconate IVPB 2000 mg/100 mL (20 mg/mL premix) 2,000 mg intravenous PRN Hue L Veselka, SCHOOL AGE PROGRAM ASSOCIATE-[employer] dextrose (GLUTOSE) 40 % gel 15 g 15 g oral PRN Hue L Veselka, SCHOOL AGE PROGRAM ASSOCIATE-[employer] dextrose 5 % (D5W) infusion 100 mL/hr intravenous Continuous PRN Hue L Veselka, SCHOOL AGE PROGRAM ASSOCIATE-[employer] dextrose 50 % in water (D50W) 50% solution 25 mL 25 mL intravenous PRN Hue L Veselka, SCHOOL AGE PROGRAM ASSOCIATE-[employer] [START ON 11/08/2023] empagliflozin (JARDIANCE) tablet 25 mg 25 mg oral Daily Hue L Iramelka, SCHOOL AGE PROGRAM ASSOCIATE-[employer] glucagon HCL injection 1 mg 1 mg intramuscular PRN Hue L Veselka, SCHOOL AGE PROGRAM ASSOCIATE-[employer] [START ON 11/08/2023] losartan (COZAAR) 50 mg, hydroCHLOROthiazide (HYDRODIURIL) 12.5 mg for HYZAAR 50/12.5 oral Daily Hue L Geraka, SCHOOL AGE PROGRAM ASSOCIATE-[employer] magnesium sulfate IVPB 2000 mg/50 mL in iso-osmotic water (40 mg/mL premix) 2,000 mg intravenous PRN Hue L Veselka, SCHOOL AGE PROGRAM ASSOCIATE-[employer] magnesium sulfate IVPB 4000 mg/100 mL in iso-osmotic water (40 mg/mL premix) 4,000 mg intravenous PRN Hue L Veselka, SCHOOL AGE PROGRAM ASSOCIATE-[employer] ondansetron (PF) (ZOFRAN) injection 4 mg 4 mg intravenous Q8H PRN Hue L Veselka, SCHOOL AGE PROGRAM ASSOCIATE-[employer] potassium chloride (K-TAB,KLOR-CON) CR tablet 30-50 mEq 30-50 mEq oral PRN Hue L Veselka, SCHOOL AGE PROGRAM ASSOCIATE-[employer] Or potassium chloride (KAYCIEL) 20 mEq/15 mL solution 30-50 mEq 30-50 mEq oral PRN Hue L Veselka, SCHOOL AGE PROGRAM ASSOCIATE-[employer] sennosides-docusate sodium (SENOKOT-S) 8.6-50 mg 1 tablet 1 tablet oral Q12H PRN Hue L Iramelka, SCHOOL AGE PROGRAM ASSOCIATE-[employer] [START ON 11/08/2023] SITagliptin phosphate (JANUVIA) tablet 100 mg 100 mg oral Daily Hue L Veselka, SCHOOL AGE PROGRAM ASSOCIATE-[employer] sodium phosphate 20 mmol in sodium chloride 0.9 % 250 mL IVPB 20 mmol intravenous PRN Hue L Veselka, SCHOOL AGE PROGRAM ASSOCIATE-[employer] Or sodium phosphate 20 mmol in sodium chloride 0.9 % 100 mL IVPB 20 mmol intravenous PRN Hue L Veselka, SCHOOL AGE PROGRAM ASSOCIATE-[employer] Or sod phos di, mono-K phos mono (K-PHOS NEUTRAL) 250 mg tablet 2 tablet 2 tablet oral PRN Hue LVeselka, SCHOOL AGE PROGRAM ASSOCIATE-[employer] sodium chloride 0.9 % flush 3 mL 3 mL intravenous PRN Hue L Veselka, SCHOOL AGE PROGRAM ASSOCIATE-[employer] sodium chloride 0.9 % flush 3 mL 3 mL intravenous Q12H MIGDALIA Hue L Veselka, SCHOOL AGE PROGRAM ASSOCIATE-[employer] sodium chloride 0.9 % flush bag 25 mL intravenous PRN Hue L Veselka, SCHOOL AGE PROGRAM ASSOCIATE-[employer] sodium chloride 0.9 % infusion 20 mL/hr intravenous Continuous PRN Hue L Veselka, SCHOOL AGE PROGRAM ASSOCIATE-[employer] Home Meds: Prior to Admission medications Medication Sig Start Date End Date Taking? Authorizing Provider amLODIPine (NORVASC) 10 mg tablet Take 1 tablet (10 mg total) by mouth in the morning. Yes Not In System Ref Prov empagliflozin (JARDIANCE) 25 mg tablet tablet TAKE 1 TABLET BY MOUTH ONCE DAILY Oral for 90 Days Yes Not In System Ref Prov losartan-hydroCHLOROthiazide (HYZAAR) 100-12.5 mg per tablet Take 1 tablet by mouth in the morning.Yes Not In System Ref Prov metFORMIN (GLUCOPHAGE) 1000 mg tablet Take 1 tablet (1,000 mg total) by mouth in the morning and 1 tablet (1,000 mg total) in the evening. Take with meals. 07/23/23 Yes Not In System Ref Prov SITagliptin phosphate (JANUVIA) 100 mg tablet Take 1 tablet (100 mg total) by mouth in the morning.Yes Not In System Ref Prov albuterol (PROVENTIL HFA;VENTOLIN HFA) 90 mcg/actuation inhaler Inhale 2 puffs every 6 (six) hours as needed for wheezing. Not In System Ref Prov Social History: TOBACCO: reports that he has never smoked. He has never used smokeless tobacco. ETOH: reports current alcohol use. DRUGS: reports no history of drug use. OCCUPATION: Family History: Family History Problem Relation Age of Onset Diabetes Mother Heart disease Father Diabetes Father Review of Systems: Constitutional: there has been no unanticipated weight loss, no change in energy level, sleep pattern, or activity level. Eyes: No visual changes or diplopia, no scleral icterus. ENT: No Headaches, hearing loss or vertigo, no mouth sores or sore throat. Cardiovascular: see hpi Respiratory: see hpi Musculoskeletal: No gait disturbance, weakness or joint complaints Integumentary: No rash or pruritis Neurological: No headache, diplopia, change in muscle strength, numbness or tingling OBJECTIVE LAST LABS: CBC: BMP: PT/INR: APTT: MAG: D Dimer: Troponin I ProBNP Lipid Panel: Lab Results Component Value Date CHOL 176 07/20/2022 TRIG 357 (H) 07/20/2022 HDL 38 (L) 07/20/2022 Liver Panel: No results found for: ALB HgA1C: Lab Results Component Value Date HGBA1C 9.6 (H) 07/20/2022 ABG: CV HISTORY: ECHO: Echo complete W/O contrast Result Date: 02/15/2023 Left Ventricle: There is mild concentric increased wall thickness/hypertrophy. Systolic function isnormal with an ejection fraction of 55-60%. Right Ventricle: Right ventricular size appears normal.The right ventricular basal diameter is 34.0 mm. Systolic function is normal. Aortic Valve: There is no regurgitation or stenosis. Mitral Valve: There is trace regurgitation. There is no evidence of m itral valve stenosis. STRESS: Nuc stress Lexiscan Result Date: 10/29/2023 No ECG evidence of ischemia. Myocardial perfusion imaging reveals a moderate size and intensity reversible lateral perfusion defect. This is consistent with ischemia. This is an intermediate risk study. Stress test (exercise only) Result Date: 09/07/2022 No evidence of stress-induced myocardial ischemia by ECG criteria Occasional scattered multiform PACs and PVCs noted during exercise, however no runs of sustained SVT or ventricular tachycardia Hypertensive response to exercise with peak blood pressure of 215/100 Patient walked per Abel protocol reaching stage III exercising for 7 minutes 0 seconds Patient achieved 96% of age predicted maximum heart rate and 8.57 Mets of physical activity Suboptimal exercise capacity Low risk study overall forstress-induced myocardial ischemia however findings consistent with inhibited functional capacity and hypertensive response to exercise Correlate clinically HOLTER: Holter monitor 24-48 hour Result Date: 02/13/2023 Interpretation: 1. Sinus rhythm with average heart rate of 85 beats per minute. Heart rate 64-138 beats per minute. 2. Rare PACs. 3. Frequent PVCs. [place] is 7.5%. Two morphologies but 1 dominant morphology accounted for 98.5% of all PVCs. 4. No AFib/SVT/pauses/AV block or VT noted. 5. Patient reported symptoms of shortness of breath and lightheadedness correlated with sinus rhythm with intermittent PVCs. CARDIAC CATH: No results found. CAROTID: No results found. CXR: X-ray chest 1 view Result Date: 11/06/2023 Clinical history: Left-sided chest pain. Comparisons: 11/30/2014 through 11/05/2022. Findings: Portable upright chest radiograph obtained 3:42 PM. Heart size and pulmonary vasculature appear within normal limits. Lungs appear clear. There is no pleural effusion nor pneumothorax. IMPRESSION: No evidence for acute cardiopulmonary disease. Finalized by Everton Alarcon MD on 11/06/2023 3:47 PM EKG: TELEMETRY: SR PHYSICAL EXAM Admission Weight: Weight: 99.6 kg (219 lb 9.3 oz) No intake/output data recorded. Weight change: Wt Readings from Last 3 Encounters: 11/07/23 99.6 kg (219 lb 9.3 oz) 10/29/23 98.4 kg (217 lb) 10/09/23 98.7 kg (217 lb 8 oz) Vitals: Vitals: 11/07/23 1054 11/07/23 1109 BP: 131/86 Pulse: 83 Resp: 16 Temp: 36.4 C (97.6 F) TempSrc: Oral SpO2: 94% Weight: 99.6 kg (219 lb 9.3 oz) Height: 170.2 cm (5' 7 ) Admit Weight Weight: 99.6 kg (219 lb 9.3 oz) Last 3 Weights Last 3 Weight Readings 11/07/23 1054 Weight: 99.6 kg (219 lb 9.3 oz) Body mass index is 34.39 kg/m . INTAKE/OUTPUT No intake/output data recorded. Intake/Output Summary (Last 24 hours) at 11/07/2023 1218 Last data filed at 11/07/2023 1109 Gross per 24 hour Intake 0 ml Output 0 ml Net 0 ml General appearance: Alert oriented and cooperative, in no acute distress Skin: Warm and dry to touch Neck: No JVD, no carotid bruit, neck supple, trachea midline Lungs: Clear to ausculation bilaterally, no use of accessory muscles. Heart:: RRR with normal S1 and S2 , no murmurs and no gallops. Extremities: No edema Neurologic: Oriented to time, person and place, affect appropriate, no focal/major motor or sensorydefects noted Psychiatric: Appropriate mood, memory and judgment ASSESSMENT/PLAN Stabbing chest pain Troponin negative x2: High sensitivity troponin 3.13, 3.85 Abnormal nuclear stress Lexiscan 10/29/2023: Moderate size and intensity reversible lateral perfusion defect consistent with ischemia: Intermediate risk Hypertension Obstructive sleep apnea Frequent PVCs 7.5% on Holter monitor 02/13/2023 Diabetes mellitus Mild renal insufficiency at admission Serum creatinine 1.3, BUN 26 hypertriglyceridemia Chest pain is atypical. Troponins negative. EKG does not appear acutely ischemic when compared to EKG from last month. Currently pain-free. Recent abnormal stress test. Would 1st up titrate antianginals. Patient had breakfast. No documented dye allergy. Will review with attending ig inpatient coronary angiography is warranted JONAS Limon This note was completed using a voice clothing presser system. Every effort was made to ensure accuracy. However, inadvertent computerized clothing presser errors may be present. JONAS Limon 11/07/23 1309 CARDIOLOGY ATTENDING NOTE Patient interviewed and evaluated by our certified nurse practitioner or certified physician's hospital nursing assistant and discussed in detail with me. Agree with interval history, examination, assessment and plan as outlined in their note Patient was seen separately by me. Patient has atypical left-sided stabbing chest pain. Unfortunately he also has a abnormal stress test with evidence of lateral ischemia ordered by his primary care physician. He does have risk factors for coronary artery disease including diabetes hypertension hype rlipidemia and questionable family history of premature coronary disease. Risks benefits and alternatives to cardiac catheterization were discussed with the patient and he is willing to proceed. Will plan for early tomorrow morning. [facility] and physical note* Fermin Mejía MD - 11/07/2023 9:12 PM EDT Images from the original note were not included. [facility] INTERNAL MEDICINE [facility] - GEN 5 ACUTE [address] [id number] Hospital Medicine History & Physical Patient: Merlin Fish Date of : 1970 Room: [place] [id number] PCP: DESIREE Duque Admission date: 11/07/2023 10:53 AM Encounter date: 11/07/23 Hospital Day: 1 SUBJECTIVE Merlin Fish is a 53 y.o. male who presents with hx of HTN DM HLD CINTHYA with chest pain left chest wall pressure no radiation . intermediate risk nuclear stress test which showed reversible perfusion defect in the lateral wall EKG no st changes Allergies: Patient has no known allergies. Prior to Admission medications Medication Sig Start Date End Date Taking? Authorizing Provider amLODIPine (NORVASC) 10 mg tablet Take 1 tablet (10 mg total) by mouth in the morning. Yes Not In System Ref Prov empagliflozin (JARDIANCE) 25 mg tablet tablet TAKE 1 TABLET BY MOUTH ONCE DAILY Oral for 90 Days Yes Not In System Ref Prov losartan-hydroCHLOROthiazide (HYZAAR) 100-12.5 mg per tablet Take 1 tablet by mouth in the morning.Yes Not In System Ref Prov metFORMIN (GLUCOPHAGE) 1000 mg tablet Take 1 tablet (1,000 mg total) by mouth in the morning and 1 tablet (1,000 mg total) in the evening. Take with meals. 07/23/23 Yes Not In System Ref Prov SITagliptin phosphate (JANUVIA) 100 mg tablet Take 1 tablet (100 mg total) by mouth in the morning.Yes Not In System Ref Prov albuterol (PROVENTIL HFA;VENTOLIN HFA) 90 mcg/actuation inhaler Inhale 2 puffs every 6 (six) hours as needed for wheezing. Not In System Ref Prov Past Medical History: Patient has a past medical history of Abnormal EKG, Arthritis, Asthma, Cataract, Diabetes ([facility]), Diabetes mellitus type 2, controlled ([facility]), Headache, Hyperlipidemia, Hypertension, Sleep apnea, and Visual impairment. Past Surgical History: Patient has a past surgical history that includes Knee surgery; Appendectomy; [place] tooth extraction; and Cataract extraction w/ intraocular lens implant (Right, 11/29/2022). Family History: Patient's family history includes Diabetes in his father and mother; Heart disease in his father. Social History: Patient reports that he has never smoked. He has never used smokeless tobacco. He reports current alcohol use. He reports that he does not use drugs. Review of Systems Constitutional: Negative for activity change, appetite change, chills, fatigue, fever and unexpected weight change. HENT: Negative for congestion, dental problem, hearing loss, rhinorrhea, sore throat, trouble swallowing and voice change. Eyes: Negative for visual disturbance. Respiratory: Negative for cough, sputum production, shortness of breath and wheezing. Cardiovascular: Negative for chest pain, palpitations and leg swelling. Gastrointestinal: Negative for abdominal pain, blood in stool, melena, constipation, diarrhea, nausea and vomiting. Genitourinary: Negative for difficulty urinating, dysuria, enuresis, frequency and hematuria. Musculoskeletal: Negative for arthralgias, joint swelling and myalgias. Skin: Negative for color change, rash and wound. Neurological: Negative for dizziness, seizures, syncope, speech difficulty, weakness, numbness and headaches. Hematological: Negative for adenopathy. Does not bruise/bleed easily. Psychiatric/Behavioral: Negative for dysphoric mood and sleep disturbance. The patient is not nervous/anxious. OBJECTIVE BP 124/81 Pulse 87 Temp 36.4 C (97.5 F) (Oral) Resp 16 Ht 170.2 cm (5' 7 ) Wt 99.6 kg (219 lb 9.3 oz) SpO2 94% BMI 34.39 kg/m Temp: [36.4 C (97.5 F)-36.6 C (97.8 F)] 36.4 C (97.5 F) Pulse: [64-98] 87 Resp: [10-22] 16 BP: (94-154)/(55-89) 124/81 SpO2: [86 %-99 %] 94 % O2 Device: None (Room air) O2 Flow Rate (L/min): [2 L/min] 2 L/min Intake/Output Summary (Last 24 hours) at 11/07/20232111 Last data filed at 11/07/2023 1617 Gross per 24 hour Intake 100 ml Output 300 ml Net -200 ml Physical Exam Constitutional: General: Not in acute distress. Appearance: Normal appearance and is well-developed. HENT: Head: Normocephalic and atraumatic. Right Ear: External ear normal. Left Ear: External ear normal. Nose: Nose normal. Right Sinus: No maxillary sinus tenderness or frontal sinus tenderness. Left Sinus: No maxillary sinus tenderness or frontal sinus tenderness. Mouth/Throat: Lips: [place]. Mouth: Mucous membranes are moist. Pharynx: Oropharynx is clear. Eyes: General: No scleral icterus. Extraocular Movements: Extraocular movements intact. Pupils: Pupils are equal, round, and reactive to light. Neck: Vascular: No carotid bruit or JVD. Cardiovascular: Rate and Rhythm: Normal rate and regular rhythm. Pulses: Radial pulses are 2+ on the right side and 2+ on the left side. Heart sounds: Normal heart sounds, S1 normal and S2 normal. No murmur heard. No friction rub. No gallop. Pulmonary: Effort: Pulmonary effort is normal. Breath sounds: Normal breath sounds. No decreased breath sounds, wheezing, rhonchi or rales. Abdominal: General: Bowel sounds are normal. Palpations: Abdomen is soft. Tenderness: There is no abdominal tenderness. Musculoskeletal: Right lower leg: No edema. Left lower leg: No edema. Skin: General: Skin is warm and dry. Capillary Refill: Capillary refill takes less than 2 seconds. Findings: No erythema, rash or wound. Neurological: General: No focal deficit present. Mental Status: Alert and oriented to person, place, and time. Psychiatric: Attention and Perception: Attention normal. Mood and Affect: Mood and affect normal. Behavior: Behavior normal. Behavior is cooperative. Medications Scheduled: [START ON 11/08/2023] amLODIPine, 10 mg, oral, Daily [START ON 11/08/2023] empagliflozin, 25 mg, oral, Daily [START ON 11/08/2023] insulin lispro, 2-10 Units, subcutaneous, TID with meals insulin lispro, 2-8 Units, subcutaneous, Nightly [START ON 11/08/2023] losartan (COZAAR) 50 mg, hydroCHLOROthiazide (HYDRODIURIL) 12.5 mg for HYZAAR 50/12.5, , oral, Daily [START ON 11/08/2023] SITagliptin phosphate, 100 mg, oral, Daily sodium chloride, 3 mL, intravenous, Q12H MIGDALIA Infusions: dextrose 5 % in water, 100 mL/hr sodium chloride 0.9 %, 20 mL/hr, Last Rate: 20 mL/hr (11/07/23 1417) As Needed: acetaminophen calcium gluconate calcium gluconate calcium gluconate dextrose dextrose 5 % in water dextrose 50 % in water (D50W) glucagon (human recombinant) magnesium sulfate magnesium sulfate ondansetron potassium chloride OR potassium chloride sennosides-docusate sodium sodium phosphate IV OR sodium phosphate IV - central line OR sod phos di, mono-K phos mono sodium chloride sodium chloride sodium chloride 0.9 % Allergies: Patient has no known allergies. Labs Recent Results (from the past 24 hour(s)) Comprehensive metabolic panel Collection Time: 11/07/23 12:05 PM Result Value Ref Range Sodium 138 134 - 146 mmol/L Potassium, Bld 3.4 (L) 3.5 - 5.0 mmol/L Chloride 99 98 - 109 mmol/L CO2 24 22 - 32 mmol/L Anion gap 15 5 - 15 mmol/L BUN 24 (H) 5 - 23 mg/dL Creatinine 1.09 0.60 - 1.30 mg/dL Glucose 171 (H) 65 - 99 mg/dL Calcium 9.6 8.5 - 10.5 mg/dL Total Protein 7.5 6.0 - 8.0 g/dL Albumin 4.3 3.2 - 5.3 g/dL Alkaline Phosphatase 71 39 - 130 U/L AST 15 0 - 41 U/L ALT 17 0 - 40 U/L Total bilirubin 0.4 0.3 - 1.2 mg/dL eGFR (CKD-EPI)non-race dependent 80 >59 ml/min/1.73sq.m Magnesium Collection Time: 11/07/23 12:05 PM Result Value Ref Range Magnesium 1.9 1.8 - 2.6 mg/dL CBC auto differential Collection Time: 11/07/23 12:05 PM Result Value Ref Range White Blood Cells 14.4 (H) 4.0 - 11.0 X10E9/L RBC count 5.68 4.10 - 5.70 X10E12/L Hemoglobin 14.9 13.0 - 17.0 g/dL Hematocrit 45.5 39 - 49 % MCV 80 80 - 100 fL MCH 26.2 (L) 27 - 34 pg MCHC 32.7 32 - 36 g/dL RDW 14.6 11.5 - 15.0 % Platelets 265 150 - 450 X10E9/L MPV 8.6 7 - 12 fL % neutrophils 60.4 % % lymphocytes 28.9 % % monocytes 8.3 % % eosinophils 2.0 % % Basophils 0.4 % Neutrophils Absolute (A) 8.7 (H) 1.5 - 6.6 X10E9/L Lymphocytes Absolute 4.2 (H) 1.0 - 3.5 X10E9/L Monocytes Absolute 1.2 (H) 0 - 0.9 X10E9/L Eosinophils Absolute 0.3 0.0 - 0.4 X10E9/L Basophils Absolute 0.1 0.0 - 0.2 X10E9/L Bedside Glucose *Place/Obtain serum glucose if >500(>600 [facility]) per glucometer. Collection Time: 11/07/23 4:13 PM Result Value Ref Range Bedside glucose 167 (H) 65 - 99 mg/dL Potassium Collection Time: 11/07/23 6:49 PM Result Value Ref Range Potassium, Bld 4.1 3.5 - 5.0 mmol/L Magnesium Collection Time: 11/07/23 6:49 PM Result Value Ref Range Magnesium 2.1 1.8 - 2.6 mg/dL Radiology X-ray chest 1 view Result Date: 11/06/2023 Narrative: Clinical history: Left-sided chest pain. Comparisons: 11/30/2014 through 11/05/2022. Findings: Portable upright chest radiograph obtained 3:42 PM. Heart size and pulmonary vasculature appearwithin normal limits. Lungs appear clear. There is no pleural effusion nor pneumothorax. IMPRESSION: No evidence for acute cardiopulmonary disease. Finalized by Everton Alarcon MD on 11/06/2023 3:47 PM Nuc stress Lexiscan Result Date: 10/29/2023 Narrative: No ECG evidence of ischemia. Myocardial perfusion imaging reveals a moderate size and intensity reversible lateral perfusion defect. This is consistent with ischemia. This is an intermediate risk study. HOSPITAL PROBLEM LIST Principal Problem: NSTEMI (non-ST elevated myocardial infarction) ([facility]) ASSESSMENT & PLAN Chest pressure with stress test showing lateral wall ischemia ASA lipitor cath am Admission orders placed and home medications reconciled. Fermin Mejía MD 11/07/2023 9:12 PM [facility] Internal Medicine 7AM-7PM (all facilities): EpicChat or page through [email or web address]. 7PM-7AM ([facility], [facility] Psychiatry and Inpatient Rehab): EpicChat or page, [phone]. 7PM-7AM ([facility], [place], [place] and [facility] Rehab): EpicChat or page through [employer]. [facility] [id number] Plan of care note* Plan of Care - Marina Boo RN - 11/07/2023 1:29 PM EDT Problem: Pain Goal: Patient goal is pain score less than 4, able to rest, and participant in treatment plan as appropriate Description: INTERVENTIONS: 1. Encourage patient or legal contracts representative to report early pain and ask for pain medicine when needed 2. Assess pain using appropriate pain scale and include the scale used when documenting 3. Administer analgesics based on type and severity of pain and evaluate response within appropriate time frame 4. Implement non-pharmacological measures as appropriate and evaluate response 5. Consider cultural and social influences on pain and pain management 6. Notify LIP if interventions ineffective or patient reports new pain 7. Monitor vital signs including pulse ox, end-tidal CO2 based on pain intervention 8. Reassess pain per policy 9. Teach patient or legal contracts representative interventions for comforting Outcome: Progressing Note: Evaluation of progress towards goal: Patient utilizes numerical pain scale and understands pain management. Pharmacological and non-pharmacological pain interventions discussed with patient. Pain medications administered as needed. Problem: Safety Goal: Patient will be injury free during hospitalization Description: INTERVENTIONS: 1. Assess patient's risk for falls and implement fall prevention plan of care per policy 2. Provide and maintain a safe environment 3. Proper use of double Identifiers 4. Medication administration using the 5 rights 5. Hand hygiene 6. Specimens are labeled at the bedside 7. Instruct patient/ patient contracts representative about use of safety devices 8. Include patient/ patient contracts representative in decisions related to safety Outcome: Progressing Note: Evaluation of progress towards goal: Patient remains free from injury. Bed has all four wheels locked and in lowest position. Call light within reach and hourly rounding in progress. Problem: Infection Goal: Absence of infection during hospitalization Description: Interventions: 1. Assess and monitor for signs and symptoms of infection 2. Monitor lab/diagnostic results 3. Monitor all insertion sites i.e., indwelling lines, tubes and drains 4. Monitor endotracheal (as able) and nasal secretions for changes in amount and color 5. Administer medications as ordered 6. Instruct and encourage patient and family to use good hand hygiene technique 7. Identify and instruct patient/patient contracts representative in use of appropriate isolation precautionsfor identified infection/symptoms 8. Provide and discuss with patient/patient contracts representative on educational MDRO sheet 9. Encourage and monitor nutritional status daily and consult feller buncher operator if indicated 10. Implement neutropenic guidelines as needed 11. Review exposure to history of communicable disease and recent travel history on admission 12. Encourage annual influenza vaccine 13. Encourage pneumonia vaccine Outcome: Progressing Note: Evaluation of progress towards goal: Patient remains free from s/s of infection as evidence by labs and VS. Problem: Knowledge Deficit Goal: Patient/patient contracts representative demonstrates understanding of disease process, treatment plan,medications, and discharge instructions Description: INTERVENTIONS 1. Complete learning assessment and assess knowledge base 2. Provide teaching at level of understanding 3. Provide teaching via preferred learning method(s) Outcome: Progressing Note: Evaluation of progress towards goal: Patient educated before medication administration and updated on plan of care as changes occur. Problem: Low Risk Fall Score Description: Zambrano Fall Score of 0 - 24 or indicated by [facility] Assessment Goal: Patient should be free from fall Description: Interventions: 1. Gardner to environment 2. Hourly rounds addressing the 4 P's (Pain, Positioning, Possessions, Potty) 3. Clear area of hazards (spills, clutter, electrical cords, unnecessary equipment) 4. Place equipment (bed & TV controls, call light, phone, urinal) within reach 5. Encourage patient to wear glasses and hearing aides as appropriate 6. Maintain bed in lowest position 7. Lock wheels on bed/wheelchair 8. Provide adequate lighting, including night light 9. Assess need for additional bedding, food/fluids, pain med's prior to sleep/routinely 10. Provide gripper slippers or personal non-skid footwear 11. Teach patient and patient contracts representative to maintain environment for safety and engage in all aspects of fall prevention program Outcome: Progressing Note: Evaluation of progress towards goal: Patient remains free from falls. Area is clear of hazards and call light is within reach. [facility]05-23-2024 Consult note* Sara Carrizales MD - 11/07/2023 12:18 PM EDTAssociated Order(s): IP CONSULT TO CARDIOLOGY Images from the original note were not included. [facility] [address] [place] [address] CONSULT NOTE Merlin Fish PCP: [facility] Date of Admission: 11/07/2023 Date of Consultation: 11/07/2023 12:18 PM Consult for NSTEMI, Unstable Angina SUBJECTIVE History of Present Illness: Merlin Fish is a 53 y.o. male who is known to our service and was seen on 10/09/[address] Don. Past medical history of hypertension, hypertriglyceridemia, diabetes mellitus, obstructive sleep apnea, obesity. Tells me he presented to [facility] for symptoms of stabbing chest discomfort along his left lateral chest wall that began Suddenly and progressed pretty quickly while he was at rest working on paperwork. He has had this discomfort before, happening infrequently. Nonexertional. No relieving factors. No accompanying symptoms. Mild shortness of breath which does not necessarily appear correlated. Not necessarily progressed either. He did have a recent intermediate risk nuclear stress test which showed reversible perfusion defectin the lateral wall. High sensitivity troponins were negative at 3.13, 3.85. EKG does not appear ischemic when compared to previous. Frequent PVCs which is not new. He had a Holter monitor last fall which showed PVC burden of 7.5%. Previous Medical History: Past Medical History: Diagnosis Date Abnormal EKG Arthritis Asthma Cataract Diabetes ([facility]) Diabetes mellitus type 2, controlled ([facility]) Headache Hyperlipidemia Hypertension Sleep apnea Visual impairment Previous Surgical History: Past Surgical History: Procedure Laterality Date APPENDECTOMY EXTRACTION CATARACT INTRAOCULAR LENS Right 11/29/2022 Performed by Marya Robbins MD at [facility] K[facility]EE SURGERY x4 WISDOM TOOTH EXTRACTION Allergies: No Known Allergies Hospital Meds: Current Facility-Administered Medications Medication Dose Route Frequency Provider Last Rate Last Admin acetaminophen (TYLENOL) tablet 650 mg 650 mg oral Q4H PRN Hue L Veselka, SCHOOL AGE PROGRAM ASSOCIATE-DEEP [employer]Y [employer]OOK [START ON 11/08/2023] amLODIPine (NORVASC) tablet 10 mg 10 mg oral Daily Hue L Veselka, SCHOOL AGE PROGRAM ASSOCIATE-DEEP [employer]OOK calcium gluconate 3,000 mg in sodium chloride 0.9 % 100 mL IVPB 3,000 mg intravenous PRN Hue L Veselka, SCHOOL AGE PROGRAM ASSOCIATE-DEEP [employer] calcium gluconate 4,000 mg in sodium chloride 0.9 % 250 mL IVPB 4,000 mg intravenous PRN Hue L Veselka, SCHOOL AGE PROGRAM ASSOCIATE-DEEP [employer] calcium gluconate IVPB 2000 mg/100 mL (20 mg/mL premix) 2,000 mg intravenous PRN Hue L Veselka, SCHOOL AGE PROGRAM ASSOCIATE-DEEP [employer]OOK dextrose (GLUTOSE) 40 % gel 15 g 15 g oral PRN Hue L Veselka, SCHOOL AGE PROGRAM ASSOCIATE-DEEP [employer] dextrose 5 % (D5W) infusion 100 mL/hr intravenous Continuous PRN Hue L Veselka, SCHOOL AGE PROGRAM ASSOCIATE-DEEP [employer] dextrose 50 % in water (D50W) 50% solution 25 mL 25 mL intravenous PRN Hue L Veselka, SCHOOL AGE PROGRAM ASSOCIATE-DEEP [employer]OOK [START ON 11/08/2023] empagliflozin (JARDIANCE) tablet 25 mg 25 mg oral Daily Hue L Veselka, SCHOOL AGE PROGRAM ASSOCIATE-DEEP [employer] glucagon HCL injection 1 mg 1 mg intramuscular PRN Hue L Veselka, SCHOOL AGE PROGRAM ASSOCIATE-DEEP [employer] [START ON 11/08/2023] losartan (COZAAR) 50 mg, hydroCHLOROthiazide (HYDRODIURIL) 12.5 mg for HYZAAR 50/12.5 oral Daily Hue L Veselka, SCHOOL AGE PROGRAM ASSOCIATE-DEEP [employer] magnesium sulfate IVPB 2000 mg/50 mL in iso-osmotic water (40 mg/mL premix) 2,000 mg intravenous PRN Hue L Veselka, SCHOOL AGE PROGRAM ASSOCIATE-DEEP [employer] magnesium sulfate IVPB 4000 mg/100 mL in iso-osmotic water (40 mg/mL premix) 4,000 mg intravenous PRN Hue L Veselka, SCHOOL AGE PROGRAM ASSOCIATE-DEEP [employer] ondansetron (PF) (ZOFRAN) injection 4 mg 4 mg intravenous Q8H PRN Hue L Veselka, SCHOOL AGE PROGRAM ASSOCIATE-DEEP [employer]OOK potassium chloride (K-TAB,KLOR-CON) CR tablet 30-50 mEq 30-50 mEq oral PRN Hue L Veselka, SCHOOL AGE PROGRAM ASSOCIATE-DEEP [employer] Or potassium chloride (KAYCIEL) 20 mEq/15 mL solution 30-50 mEq 30-50 mEq oral PRN Hue L Veselka, SCHOOL AGE PROGRAM ASSOCIATE-DEEP [employer] sennosides-docusate sodium (SENOKOT-S) 8.6-50 mg 1 tablet 1 tablet oral Q12H PRN Hue L Veselka, SCHOOL AGE PROGRAM ASSOCIATE-DEEP [employer] [START ON 11/08/2023] SITagliptin phosphate (JANUVIA) tablet 100 mg 100 mg oral Daily Hue L Veselka, SCHOOL AGE PROGRAM ASSOCIATE-DEEP [employer] sodium phosphate 20 mmol in sodium chloride 0.9 % 250 mL IVPB 20 mmol intravenous PRN Hue L Veselka, SCHOOL AGE PROGRAM ASSOCIATE-DEEP [employer] Or sodium phosphate 20 mmol in sodium chloride 0.9 % 100 mL IVPB 20 mmol intravenous PRN Hue L Veselka, SCHOOL AGE PROGRAM ASSOCIATE-DEEP [employer] Or sod phos di, mono-K phos mono (K-PHOS NEUTRAL) 250 mg tablet 2 tablet 2 tablet oral PRN Hue LVeselka, SCHOOL AGE PROGRAM ASSOCIATE-DEEP [employer] sodium chloride 0.9 % flush 3 mL 3 mL intravenous PRN Hue L Veselka, SCHOOL AGE PROGRAM ASSOCIATE-DEEP [employer] sodium chloride 0.9 % flush 3 mL 3 mL intravenous Q12H MIGDALIA Hue L Veselka, SCHOOL AGE PROGRAM ASSOCIATE-DEEP [employer] sodium chloride 0.9 % flush bag 25 mL intravenous PRN Hue L Veselka, SCHOOL AGE PROGRAM ASSOCIATE-DEEP [employer] sodium chloride 0.9 % infusion 20 mL/hr intravenous Continuous PRN Hue L Veselka, SCHOOL AGE PROGRAM ASSOCIATE-DEEP [employer] Home Meds: Prior to Admission medications Medication Sig Start Date End Date Taking? Authorizing Provider amLODIPine (NORVASC) 10 mg tablet Take 1 tablet (10 mg total) by mouth in the morning. Yes Not In System Ref Prov empagliflozin (JARDIANCE) 25 mg tablet tablet TAKE 1 TABLET BY MOUTH ONCE DAILY Oral for 90 Days Yes Not In System Ref Prov losartan-hydroCHLOROthiazide (HYZAAR) 100-12.5 mg per tablet Take 1 tablet by mouth in the morning.Yes Not In System Ref Prov metFORMIN (GLUCOPHAGE) 1000 mg tablet Take 1 tablet (1,000 mg total) by mouth in the morning and 1 tablet (1,000 mg total) in the evening. Take with meals. 07/23/23 Yes Not In System Ref Prov SITagliptin phosphate (JANUVIA) 100 mg tablet Take 1 tablet (100 mg total) by mouth in the morning.Yes Not In System Ref Prov albuterol (PROVENTIL HFA;VENTOLIN HFA) 90 mcg/actuation inhaler Inhale 2 puffs every 6 (six) hours as needed for wheezing. Not In System Ref Prov Social History: TOBACCO: reports that he has never smoked. He has never used smokeless tobacco. ETOH: reports current alcohol use. DRUGS: reports no history of drug use. OCCUPATION: Family History: Family History Problem Relation Age of Onset Diabetes Mother Heart disease Father Diabetes Father Review of Systems: Constitutional: there has been no unanticipated weight loss, no change in energy level, sleep pattern, or activity level. Eyes: No visual changes or diplopia, no scleral icterus. ENT: No Headaches, hearing loss or vertigo, no mouth sores or sore throat. Cardiovascular: see hpi Respiratory: see hpi Musculoskeletal: No gait disturbance, weakness or joint complaints Integumentary: No rash or pruritis Neurological: No headache, diplopia, change in muscle strength, numbness or tingling OBJECTIVE LAST LABS: CBC: BMP: PT/INR: APTT: MAG: D Dimer: Troponin I ProBNP Lipid Panel: Lab Results Component Value Date CHOL 176 07/20/2022 TRIG 357 (H) 07/20/2022 HDL 38 (L) 07/20/2022 Liver Panel: No results found for: ALB HgA1C: Lab Results Component Value Date HGBA1C 9.6 (H) 07/20/2022 ABG: CV HISTORY: ECHO: Echo complete W/O contrast Result Date: 02/15/2023 Left Ventricle: There is mild concentric increased wall thickness/hypertrophy. Systolic function isnormal with an ejection fraction of 55-60%. Right Ventricle: Right ventricular size appears normal.The right ventricular basal diameter is 34.0 mm. Systolic function is normal. Aortic Valve: There is no regurgitation or stenosis. Mitral Valve: There is trace regurgitation. There is no evidence of m itral valve stenosis. STRESS: Nuc stress Lexiscan Result Date: 10/29/2023 No ECG evidence of ischemia. Myocardial perfusion imaging reveals a moderate size and intensity reversible lateral perfusion defect. This is consistent with ischemia. This is an intermediate risk study. Stress test (exercise only) Result Date: 09/07/2022 No evidence of stress-induced myocardial ischemia by ECG criteria Occasional scattered multiform PACs and PVCs noted during exercise, however no runs of sustained SVT or ventricular tachycardia Hypertensive response to exercise with peak blood pressure of 215/100 Patient walked per Abel protocol reaching stage III exercising for 7 minutes 0 seconds Patient achieved 96% of age predicted maximum heart rate and 8.57 Mets of physical activity Suboptimal exercise capacity Low risk study overall forstress-induced myocardial ischemia however findings consistent with inhibited functional capacity and hypertensive response to exercise Correlate clinically HOLTER: Holter monitor 24-48 hour Result Date: 02/13/2023 Interpretation: 1. Sinus rhythm with average heart rate of 85 beats per minute. Heart rate 64-138 beats per minute. 2. Rare PACs. 3. Frequent PVCs. [place] is 7.5%. Two morphologies but 1 dominant morphology accounted for 98.5% of all PVCs. 4. No AFib/SVT/pauses/AV block or VT noted. 5. Patient reported symptoms of shortness of breath and lightheadedness correlated with sinus rhythm with intermittent PVCs. CARDIAC CATH: No results found. CAROTID: No results found. CXR: X-ray chest 1 view Result Date: 11/06/2023 Clinical history: Left-sided chest pain. Comparisons: 11/30/2014 through 11/05/2022. Findings: Portable upright chest radiograph obtained 3:42 PM. Heart size and pulmonary vasculature appear within normal limits. Lungs appear clear. There is no pleural effusion nor pneumothorax. IMPRESSION: No evidence for acute cardiopulmonary disease. Finalized by Everton Alarcon MD on 11/06/2023 3:47 PM EKG: TELEMETRY: SR PHYSICAL EXAM Admission Weight: Weight: 99.6 kg (219 lb 9.3 oz) No intake/output data recorded. Weight change: Wt Readings from Last 3 Encounters: 11/07/23 99.6 kg (219 lb 9.3 oz) 10/29/23 98.4 kg (217 lb) 10/09/23 98.7 kg (217 lb 8 oz) Vitals: Vitals: 11/07/23 1054 11/07/23 1109 BP: 131/86 Pulse: 83 Resp: 16 Temp: 36.4 C (97.6 F) TempSrc: Oral SpO2: 94% Weight: 99.6 kg (219 lb 9.3 oz) Height: 170.2 cm (5' 7 ) Admit Weight Weight: 99.6 kg (219 lb 9.3 oz) Last 3 Weights Last 3 Weight Readings 11/07/23 1054 Weight: 99.6 kg (219 lb 9.3 oz) Body mass index is 34.39 kg/m . INTAKE/OUTPUT No intake/output data recorded. Intake/Output Summary (Last 24 hours) at 11/07/2023 1218 Last data filed at 11/07/2023 1109 Gross per 24 hour Intake 0 ml Output 0 ml Net 0 ml General appearance: Alert oriented and cooperative, in no acute distress Skin: Warm and dry to touch Neck: No JVD, no carotid bruit, neck supple, trachea midline Lungs: Clear to ausculation bilaterally, no use of accessory muscles. Heart:: RRR with normal S1 and S2 , no murmurs and no gallops. Extremities: No edema Neurologic: Oriented to time, person and place, affect appropriate, no focal/major motor or sensorydefects noted Psychiatric: Appropriate mood, memory and judgment ASSESSMENT/PLAN Stabbing chest pain Troponin negative x2: High sensitivity troponin 3.13, 3.85 Abnormal nuclear stress Lexiscan 10/29/2023: Moderate size and intensity reversible lateral perfusion defect consistent with ischemia: Intermediate risk Hypertension Obstructive sleep apnea Frequent PVCs 7.5% on Holter monitor 02/13/2023 Diabetes mellitus Mild renal insufficiency at admission Serum creatinine 1.3, BUN 26 hypertriglyceridemia Chest pain is atypical. Troponins negative. EKG does not appear acutely ischemic when compared to EKG from last month. Currently pain-free. Recent abnormal stress test. Would 1st up titrate antianginals. Patient had breakfast. No documented dye allergy. Will review with attending ig inpatient coronary angiography is warranted JONAS Limon This note was completed using a voice clothing presser system. Every effort was made to ensure accuracy. However, inadvertent computerized clothing presser errors may be present. JONAS Limon 11/07/23 1309 CARDIOLOGY ATTENDING NOTE Patient interviewed and evaluated by our certified nurse practitioner or certified physician's hospital nursing assistant and discussed in detail with me. Agree with interval history, examination, assessment and plan as outlined in their note Patient was seen separately by me. Patient has atypical left-sided stabbing chest pain. Unfortunately he also has a abnormal stress test with evidence of lateral ischemia ordered by his primary care physician. He does have risk factors for coronary artery disease including diabetes hypertension hype rlipidemia and questionable family history of premature coronary disease. Risks benefits and alternatives to cardiac catheterization were discussed with the patient and he is willing to proceed. Will plan for early tomorrow morning. [facility]05-15-2024 Miscellaneous Notes* Telephone Encounter - Gayatri Flores RN - 10/30/2023 2:48 PM EDT Images from the original note were not included. P/c from nurse Noel at PCP office. Pt had an abnormal stress result 10/29/23 (in epic) and they would like a structural mill supervisor to review and advise. Pt l/s FRS 10/09/23. FRS (off) will message [facility] to advise. * Telephone Encounter - Gayatri Flores RN - 10/30/2023 2:48 PM EDT Ticket Worker called patient to review abnormal stress results. S/s of MO reviewed and pt advised to report to ER/call 911 for worsening symptoms. Pt v/u we will message [facility] and call back with any further recommendations. * Telephone Encounter - Mateo Da Silva MD - 10/30/2023 2:48 PM EDT I reviewed Dr. Don's most recent office note. I also reviewed the stress test results. Notablythere is no report of chest discomfort or dyspnea when the patient saw Dr. Don At this time this is an intermediate risk stress test. I believe any decision regarding additional testing versus additional evaluation in the office can be deferred to Dr. Don upon his return Thank you * Telephone Encounter - Gayatri Flores RN - 10/30/2023 2:48 PM EDT Noted. Message sent to FRS to review upon return. * Telephone Encounter - Nelly Don MD - 10/30/2023 2:48 PM EDT I would keep him on the Jardiance, Hyzaar and amlodipine and follow expectantly. Should have follow-up sometime in the next couple of months. Needs a lipid profile done F RS * Telephone Encounter - Gayatri Flores RN - 10/30/2023 2:48 PM EDT Noted. Lipid order placed. Will send message to [facility] office schedulers for a f/u appt. Ticket Worker called PCP office to update Nurse Noel. She will update Dr. De Oliveira with FRSs response. Ticket Worker called pt to update on FRSs abnormal stress recommendations. Pt agreeable to fasting labs and will do this week. He v/u a forestry scientist will call him to schedule. * Telephone Encounter - Nicci Dyer CMA - 10/30/2023 2:48 PM EDT PHONED PT AND LM ON TO CALL OFFICE TO SCHEDULE APPT [facility] Tele[facility] encounter Note* Telephone Encounter - Gayatri Flores RN - 10/30/2023 2:48 PM EDT Images from the original note were not included. P/c from nurse Noel at PCP office. Pt had an abnormal stress result 10/29/23 (in epic) and they would like a structural mill supervisor to review and advise. Pt l/s FRS 10/09/23. FRS (off) will message [facility] to advise. [facility]05-15-2024 Telephone encounter Note* Telephone Encounter - Gayatri Flores RN - 10/30/2023 2:48 PM EDT Ticket Worker called patient to review abnormal stress results. S/s of MO reviewed and pt advised to report to ER/call 911 for worsening symptoms. Pt v/u we will message [facility] and call back with any further recommendations. [facility]05-15-2024 Telephone encounter Note* Telephone Encounter - Mateo Da Silva MD - 10/30/2023 2:48 PM EDT I reviewed Dr. Don's most recent office note. I also reviewed the stress test results. Notablythere is no report of chest discomfort or dyspnea when the patient saw Dr. Don At this time this is an intermediate risk stress test. I believe any decision regarding additional testing versus additional evaluation in the office can be deferred to Dr. Don upon his return Thank you [facility] [employer] [facility] Work Phone: [phone] Telephone encounter Note* Telephone Encounter - Gayatri Flores RN - 10/30/2023 2:48 PM EDT Noted. Message sent to S to review upon return. [facility]05-15-2024 Telephone encounter Note* Telephone Encounter - Nelly Don MD - 10/30/2023 2:48 PM EDT I would keep him on the Jardiance, Hyzaar and amlodipine and follow expectantly. Should have follow-up sometime in the next couple of months. Needs a lipid profile done F RS [facility]05-15-2024 Telephone encounter Note* Telephone Encounter - Gayatri Flores RN - 10/30/2023 2:48 PM EDT Noted. Lipid order placed. Will send message to [facility] office schedulers for a f/u appt. Ticket Worker called PCP office to update Nurse Sadie. She will update Dr. De Oliveira with FRSs response. Ticket Worker called pt to update on FRSs abnormal stress recommendations. Pt agreeable to fasting labs and will do this week. He v/u a forestry scientist will call him to schedule. [facility]05-15-2024 Telephone encounter Note* Telephone Encounter - Nicci Dyer CMA - 10/30/2023 2:48 PM EDT PHONED PT AND LM ON TO CALL OFFICE TO SCHEDULE APPT [facility]04-24-2024 History of Present illness Narrative* Nelly Don MD - 10/09/2023 3:15 PM EDT Merlin Fish Date of visit: 10/09/2023 Date of : 1970 Age: 53 y.o. Patient Active Problem List Diagnosis Chronic sinusitis DNS (deviated nasal septum) Hypertrophy of both inferior nasal turbinates Obstructive sleep apnea syndrome Abnormal EKG No Known Allergies Current Outpatient Medications Medication Sig Dispense Refill albuterol (PROVENTIL HFA;VENTOLIN HFA) 90 mcg/actuation inhaler Inhale 2 puffs every 6 (six) hours as needed for wheezing. amLODIPine (NORVASC) 10 mg tablet Take 1 tablet (10 mg total) by mouth in the morning. empagliflozin (JARDIANCE) 25 mg tablet tablet TAKE 1 TABLET BY MOUTH ONCE DAILY Oral for 90 Days losartan-hydroCHLOROthiazide (HYZAAR) 100-12.5 mg per tablet Take 1 tablet by mouth in the morning. SITagliptin phosphate (JANUVIA) 100 mg tablet Take 1 tablet (100 mg total) by mouth in the morning. No current facility-administered medications for this visit. Chief Complaint Patient presents with Follow-up EST PT, 6 MO FU, L/S MAS, SCHED W/ PT History of Present Illness Merlin Fish was seen in follow-up in the [place] office. Records are reviewed. Overall he is feeling reasonably well. He is limited by pain in his knee and ankle. He underwent nasal surgery last year and feels that he can breathe much better. He has not really feeling palpitations. Blood pressures have been very well controlled on the Hyzaar and Norvasc. His sugars remain somewhat uncontrolled. Past Medical History: Diagnosis Date Abnormal EKG Arthritis Asthma Cataract Diabetes ([facility]) Diabetes mellitus type 2, controlled ([facility]) Headache Hyperlipidemia Hypertension Sleep apnea Visual impairment No data recorded No data recorded No data recorded Past Surgical History: Procedure Laterality Date APPENDECTOMY EXTRACTION CATARACT INTRAOCULAR LENS Right 11/29/2022 Performed by Marya Robbins MD at [facility] KNEE SURGERY x4 WISDOM TOOTH EXTRACTION Family History Problem Relation Age of Onset Diabetes Mother Heart disease Father Diabetes Father Social History Socioeconomic History Marital status: Legally Spouse name: Not on file Number of children: Not on file Years of education: Not on file Highest education level: Not on file Occupational History Not on file Tobacco Use Smoking status: Never Smokeless tobacco: Never Vaping Use Vaping status: Never Used Substance and Sexual Activity Alcohol use: Yes Comment: occasional Drug use: Never Sexual activity: Defer Partners: Female Other Topics Concern Caffeine Use Yes Social History Narrative Not on file Social Determinants of Health Financial Resource Strain: Not on file Food Insecurity: No Food Insecurity (10/09/2023) Hunger Screening Food Insecurity - Worry: Never True Food Insecurity - Inability: Never True Transportation Needs: Not on file Physical Activity: Not on file Stress: Not on file Social Connections: Not on file Interpersonal Safety: Not on file Housing Instability: Not on file Review of Systems Review of Systems Constitutional: Positive for malaise/fatigue. HENT: Negative. Eyes: Positive for blurred vision. Cardiovascular: Positive for chest pain. Respiratory: Positive for cough and shortness of breath. Endocrine: Negative. Hematologic/Lymphatic: Negative. Skin: Negative. Musculoskeletal: Positive for joint pain and joint swelling. Gastrointestinal: Negative. Genitourinary: Negative. Neurological: Positive for dizziness and loss of balance. Psychiatric/Behavioral: Negative. Allergic/Immunologic: Negative. Vascular: Negative. CARDIOVASCULAR: Please review HPI. Physical Examination General appearance: Alert, oriented and cooperative. In no acute distress. Skin: Warm and dry to touch. Head: Normocephalic, without obvious abnormality, atraumatic. Ears, Nose, Mouth, Throat: Throat clear without erythema or exudate. Dentition intact. Eyes: Conjunctivae unremarkable, EOM intact. Neck: No JVD, No carotid bruit. Neck supple, trachea midline. Respiratory: Clear to auscultation bilaterally, no use of accessory muscles. Cardiovascular: RRR with normal S1 and S2 with no murmurs. Gastrointestinal: Soft, non-tender. Bowel sounds normal. Musculoskeletal: No peripheral edema. Neurologic: Oriented to time, person and place, affect appropriate. No focal/major motor defects noted. Psychiatric: Appropriate mood, memory and judgement. VITAL SIGNS: BP 126/80 (BP Site: Left Arm, BP Postition: Sitting) Pulse (!) 49 Ht 170.2 cm (5' 7 ) Wt 98.7kg (217 lb 8 oz) SpO2 96% BMI 34.07 kg/m Orders Placed or Reconciled This Encounter Medications SITagliptin phosphate (JANUVIA) 100 mg tablet Sig: Take 1 tablet (100 mg total) by mouth in the morning. losartan-hydroCHLOROthiazide (HYZAAR) 100-12.5 mg per tablet Sig: Take 1 tablet by mouth in the morning. albuterol (PROVENTIL HFA;VENTOLIN HFA) 90 mcg/actuation inhaler Sig: Inhale 2 puffs every 6 (six) hours as needed for wheezing. There are no discontinued medications. IMPRESSIONS/PLAN There are no diagnoses linked to this encounter. 1. Essential hypertension reasonably controlled on current regimen 2. Normal left ventricular systolic function without significant valvulopathy. He has not really volume overloaded and I would not add more diuretic 3. Lipids. Given his diabetes empiric statin therapy could be considered. He has follow-up with hisprimary physician regarding this 4. Diet and exercise are discussed. 5. Frequent PVCs. He is relatively asymptomatic with these and they seem to be relatively suppressed with the Norvasc. I would otherwise not add therapy TODAYS ORDERS No orders of the defined types were placed in this encounter. FOLLOW UP No follow-ups on file. PCP: Parker Gorman PA-C Referring Physician: Parker Gorman PA-C [address] [place] [address] [facility] Miscellaneous Notes* Telephone Encounter - Yesenia Babcock CMA - 10/08/2023 3:09 PM EDT Left message for patient to remind them to bring their most current medication list with them to their appointment. [facility] Telephone encounter Note* Telephone Encounter - Yesenia Babcock CMA - 10/08/2023 3:09 PM EDT Left message for patient to remind them to bring their most current medication list with them to their appointment. 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 He does have history of prior knee scope. At this juncture we have discussed the findings and diagnosis as well as personally reviewed appropriate imaging and performed interpretation of related testing and examination with the patient in office today. MRI does show medial compartment chondromalacia, Peoples's cyst as well as possible meniscal tear. His knee problem has been going on for significant amount of time without improvement with conservative treatments. He wants to move forward with knee arthroscopy. We will plan for left knee arthroscopy At this juncture we have discussed the findings and diagnosis as well as reviewed appropriate imaging and performed interpretation of testing. Surgical intervention is recommended. Prior medical notes and history have been reviewed. Surgical versus non-operative management have been discussed in detail and non-operative management was given as an option. The risks of surgical intervention were given. Pre-operative optimization will be done prior to surgical procedure to limit shaina-operative risks. I have discussed the planned procedure, how and who performs the procedure, and the personnel involved. Cardiovascular, pulmonary, and other life threatening episodes can occur during surgery although there is a low risk of these happening. Surgical risks including bleeding, neurovascular injury, wound closure problems and infection were discussed. Shaina-operative risks including infection, bleeding, wound healing problems, and need for further surgery were discussed. It was discussed that there is a possibility of blood transfusion with any surgical procedure and the risks involved in receiving a blood transfusion. Possibility of, and need for, future bracing or DME use, physical or occupational therapy, mental therapy, rehabilitation, pain management and need for secondary procedures was discussed. I have warned against smoking and the use of tobacco products due to the risks associated with them, in particular, poor healing. I have advised against the extermination inspector use of narcotic pain medication. I have advised to follow all post-operative instructions in order to obtain the best outcome. Informed consent has been verbally affirmed and signed as indicated. The patient has been involved in our cooperative treatment plan and agrees to move forward with treatment at this time. We will plan on arthroscopy. We have discussed continued non-operative treatments including gentle exercise, use of medications and activity modification. Patient states that they would like to proceed with surgery at this time. We discussed the surgery process in detail including nothing by mouth 8 hrs prior to sugery, thorough washing of leg pior to coming to surgery. We discussed the multiple potential risks of anesthesia including respiratory, cardiac and patient positioning issues. We discussed the multiple risks of surgery particularly wound infection, deep venous thrombosis(DVT), persistent swelling, pain and stiffness after surgery, as well as worsening of pre-existing arthritic symptoms. Patient has agreed to understanding of these risks and would like to proceed. Patient given prescrition for oxycodone to be used after surgery. 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 He does have history of prior knee scope. At this juncture we have discussed the findings and diagnosis as well as personally reviewed appropriate imaging and performed interpretation of related testing and examination with the patient in office today. MRI does show medial compartment chondromalacia, Peoples's cyst as well as possible meniscal tear. His knee problem has been going on for significant amount of time without improvement with conservative treatments. He wants to move forward with knee arthroscopy. We will plan for left knee arthroscopy At this juncture we have discussed the findings and diagnosis as well as reviewed appropriate imaging and performed interpretation of testing. Surgical intervention is recommended. Prior medical notes and history have been reviewed. Surgical versus non-operative management have been discussed in detail and non-operative management was given as an option. The risks of surgical intervention were given. Pre-operative optimization will be done prior to surgical procedure to limit shaina-operative risks. I have discussed the planned procedure, how and who performs the procedure, and the personnel involved. Cardiovascular, pulmonary, and other life threatening episodes can occur during surgery although there is a low risk of these happening. Surgical risks including bleeding, neurovascular injury, wound closure problems and infection were discussed. Shaina-operative risks including infection, bleeding, wound healing problems, and need for further surgery were discussed. It was discussed that there is a possibility of blood transfusion with any surgical procedure and the risks involved in receiving a blood transfusion. Possibility of, and need for, future bracing or DME use, physical or occupational therapy, mental therapy, rehabilitation, pain management and need for secondary procedures was discussed. I have warned against smoking and the use of tobacco products due to the risks associated with them, in particular, poor healing. I have advised against the extermination inspector use of narcotic pain medication. I have advised to follow all post-operative instructions in order to obtain the best outcome. Informed consent has been verbally affirmed and signed as indicated. The patient has been involved in our cooperative treatment plan and agrees to move forward with treatment at this time. 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 We discussed surgical VS non-surgical treatment. Patient would like to proceed with surgery at this time. 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 Along with a physical examination. Due to physical exam findings we feel an MRI of the left knee would be necessary to evaluate the ligaments of the knee. We will order the MRI and f/u with the results. Feb, Internal derangement of left knee (ICD-10 - M23.92) Merlin presents with left knee pain, instability and concern for internal derangement. He does have history of prior knee scope. At this juncture we have discussed the findings and diagnosis as well as personally reviewed appropriate imaging and performed interpretation of related testing and examination with the patient in office today. Prior medical notes from Dr. Lee and history have been reviewed. At this time I would recommend MRI to evaluate meniscus. We will plan for follow-up after MRI. The patient has been involved in our cooperative treatment plan and agrees to move forward with treatment at this time. Feb, Acute pain of left knee (ICD-10 - M25.562) Feb, Other See orders for this visit as documented in the electronic medical record. [facility] Other 12-05-2022 NotePROCEDURE: XR KNEE RT 4V or > COMPARISON: None. HISTORY: Bone injury FINDINGS: BONES:Corticated bone fragment medial femoral condyle, remote injury. No acute fracture or dislocation. Mild enthesopathic spurring of the patella at the quadriceps insertion SOFT TISSUES:Negative. No visible soft tissue swelling. EFFUSION:Small suprapatellar joint effusion OTHER: Negative. IMPRESSION: Small joint effusion Electronically authenticated by: PEG BANERJEE Date: 2022-05-21 14:23[facility] noteNo assessment information availableProvidence Hospital Work Phone: Evaluation note* Diagnosis Onset Date Resolution Status Chondromalacia of medial condyle of right femur acute Other specified postprocedural states acute Visit for suture removal non [facility] Work Phone: Evaluation note* Diagnosis Onset Date Resolution Status Chondromalacia of medial condyle of right femur acute Other specified postprocedural states acute Visit for suture removal non eactive 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 acute Other specified postprocedural states acute Visit for suture removal [facility] Work Phone: evaluation note* Diagnosis Onset Date Resolution Status Chondromalacia of medial condyle of right femur acute Other specified postprocedural states acute Visit for suture removal non eactive 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 acute Other specified postprocedural states acute Visit for suture removal non eactive 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 acute Other specified postprocedural states acute Visit for suture removal non [facility] Work Phone: evaluation note* Diagnosis Onset Date Resolution Status 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 acute Other specified postprocedural states acute [facility] Work Phone: Evaluation note* Diagnosis Obstructive sleep apnea (adult) (pediatric)- Primary Hypoxemia associated with sleep [facility]* Diagnosis Primary hypertension- Primary Unspecified essential hypertension Hyperlipidemia, unspecified hyperlipidemia type Obesity (BMI 30.0-34.9) documented in this encounter [facility]* Diagnosis CINTHYA (obstructive sleep apnea)- Primary Obstructive sleep apnea (adult) (pediatric) Hypoxemia associated with sleep documented in this [facility]* Diagnosis Onset Date Resolution Status Admit Date Right forearm pain acute Februa 2024 1:50pm [facility] Work Phone: Evaluation note* Diagnosis Essential hypertension- Primary Unspecified essential hypertension Shortness of breath documented in this encounter [facility] [employer] [facility] Diagnosis Mixed hyperlipidemia- Primary [facility]* Diagnosis NSTEMI (non-ST elevated myocardial infarction) ([facility])- Primary Acute myocardial infarction, subendocardial infarction, episode of care unspecified Elevated troponin Other abnormal blood chemistry [facility]* Diagnosis NSTEMI (non-ST elevated myocardial infarction) ([facility])- Primary Acute myocardial infarction, subendocardial infarction, episode of care unspecified Essential hypertension Unspecified essential hypertension Shortness of breath documented in this encounter [facility] [employer] [facility]* Diagnosis CINTHYA (obstructive sleep apnea)- Primary Obstructive sleep apnea (adult) (pediatric) [facility]* Diagnosis CINTHYA (obstructive sleep apnea)- Primary Obstructive sleep apnea (adult) (pediatric) documented in this encounter [facility] [employer]* Diagnosis CINTHYA (obstructive sleep apnea) Obstructive sleep apnea (adult) (pediatric) documented in this encounter [facility] general Narrative - Reported* Type Description Date Medical History Hypertension Medical History Diabetes Surgical History Left Knee Scope x 2 Surgical History Right Knee Scope x 2 Surgical History Appendix Surgical History [place] [facility] [employer] Other Hisgpxw general Narrative - Reported* Type Description Date Medical History Hypertension Medical History Diabetes Surgical History Left Knee Scope x 2 Surgical History Right Knee Scope x 2 Surgical History Appendix Surgical History [place] Surgical History nasal reconstruction [employer] [facility] [employer] Other Hospital Discharge instructions Additional Instructions Orthopedic surgery knee arthroscopy discharge You are to maintain weightbearing as tolerated with range of motion as tolerated to your operative leg. You should elevate the injured extremity for the next 48 to 72 hours, as often as possible. You should ice the surgical area, 20 minutes with ice on and then 20 minutes off, for 3 hours a day for the first week. You may remove your postoperative dressing 48 hours after surgery and then keep your incisions covered with a Band-Aid. Take your medications as prescribed. You may take Tylenol or ibuprofen [id number] as instructed. You should take aspirin 81 mg twice daily for 3 weeks for DVT prophylaxis. If you have any increasing pain, fever chills, or abnormal drainage or surgical wound problems you should call the office. Your follow-up should be scheduled with Dr. Vergara's office at [facility]. Please call to confirm your follow-up appointment. Dr. Shahram Vergara [facility] [address] [place] [id number] [facility] Work Phone: Hospital Discharge instructions* Attachments The following attachments cannot be sent through Care Everywhere. * Heart Attack Discharge Instructions (Syriac) documented in this encounterProArray Bridge SystemInstructionsNot on file documented in this encounterProArray Bridge SystemInstructionsNot on file documented in this encounterProArray Bridge SystemInstructionsNot on file documented in this encounterProArray Bridge SystemInstructionsNot on file documented in this encounterProArray Bridge SystemInstructionsNot on file documented in this encounterProArray Bridge SystemInstructionsNot on file documented in this encounterProArray Bridge SystemInstructionsNot on file documented in this encounterProArray Bridge SystemInstructionsNot on file documented in this encounterProArray Bridge SystemReason for visit Narrative* Misc (Routine) - Closed Specialty Diagnoses / Procedures Referred By Ivet bond Referred To Contact Diagnoses CINTHYA (obstructive sleep apnea) Procedures Polysomnography 4 or more parameters with PAP titration Janet Ventura, ANTONIO-DEEP FAT FRY COOK [address], [address] [place] [address] Phone: tel: fax: Referral ID Status Reason Start Date Expiration Date Visits Re quested Visits Authorized [id number] Closed 09/02/2024 09/02/2025 1 1 [employer] Summary Purpose Family History Relationship Condition Age at Onset Recorded Date/T wallace sister Malignant neoplasm Unknown Not Specified Diabetes mellitus Unknown father Myocardial infarction Unknown brother Diabetes mellitus Unknown Relationship Condition Age at Onset Recorded Date/T wallace sister Malignant neoplasm Unknown mother Diabetes mellitus Unknown father Myocardial infarction Unknown brother Diabetes mellitus Unknown Advance Directives Advance Directive Response Recorded Date/ Time Advance Directives No February 11:00am Advance Directive Response Recorded Date/ Time Advance Directives No February 10:00am Documents on File Type Date Recorded 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 Durable Power of Etl Bi Developer 11/19/2023 7:19 AM Durable Power of Etl Bi Developer 11/07/2023 9:14 PM [facility] Pow er of Etl Bi Developer Date Activated Date Inactivated Comments 11/07/2023 11:36 AM 11/08/2023 4:01 PM Healthcare Agents on File Name Relationship Healthcare Agent Relationshi p Communication Anusha Brannon Daughter Health Care Agent [id number] (Mobile) Healthcare Agents on File Name Relationship Healthcare Agent Relationshi p Communication Anusha Brannon Daughter Health Care Agent [id number] (Mobile) Documents on File Type Date Recorded 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 Durable Power of Etl Bi Developer 11/19/2023 7:19 AM Durable Power of Etl Bi Developer 11/07/2023 9:14 PM [facility] Pow er of Etl Bi Developer Date Activated Date Inactivated Comments 11/07/2023 11:36 AM 11/08/2023 4:01 PM Healthcare Agents on File Name Relationship Healthcare Agent Relationshi p Communication Anusha Brannon Daughter Health Care Agent [id number] (Mobile) Healthcare Agents on File Name Relationship Healthcare Agent Relationshi p Communication Anusha Brannon Daughter Health Care Agent [id number] (Mobile) Healthcare Agents on File Name Relationship Healthcare Agent Relationshi p Communication Anusha Brannon Daughter Health Care Agent [id number] (Mobile) Documents on File Type Date Recorded 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 Durable Power of Etl Bi Developer 11/07/2023 9:14 PM [facility] Pow er of Etl Bi Developer Healthcare Agents on File Name Relationship Healthcare Agent Relationshi p Communication Anusha Brannon Daughter Health Care Agent [id number] (Mobile) Healthcare Agents on File Name Relationship Healthcare Agent Relationshi p Communication Anusha Brannon Daughter Health Care Agent [id number] (Mobile) Healthcare Agents on File Name Relationship Healthcare Agent Relationshi p Communication Anusha Brannon Daughter Health Care Agent [id number] (Mobile) Healthcare Agents on File Name Relationship Healthcare Agent Relationshi p Communication Anusha Brannon Daughter Health Care Agent [id number] (Mobile) Healthcare Agents on File Name Relationship Healthcare Agent Relationshi p Communication Anusha Brannon Daughter Health Care Agent [phone]- (Mobile) Healthcare Agents on File Name Relationship Healthcare Agent Relationshi p Communication Anusha Brannon Daughter Health Care Agent [phone]- (Mobile) Healthcare Agents on File Name Relationship Healthcare Agent Relationshi p Communication Anusha Brannon Daughter Health Care Agent [phone] (Mobile) Chief Complaint and Reason for Visit Chief Complaint M25.562 M25.362 M23.92 Chief Complaint M25.562 M25.362 M23.92 Knee Pain Chief Complaint M25.362 M23.92 Knee Pain Knee Pain Chief Complaint H & P Left Knee Arth roscopy 07-23-23 Knee Pain Chief Complaint H & P Left Knee Arth roscopy 07-23-23 Knee Pain 1-2 WK POST OP Reason for Visit 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 Other specified postprocedural states Visit for suture removal Chief Complaint H & P Left Knee Arth roscopy 07-23-23 Knee Pain 1-2 WK POST OP 4 WEEK RECHECK Reason for Visit 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 Other specified postprocedural states Visit for suture removal 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 Other specified postprocedural states Visit for suture removal Chief Complaint 1-2 WK POST OP 4 WEEK RECHECK OP SP LT KNEE PAIN Reason for Visit 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 Other specified postprocedural states Visit for suture removal 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 Other specified postprocedural states Visit for suture removal 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 Other specified postprocedural states Visit for suture removal Chief Complaint OP SP LT KNEE PAIN Reason for Visit 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 Other specified postprocedural states Chief Complaint Admit Date 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 [facility] Februar y 2024 1:50pm M25.531 - Pain in right wrist July 222024 2:02pm Reason for Visit Admit Date Right forearm pain July 22, 2024 1 :50pm Chief Complaint Admit Date 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 [facility] Februar y 2024 1:50pm M25.531 - Pain in right wrist July 222024 2:02pm M79.631, E11.9, I10 July 22, 2024 3 :40pm Chief Complaint Admit Date 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 [facility] Februar y 2024 1:50pm M25.531 M25.521 July 22, 2024 2 :02pm M79.631, E11.9, I10 July 22, 2024 3 :40pm M79.631 S46.211A July 29, 2024 7:09am Chief Complaint Admit Date 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 1:50pm M25.531 M25.521 July 22, 2024 2 :02pm M79.631, E11.9, I10 July 22, 2024 3 :40pm M79.631 S46.211A July 29, 2024 7:09am MRI RESULTS July 31, 2024 9:12am Reason for Visit Admit Date Right forearm pain July 22, 2024 1 :50pm Gout July 31, 2024 9:12am Right forearm pain July 31, 2024 9:12am Chief Complaint Admit Date 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 [facility] 1:50pm M25.531 M25.521 July 22, 2024 2 :02pm M79.631, E11.9, I10 July 22, 2024 3 :40pm M79.631 S46.A July 29, 2024 7:09am MRI RESULTS July 31, 2024 9:12am 2-3 WEEKS August 19, 2024 1:33 pm Reason for Visit Admit Date Right forearm pain July 22, 2024 1 :50pm Gout July 31, 2024 9:12am Right forearm pain July 31, 2024 9:12am Gout August 19, 2024 1:33 pm Right forearm pain August 19, 2024 1:33 pm Right wrist pain August 19, 2024 1:33 pm Chief Complaint Admit Date 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 20[facility] 1:50pm M25.531 M25.521 July 22, 2024 2 :02pm M79.631, E11.9, I10 July 22, 2024 3 :40pm M79.631 S46.211A July 29, 2024 7:09am MRI RESULTS July 31, 2024 9:12am 2-3 WEEKS August 19, 2024 1:33 pm M25.531 - Pain in right wrist August 8:26am 3 WEEKS September 09, 2024 2:4 3pm Reason for Visit Admit Date Right forearm pain July 22, 2024 1 :50pm Gout July 31, 2024 9:12am Right forearm pain July 31, 2024 9:12am Gout August 19, 2024 1:33 pm Right forearm pain August 19, 2024 1:33 pm Right wrist pain August 19, 2024 1:33 pm Gout September 09, 2024 2:4 3pm Right forearm pain September 09, 2024 2:4 3pm Right wrist pain September 09, 2024 2:4 3pm Additional Source Comments (unrecognized sect ion and content) No Status Records FoundNo Status Records FoundNo Status Records FoundNo Status Records FoundNo Status Records FoundNo Status Records FoundNo Status Records Found INFORMATION SOURCE (unrecogn ized section and content) DATE CREATED AUTHOR 05/23/2022 [facility] DATE CREATED AUTHOR AUTHOR'S ORGANIZ ATION 10/11/2023 [facility] DATE CREATED AUTHOR AUTHOR'S ORGANIZ ATION 11/09/2023 [facility] DATE CREATED AUTHOR AUTHOR'S ORGANIZ ATION 01/06/2024 [facility] EPIC DATE CREATED AUTHOR AUTHOR'S ORGANIZ ATION 09/04/2024 [facility] DATE CREATED AUTHOR AUTHOR'S ORGANIZ ATION 09/10/2024 [facility] DATE CREATED AUTHOR AUTHOR'S ORGANIZ ATION 09/30/2024 [facility] REASON FOR VISIT (unrecogniz ed section and content) Reason Onset Date Comments Med Refill 06/08/2024 Reason Onset Date Comments Sleep Lab 06/08/2024 PAP Reason Comments Follow-up 6 mo f/u-l/s TLM-no labs or testing-sched appt wpt Reason Comments Follow-up EST PT, 6 MO FU, L/S MAS, SCHED W/ PT Reason Onset Date Comments Abnormal Stress Test 10/30/2023 Specialty Diagnoses / Procedures Referred By Contac t Referred To Contact Diagnoses NSTEMI (non-ST elevated myocardial infarction) ([facility]) NSTEMI Fermin Mejía MD [address] [place] [address] Referral ID Status Reason Start Date Expiration Date Visits Re quested Visits Authorized [id number] 1 1 Reason Comments Follow-up EST PT EARLY SCHED W /PT*CATH 11/08/2023 W/[facility] Reason Onset Date Comments Sleep Lab 12/13/2023 PT Inquiry Reason Onset Date Comments Sleep Lab 12/16/2023 Split night Reason Onset Date Comments Sleep Lab 05/12/2024 [facility] Care Teams (unrecognized sec tion and content) Team Status: Active Member Role Status Dates Parker Gorman PA-C Primary Care Provider Activ e Team Status: Active Member Role Status Dates Parker Gorman PA-C Primary Care Provider Activ e Start: July 01, 2024 Bharat Chavira DO Attending Provider Active Sta rt: July 01, 2024 Team Status: Inactive Member Role Status Dates Parker Gorman PA-C Primary Care Provider Activ e Start: July 22, 2024 End: July 22, 2024 Shahram Vergara DO Attending Provider Active S tart: July 22, 2024 End: July 22, 2024 Team Status: Inactive Member Role Status Dates Shahram Vergara DO Attending Provider Active S tart: July 22, 2024 End: July 22, 2024 Parker Gorman PA-C Primary Care Provider Activ e Start: July 22, 2024 End: July 22, 2024 Team Status: Inactive Member Role Status Dates Parker Gorman PA-C Primary Care Provider Activ e Start: July 29, 2024 End: July 29, 2024 Shahram Vergara DO Attending Provider Active S tart: July 29, 2024 End: July 29, 2024 Team Status: Inactive Member Role Status Dates Shahram Vergara DO Attending Provider Active Parker Gorman PA-C Primary Care Provider Activ e Team Status: Inactive Member Role Status Dates Shahram Vergara DO Attending Provider Active NON STAFF Primary Care Provider Active Team Status: Inactive Member Role Status Dates Parker Gorman PA-C Primary Care Provider Activ e Shahram Vergara , DO Attending Provider Active Team Status: Inactive Member Role Status Dates Shahram Vergara DO Attending Provider Active S tart: July 17, 2023 End: July 17, 2023 Team Status: Active Member Role Status Dates Parker Gorman PA-C Primary Care Provider Active Start: July Shahram Vergara , DO Attending Provider, Other Provider Active Start: July 23, 2023 Team Status: Inactive Member Role Status Dates Parker Gorman PA-C Primary Care Provider Activ e Start: August 05, 2023 End: August 05, 2023 Shahram Vergara DO Attending Provider Active S tart: August 05, 2023 End: August 05, 2023 Team Status: Inactive Member Role Status Dates Parker Gorman PA-C Primary Care Provider Activ e Start: September 02, 2023 End: September 02, 2023 Shahram Vergara DO Attending Provider Active S tart: September 02, 2023 End: September 02, 2023 Team Status: Inactive Member Role Status Dates Parker Gorman PA-C Primary Care Provider Activ e Start: October 28, 2023 End: October 28, 2023 Shahram Vergara DO Attending Provider Active S tart: October 28, 2023 End: October 28, 2023 Team Status: Inactive Member Role Status Dates Parker Gorman PA-C Primary Care Provider Activ e Start: April 01, 2024 End: April 01, 2024 Shahram Vergara DO Attending Provider Active S tart: April 01, 2024 End: April 01, 2024 Credit Administration Specialist Relationship Specialty Start Date End Date [facility] [address] [place] PCP - General Family Medicine 12/12/23 Credit Administration Specialist Relationship Specialty Start Date End Date [facility] [address] [place] PCP - General Family Medicine 12/12/23 Credit Administration Specialist Relationship Specialty Start Date End Date [facility] [address] [place] PCP - General Family Medicine 12/12/23 Credit Administration Specialist Relationship Specialty Start Date End Date Services, [facility] [address] [place], [place] PCP - General Family Medicine 12/12/23 Credit Administration Specialist Relationship Specialty Start Date End Date [facility], [facility] [address] [facility] [place] [place] [facility] - General Family Medicine 12/12/23 Team Status: Active Member Role Status Dates Shahram Vergara DO Attending Provider Active S tart: July 22, 2024 Parker Gorman PA-C Primary Care Provider Activ e Start: July 22, 2024 Credit Administration Specialist Relationship Specialty Start Date End Date Parker Gorman PA-C [address] [place] [id number] PCP - General Physician Dumper 06/26/22 Credit Administration Specialist Relationship Specialty Start Date End Date Parker Gorman PA-C [address] [place] [id number] PCP - General Physician Dumper 06/26/22 Team Status: Inactive Member Role Status Dates Parker Gorman PA-C Primary Care Provider Activ e Start: July 31, 2024 End: July 31, 2024 Shahram Vergara DO Attending Provider Active S tart: July 31, 2024 End: July 31, 2024 Credit Administration Specialist Relationship Specialty Start Date End Date Parker Gorman PA-C [address] [place] [address] PCP - General Physician Dumper 06/26/22 Credit Administration Specialist Relationship Specialty Start Date End Date Services, [facility] [address] [place], [place] PCP - General Family Medicine 11/06/23 Credit Administration Specialist Relationship Specialty Start Date End Date Services, [facility] [address] [place], [place] PCP - General Family Medicine 11/06/23 Credit Administration Specialist Relationship Specialty Start Date End Date Services, [facility] [address] [place], [place] PCP - General Family Medicine 11/06/23 Credit Administration Specialist Relationship Specialty Start Date End Date Services, [facility] [address] [place], [place] PCP - General Family Medicine 12/12/23 Credit Administration Specialist Relationship Specialty Start Date End Date Services, [facility] [address] [place], [place] PCP - General Family Medicine 12/12/23 Credit Administration Specialist Relationship Specialty Start Date End Date Services, [facility] [address] [place], [place] PCP - General Family Medicine 12/12/23 Credit Administration Specialist Relationship Specialty Start Date End Date Services, [facility] [address] [place], [place] PCP - General Family Medicine 12/12/23 Team Status: Inactive Member Role Status Dates Parker Gorman PA-C Primary Care Provider Activ e Start: August 19, 2024 End: August 19, 2024 Shahram Vergara DO Attending Provider Active S tart: August 19, 2024 End: August 19, 2024 Credit Administration Specialist Relationship Specialty Start Date End Date Services, [facility] [address] [place], [place] PCP - General Family Medicine 07/03/24 Team Status: Active Member Role Status Dates Shahram Vergara DO Attending Provider Active S tart: September 09, 2024 Parker Gorman PA-C Primary Care Provider Activ e Start: September 09, 2024 Team Status: Inactive Member Role Status Dates Parker Gorman PA-C Primary Care Provider Activ e Start: September 09, 2024 End: September 09, 2024 Shahram Vergara DO Attending Provider Active S tart: September 09, 2024 End: September 09, 2024 Team Status: Inactive Member Role Status Dates Shahram Vergara , Attending Provider Active S tart: September 09, 2024 End: September 09, 2024 Parker Gorman PA-C Primary Care Provider Activ e Start: September 09, 2024 End: September 09, 2024 Credit Administration Specialist Relationship Specialty Start Date End Date [facility] [address] [place], [place] PCP - General Family Medicine 07/03/24 Credit Administration Specialist Relationship Specialty Start Date End Date [facility] [address] [place], [place] PCP - General Family Medicine 07/03/24 Goals (unrecognized section and content) Goals may be documented in a n alternate section Scheduled Active and Recently Administ ered Medications (unrecognized section and content) Medication Order 11/06/2023 11/07/2023 11/08/2023 amLODIPine (NORVASC) tablet 10 mg 10 mg, oral, Daily, First dose (after last modification) on Sat11/08/23 at 0900, Look-alike/sound-alike medication - verify indication for use. Avoid grapefruit juice. 0745 (Given - Provider: Marina Boo RN - Comment: pt going for heart cath)0802 (MAR Hold - Provider: User Epic - Reason: Patient not available)0900 (Canceled Entry - Provider: Marina Boo RN - Comment: see other admin)1352 (MAR Unhold - Provider: User Epic) aspirin EC tablet 81 mg 81 mg, oral, Daily, First dose on Sat11/08/23 at 0900, Do not crush or chew. 0745 (Given - Provider: Marina Boo RN - Comment: pt going for heart cath)0802 (MAR Hold - Provider: User Epic - Reason: Patient not available)0900 (Canceled Entry - Provider: Marina Boo RN - Comment: see other admin)1352 (MAR Unhold - Provider: User Epic) atorvastatin (LIPITOR) tablet 40 mg 40 mg, oral, Nightly, First dose on Sat11/07/23 at 2200, Look-alike/sound-alike medication - verify indication for use. 2228 (Given - Provider: Lenora Arthur RN) 08 (AUG Hold - Provider: User Epic - Reason: Patient not available)1352 (AUG Unhold - Provider: User Epic) empagliflozin (JARDIANCE) tablet 25 mg 25 mg, oral, Daily, First dose (after last modification) on Sat11/08/23 at 0900 0745 (Given - Provider: Marina Boo RN - Comment: pt going for heart cath)08 (AUG Hold - Provider: User Epic - Reason: Patient not available)0900 (Canceled Entry - Provider: Marina Boo RN - Comment: see other admin)1352 (AUG Unhold - Provider: User Epic) insulin lispro (HumaLOG) injection 2-10 Units 2-10 Units, subcutaneous, 3 times daily with meals, First dose on Sat11/08/23 at 0800, Daytime hyperglycemia dosing. For blood glucose 151-200 mg/dL, give 2 units. For blood glucose 201-250 mg/dL, give 4 units. For blood glucose 251-300 mg/dL, give 6 units. For blood glucose 301-350 mg/dL, give 8 units. For blood glucose 351-400 mg/dL, give 10 units. Give even if NPO or meals skipped. Do NOT give more often then every 4 hours when NPO. Notify prescriber if blood glucose greater than 400 mg/dL. Look-alike/sound-alike medication - verify indication for use. Prime with 2 units of insulin prior to administration. Prandial/supplemental Insulin. Pre-filled pens stable 28 days at room temperature. Insulin lispro should be administered within 15 minutes before or immediately after a meal. 0747 (Given - Provider: Marina Boo RN - Comment: BG 157)08 (AUG Hold - Provider: User Epic - Reason: Patient not available)1200 (Dose Auto Held - Provider: User Epic)1352 (AUG Unhold - Provider: User Epic) insulin lispro (HumaLOG) injection 2-8 Units 2-8 Units, subcutaneous, Nightly, First dose on Sat11/07/23 at 2200, Bedtime hyperglycemia dosing. For blood glucose 201-250 mg/dL, give 2 units. For blood glucose 251-300 mg/dL, give 4 units. For blood glucose 301-350 mg/dL, give 6 units. For blood glucose 351-400 mg/dL, give 8 units. Give even if NPO or meals skipped. Do NOT give more often then every 4 hours when NPO. Notify prescriber if blood glucose greater than 400 mg/dL. Look-alike/sound-alike medication - verify indication for use. Prime with 2 units of insulin prior to administration. Prandial/supplemental Insulin. Pre-filled pens stable 28 days at room temperature. Insulin lispro should be administered within 15 minutes before or immediately after a meal. 2200 (Not Given - Provider: Lenora Arthur RN - Reason: Order parameters not met - Comment: blood glucose was 189) 0802 (AUG Hold - Provider: User Epic - Reason: Patient not available)1352 (AUG Unhold - Provider: User Epic) losartan (COZAAR) 50 mg, hydroCHLOROthiazide (HYDRODIURIL) 12.5 mg for HYZAAR 50/12.5 oral, Daily, First dose (after last modification) on Sat11/08/23 at 0900, Give both components as replacement for Hyzaar 50/12.5. 0744 (Given - Provider: Marina Boo RN - Comment: pt going for heart cath)0802 (AUG Hold - Provider: User Epic - Reason: Patient not available)0900 (Canceled Entry - Provider: Marina Boo RN - Comment: see other admin)1352 (AUG Unhold - Provider: User Epic) SITagliptin phosphate (JANUVIA) tablet 100 mg 100 mg, oral, Daily, First dose (after last modification) on Sat11/08/23 at 0900, Hold dose and notify prescriber if blood glucose is less than 100 mg/dL or patient status has changed to NPO. Look-alike/sound-alike medication - verify indication for use. 0744 (Given - Provider: Marina Boo RN - Comment: pt going for heart cath)0802 (AUG Hold - Provider: User Epic - Reason: Patient not available)0900 (Canceled Entry - Provider: Marina Boo RN - Comment: see other admin)1352 (AUG Unhold - Provider: User Epic) sodium chloride 0.9 % flush 3 mL 3 mL, intravenous, Every 12 hours scheduled, First dose on Alyx 11/07/23 at 1145 1145 (Given - Provider: Marina Boo RN)2046 (Given - Provider: Lenora Arthur RN) 0746 (Given - Provider: Marina Boo, RN - Comment: pt going for heart cath)0802 (AUG Hold - Provider: User Epic - Reason: Patient not available)0900 (Canceled Entry - Provider: Marina Boo RN - Comment: see other admin)1352 (AUG Unhold - Provider: User Epic) sodium chloride 0.9 % flush 3 mL 3 mL, intravenous, Every 12 hours, First dose on Sat11/08/23 at 0900 0900 (Due) Continuous Medication Order 11/06/2023 11/07/2023 11/08/2023 sodium chloride 0.9 % infusion 250 mL/hr, intravenous, Continuous, Starting on Sat11/08/23 at 0900, For 2 hours 0900 (Rate/Dose Gordon ge - Provider: Nikki Sanchez, MADDISON)1000 (Stop Bag - Provider: Nikki Sanchez RN) PRN Medication Order 11/06/2023 11/07/2023 11/08/2023 acetaminophen (TYLENOL) tablet 650 mg 650 mg, oral, Every 4 hours PRN, mild pain - pain scale 1-3, headaches, temperature greater than 38 C, Temperature greater than 38.3 C, Starting on Alyx 11/07/23 at 1135, [Warning: Total Acetaminophen not to exceed more than 4 grams (4000 mg) in 24 hours] 0802 (AUG Hold - Provider: User Epic - Reason: Patient not available)1352 (AUG Unhold - Provider: User Epic) calcium gluconate 3,000 mg in sodium chloride 0.9 % 100 mL IVPB 3,000 mg, intravenous, at 43.3 mL/hr, Administer over 3 Hours, As needed, ionized calcium 3.5 to 3.9 mg/dL, Starting on Alyx 11/07/23 at 1135, IV Administration of calcium via a central or deep vein preferred. Avoid administration in small hand veins VESICANT (RED) 0802 ([facility] Hold - Provider: User Epic - Reason: Patient not available)1352 ([facility] Unhold - Provider: User Epic) calcium gluconate 4,000 mg in sodium chloride 0.9 % 250 mL IVPB 4,000 mg, intravenous, at 72.5 mL/hr, Administer over 4 Hours, As needed, ionized calcium 3.4 mg/dL or less, Starting on Alyx 11/07/23 at 1135, IV administration of calcium via a central or deep vein is preferred. Avoid administration in small hand veins. VESICANT (RED) 0802 ([facility] Hold - Provider: User Epic - Reason: Patient not available)1352 ([facility] Unhold - Provider: User Epic) calcium gluconate IVPB 2000 mg/100 mL (20 mg/mL premix) 2,000 mg, intravenous, at 50 mL/hr, Administer over 2 Hours, As needed, ionized calcium 4 to 4.3 mg/dL, Starting on Alyx 11/06/ at 1135, IV Administration of calcium via a central or deep vein preferred. Avoid administration in small hand veins VESICANT (RED) 0802 ([facility] Hold - Provider: User Epic - Reason: Patient not available)1352 ([facility] Unhold - Provider: User Epic) dextrose (GLUTOSE) 40 % gel 15 g 15 g, oral, As needed, low blood sugar, blood glucose less than 70 mg/dL, Starting on Alyx 11/07/23 at 1135, If patient conscious and taking PO. If blood glucose is not greater than 70 mg/dL after initial treatment, repeat treatment. 0802 ([facility] Hold - Provider: User Epic - Reason: Patient not available)1352 ([facility] Unhold - Provider: User Epic) dextrose 5 % (D5W) infusion 100 mL/hr, intravenous, Continuous PRN, blood glucose less than 70 mg/dL, Starting on Alyx 11/07/23 at 1135, Use immediately following dextrose 50% or glucagon treatment for patients who are unconscious or NPO. Contact prescriber for additional orders. If blood glucose is not greater than 70 mg/dL after initial treatment, repeat treatment. 0802 ([facility] Hold - Provider: User Epic - Reason: Patient not available)1352 ([facility] Unhold - Provider: User Epic) dextrose 50 % in water (D50W) 50% solution 25 mL 25 mL, intravenous, As needed, low blood sugar, blood glucose less than 70 mg/dL and unconscious or NPO with IV access, Starting on Alyx 11/07/23 at 1135, Push over 1-3 minutes STAT. If conscious and not NPO, immediately follow with meal tray or high protein (7 grams) snack if tray not available. If NPO, initiate 5% dextrose in water at 100 mL/hr and contact prescriber for additional orders. If blood glucose is not greater than 70 mg/dL after initial treatment, repeat treatment. VESICANT (RED) Warning: HYPERTONIC solution. 0802 ([facility] Hold - Provider: User Epic - Reason: Patient not available)1352 ([facility] Unhold - Provider: User Epic) fentaNYL (SUBLIMAZE) injection (CANCELED) Code/trauma/sedation medication, Starting on Sat11/08/23 at 0818, Intra-Procedure (CV) 0818 (Given - Provid er: Li Garcia RN) glucagon HCL injection 1 mg 1 mg, intramuscular, As needed, low blood sugar, blood glucose less than 70 mg/dL and unconscious or NPO without IV access., Starting on Alyx 11/07/23 at 1135, If conscious and not NPO, immediately follow with meal tray or high protein (7Grams) snack if tray not available. If NPO, initiate IV 5% Dextrose/Water at 100 mL/hr and contact prescriber for additional orders. If blood glucose is not greater than 70 mg/dL after initial treatment, repeat treatment. 08 ([facility] Hold - Provider: User Epic - Reason: Patient not available)1352 ([facility] Unhold - Provider: User Epic) heparin (porcine) injection (CANCELED) Code/trauma/sedation medication, Starting on Sat11/08/23 at 0823, Intra-Procedure (CV) 0823 (Given - Provid er: Li Garcia RN) iohexoL (OMNIPAQUE) 350 mg iodine/mL injection (CANCELED) Code/trauma/sedation medication, Starting on Sat11/08/23 at 0834, Intra-Procedure (CV) 0834 (Given - Provid er: Sara Carrizales MD) lidocaine PF (XYLOCAINE) 10 mg/mL (1 %) injection (CANCELED) Code/trauma/sedation medication, Starting on Sat11/08/23 at 0818, Intra-Procedure (CV) 0818 (Given - Provid er: Sara Carrizales MD) magnesium sulfate IVPB 2000 mg/50 mL in iso-osmotic water (40 mg/mL premix) 2,000 mg, intravenous, at 25 mL/hr, Administer over 120 Minutes, As needed, Magnesium level 1.7 to 1.9 mg/dL, or Ionized Magnesium level 0.45 to 0.5 mmol/L., Starting on Alyx 11/07/23 at 1135, Recheck magnesium level 4 hours after infusion complete. With each magnesium result continue the replacement orders as needed. 1418 (New Bag - Provider: Marina Boo, MADDISON)1618 (Stop Bag - Provider: Marina Boo RN) 0802 (AUG Hold - Provider: User Epic - Reason: Patient not available)1352 (AUG Unhold - Provider: User Epic) magnesium sulfate IVPB 4000 mg/100 mL in iso-osmotic water (40 mg/mL premix) 4,000 mg, intravenous, at 25 mL/hr, Administer over 240 Minutes, As needed, Magnesium level 1.6 mg/dL or less, or Ionized Magnesium level 0.44 mmol/L or less, Starting on Alyx 11/07/23 at 1135, Recheck magnesium level 4 hours after infusion complete. With each magnesium result continue the replacement orders as needed. 0802 (AUG Hold - Provider: User Epic - Reason: Patient not available)1352 (AUG Unhold - Provider: User Epic) midazolam (PF) (VERSED) injection (CANCELED) Code/trauma/sedation medication, Starting on Sat11/08/23 at 0818, Intra-Procedure (CV) 0818 (Given - Provid er: Li Garcia RN) nitroglycerin 2 mg/10 mL (200 mcg/ml) syringe (cath) (CANCELED) Code/trauma/sedation medication, Starting on Sat11/08/23 at 0821, Intra-Procedure (CV) 0821 (Given - Provid er: aSra Carrizales MD) ondansetron (PF) (ZOFRAN) injection 4 mg 4 mg, intravenous, Every 8 hours PRN, nausea, vomiting, Starting on Alyx 11/07/23 at 1135, Administer over 2-5 minutes. 0802 (AUG Hold - Provider: User Epic - Reason: Patient not available)1352 ([facility] Unhold - Provider: User Epic) potassium chloride (K-TAB,KLOR-CON) CR tablet 30-50 mEq(Linked Group 1) 30-50 mEq, oral, As needed, potassium supplementation, Starting on Alyx 11/07/23 at 1135, Progress to oral potassium replacement when patient tolerating oral intake. If dose administered, recheck potassium level 4 hours after last dose. For potassium level 3.4 to 3.8 mmol/L and GFR 30 mL/min or greater=30 mEq. For potassium level 3.1 to 3.3 mmol/L and GFR 30 mL/min or greater=40 mEq. For potassium level 3 mmol/L or less and GFR 30 mL/min or greater=50 mEq. Do not crush or chew. 1413 (Given - Provider: Marina Boo RN) 0802 ([facility] Hold - Provider: User Epic - Reason: Patient not available)1352 ([facility] Unhold - Provider: User Epic) potassium chloride (KAYCIEL) 20 mEq/15 mL solution 30-50 mEq(Linked Group 1) 30-50 mEq, oral, As needed, potassium supplementation, Starting on Alyx 11/07/23 at 1135, Progress to oral potassium replacement when patient tolerating oral intake. If dose administered, recheck potassium level 4 hours after last dose. For potassium level 3.4 to 3.8 mmol/L and GFR 30 mL/min or greater=30 mEq. For potassium level 3.1 to 3.3 mmol/L and GFR 30 mL/min or greater=40 mEq. For potassium level 3 mmol/L or less and GFR 30 mL/min or greater=50 mEq. Must dilute before use - Mix in 3-8 ounces of water or juice before administration When administering in feeding tube, flush before and after per policy and monitor potassium levels 1413 (See Alternative - Provider: Marina Boo RN) 0802 ([facility] Hold - Provider: User Epic - Reason: Patient not available)1352 ([facility] Unhold - Provider: User Epic) sennosides-docusate sodium (SENOKOT-S) 8.6-50 mg 1 tablet 1 tablet, oral, Every 12 hours PRN, constipation, Starting on Alyx 11/07/23 at 1135 0802 ([facility] Hold - Provider: User Epic - Reason: Patient not available)1352 ([facility] Unhold - Provider: User Epic) sod phos di, mono-K phos mono (K-PHOS NEUTRAL) 250 mg tablet 2 tablet(Linked Group 2) 2 tablet, oral, As needed, for phosphorus level 2.3 mg/dL or less., Starting on Sat11/07/23 at 1135, If dose administered, recheck phosphorus level 4 hours after last dose. Look-alike/sound-alike medication - verify indication for use. Give with a full glass of water. 0802 ([facility] Hold - Provider: User Epic - Reason: Patient not available)1352 ([facility] Unhold - Provider: User Epic) sodium chloride 0.9 % flush 3 mL 3 mL, intravenous, As needed, line care, before and after each intermittent use, Starting on Sat11/07/23 at 1135 0802 ([facility] Hold - Provider: User Epic - Reason: Patient not available)1352 ([facility] Unhold - Provider: User Epic) sodium chloride 0.9 % flush 3 mL 3 mL, intravenous, As needed, line care, before and after each intermittent use, Starting on Sat11/08/23 at 0853 sodium chloride 0.9 % flush bag 25 mL, intravenous, at 100 mL/hr, Administer over 15 Minutes, As needed, line care, line care after IVPB administration, Starting on Sat11/07/23 at 1135 0802 ([facility] Hold - Provider: User Epic - Reason: Patient not available)1352 ([facility] Unhold - Provider: User Epic) sodium chloride 0.9 % infusion 20 mL/hr, intravenous, Continuous PRN, to maintain patency of lines, Starting on Sat11/07/23 at 1135 1417 (New Bag - Provider: Marina Boo RN) 0802 ([facility] Hold - Provider: User Epic - Reason: Patient not available)1352 ([facility] Unhold - Provider: User Epic) sodium phosphate 20 mmol in sodium chloride 0.9 % 100 mL IVPB(Linked Group 2) 20 mmol, intravenous, at 26.7 mL/hr, Administer over 4 Hours, As needed, for phosphorus level 2.3 mg/dL or less., Starting on Sat11/07/23 at 1135, Administer over 4 hours via dedicated line (central line). If administered, recheck phosphorus level 4 hours after infusion complete. Infuse using central line access. 0802 ([facility] Hold - Provider: User Epic - Reason: Patient not available)1352 ([facility] Un[facility] - Provider: User Epic) sodium phosphate 20 mmol in sodium chloride 0.9 % 250 mL IVPB(Linked Group 2) 20 mmol, intravenous, at 42.8 mL/hr, Administer over 6 Hours, As needed, for phosphorus level 2.3 mg/dL or less, Starting on Alyx 11/07/23 at 1135, Administer over 6 hours via dedicated line (peripheral line). If administered, recheck phosphorus level 4 hours after infusion complete. 0802 ([facility] Hold - Provider: User Epic - Reason: Patient not available)1352 ([facility] Unhold - Provider: User Epic) verapamiL (ISOPTIN) injection (CANCELED) Code/trauma/sedation medication, Starting on Sat11/08/23 at 0820, Intra-Procedure (CV) 0820 (Given - Provid er: Sara Carrizales MD - Comment: R RADIAL) Linked Groups Order Group 1: potassium chloride (K-TAB,KLOR-CON) CR tablet 30-50 mEqJump to med 30-50 mEq, oral, As needed, potassium supplementation, Starting on Alyx 11/07/23 at 1135, Progress to oral potassium replacement when patient tolerating oral intake. If dose administered, recheck potassium level 4 hours after last dose. For potassium level 3.4 to 3.8 mmol/L and GFR 30 mL/min or greater=30 mEq. For potassium level 3.1 to 3.3 mmol/L and GFR 30 mL/min or greater=40 mEq. For potassium level 3 mmol/L or less and GFR 30 mL/min or greater=50 mEq. Do not crush or chew. Or potassium chloride (KAYCIEL) 20 mEq/15 mL solution 30-50 mEqJump to med 30-50 mEq, oral, As needed, potassium supplementation, Starting on Alyx 11/07/23 at 1135, Progress to oral potassium replacement when patient tolerating oral intake. If dose administered, recheck potassium level 4 hours after last dose. For potassium level 3.4 to 3.8 mmol/L and GFR 30 mL/min or greater=30 mEq. For potassium level 3.1 to 3.3 mmol/L and GFR 30 mL/min or greater=40 mEq. For potassium level 3 mmol/L or less and GFR 30 mL/min or greater=50 mEq. Must dilute before use - Mix in 3-8 ounces of water or juice before administration When administering in feeding tube, flush before and after per policy and monitor potassium levels Group 2: sodium phosphate 20 mmol in sodium chloride 0.9 % 250 mL IVPBJump to med 20 mmol, intravenous, at 42.8 mL/hr, Administer over 6 Hours, As needed, for phosphorus level 2.3 mg/dL or less, Starting on Alyx 11/07/23 at 1135, Administer over 6 hours via dedicated line (peripheral line). If administered, recheck phosphorus level 4 hours after infusion complete. Or sodium phosphate 20 mmol in sodium chloride 0.9 % 100 mL IVPBJump to med 20 mmol, intravenous, at 26.7 mL/hr, Administer over 4 Hours, As needed, for phosphorus level 2.3 mg/dL or less., Starting on Alyx 11/07/23 at 1135, Administer over 4 hours via dedicated line (central line). If administered, recheck phosphorus level 4 hours after infusion complete. Infuse using central line access. Or sod phos di, mono-K phos mono (K-PHOS NEUTRAL) 250 mg tablet 2 tabletJump to med 2 tablet, oral, As needed, for phosphorus level 2.3 mg/dL or less., Starting on Alyx 11/07/23 at 1135, If dose administered, recheck phosphorus level 4 hours after last dose. Look-alike/sound-alike medication - verify indication for use. Give with a full glass of water. FOR RECORDS PERTAINING TO PATIENTS WHO ARE OR HAVE BEEN ENROLLED IN A CHEMICAL DEPENDENCY/SUBSTANCEABUSE PROGRAM, SOME INFORMATION MAY BE OMITTED. This clinical summary was aggregated from multiple sources. Caution should be exercised in using it in the provision of clinical care. This summary normalizes information from multiple sources, and as a consequence, information in this document may materially change the coding, format and clinical context of patient data. In addition, data may be omitted in some cases. CLINICAL DECISIONS SHOULD BE BASED ON THE PRIMARY CLINICAL RECORDS. [facility]. provides no warranty or guarantee of the accuracy or completeness of information in this document.
[2024-11-14] MEDS: lidocaine HCL 15 ML, MAG HYDROX/ALUMINUM HYD/SIMETH 30 ML, HYOSCYAMINE SULFATE 0.25 MG PO (23:57)
--- NOTE | 2024-11-14 23:59 | ED_ITS ---
HPI - Abdominal Pain General Chief Complaint: Abdominal Pain Stated Complaint: ABD PAIN Time Seen by Provider: 11/14/24 23:14 Mode of arrival: walk-in History of Present Illness HPI narrative: cc -right-sided abdominal pain and reflux type symptoms 54-year-old male with history of gastroesophageal reflux but also admitted noncompliance, who has missed numerous doses of his PPI, presents with right lower quadrant and right sided abdominal pain with admitted constipation. He did try some mag citrate without relief. No nausea or vomiting. He also admits to frequently getting an acid-taste in his mouth and has symptoms, often at night, while he is sleeping which wake him up with a heartburn type sensation and sometimes some burning in the chest. He told us that sometimes when he is eating dense, solid foods he will have a sensation as if it is not going down all the way, which always resolves with sometimes takes hours. He has never seen a clinical rehab specialist. He expressed some frustration at a recent switch from his prior primary care provider to a new one, which apparently change a lot of his medications around. Related Data Home Medications ?Medication ?Instructions ?Recorded ?Confirmed metformin 1,000 mg tablet 1,000 mg PO BID 09/03/23 carvedilol 12.5 mg tablet mg 11/14/24 Previous Rx's ?Medication ?Instructions ?Recorded pantoprazole 40 mg tablet,delayed 40 mg PO DAILY 8 mustapha md #56 tabs 11/14/24 release (Protonix) polyethylene glycol 3350 17 17 g PO DAILY 4 days #68 g robert 11/14/24 gram/dose oral powder (Miralax) Allergies Allergy/AdvReac Type Severity Reaction Status Date / Time No Known Drug Allergies Allergy Verified 11/14/24 23:41 [facility] Medical History (Updated 11/14/24 @ 23:43 by Hunter Linares) Cataracts, bilateral ?H26.9 - Unspecified cataract (ICD-10) Respiratory arrest ?R09.2 - Respiratory arrest (ICD-10) Acquired equinus deformity of right foot ?M21.6X1 - Other acquired deformities of right foot (ICD-10) Broken finger ?S62.609A - Fracture of unspecified phalanx of unspecified finger, initial encounter for closed fracture (ICD-10) COVID-19 ?U07.1 - COVID-19 (ICD-10) Arthritis ?M19.90 - Unspecified osteoarthritis, unspecified site (ICD-10) Dog bite ?W54.0XXA - Bitten by dog, initial encounter (ICD-10) Facial laceration ?S01.81XA - Laceration without foreign body of other part of head, initial encounter (ICD-10) Hypertension ?I10 - Essential (primary) hypertension (ICD-10) Hyperlipidemia ?E78.5 - Hyperlipidemia, unspecified (ICD-10) Diabetes ?E11.9 - Type 2 diabetes mellitus without complications (ICD-10) Derangement of right knee ?M23.91 - Unspecified internal derangement of right knee (ICD-10) Arthritis of knee ?M17.10 - Unilateral primary osteoarthritis, unspecified knee (ICD-10) Hypertrophy of both inferior nasal turbinates ?J34.3 - Hypertrophy of nasal turbinates (ICD-10) Deviated septum ?J34.2 - Deviated nasal septum (ICD-10) Chronic sinusitis ?J32.9 - Chronic sinusitis, unspecified (ICD-10) Sleep apnea ?G47.30 - Sleep apnea, unspecified (ICD-10) Surgical History (Updated 01/15/23 @ 14:32 by Mackenzie Dickson RN) H/O wisdom tooth extraction ?K08.409 - Partial loss of teeth, unspecified cause, unspecified class (ICD- 10) History of phacoemulsification of cataract of right eye with intraocular lens implantation ?Z98.41 - Cataract extraction status, right eye (ICD-10) ?Z96.1 - Presence of intraocular lens (ICD-10) H/O knee surgery ?Z98.890 - Other specified postprocedural states (ICD-10) H/O facial fracture repair ?Z98.890 - Other specified postprocedural states (ICD-10) ?Z87.81 - Personal history of (healed) traumatic fracture (ICD-10) History of appendectomy ?Z90.49 - Acquired absence of other specified parts of digestive tract (ICD- 10) Family History (Updated 01/15/23 @ 14:35 by Mackenzie Dickson, MADDISON) Other Family history of diabetes mellitus Heart disease Hyperlipidemia Kidney failure Social History Within the past year, how often did you have a drink containing alcohol: m onthly or less Within the past year, how many standard drinks containing alcohol did you have on a typical day: 1 or 2 Within the past year, how often did you have six or more drinks on one occasion: less than monthly Total score: 1 Score interpretation: A score less than 4 is consistent with normal alcohol consumption. Smoking status: Never smoker Second hand tobacco smoke exposure: Yes Non-prescribed substance use: denies use Previous occupational history: unemployed Known occupational exposures/hazards: No Highest level of school completed/degree received: high school graduate Are you now , , , , never or living with a partner: In a typical week, how many times do you talk on the telephone with family, friends, or neighbors: twice per week How often do you get together with friends or relatives: once per week Little interest or pleasure in doing things: not at all Feeling down, depressed, or hopeless: not at all Feel stressed/tense/nervous/anxious/difficulty sleeping: decline to answer Life stressors: divorce/separation Do you think of yourself as: straight/heterosexual Gender Identity: male Exam Narrative Exam Narrative: Nurses notes and vital signs reviewed and patient is not hypoxic. He is hypertensive and admits to noncompliance with his antihypertensive medication afebrile General: Well-appearing and in no apparent distress. Skin: Warm, dry, no pallor noted. Head: Normocephalic, atraumatic. Eye: Pupils are equal, round and EOMI. No scleral icterus. Ears, Nose, Mouth, and Throat: Oral mucosa is moist Cardiovascular: Regular Rate and Rhythm without murmur, gallop or rub. Respiratory: No accessory muscle use or respiratory distress. Lungs are clear to auscultation, no wheezing, rales or rhonchi Musculoskeletal: normal ROM, no calf or popliteal tenderness, no lower extremity edema/swelling GI: Abdomen is soft, non-distended. Normal bowel sounds. No solid or pulsatile masses appreciated. Very mild right sided tenderness to palpation without focal tenderness in the right lower quadrant, negative McBurney's, negative Rovsing's. No rebound, guarding, or rigidity noted. Neurological: A&O x4. No cranial nerve dysfunction observed. No truncal ataxia. Moves all extremities. Sensation intact. Psychiatric: Cooperative and interactive. Normal mood and affect. Constitutional Vital Signs, click to edit/add: Last Vital Signs Temp 98.0 F 11/14/24 23:18 Pulse 76 11/14/24 23:18 Resp 14 11/14/24 23:18 BP 186/106 H 11/14/24 23:18 Pulse Ox 96 11/14/24 23:18 O2 Del Method Room Air 11/14/24 23:18 Course Vital Signs Vital signs: Vital Signs Temperature 98.0 F 11/14/24 23:18 Pulse Rate 76 11/14/24 23:18 Respiratory Rate 14 11/14/24 23:18 Blood Pressure 186/106 H 11/14/24 23:18 Pulse Oximetry 96 11/14/24 23:18 Oxygen Delivery Method Room Air 11/14/24 23:18 Temperature 98.0 F 11/14/24 23:18 Pulse Rate 76 11/14/24 23:18 Respiratory Rate 14 11/14/24 23:18 Blood Pressure 186/106 H 11/14/24 23:18 Pulse Oximetry 96 11/14/24 23:18 Oxygen Delivery Method Room Air 11/14/24 23:18 MDM - Abdominal Pain MDM Narrative Medical decision making narrative: Patient has symptoms indicative of gastroesophageal reflux disease, which she has previously been diagnosed, with admitted noncompliance of his PPI. He was given a GI cocktail in the ED and we had a long discussion regarding dietary changes as well as why he is experiencing his current set of symptoms. I also stressed him the importance of follow-up with a clinical rehab specialist and he was given referral information for Dr. Chinchilla Additionally, x-rays of the abdomen and chest were obtained. I do not see any perforation, free air under the diaphragm or abnormalities of the chest. He has a lot of retained stool in the right side of his colon. He was informed of these results and discharged home. Additionally, I prescribed MiraLAX to help with his constipation Imaging Data xr chest, xr abdomen: My impression: Retained stool in the right side of the abdomen/ascending colon; no cardiopulmonary abnormalities noted. No free air or obstruction noted Discharge Plan Discharge Chief Complaint: Abdominal Pain Clinical Impression: GERD (gastroesophageal reflux disease), Constipation Patient Disposition: Home, Self-Care Time of Disposition Decision: 00:04 Prescriptions / Home Meds: New pantoprazole [Protonix] 40 mg tablet,delayed release (DR/EC) 40 mg PO DAILY 56 Days Qty: 56 0RF polyethylene glycol 3350 [Miralax] 17 gram/dose powder 17 g PO DAILY 4 Days Qty: 68 0RF No Action metformin 1,000 mg tablet 1,000 mg PO BID carvedilol 12.5 mg tablet Print Language: Mohawk Instructions: Constipation (ED), GERD (Gastroesophageal Reflux Disease) (ED) Referrals: Alex Gorman [Primary Care Provider] - 1 week
[2024-11-15 00:03] VITALS: BP 176/93
== END 2024-11-15 00:18 | disposition home or self-care (01) ==
PROVIDERS: Emergency Provider Emergency Medicine; PCP Physician Assistant
DX: K21.9 Gastro-esophageal reflux disease without esophagitis (principal); K59.00 Constipation, unspecified; R10.31 Right lower quadrant pain; Z79.84 Long term (current) use of oral hypoglycemic drugs; E11.9 Type 2 diabetes mellitus without complications
CPT/HCPCS: 74022; 99283

== ENCOUNTER 2024-12-19 13:19 | Emergency (ER) | payer MEDICAID, SELFPAY ==
[2024-12-19 13:25] VITALS: BP 158/95; PULSE 84; TEMP 36.7; O2SAT 97; BMI 32.1
--- OUTSIDE RECORDS SUMMARY | 2024-12-19 13:27 | XMS_ITS | CCD ---
Author Organization [facility] Care Team Providers Care Leather Flesher Name Role Phone GALEN MCKAY Consulting Unavailable [...] Care Provider DO Shahram Vergara Attending Provider MERLE Gorman Primary Care Provider NELLY DON Attending UnavailPARKER Roman Referring Unavailable PARKER GORMAN Primary Care Unavailable BOMMANA, FERMIN GOPALA R Admitting Unavailab le BOKASI, FERMIN GOPALA R Attending Unavailab JOSEF Wheeler [facility] AMMY FLEMING Consulting Unavailable SARA AWLKER Referring Unavailable SERVICES, [facility] Care Unava ilable MYNOR JOSHUA Attending Unavailable KELLY PORRAS Referring Unavailable MYNOR JSOHUA Attending Unavailable MYNOR JOSHUA Referring Unavailable MYNOR JOSHUA Attending Unavailable MYNOR JOSHUA [facility]ending [facility] Provider Shahram Vergara DO Attending Provider Parker Gorman PA-C Primary Care Provider Parker Gorman PA-C [facility] Primary Care Provider Shahram Vergara DO Attending Provider Vita BLOOM, Parker Machado Primary Care Provider Services, [facility] Primary Care Provider Shahram Vergara A Attending Unavailable Alejandra, Shahram A Admitting Unavailable Parker Gorman Primary Care Unavailable Alejandra, Shahram A Attending Unavailable Alejandra, Shahram A Admitting Unavailable Parker Gorman Primary Care Unavailable Lelo Vergarain A Attending Unavailable Alejandra Shahram A Admitting Unavailable Parker Gorman Primary Care Unavailable Lelo Vergarain A Attending Unavailable Parker Gorman Primary Care Unavailable Lelo Vergarain A Admitting Unavailable Services, [facility] Primary Care Provider SARA CARRIZALES Attending Unavailable PARKER GORMAN Referring Unavailable SERVICES, [facility] Care Unava ilable SERVICES, [facility] Primary Care Unava ilable MASON AMAYA Attending Unavailable MASON AMAYA Referring Unavailable SERVICES, [facility] Primary Care Unava ilable SERVICES, [facility] Primary Care Unava ilable LYUDMILA PLATA Attending Unavailable LELO VERGARAIN A Referring Unavailable SERVICES, [facility] Primary Care Unava ilable JANET VENTURA Referring Unavailable SERVICES, [facility] Care Unava ilable PORRAS, KELLY Referring Unavailable PARKER GORMAN Primary Care Unavailable KELLY PORRAS Referring Unavailable PARKER GORMAN Primary Care Unavailable SHAHRAM VERGARA A Referring Unavailable SERVICES, [facility] Primary Care Unava ilable SERVICES, [facility] Primary Care Unava ilable RUFINO MEHTA Attending Unavailable KARINE BALTAZAR Attending Unavailable SERVICES, [facility] Care Unava ilable JANET VENTURA Referring Unavailable SERVICES, [facility] Care Unava ilable SARA CARRIZALES Attending Unavailable SARA CARRIZALES Referring Unavailable SERVICES, [facility] Care Unava ilable SVETA CORNELL Attending Unavailable SVETA CORNELL Referring Unavailable SERVICES, [facility] Care Unava ilable SVETA CORNELL Attending Unavailable SERVICES, [facility] Care Unava ilable PORRAS, KELLY Referring Unavailable PARKER GORMAN Primary Care Unavailable JANET VENTURA Attending Unavailable SERVICES, [facility] Primary Care Unava ilable JANET VENTURA Attending Unavailable SERVICES, [facility] Care Unava ilable Medications Current Medications Medication Drug Class(es) Dates Sig (Normalized) Sig (Original) carvedilol 12.5 mg oral tablet (20 sources) alpha-Adrenergic Lanie, beta-Adrenergic Lanie Start: 12-03-2023 [...] may repeat in 72 hours if needed hydroCHLOROthiazide 12.5 mg / losartan potassium 100 mg oral tablet (20 sources) Thiazide Diuretic, Angiotensin 2 Receptor Lanie Start: 03-26-2023 take 1 tablet by mouth once daily Losartan-Hydroc hlorothiazide 100-12.5 mg tablet Active 1 TAB PO Daily March 26, 2023 12:00am End: 12-16-2024 take 1 tablet by mouth once in the morning losartan-hydroCHLOROthiazide (HYZAAR) 100-12.5 mg per tablet Take 1 tablet by mouth in the morning. 12/16/2024 Discontinued (Discontinued by another clinician) ibuprofen 200 mg oral capsule (20 sources) [...] MG PO Daily March 26, 2023 12:00am metFORMIN hydrochloride 1000 mg oral tablet (20 [...] Twice daily 60 August 19, 2024 1:00am pantoprazole 40 mg delayed release oral tablet (2 sources) Proton Pump Inhibitor Start: 11-15-2024 take 1 tablet by mouth once daily before breakfast pantoprazole (PROTONIX) 40 mg EC tablet Take 1 tablet (40 mg total) by mouth every morning before breakfast. 11/15/2024 Active SITagliptin 100 mg oral tablet (20 sources) Dipeptidyl Peptidase 4 Inhibitor Start: 03-26-2023 End: 12-16-2024 take 1 tablet by mouth once daily [...] Temperature greater than 38.3 C, Starting on [facility] 11/07/23 at 1135, [Warning: Total Acetaminophen not to exceed more than 4 grams (4000 mg) in 24 hours] Start: 03-26-2023 Acetaminophen (Tylenol Ex Str Arthritis Pain) 500 mg Tablet Active 1000 MG PO Daily as needed for Pain March 26, 2023 12:00am [id number] 200 actuat albuterol 0.09 mg/actuat metered dose inhaler (20 sources) beta2-Adrenergic Agonist End: 12-16-2024 take 2 puff(s) by inhalation every six hours as needed for wheezing albuterol (PROVENTIL HFA;VENTOLIN HFA) 90 mcg/actuation inhaler Inhale 2 puffs every 6 (six) hours as needed for wheezing. 12/16/2024 Discontinued (Discontinued by another clinician) amLODIPine 10 mg oral tablet (20 sources) Dihydropyridine Calcium Channel Lanie Start: 11-08-2023 End: 12-03-2023 take 10 mg by mouth once daily 10 mg, oral, Daily, First dose (after last modification) on Sat11/08/23 at 0900, Look-alike/sound-a like medication - verify indication for use. Avoid [...] take 1 tablet by jaimie th every twelve hours Aspirin 81 MG 1 tablet Orally Twice a day for 21 days Jun, Active atorvastatin 40 mg oral tablet (20 sources) HMG-CoA Reductase Inhibitor Start: 11-07-2023 End: 12-16-2024 take 1 tablet by mouth once daily atorvastatin (LIPITOR) 40 mg tablet Take 1 tablet (40 mg total) by mouth nightly. 30 tablet 11/08/2023 12/16/2024 Discontinued (Discontinued by another clinician) 100 ml calcium gluconate 20 mg/ml injection [...] administration in small hand veins. VESICANT (RED) docosahexaenoic acid/epa (FISH OIL ORAL) (5 sources) End: 12-16-2024 docosahexaenoic acid/epa (FISH OIL ORAL) Take by mouth. 12/16/2024 Discontinued (Discontinued by another clinician) docosahexaenoic acid/epa (FISH OIL ORAL) Take by mouth. Active docusate sodium 50 mg / sennosides, detention 8.6 mg oral tablet (1 source) Start: [...] on Sat11/08/23 at 0900 Start: 07-23-2023 End: 12-16-2024 take 1 tablet by mouth once daily Empagliflozin (Jardiance) 25 mg tablet Discontinued 25 MG PO Daily July 23, 2023 1:00am July 22, 2024 2:54pm glucagon (rdna) 1 mg injection (1 source) Antihypoglycemic Agent Start: 11-07-2023 End: 11-08-2023 1 mg, intramuscular, As needed, low blood sugar, blood glucose less than 70 mg/dL and unconscious or NPO without IV access., Starting on Sat11/07/23 at 1135, If conscious and not NPO, [...] glucose less than 70 mg/dL, Starting on Sat11/07/23 at 1135, If patient conscious and taking PO. If blood glucose is not greater than 70 mg/dL after initial treatment, repeat treatment. Start: 11-07-2023 End: 11-08-2023 25 mL, intravenous, As neede d, low blood sugar, blood glucose less than 70 mg/dL and unconscious or NPO with IV access, Starting on Sat11/07/23 at 1135, Push over 1-3 minutes STAT. [...] glucose less than 70 mg/dL, Starting on Sat11/07/23 at 1135, Use immediately following dextrose 50% [...] minutes before or immediately after a meal. lidocaine 0.05 mg/mg medicated patch (7 sources) Antiarrhythmic, Amide Local Anesthetic Start: 07-03-2024 End: 12-16-2024 apply 1 dose transdermal route once daily, then apply 1 dose transdermal route every twelve hours lidocaine (LIDODERM) 5 % Place 1 patch on the skin daily. Remove & Discard patch within 12 hours or as directed by MD Little patch 07/03/2024 12/16/2024 Discontinued (Discontinued by another clinician) losartan (COZAAR) 50 mg, hydroCHLOROthiazide (HYDRODIURIL) 12.5 [...] level 0.45 to 0.5 mmol/L., Starting on Sat11/07/23 at 1135, Recheck magnesium level 4 hours after infusion complete. With each magnesium result continue the replacement orders as needed. Start: 11-07-2023 End: 11-08-2023 4,000 mg, intravenous, at 25 mL/hr, Administer over 240 Minutes, As needed, Magnesium level 1.6 mg/dL or less, or Ionized Magnesium level 0.44 mmol/L or less, Starting on Sat11/07/23 at 1135, Recheck magnesium level 4 hours [...] 1 tablet by mouth once Methylprednisolone (Medrol (Dg)) 4 mg tablets,dose pack Discontinued 0 PO [...] 11/07/23 at 1135, Administer over 2-5 minutes. oxyCODONE [...] for pain; Note: Source Status: StartDEA # [id number]; Refills: 0; Qty: 42 Tablet; Provider: Alejandra So Start: 07-17-2023 take 1 tablet by jaimie every four hours as needed for pain oxyCODONE HCl 5 MG 1 tablet Orally Every 4 hours, as needed for pain for 7 days LIZZ # [id number] Jun, Active Potassium Chloride (1 source) Start: [...] IVPB administration, Starting on Sat11/07/23 at 1135 sodium phosphate 20 mmol in [...] disorder; Translations: [Essential (primary) hypertension] Onset: 10-09-2023 4 Chronic Gout and other crystal arthropathies (13 sources) Gout; Translations: [Gout, unspecified] 07-31-2024 Chronic Joint disorders and dislocations; trauma-related (6 sources) Derangement of left knee; Translations: [Unspecified internal derangement of left knee] Chronic Osteoarthritis (1 source) Primary osteoarthritis, left shoulder; Translations: [Primary osteoarthritis, left shoulder] Onset: 07-03-2024 Chronic Other aftercare (1 source) director long term care (current) use of oral hypoglycemic drugs; Translations: [WALLPAPERER USE ORAL HYPOGLYCEMIC DX] Onset: 05-23-2022 Episodic Other aftercare (1 source) Other long term care social worker (current) drug therapy; Translations: [OTH WALLPAPERER CURRENT DRUG THERAPY] Onset: 05-23-2022 Episodic Other [...] Chronic Other nutritional; endocrine; and metabolic disorders (2 sources) Body mass index 30+ - obesity; Translations: [Obesity, unspecified] 12-16-2024 Chronic Other nutritional; endocrine; and metabolic disorders (1 source) Body mass index (BMI) 32.0-32.9, adult; Translations: [Body mass index (BMI) 32.0-32.9, adult] Onset: 12-16-2024 Chronic Other nutritional; endocrine; and metabolic disorders [...] codes; unclassified (1 source) Sleep apnea Onset: 09-02-2024 Chronic Residual codes; unclassified (12 sources) Postprocedural [...] Onset: 07-29-2024 07-22-2024 Episodic Unclassified (1 source) Obesity, class 1; Translations: [...] By: Vel Dominguez on 09-09-2024 Study report [facility] [place] [address] XRay Report Signed Patient: Merlin Fish MR#: [id number] : 1970 Acct:[id number] Age/Sex: 54 / M ADM Date: 5 Loc: [facility] [place] Room: Type: [facility] Attending Dr: Shahram Vergara DO Copies to: [...] WITHOUT ACUTE BONY PROCESS. Impression dictated by: Mauro Dominguez Jr., D.OAbraham09/09/2024 5:56 PM Dictation Location: [facility] Transcribed By: [facility] 09/09/241755 Dictated By: Mauro Dominguez Jr, DO 09/09/241754 Signed By: 09/09/241755 [facility] XR wrist RT min 3V*on 2024 XR wrist RT min 3V* [facility] [place] [address] XRay Report Signed Patient: Merlin Fish MR#: [id number] : 1970 Acct:[id number] Age/Sex: 54 / M ADM Date: 09/09/24 Loc: [facility] – [place] Room: Type: [facility] CLI Attending Dr: Shahram Vergara DO Copies [...] WITHOUT ACUTE BONY PROCESS. Impression dictated by: Mauro Dominguez Jr., FaithOAbraham09/09/2024 5:56 PM Dictation Location: [facility]18 Transcribed By: [facility] 09/09/241755 Dictated By: Mauro Dominguez Jr, DO 09/09/241754 Signed By: 09/09/241755 Normal [facility] MR forearm RT wo conon 07-29 MR forearm RT wo con [facility] [place] [address] MRI Report Signed Patient: Merlin Fish MR#: [id number] : 1970 Acct:[id number] Age/Sex: 54 / M ADM Date: 07/29/24 Loc: [facility] Room: Type: [facility] CLI Attending Dr: Shahram Vergara DO Copies [...] Carl Quiñones M.D.07/29/2024 9:48 AM Dictation Location: [facility]-23 Transcribed By: SAMIA 07/29/2448 Dictated By: Carl Quiñones DO 07/29/24917 Signed By: 07/29/24947 Normal [facility] Magnetic resonance imaging r eportOrdered By: Carl Quiñones on 07-29-2024 Study report [facility] Main [place] [address] [place] [address] MRI Report Signed Patient: Merlin Fish MR#: [id number] : 1970 Acct:[id number] Age/Sex: 54 / M ADM Date: 5 Loc: [facility] Room: Type: [facility] Attending Dr: Shahram Vergara DO Copies to: [...] Carl Quiñones M.D.07/29/2024 9:48 AM Dictation Location: [facility] Transcribed By: SAMIA 07/29/2448 Dictated By: Carl Quiñones DO 07/29/24917 Signed By: 07/29/24 0948 [facility] Basic Metabolic Panelon Anion gap [Moles/Vol] 12.4 mmol/L Normal 6.0-15.0 Th e [facility] Comment on above: Performed By: #### B MP, CRP, CBC, ESR #### [facility] [address] Calcium [Mass/Vol] 9.1 mg/dL Normal 8.6-10.3 [facility] Comment on above: Performed By: #### B MP, CRP, CBC, ESR #### [facility] [address] [place] [id number] [facility] Chloride [Moles/Vol] 103 mmol/L Normal 98-107 [facility] Comment on above: Performed By: #### B MP, CRP, CBC, ESR #### [facility] [address] [place] [place] [id number] [facility] CO2 [Moles/Vol] 27.7 mmol/L Normal 21.0-31.0 [facility] Comment on above: Performed By: #### B MP, CRP, CBC, ESR #### [facility] [address] [place] [place] [id number] [facility] Creatinine [Mass/Vol] 1.40 mg/dL High 0.70-1.30 [facility] Comment on above: Performed By: #### B MP, CRP, CBC, ESR #### [facility] [address] Estimated GFR 58.989 mL/Min Normal [facility] Comment on above: Performed By: #### B MP, CRP, CBC, ESR #### [facility] [address] [place] [id number] [place] Glucose [Mass/Vol] 284 mg/dL High 70-100 [facility] Comment on above: Result Comment: [place] Glucose Reference Range is dependent on time and content of last meal. Glucose of more than 200 mg/dL in a nonstressed, ambulatory subject supports the diagnosis of Diabetes Mellitus. ADA recommended reference range Performed By: #### B MP, CRP, CBC, ESR #### [facility] [address] Potassium [Moles/Vol] 4.1 mmol/L Normal 3.5-5.1 [facility] Comment on above: Performed By: #### B MP, CRP, CBC, ESR #### [facility] [address] Sodium [Moles/Vol] 139 mmol/L Normal 136-145 [facility] Comment on above: Performed By: #### B MP, CRP, CBC, ESR #### [facility] [address] Urea nitrogen [Mass/Vol] 18 mg/dL Normal 7-25 [facility] Comment on above: Performed By: #### B MP, CRP, CBC, ESR #### [facility] [address] [place] [address] [place] Basophils Auto (Bld) [#/Vol] Ordered By: Shahram Vergara on 07-22-2024 Basophils (Bld) [#/Vol] Automated basoph il count 0.0-0.2 [facility] Basophils/100 WBC Auto (Bld) Ordered By: Shahram Vergara on 07-22-2024 Basophils/100 WBC (Bld) Automated basophil % . [facility] C reactive protein [Mass/vol ume] in Serum or PlasmaOrdered By: Shahram Vergara on 07-22-2024 CRP [Mass/Vol] C reactive protein [Mass/volume] in Serum or Plasma High 0.0-0.5 [facility] C-Reactive Proteinon 025 C-Reactive Protein 1.2 mg/dL High 0.0-0.5 [facility] Comment on above: Result Comment: PERF ORMED BY: [place] [address] PATHOLOGIST BIOINFORMATICIST KEITH AGUILAR M.D. Performed By: #### B MP, CRP, CBC, ESR #### [facility] [address] [place] [address] [place] Calcium [Mass/volume] in Ser um or PlasmaOrdered By: Shahram Vergara on 07-22-2024 Calcium [Mass/Vol] Calcium [Mass/volume] in Serum or Plasma 8.6-10.3 [facility] Carbon dioxide, total [Moles /volume] in Serum or PlasmaOrdered By: Shahram Vergara on 07-22-2024 CO2 [Moles/Vol] Carbon dioxide, total [Moles/volume] in Serum or Plasma 21.0-31.0 [facility] Chloride [Moles/volume] in S stacy or PlasmaOrdered By: Shahram Vergara on 07-22-2024 Chloride [Moles/Vol] Chloride [Moles/volume] in Serum or Plasma 98-107 [facility] Complete Blood Count Auto Di ffon 07-22-2024 Basophils (Bld) [#/Vol] 0.1 10*3/uL Normal 0.0-0.2 [facility] Comment on above: Performed By: #### B MP, CRP, CBC, ESR #### [address] Basophils/100 WBC (Bld) 0.5 % Normal . T [facility] Comment on above: Performed By: #### B MP, CRP, CBC, ESR #### [facility] [address] [place] [address] [place] Eosinophils (Bld) [#/Vol] 0.3 10*3/uL Normal 0.0-0.45 [facility] Comment on above: Performed By: #### B MP, CRP, CBC, ESR #### [facility] [address] [place] [address] [place] Eosinophils/100 WBC (Bld) 3.4 % Normal . [facility] Comment on above: Performed By: #### B MP, CRP, CBC, ESR #### [facility] [address] Erythrocyte distribution width (RBC) [Ratio] 13.6 % Normal 12.0-14.8 [facility] Comment on above: Performed By: #### B MP, CRP, CBC, ESR #### [address] Hematocrit (Bld) [Volume fraction] 41.2 % Normal 38.8-50.0 [facility] Comment on above: Performed By: #### B MP, CRP, CBC, ESR #### [address] Hemoglobin (Bld) [Mass/Vol] 13.9 g/dL Normal 13.0-17.0 [facility] Comment on above: Performed By: #### B MP, CRP, CBC, ESR #### [address] Lymphocytes (Bld) [#/Vol] 3.1 10*3/uL Normal 1.00-4.8 [facility] Comment on above: Performed By: #### B MP, CRP, CBC, ESR #### [address] Lymphocytes/100 WBC (Bld) 30.9 % Normal . [facility] Comment on above: Performed By: #### B MP, CRP, CBC, ESR #### [address] MCH (RBC) [Entitic mass] 27.0 pg Low 27.5-35.2 [facility] Comment on above: Performed By: #### B MP, CRP, CBC, ESR #### [address] MCV (RBC) [Entitic vol] 79.8 fL Low 83.5-101 T [facility] Comment on above: Performed By: #### B MP, CRP, CBC, ESR #### [address] Mean Corpuscular HGB Conc 33.8 g/dL Normal 32.5-35.6 [facility] Comment on above: Performed By: #### B MP, CRP, CBC, ESR #### [address] Monocytes (Bld) [#/Vol] 0.9 10*3/uL High 0.0-0.8 [facility] Comment on above: Performed By: #### B MP, CRP, CBC, ESR #### [facility] [address] [place] [address] [place] Monocytes/100 WBC (Bld) 8.8 % Normal . T noe [facility] Comment on above: Performed By: #### B MP, CRP, CBC, ESR #### [facility] [address] Neutrophils (Bld) [#/Vol] 5.7 10*3/uL Normal 1.8-7.7 [facility] Comment on above: Performed By: #### B MP, CRP, CBC, ESR #### [facility] [address] [place] [address] [place] Neutrophils/100 WBC (Bld) 56.4 % Normal . [facility] Comment on above: Performed By: #### B MP, CRP, CBC, ESR #### [facility] [address] NRBC% 0.0 /100{WBC} Normal 0-0.5 [facility] Comment on above: Performed By: #### B MP, CRP, CBC, ESR #### [facility] [address] [place] [address] [place] Platelet mean volume (Bld) [Entitic vol] 8.8 fL Normal 6.6-10.[address] [facility] Comment on above: Performed By: #### B MP, CRP, CBC, ESR #### [facility] [address] [place] [address] [place] Platelets (Bld) [#/Vol] 293 10*3/uL Normal 150-450 [facility] Comment on above: Performed By: #### B MP, CRP, CBC, ESR #### [facility] [address] [place] [address] [place] RBC (Bld) [#/Vol] 5.16 10*6/uL Normal 3.90-5.60 [facility] Comment on above: Performed By: #### B MP, CRP, CBC, ESR #### [facility] [address] [place] [address] [place] WBC (Bld) [#/Vol] 10.1 10*3/uL Normal 4.1-10.5 [facility] Comment on above: Performed By: #### B MP, CRP, CBC, ESR #### [address] Creatinine [Mass/volume] in Serum or PlasmaOrdered By: Shahram Vergara on 07-22-2024 Creatinine [Mass/Vol] Creatinine [Mass/volume] in Serum or Plasma High 0.70-1.30 [facility] Eosinophils Auto (Bld) [#/Vo l]Ordered By: Shahram Vergara on 07-22-2024 Eosinophils (Bld) [#/Vol] Automated eosinophil count 0.0-0.45 [facility] Eosinophils/100 WBC Auto (Bl d)Ordered By: Shahram Vergara on 07-22-2024 Eosinophils/100 WBC (Bld) Automated eosinophil % . [facility] Erythrocyte Sedimentation Ra lesvia 07-22-2024 ESR (Bld) [Velocity] 38 mm/h High 0-19 [facility] Comment on above: Result Comment: PERF ORMED BY: [place] [address] PATHOLOGIST BIOINFORMATICIST KEITH AGUILAR M.D. Performed By: #### B MP, CRP, CBC, ESR #### [address] Erythrocyte distribution wid th Auto (RBC) [Ratio]Ordered By: Shahram Vergara on 07-22-2024 Erythrocyte distribution width (RBC) [Ratio] Erythrocyte distribution width [Ratio] by Automated count 12.0-14.8 [facility] Erythrocyte sedimentation ra te by Photometric methodOrdered By: Shahram Vergara on 07-22-2024 ESR Photometric method (Bld) [Velocity] Erythrocyte sedimentation rate by Photometric method High 0-19 [facility] Glucose [Mass/volume] in Ser um or PlasmaOrdered By: Shahram Vergara on 07-22-2024 Glucose [Mass/Vol] Glucose [Mass/volume] in Serum or Plasma High 70-100 [facility] Comment on above: ADA recommended refe rence rangeRandom Glucose Reference Range is dependent on time and content of last meal. Glucose of more than 200 mg/dL in a nonstressed, ambulatory subject supports the diagnosis of Diabetes Mellitus. Hematocrit Auto (Bld) [Volum e fraction]Ordered By: Shahram Vergara on 07-22-2024 Hematocrit (Bld) [Volume fraction] Hematocrit [Volume Fraction] of Blood by Automated count 38.8-50.0 [facility] Hemoglobin [Mass/volume] in BloodOrdered By: Shahram Vergara on 07-22-2024 Hemoglobin (Bld) [Mass/Vol] Hemoglobin [Mass/volume] in Blood 13.0-17.0 [facility] Leukocytes [#/volume] correc nataliia for nucleated erythrocytes in Blood by Automated counOrdered By: Shahram Vergara on 07-22-2024 WBC corrected for nucl RBC Auto (Bld) [#/Vol] Leukocytes [#/volume] corrected for nucleated erythrocytes in Blood by Automated coun 4.1-10.5 [facility] Lymphocytes Auto (Bld) [#/Vo l]Ordered By: Shahram Vergara on 07-22-2024 Lymphocytes (Bld) [#/Vol] Lymphocytes [#/volume] in Blood by Automated count 1.00-4.8 [facility] Lymphocytes/100 WBC Auto (Bl d)Ordered By: Shahram Vergara on 07-22-2024 Lymphocytes/100 WBC (Bld) Lymphocytes/100 leukocytes in Blood by Automated count . [facility] MCH Auto (RBC) [Entitic mass ]Ordered By: Shahram Vergara on 07-22-2024 MCH (RBC) [Entitic mass] MCH [Entitic mass] by Automated count Low 27.5-35.2 [facility] MCHC Auto (RBC) [Mass/Vol]Or dered By: Shahram Vergara on 07-22-2024 MCHC (RBC) [Mass/Vol] MCHC [Mass/volume] by Automated count 32.5-35.6 [facility] MCV Auto (RBC) [Entitic vol] Ordered By: Shahram Vergara on 07-22-2024 MCV (RBC) [Entitic vol] MCV [Entitic vol ume] by Automated count Low 83.5-101 [facility] Monocytes Auto (Bld) [#/Vol] Ordered By: Shahram Vergara on 07-22-2024 Monocytes (Bld) [#/Vol] Automated blood monocyte count High 0.0-0.8 [facility] Monocytes/100 WBC Auto (Bld) Ordered By: Shahram Vergara on 07-22-2024 Monocytes/100 WBC (Bld) Automated monocyte % . [facility] Neutrophils Auto (Bld) [#/Vo l]Ordered By: Shahram Vergara on 07-22-2024 Neutrophils (Bld) [#/Vol] Neutrophils [#/volume] in Blood by Automated count 1.8-7.7 [facility] Neutrophils/100 WBC Auto (Bl d)Ordered By: Shahram Vergara on 07-22-2024 Neutrophils/100 WBC (Bld) Automated neutrophil % . [facility] No Panel InformationOrdered By: Shahram Vergara on 07-22-2024 Estimated GFR (CKD-EPI) 58.989 mL/Min [facility] Creatinine Clearance (Chem N/A [facility] Nucleated erythrocytes [Pres ence] in Blood by Automated countOrdered By: Shahram Vergara on 07-22-2024 Nucleated RBC Auto Ql (Bld) Nucleated erythrocytes [Presence] in Blood by Automated count 0-0.5 [facility] Platelet mean volume Auto (B ld) [Entitic vol]Ordered By: Shahram Vergara on 07-22-2024 Platelet mean volume (Bld) [Entitic vol] Platelet mean volume [Entitic volume] in Blood by Automated count 6.6-10.1 [facility] Platelets Auto (Bld) [#/Vol] Ordered By: Shahram Vergara on 07-22-2024 Platelets (Bld) [#/Vol] Platelets [#/vol ume] in Blood by Automated count 150-450 [facility] Potassium [Moles/volume] in Serum or PlasmaOrdered By: Shahram Vergara on 07-22-2024 Potassium [Moles/Vol] Potassium [Moles/volume] in Serum or Plasma 3.5-5.1 [facility] RBC Auto (Bld) [#/Vol]Ordere d By: Shahram Vergara on 07-22-2024 RBC (Bld) [#/Vol] Erythrocytes [#/volume] in Blood by Automated count 3.90-5.60 [facility] Serum or plasma anion gap de terminationOrdered By: Shahram Vergara on 07-22-2024 Anion gap [Moles/Vol] Serum or plasma anion gap determination 6.0-15.0 [facility] Sodium [Moles/volume] in Ser um or PlasmaOrdered By: Shahram Vergara on 07-22-2024 Sodium [Moles/Vol] Sodium [Moles/volume] in Serum or Plasma 136-145 [facility] Urea nitrogen [Mass/volume] in Serum or PlasmaOrdered By: Shahram Vergara on 07-22-2024 Urea nitrogen [Mass/Vol] Urea nitrogen [Mass/volume] in Serum or Plasma 7-25 [facility] WBC Auto (Bld) [#/Vol]Ordere d By: Shahram Vergara on 07-22-2024 WBC (Bld) [#/Vol] Leukocytes [#/volume] in Blood by Automated count 4.1-10.5 [facility] X-ray reportOrdered By: Vel Dominguez on 07-22-2024 Study report [facility] [address] [place] [address] XRay Report Signed Patient: Merlin Fish MR#: [id number] : 1970 Acct:[id number] Age/Sex: 54 / M ADM Date: 5 Loc: [facility] [place] Room: Type: [facility] Attending Dr: Shahram Vergara DO Copies to: [...] PROCESS. Impression dictated by: Mauro Dominguez Jr., D.O.07/22/2024 4:20 PM Dictation Location: RADIO-PC-19 Transcribed By: SAMIA 07/22/24 1620 Dictated By: Mauro Dominguez Jr, DO 07/22/24 161 Signed By: 07/22/24 162 [facility] X-ray reportOrdered By: Haroon Quiñones on 07-22-2024 Study report [facility] [place] [address] XRay Report Signed Patient: Merlin Fish MR#: [id number] : 1970 Acct:[id number] Age/Sex: 54 / M ADM Date: 5 Loc: [facility] Room: Type: REG CLI Attending Dr: Shahram [...] 4:15 PM Dictation Location: RADIO-PC-20 Transcribed By: SAMIA 07/22/24 161 Dictated By: Carl Quiñones DO 07/22/24 1613 Signed By: 07/22/24 1615 [facility] XR elbow RT 2Von 07-22-2024 XR elbow RT 2V [facility] [place] [address] XRay Report Signed Patient: Merlin Fish MR#: [id number] : 1970 Acct:[id number] Age/Sex: 54 / M ADM Date: 07/22/24 Loc: [facility] Room: Type: REG CLI Attending Dr: Shahram [...] PROCESS. Impression dictated by: Mauro Dominguez Jr., D.O.07/22/2024 4:20 PM Dictation Location: [facility] Transcribed By: SAMIA 07/22/24 1620 Dictated By: Mauro Dominguez Jr, DO 07/22/24 1619 Signed By: 07/22/24 1620 Normal [facility] XR wrist RT min 3V*on 2024 XR wrist RT min 3V* [facility] [address] [place] [address] XRay Report Signed Patient: Merlin Fish MR#: [id number] : 1970 Acct:[id number] Age/Sex: 54 / M ADM Date: 07/22/24 Loc: [facility] – [place] Room: Type: [facility] Attending Dr: Shahram Vergara DO Copies to: [...] Carl Quiñones M.D.07/22/2024 4:15 PM Dictation Location[facility] Transcribed By: SAMIA 07/22/24 1615 Dictated By: IshmaelCarl Juan Carlso DO 07/22/24 1613 Signed By: 07/22/24 1615 Normal [facility] XR WRIST RT MIN 3 [...] Ontiveros MD on 07/17/2024 12:29 PM Normal [facility] XR SHOULDER LT MIN 2 VWSon [...] Lopez MD on 07/03/2024 8:30 PM Normal [facility] XR HAND LT MIN 3 VWSon [...] Enriquez MD on 12/12/2023 3:46 PM Normal [facility] CBC AND AUTO DIFFon 11-08-19 ABSOLUTE BASOPHIL 0.1 X10E9/L Normal 0.0-0.2 [facility] Comment on above: Performed By: #### C BCA, CMP, 73445-2 #### [facility] ([id number]) [address], [address] [place] [address] ABSOLUTE NEUTROPHIL 9.7 X10E9/L High 1.5-6.6 [facility] Comment on above: Performed By: #### C ALEXANDRA GOMEZ, #### [facility] ([id number]) [address], [address] [place] [address] Basophils/100 WBC (Bld) 0.9 % Normal [facility] Comment on above: Performed By: #### Ricardo GOMEZ CMP, #### [facility] ([id number]) [address], [address] [place] [address] Eosinophils (Bld) [#/Vol] 0.4 10*3/uL Normal 0.0-0.4 [facility] Comment on above: Performed By: #### Ricardo GOMEZ CMP, #### [facility] ([id number]) [address], [address] [place] [address] Eosinophils/100 WBC (Bld) 2.6 % Normal [facility] Comment on above: Performed By: #### Ricardo GOMEZ CMP, #### [facility] ([id number]) [address], [address] [place] [address] Erythrocyte distribution width (RBC) [Ratio] 14.9 % Normal 11.5-15.0 [facility] Comment on above: Performed By: #### Ricardo GOMEZ CMP, #### [facility] ([id number]) [address], [address] [place] [address] Hematocrit (Bld) [Volume fraction] 49.2 % High 39-49 [facility] Comment on above: Performed By: #### Ricardo GOMEZ, CMP, #### [facility] ([id number]) [address], [address] [place] [address] Hemoglobin (Bld) [Mass/Vol] 16.2 g/dL Normal 13.0-17.0 [facility] Comment on above: Performed By: #### C PATRICIA CMP, #### [facility] ([id number]) [address], [address] [place] [address] Lymphocytes (Bld) [#/Vol] 4.7 10*3/uL High 1.0-3.5 [facility] Comment on above: Performed By: #### C PATRICIA [facility], #### [facility] ([id number]) [address], [address] [place] [address] Lymphocytes/100 WBC (Bld) 28.7 % Normal [facility] Comment on above: Performed By: #### C PATRICIA, [facility], #### [facility] ([id number]) [address], [address] [place] [address] MCH (RBC) [Entitic mass] 26.3 pg Low 27-34 [facility] Comment on above: Performed By: #### C PATRICIA, [facility], #### [facility] ([id number]) [address] [place] [address] MCHC (RBC) [Mass/Vol] 32.9 g/dL Normal 32-36 [facility] Comment on above: Performed By: #### Ricardo GOMEZ CMP, #### [facility] ([id number]) [address] [place] [address] MCV (RBC) [Entitic vol] 80 fL Normal 80-100 [facility] Comment on above: Performed By: #### C PATRICIA, CMP, #### [facility] ([id number]) [address] [place] [address] Monocytes (Bld) [#/Vol] 1.3 10*3/uL High 0-0.9 [facility] Comment on above: Performed By: #### Ricardo GOMEZ, CMP, #### [facility] ([id number]) [address], [address] [place] [address] Monocytes/100 WBC (Bld) 8.2 % Normal [facility] Comment on above: Performed By: #### C PATRICIA, CMP, #### [facility] ([id number]) [address], [address] [place] [address] Neutrophils/100 WBC (Bld) 59.6 % Normal [facility] Comment on above: Performed By: #### C PATRICIA, CMP, #### [facility] ([id number]) [address], [address] [place] [address] Platelet mean volume (Bld) [Entitic vol] 9.0 fL Normal 7-12 [facility] Comment on above: Performed By: #### Ricardo GOMEZ, CMP, #### [facility] ([id number]) [address] [place] [address] Platelets (Bld) [#/Vol] 273 10*3/uL Normal 150-450 [facility] Comment on above: Performed By: #### Ricardo GOMEZ, CMP, #### [facility] ([id number]) [address] [place] [address] RBC COUNT 6.16 X10E12/L High 4.10-5.70 [facility] Comment on above: Performed By: #### C BCA, CMP, #### [facility] ([id number]) [address], [address] [place] [address] WBC (Bld) [#/Vol] 16.2 10*3/uL High 4.0-11.[address] [facility] Comment on above: Performed By: #### Ricardo BCA, CMP, #### [facility] ([id number]) [address], [address] [place] [address] CBC auto differentialon 10-16 Basophils (Bld) [#/Vol] 0.1 10*3/uL [facility] Basophils/100 WBC (Bld) 0.9 % [facility] Eosinophils (Bld) [#/Vol] 0.4 10*3/uL [facility] Eosinophils/100 WBC (Bld) 2.6 % [facility] Erythrocyte distribution width (RBC) [Ratio] 14.9 % 11.5 - 15.0 % [facility] Hematocrit (Bld) [Volume fraction] 49.2 % High 39 - 49 % [facility] Hemoglobin (Bld) [Mass/Vol] 16.2 g/dL 13.0 - 17.0 g/dL [facility] Interpretation and review of laboratory results Abnormal [facility] Lymphocytes (Bld) [#/Vol] 4.7 10*3/uL High [facility] Lymphocytes/100 WBC (Bld) 28.7 % [facility] MCH (RBC) [Entitic mass] 26.3 pg Low 27 - 34 pg [facility] MCHC (RBC) [Mass/Vol] 32.9 g/dL 32 - 36 g/dL [facility] MCV (RBC) [Entitic vol] 80 fL 80 - 100 fL [facility] Monocytes (Bld) [#/Vol] 1.3 10*3/uL High [facility] Monocytes/100 WBC (Bld) 8.2 % [facility] Neutrophils (Bld) [#/Vol] 9.7 10*3/uL High [facility] Neutrophils/100 WBC (Bld) 59.6 % [facility] Platelet mean volume (Bld) [Entitic vol] 9.0 fL 7 - 12 fL [facility] Platelets (Bld) [#/Vol] 273 10*3/uL [facility] RBC (Bld) [#/Vol] 6.16 10*6/uL High [facility] WBC corrected for nucl RBC Auto (Bld) [#/Vol] 16.2 High [facility] COMPREHENSIVE METABOLIC PANE Reynaldo 11-08-2023 Albumin [Mass/Vol] 4.5 g/dL Normal 3.2-5.3 [facility] Comment on above: Performed By: #### C PATRICIA, CMP, 76000-0 #### [facility] ([id number]) [address], [address] [place] [address] ALP [Catalytic activity/Vol] 76 U/L Normal 39-130 [facility] Comment on above: Performed By: #### C PATRICIA, CMP, #### [facility] ([id number]) [address], [address] [place] [address] ALT [Catalytic activity/Vol] 21 U/L Normal 0-40 [facility] Comment on above: Performed By: #### C BCA, CMP, #### [facility] ([id number]) [address], [address] [place] [address] Anion gap [Moles/Vol] 12 mmol/L Normal 5-15 [facility] Comment on above: Performed By: #### C BCA, CMP, #### [facility] ([id number]) [address], [address] [place] [address] AST [Catalytic activity/Vol] 14 U/L Normal 0-41 [facility] Comment on above: Performed By: #### C BCA, CMP, #### [facility] ([id number]) [address], [address] [place] [address] Bilirubin [Mass/Vol] 1.0 mg/dL Normal 0.3-1.2 [facility] Comment on above: Performed By: #### C BCA, CMP, #### [facility] ([id number]) [address], [address] [place] [address] Calcium [Mass/Vol] 9.3 mg/dL Normal 8.5-10.5 [facility] Comment on above: Performed By: #### C PATRICIA [facility], #### [facility] ([id number]) [address] [place] [address] Chloride [Moles/Vol] 100 mmol/L Normal 98-109 [facility] Comment on above: Performed By: #### C PATRICIA [facility], #### [facility] ([id number]) [address], [address] [place] [address] CO2 [Moles/Vol] 25 mmol/L Normal 22-32 [facility] Comment on above: Performed By: #### C ALEXANDRA GOMEZ, #### [facility] ([id number]) [address] [place] [address] Creatinine [Mass/Vol] 1.04 mg/dL Normal 0.60-1.30 [facility] Comment on above: Result Comment: METH OD TRACEABLE TO IDMS STANDARD Performed By: #### C PATRICIA [facility], #### [facility] ([id number]) [address] [place] [address] GFR/1.73 sq M.predicted among non-blacks MDRD (S/P/Bld) [Vol rate/Area] 85 mL/min/{1.73_m2} Normal >59 [facility] Comment on above: Result Comment: Reported eGFR is based on the CKD-EPI 1 equation that does not use a race coefficient. Performed By: #### C ALEXANDRA GOMEZ, #### [facility] ([id number]) [address], [address] [place] [address] Glucose [Mass/Vol] 164 mg/dL High 65-99 [facility] Comment on above: Performed By: #### C PATRICIA CMP, #### [facility] ([id number]) [address], [address] [place] [address] Potassium [Moles/Vol] 4.3 mmol/L Normal 3.5-5.0 [facility] Comment on above: Performed By: #### C BCA, CMP, 24639-6 #### [facility] ([id number]) [address], [address] [place] [address] Protein [Mass/Vol] 7.8 g/dL Normal 6.0-8.0 [facility] Comment on above: Performed By: #### C BCA, CMP, 93671-1 #### [facility] ([id number]) [address], [address] [place] [address] Sodium [Moles/Vol] 137 mmol/L Normal 134-146 [facility] Comment on above: Performed By: #### C BCA, CMP, 83534-8 #### [facility] ([id number]) [address], [address] [place] [address] Urea nitrogen [Mass/Vol] 20 mg/dL Normal 5-23 [facility] Comment on above: Performed By: #### C BCA, CMP, 80979-4 #### [facility] ([id number]) [address], [address] [place] [address] Cardiac Invasiveon 4 Cath EF Calculated 65 % [facility] 1. Angiographically normal coronary arteries 2. Incidental [...] inferior, apical anterior and apical inferior. XPER [facility] Radiology Study observation (narrative) [facility] Comprehensive metabolic pane reynaldo 11-08-2023 Albumin [Mass/Vol] 4.5 g/dL 3.2 - 5.3 g/dL [facility] ALP [Catalytic activity/Vol] 76 U/L 39 - 130 U/L [facility] ALT No additional P-5'-P [Catalytic activity/Vol] 21 U/L 0 - 40 U/L [facility] Anion gap [Moles/Vol] 12 mmol/L 5 - 15 mmol/L [facility] AST [Catalytic activity/Vol] 14 U/L 0 - 41 U/L [facility] Bilirubin [Mass/Vol] 1.0 mg/dL 0.3 - 1 .2 mg/dL [facility] Calcium [Mass/Vol] 9.3 mg/dL 8.5 - 10. 5 mg/dL [facility] Chloride [Moles/Vol] 100 mmol/L 98 - 10 9 mmol/L [facility] CO2 [Moles/Vol] 25 mmol/L 22 - 32 mmol/L [facility] Creatinine [Mass/Vol] 1.04 mg/dL 0.60 - 1.30 mg/dL [facility] Comment on above: METHOD TRACEABLE TO IDKS STANDARD eGFR (CKD-EPI)non-race dependent 85 - PINF [facility] Comment on above: Reported eGFR is based on the CKD-EPI 2020 equation that does not use a race coefficient. Glucose [Mass/Vol] 164 mg/dL High 65 - 99 mg/dL [facility] Interpretation and review of laboratory results Abnormal [facility] Potassium [Moles/Vol] 4.3 mmol/L 3.5 - 5.0 mmol/L [facility] Protein [Mass/Vol] 7.8 g/dL 6.0 - 8.0 g/dL [facility] Sodium [Moles/Vol] 137 mmol/L 134 - 146 mmol/L [facility] Urea nitrogen [Mass/Vol] 20 mg/dL 5 - 23 mg/dL [facility] Glucose Glucometer (BldC) [M ass/Vol]on 11-08-2023 Glucose [Mass/Vol] 157 mg/dL High 65-99 [facility] Glucose [Mass/Vol] 157 mg/dL High 65 - 99 mg/dL [facility] Interpretation and review of laboratory results Abnormal [facility] Glucose [Mass/Vol] 188 mg/dL High 65-99 [facility] MAGNESIUMon 11-08-2023 Magnesium [Mass/Vol] 2.1 mg/dL Normal 1.8-2.6 [facility] Comment on above: Performed By: #### Ricardo GOMEZ CMP, 95924-4 #### [facility] ([id number]) [address], [address] [place] [address] Magnesiumon 11-08-2023 Magnesium [Mass/Vol] 2.1 mg/dL 1.8 - 2 .6 mg/dL [facility] No Panel Informationon 11-07 [facility] CBC AND AUTO DIFFon 11-07-19 ABSOLUTE BASOPHIL 0.1 X10E9/L Normal 0.0-0.2 [facility] Comment on above: Performed By: #### Ricardo GOMEZ CMP, 25213-0 #### [facility] ([id number]) [address] [place] [address] ABSOLUTE NEUTROPHIL 8.7 X10E9/L High 1.5-6.6 [facility] Comment on above: Performed By: #### Ricardo GOMEZ CMP, 70307-7 #### [facility] ([id number]) [address], [address] [place] [address] Basophils/100 WBC (Bld) 0.4 % Normal [facility] Comment on above: Performed By: #### Ricardo GOMEZ CMP, #### [facility] ([id number]) [address] [place] [address] Eosinophils (Bld) [#/Vol] 0.3 10*3/uL Normal 0.0-0.4 [facility] Comment on above: Performed By: #### C PATRICIA, CMP, #### [facility] ([id number]) [address], [facility] [address] [place] [address] Eosinophils/100 WBC (Bld) 2.0 % Normal [facility] Comment on above: Performed By: #### C PATRICIA, [facility], #### [facility] ([id number]) [address] [address] [place] [address] Erythrocyte distribution width (RBC) [Ratio] 14.6 % Normal 11.5-15.0 [facility] Comment on above: Performed By: #### Ricardo GOMEZ, [facility], #### [facility] ([id number]) [address] [address] [place] [address] Hematocrit (Bld) [Volume fraction] 45.5 % Normal 39-49 [facility] Comment on above: Performed By: #### C PATRICIA, [facility], #### [facility] ([id number]) [address] [address] [place] [address] Hemoglobin (Bld) [Mass/Vol] 14.9 g/dL Normal 13.0-17.0 [facility] Comment on above: Performed By: #### C BCA, CMP, #### [facility] ([id number]) [address] [address] [place] [address] Lymphocytes (Bld) [#/Vol] 4.2 10*3/uL High 1.0-3.5 [facility] Comment on above: Performed By: #### C PATRICIA, CMP, #### [facility] ([id number]) [address], [address] [place] [address] Lymphocytes/100 WBC (Bld) 28.9 % Normal [facility] Comment on above: Performed By: #### C PATRICIA, CMP, #### [facility] ([id number]) [address] [place] [address] MCH (RBC) [Entitic mass] 26.2 pg Low 27-34 [facility] Comment on above: Performed By: #### C PATRICIA, CMP, #### [facility] ([id number]) [address] [place] [address] MCHC (RBC) [Mass/Vol] 32.7 g/dL Normal 32-36 [facility] Comment on above: Performed By: #### Ricardo GOMEZ, CMP, #### [facility] ([id number]) [address] [place] [address] MCV (RBC) [Entitic vol] 80 fL Normal 80-100 [facility] Comment on above: Performed By: #### Ricardo GOMEZ, CMP, #### [facility] ([id number]) [address] [place] [address] Monocytes (Bld) [#/Vol] 1.2 10*3/uL High 0-0.9 [facility] Comment on above: Performed By: #### Ricardo GOMEZ, CMP, #### [facility] ([id number]) [address] [place] [address] Monocytes/100 WBC (Bld) 8.3 % Normal [facility] Comment on above: Performed By: #### Ricardo GOMEZ, CMP, #### [facility] ([id number]) [address] [place] [address] Neutrophils/100 WBC (Bld) 60.4 % Normal [facility] Comment on above: Performed By: #### Ricardo GOMEZ CMP, #### [facility] ([id number]) [address], [address] [address] Platelet mean volume (Bld) [Entitic vol] 8.6 fL Normal 7-12 [facility] Comment on above: Performed By: #### Ricardo GOMEZ CMP, #### [facility] ([id number]) [address], [address] [address] Platelets (Bld) [#/Vol] 265 10*3/uL Normal 150-450 [facility] Comment on above: Performed By: #### Ricardo GOMEZ CMP, #### [facility] ([id number]) [address] [address] RBC COUNT 5.68 X10E12/L Normal 4.10-5.70 [facility] Comment on above: Performed By: #### Ricardo GOMEZ CMP, #### [facility] ([id number]) [address], [address] [address] WBC (Bld) [#/Vol] 14.4 10*3/uL High 4.0-11.[address] [facility] Comment on above: Performed By: #### Ricardo GOMEZ CMP, #### [facility] ([id number]) [address] [address] [place] [address] CBC auto differentialon 05-2 Basophils (Bld) [#/Vol] 0.1 10*3/uL [facility] Basophils/100 WBC (Bld) 0.4 % P [facility] Eosinophils (Bld) [#/Vol] 0.3 10*3/uL [facility] Eosinophils/100 WBC (Bld) 2.0 % [facility] Erythrocyte distribution width (RBC) [Ratio] 14.6 % 11.5 - 15.0 % [facility] Hematocrit (Bld) [Volume fraction] 45.5 % 39 - 49 % [facility] Hemoglobin (Bld) [Mass/Vol] 14.9 g/dL 13.0 - 17.0 g/dL [facility] Interpretation and review of laboratory results Abnormal [facility] Lymphocytes (Bld) [#/Vol] 4.2 10*3/uL High [facility] Lymphocytes/100 WBC (Bld) 28.9 % [facility] MCH (RBC) [Entitic mass] 26.2 pg Low 27 - 34 pg [facility] MCHC (RBC) [Mass/Vol] 32.7 g/dL 32 - 36 g/dL [facility] MCV (RBC) [Entitic vol] 80 fL 80 - 100 fL [facility] Monocytes (Bld) [#/Vol] 1.2 10*3/uL High [facility] Monocytes/100 WBC (Bld) 8.3 % [facility] Neutrophils (Bld) [#/Vol] 8.7 10*3/uL High [facility] Neutrophils/100 WBC (Bld) 60.4 % [facility] Platelet mean volume (Bld) [Entitic vol] 8.6 fL 7 - 12 fL [facility] Platelets (Bld) [#/Vol] 265 10*3/uL [facility] RBC (Bld) [#/Vol] 5.68 10*6/uL [facility] WBC corrected for nucl RBC Auto (Bld) [#/Vol] 14.4 High [facility] COMPREHENSIVE METABOLIC PANE Reynaldo 11-07-2023 Albumin [Mass/Vol] 4.3 g/dL Normal 3.2-5.3 [facility] Comment on above: Performed By: #### C BCA, CMP, 63096-5 #### [facility] ([id number]) [address], [address] [place] [address] ALP [Catalytic activity/Vol] 71 U/L Normal 39-130 [facility] Comment on above: Performed By: #### C BCA, CMP, #### [facility] ([id number]) [address], [address] [place] [address] ALT [Catalytic activity/Vol] 17 U/L Normal 0-40 [facility] Comment on above: Performed By: #### C BCA, CMP, #### [facility] ([id number]) [address], [address] [place] [address] Anion gap [Moles/Vol] 15 mmol/L Normal 5-15 [facility] Comment on above: Performed By: #### C BCA, CMP, #### [facility] ([id number]) [address], [address] [place] [address] AST [Catalytic activity/Vol] 15 U/L Normal 0-41 [facility] Comment on above: Performed By: #### C BCA, CMP, #### [facility] ([id number]) [address], [address] [place] [address] Bilirubin [Mass/Vol] 0.4 mg/dL Normal 0.3-1.2 [facility] Comment on above: Performed By: #### C BCA, CMP, #### [facility] ([id number]) [address] [place] [address] Calcium [Mass/Vol] 9.6 mg/dL Normal 8.5-10.5 [facility] Comment on above: Performed By: #### C BCA, CMP, #### [facility] ([id number]) [address] [place] [address] Chloride [Moles/Vol] 99 mmol/L Normal 98-109 [facility] Comment on above: Performed By: #### C BCA, CMP, #### [facility] ([id number]) [address] [place] [address] CO2 [Moles/Vol] 24 mmol/L Normal 22-32 [facility] Comment on above: Performed By: #### C ALEXANDRA GOMEZ, 45266-0 #### [facility] ([id number]) [address] [place] [address] Creatinine [Mass/Vol] 1.09 mg/dL Normal 0.60-1.30 [facility] Comment on above: Result Comment: METH OD TRACEABLE TO IDMS STANDARD Performed By: #### C ALEXANDRA GOMEZ, 68324-8 #### [facility] ([id number]) [address] [place] [address] GFR/1.73 sq M.predicted among non-blacks MDRD (S/P/Bld) [Vol rate/Area] 80 mL/min/{1.73_m2} Normal >59 [facility] Comment on above: Result Comment: Reported eGFR is based on the CKD-EPI 2020 equation that does not use a race coefficient. Performed By: #### C ALEXANDRA GOMEZ, #### [facility] ([id number]) [address] [place] [address] Glucose [Mass/Vol] 171 mg/dL High 65-99 [facility] Comment on above: Performed By: #### Ricardo GOMEZ CMP, #### [facility] ([id number]) [address] [address] [place] [address] Potassium [Moles/Vol] 3.4 mmol/L Low 3.5-5.0 [facility] Comment on above: Performed By: #### C ALEXANDRA GOMEZ, #### [facility] ([id number]) [address] [place] [address] Protein [Mass/Vol] 7.5 g/dL Normal 6.0-8.0 [facility] Comment on above: Performed By: #### C BCA, CMP, 57181-2 #### [facility] ([id number]) [address], [address] [place] [address] Sodium [Moles/Vol] 138 mmol/L Normal 134-146 [facility] Comment on above: Performed By: #### C BCA, CMP, 49259-4 #### [facility] ([id number]) [address], [address] [place] [address] Urea nitrogen [Mass/Vol] 24 mg/dL High 5-23 [facility] Comment on above: Performed By: #### C BCA, CMP, 19349-8 #### [facility] ([id number]) [address], [address] [place] [address] Comprehensive metabolic pane reynaldo 11-07-2023 Albumin [Mass/Vol] 4.3 g/dL 3.2 - 5.3 g/dL [facility] ALP [Catalytic activity/Vol] 71 U/L 39 - 130 U/L [facility] ALT No additional P-5'-P [Catalytic activity/Vol] 17 U/L 0 - 40 U/L [facility] Anion gap [Moles/Vol] 15 mmol/L 5 - 15 mmol/L [facility] AST [Catalytic activity/Vol] 15 U/L 0 - 41 U/L [facility] Bilirubin [Mass/Vol] 0.4 mg/dL 0.3 - 1 .2 mg/dL [facility] Calcium [Mass/Vol] 9.6 mg/dL 8.5 - 10. 5 mg/dL [facility] Chloride [Moles/Vol] 99 mmol/L 98 - 10 9 mmol/L [facility] CO2 [Moles/Vol] 24 mmol/L 22 - 32 mmol/L [facility] Creatinine [Mass/Vol] 1.09 mg/dL 0.60 - 1.30 mg/dL [facility] Comment on above: METHOD TRACEABLE TO IDKS STANDARD eGFR (CKD-EPI)non-race dependent 80 - PINF [facility] Comment on above: Reported eGFR is based on the CKD-EPI 2020 equation that does not use a race coefficient. Glucose [Mass/Vol] 171 mg/dL High 65 - 99 mg/dL [facility] Interpretation and review of laboratory results Abnormal [facility] Potassium [Moles/Vol] 3.4 mmol/L Low 3.5 - 5.0 mmol/L [facility] Protein [Mass/Vol] 7.5 g/dL 6.0 - 8.0 g/dL [facility] Sodium [Moles/Vol] 138 mmol/L 134 - 146 mmol/L [facility] Urea nitrogen [Mass/Vol] 24 mg/dL High 5 - 23 mg/dL [facility] Glucose Glucometer (BldC) [M ass/Vol]on 11-07-2023 Glucose [Mass/Vol] 188 mg/dL High 65 - 99 mg/dL [facility] Interpretation and review of laboratory results Abnormal [facility] Glucose [Mass/Vol] 167 mg/dL High 65-99 [facility] Glucose [Mass/Vol] 167 mg/dL High 65 - 99 mg/dL [facility] Interpretation and review of laboratory results Abnormal [facility] MAGNESIUMon 11-07-2023 Magnesium [Mass/Vol] 2.1 mg/dL Normal 1.8-2.6 [facility] Comment on above: Performed By: #### 2 823-3, 00798-2 #### [facility] ([id number]) [address], [address] [place] [address] Magnesium [Mass/Vol] 1.9 mg/dL Normal 1.8-2.6 [facility] Comment on above: Performed By: #### C BCA, [facility], #### [facility] ([id number]) [address], [address] [place] [address] Magnesiumon 11-07-2023 Magnesium [Mass/Vol] 2.1 mg/dL 1.8 - 2 .6 mg/dL [facility] Magnesium [Mass/Vol] 1.9 mg/dL 1.8 - 2 .6 mg/dL [facility] No Panel Informationon 11-06 [facility] POTASSIUMon 11-07-2023 Potassium [Moles/Vol] 4.1 mmol/L Normal 3.5-5.0 [facility] Comment on above: Performed By: #### 2 823-3, 22754-1 #### [facility] ([id number]) [address], [address] [place] [address] Potassiumon 11-07-2023 Potassium [Moles/Vol] 4.1 mmol/L 3.5 - 5.0 mmol/L [facility] CBC AND AUTO DIFFon 11-06-19 ABSOLUTE BASOPHIL 0.1 X10E9/L Normal 0.0-0.2 [facility] Comment on above: Performed By: #### 4 8066-5, 16966-0, 3040-3, CBCA, CMP #### [facility] ([id number]) [address] [place] [address] ABSOLUTE NEUTROPHIL 13.4 X10E9/L High 1.5-6.6 [facility] Comment on above: Performed By: #### 4 8066-5, 01839-9, 3040-3, CBCA, CMP #### [facility] ([id number]) [address] [place] [address] Basophils/100 WBC (Bld) 0.4 % Normal [facility] Comment on above: Performed By: #### 4 8066-5, 30242-7, 3040-3, CBCA, CMP #### [facility] ([id number]) [address] [place] [address] Eosinophils (Bld) [#/Vol] 0.1 10*3/uL Normal 0.0-0.4 [facility] Comment on above: Performed By: #### 4 8066-5, 40916-2, 3040-3, CBCA, CMP #### [facility] ([id number]) [address] [place] [address] Eosinophils/100 WBC (Bld) 0.8 % Normal [facility] Comment on above: Performed By: #### 4 8066-5, 76996-6, 3040-3, CBCA, CMP #### [facility] ([id number]) [address] [place] [address] Erythrocyte distribution width (RBC) [Ratio] 14.9 % Normal 11.5-15.0 [facility] Comment on above: Performed By: #### 4 8066-5, 66870-3, 3040-3, CBCA, CMP #### [facility] ([id number]) [address] [place] [address] Hematocrit (Bld) [Volume fraction] 45.1 % Normal 39-49 [facility] Comment on above: Performed By: #### 4 8066-5, 15943-3, 3040-3, CBCA, CMP #### [facility] ([id number]) [address] [place] [address] Hemoglobin (Bld) [Mass/Vol] 15.5 g/dL Normal 13.0-17.0 [facility] Comment on above: Performed By: #### 4 8066-5, 31142-0, 3040-3, CBCA, CMP #### [facility] ([id number]) [address] [place] [address] Lymphocytes (Bld) [#/Vol] 2.1 10*3/uL Normal 1.0-3.5 [facility] Comment on above: Performed By: #### 4 8066-5, 30509-4, 3040-3, CBCA, CMP #### [facility] ([id number]) [address] [place] [address] Lymphocytes/100 WBC (Bld) 12.8 % Normal [facility] Comment on above: Performed By: #### 4 8066-5, 34018-6, 3040-3, CBCA, CMP #### [facility] ([id number]) [address] [place] [address] MCH (RBC) [Entitic mass] 26.9 pg Low 27-34 [facility] Comment on above: Performed By: #### 4 8066-5, 88656-9, 0-3, CBCA, CMP #### [facility] ([id number]) [address] [place] [address] MCHC (RBC) [Mass/Vol] 34.3 g/dL Normal 32-36 [facility] Comment on above: Performed By: #### 4 8066-5, 53241-7, 0-3, CBCA, CMP #### [facility] ([id number]) [address] [place] [address] MCV (RBC) [Entitic vol] 78 fL Low 80-100 [facility] Comment on above: Performed By: #### 4 8066-5, 94517-7, 0-3, CBCA, CMP #### [facility] ([id number]) [address] [place] [address] Monocytes (Bld) [#/Vol] 0.9 10*3/uL Normal 0-0.9 [facility] Comment on above: Performed By: #### 4 8066-5, 65009-3, 3040-3, CBCA, CMP #### [facility] ([id number]) [address] [place] [address] Monocytes/100 WBC (Bld) 5.7 % Normal [facility] Comment on above: Performed By: #### 4 8066-5, 00267-3, 0-3, CBCA, CMP #### [facility] ([id number]) [address] [place] [address] Neutrophils/100 WBC (Bld) 80.3 % Normal [facility] Comment on above: Performed By: #### 4 8066-5, 02387-6, 3040-3, CBCA, CMP #### [facility] ([id number]) [address] [place] [address] Platelet mean volume (Bld) [Entitic vol] 8.3 fL Normal 7-12 [facility] Comment on above: Performed By: #### 4 8066-5, 66687-7, 3040-3, CBCA, CMP #### [facility] ([id number]) [address] [place] [address] Platelets (Bld) [#/Vol] 307 10*3/uL Normal 150-450 [facility] Comment on above: Performed By: #### 4 8066-5, 08012-8, 3040-3, CBCA, CMP #### [facility] ([id number]) [address] [place] [address]18 RBC COUNT 5.75 X10E12/L High 4.10-5.70 [facility] Comment on above: Performed By: #### 4 8066-5, 00818-3, 3040-3, CBCA, CMP #### [facility] ([id number]) [address] [place] [address] WBC (Bld) [#/Vol] 16.7 10*3/uL High 4.0-11.0 [facility] Comment on above: Performed By: #### 4 8066-5, 07521-3, 3040-3, CBCA, CMP #### [facility] ([id number]) [address] [place] [address] COMPREHENSIVE METABOLIC PANE Reynaldo 11-06-2023 Albumin [Mass/Vol] 4.5 g/dL Normal 3.2-5.3 [facility] Comment on above: Performed By: #### 4 8066-5, 91052-0, 3040-3, CBCA, CMP #### [facility] ([id number]) [address] [place] [address] ALP [Catalytic activity/Vol] 78 U/L Normal 39-130 [facility] Comment on above: Performed By: #### 4 8066-5, 97795-8, 3040-3, CBCA, CMP #### [facility] ([id number]) [address] [place] [address] 10409 ALT [Catalytic activity/Vol] 27 U/L Normal 0-40 [facility] Comment on above: Performed By: #### 4 8066-5, 04476-3, 3040-3, CBCA, CMP #### [facility] ([id number]) [address] [place] [address] Anion gap [Moles/Vol] 12 mmol/L Normal 5-15 [facility] Comment on above: Performed By: #### 4 8066-5, 32234-6, 3040-3, CBCA, CMP #### [facility] ([id number]) [address] [place] [address] 61558 AST [Catalytic activity/Vol] 19 U/L Normal 0-41 [facility] Comment on above: Performed By: #### 4 8066-5, 01544-6, 3040-3, CBCA, CMP #### [facility] ([id number]) [address] [place] [address] 8[address]88 Bilirubin [Mass/Vol] 0.7 mg/dL Normal 0.3-1.2 [facility] Comment on above: Performed By: #### 4 8066-5, 65959-2, 3040-3, CBCA, CMP #### [facility] ([id number]) [address] [place] [address]76 Calcium [Mass/Vol] 9.3 mg/dL Normal 8.5-10.5 [facility] Comment on above: Performed By: #### 4 8066-5, 15993-4, 3040-3, CBCA, CMP #### [facility] ([id number]) [address] [place] [address] 09436 Chloride [Moles/Vol] 101 mmol/L Normal 98-109 [facility] Comment on above: Performed By: #### 4 8066-5, 45152-5, 3040-3, CBCA, CMP #### [facility] ([id number]) [address] [place] [address] 27918 CO2 [Moles/Vol] 23 mmol/L Normal 22-32 [facility] Comment on above: Performed By: #### 4 8066-5, 53717-0, 3040-3, CBCA, CMP #### [facility] ([id number]) [address] [place] [address] 03981 Creatinine [Mass/Vol] 1.31 mg/dL High 0.70-1.20 [facility] Comment on above: Result Comment: METH OD TRACEABLE TO IDMS STANDARD Performed By: #### 4 8066-5, 34425-8, 3040-3, CBCA, CMP #### [facility] ([id number]) [address] [place] [address] 20276 GFR/1.73 sq M.predicted among non-blacks MDRD (S/P/Bld) [Vol rate/Area] 64 mL/min/{1.73_m2} Normal >59 [facility] Comment on above: Result Comment: Reported eGFR is based on the CKD-EPI 2020 equation that does not use a race coefficient. Performed By: #### 4 8066-5, 86621-0, 3040-3, CBCA, CMP #### [facility] ([id number]) [address] [place] [address]252 Glucose [Mass/Vol] 226 mg/dL High 65-99 [facility] Comment on above: Performed By: #### 4 8066-5, 25249-4, 3040-3, CBCA, CMP #### [facility] ([id number]) [address] [place] [address] 58223 Potassium [Moles/Vol] 3.6 mmol/L Normal 3.5-5.0 [facility] Comment on above: Performed By: #### 4 8066-5, 22296-2, 3040-3, CBCA, CMP #### [facility] ([id number]) [address] [place] [address] 15086 Protein [Mass/Vol] 8.1 g/dL High 6.0-8.0 [facility] Comment on above: Performed By: #### 4 8066-5, 96529-4, 3040-3, CBCA, CMP #### [facility] ([id number]) [address] [place] [address] 76960 Sodium [Moles/Vol] 136 mmol/L Normal 134-146 [facility] Comment on above: Performed By: #### 4 8066-5, 60253-1, 3040-3, CBCA, CMP #### [facility] ([id number]) [address] [place] [address] 09951 Urea nitrogen [Mass/Vol] 26 mg/dL High 5-23 [facility] Comment on above: Performed By: #### 4 8066-5, 58465-8, 3040-3, CBCA, CMP #### [facility] ([id number]) [address] [place] [address] 97894 Fibrin D-dimer DDU (PPP) [Ma ss/Vol]on 11-06-2023 D DIMER <150 Normal <255 [facility] Comment on above: Result Comment: Results <255 ng/mL DDU: The presence of a VTE can safely be excluded with a negative D-Dimer result and Wells score. A negative result doesn't exclude the possibility of DIC. The test be repeated along with other diagnostic tests if the patient's symptoms persist or worsen. [email or web address] Performed By: #### 4 8066-5, 17681-7, 3040-3, CBCA, CMP #### [facility] ([id number]) [address] [place] [address] 12245 LIPASEon 11-06-2023 Lipase [Catalytic activity/Vol] 62 U/L High 17-40 [facility] Comment on above: Performed By: #### 4 8066-5, 11376-4, 3040-3, CBCA, CMP #### [facility] ([id number]) [address] [place] [address]03 Troponin I.cardiac High sens itivity method [Mass/Vol]on 11-06-2023 1 HOUR TROP I, HIGH SENSITIVITY 4 ng/L Normal <21 [facility] Comment on above: Performed By: #### 8 9579-7 #### [facility] ([id number]) [address] [place] [address] 30895 TROPONIN I, HIGH SENSITIVITY 3 ng/L Normal <21 [facility] Comment on above: Performed By: #### 4 8066-5, 71827-6, 3040-3, CBCA, CMP #### [facility] ([id number]) [address] [place] [address] 70131 XR CHEST 1 VWon 11-06-2023 XR CHEST [...] Alarcon MD on 11/06/2023 3:47 PM [facility] Alanine aminotransferase [En zymatic activity/volume] in Serum or PlasmaOrdered By: Shahram Vergara on 03-26-2023 ALT [Catalytic activity/Vol] 12 U/L 7-52 [facility] Albumin [Mass/volume] in Ser um or Plasma by Bromocresol green (BCG) dye binding methoOrdered By: Shahram Vergara on 03-26-2023 Albumin BCG dye [Mass/Vol] 4.3 g/dL 3.5-5.7 [facility] Alkaline phosphatase [Enzyma tic activity/volume] in Serum or PlasmaOrdered By: Shahram Vergara on 03-26-2023 ALP [Catalytic activity/Vol] 115 U/L 34-104 [facility] Aspartate aminotransferase [ Enzymatic activity/volume] in Serum or PlasmaOrdered By: Shahram Vergara on 03-26-2023 AST [Catalytic activity/Vol] 13 U/L 13-39 [facility] Basophils Auto (Bld) [#/Vol] Ordered By: Shahram Vergara on 03-26-2023 Basophils (Bld) [#/Vol] 0.1 10*3/uL 0.0-0.2 [facility] Basophils/100 WBC Auto (Bld) Ordered By: Shahram Vergara on 03-26-2023 Basophils/100 WBC (Bld) 0.7 % . [facility] Bilirubin.total [Mass/volume ] in Serum or PlasmaOrdered By: Shahram Vergara on 03-26-2023 Bilirubin [Mass/Vol] 0.5 mg/dL 0.3-1.0 [facility] Calcium [Mass/volume] in Ser um or PlasmaOrdered By: Shahram Vergara on 03-26-2023 Calcium [Mass/Vol] 9.7 mg/dL 8.6-10.3 [facility] Carbon dioxide, total [Moles /volume] in Serum or PlasmaOrdered By: Shahram Vergara on 03-26-2023 CO2 [Moles/Vol] 29.0 mmol/L 21.0-31.0 [facility] Chloride [Moles/volume] in S stacy or PlasmaOrdered By: Shahram Vergara on 03-26-2023 Chloride [Moles/Vol] 93 mmol/L 98-107 [facility] Creatinine [Mass/volume] in Serum or PlasmaOrdered By: Shahram Vergara on 03-26-2023 Creatinine [Mass/Vol] 0.99 mg/dL 0.70-1.30 [facility] Eosinophils Auto (Bld) [#/Vo l]Ordered By: Shahram Vergara on 03-26-2023 Eosinophils (Bld) [#/Vol] 0.1 10*3/uL 0.0-0.45 [facility] Eosinophils/100 WBC Auto (Bl d)Ordered By: Shahram Vergara on 03-26-2023 Eosinophils/100 WBC (Bld) 1.5 % . [facility] Erythrocyte distribution wid th Auto (RBC) [Ratio]Ordered By: Shahram Vergara on 03-26-2023 Erythrocyte distribution width (RBC) [Ratio] 13.3 % 12.0-14.8 [facility] Globulin Calc (S) [Mass/Vol] Ordered By: Shahram Vergara on 03-26-2023 Globulin (S) [Mass/Vol] 3.3 g/dL [facility] Glucose [Mass/volume] in Ser um or PlasmaOrdered By: Shahram Vergara on 03-26-2023 Glucose [Mass/Vol] 389 mg/dL 70-100 [facility] Comment on above: ADA recommended refe rence range Glucose mean value [Mass/vol ume] in Blood Estimated from glycated hemoglobinOrdered By: Shahram Vergara on 03-26-2023 Average glucose Estimated from glycated hemoglobin (Bld) [Mass/Vol] 433 mg/dL [facility] Hematocrit Auto (Bld) [Volum e fraction]Ordered By: Shahram Vergara on 03-26-2023 Hematocrit (Bld) [Volume fraction] 45.1 % 38.8-50.0 [facility] Hemoglobin [Mass/volume] in BloodOrdered By: Shahram Vergara on 03-26-2023 Hemoglobin (Bld) [Mass/Vol] 15.3 g/dL 13.0-17.0 [facility] - Hematology and Cell countsOrdered By: Shahram Vergara on 03-26-2023 HbA1c (Bld) [Mass fraction] 16.7 % 4.3-5.6 [facility] Comment on above: Increased risk for d iabetes: 5.7 - 6.4diabetes: >6.4glycemic control for adults with diabetes: <7.0 Leukocytes [#/volume] correc nataliia for nucleated erythrocytes in Blood by Automated counOrdered By: Shahram Vergara on 03-26-2023 WBC corrected for nucl RBC Auto (Bld) [#/Vol] 9.5 10*3/uL 4.1-10.5 [facility] Lymphocytes Auto (Bld) [#/Vo l]Ordered By: Shahram Vergara on 03-26-2023 Lymphocytes (Bld) [#/Vol] 2.2 10*3/uL 1.00-4.8 [facility] Lymphocytes/100 WBC Auto (Bl d)Ordered By: Shahram Vergara on 03-26-2023 Lymphocytes/100 WBC (Bld) 23.6 % . [facility] MCH Auto (RBC) [Entitic mass ]Ordered By: Shahram Vergara on 03-26-2023 MCH (RBC) [Entitic mass] 26.8 pg 27.5-35.2 [facility] MCHC Auto (RBC) [Mass/Vol]Or dered By: Shahram Vergara on 03-26-2023 MCHC (RBC) [Mass/Vol] 33.9 g/dL 32.5-35.6 [facility] MCV Auto (RBC) [Entitic vol] Ordered By: Shahram Vergara on 03-26-2023 MCV (RBC) [Entitic vol] 79.2 fL 83.5-101 [facility] Monocytes Auto (Bld) [#/Vol] Ordered By: Shahram Vergara on 03-26-2023 Monocytes (Bld) [#/Vol] 0.7 10*3/uL 0.0-0.8 [facility] Monocytes/100 WBC Auto (Bld) Ordered By: Shahram Vergara on 03-26-2023 Monocytes/100 WBC (Bld) 7.1 % . F [facility] Neutrophils Auto (Bld) [#/Vo l]Ordered By: Shahram Vergara on 03-26-2023 Neutrophils (Bld) [#/Vol] 6.4 10*3/uL 1.8-7.7 [facility] Neutrophils/100 WBC Auto (Bl d)Ordered By: Shahram Vergara on 03-26-2023 Neutrophils/100 WBC (Bld) 67.1 % . [facility] No Panel InformationOrdered By: Shahram Vergara on 03-26-2023 Estimated GFR (CKD-EPI) > 60.0 mL/Min [facility] Creatinine Clearance (Chem N/A [facility] Nucleated erythrocytes [Pres ence] in Blood by Automated countOrdered By: Shahram Vergara on 03-26-2023 Nucleated RBC Auto Ql (Bld) 0.2 /100{WBC} 0-0.5 [facility] Platelet mean volume Auto (B ld) [Entitic vol]Ordered By: Shahram Vergara on 03-26-2023 Platelet mean volume (Bld) [Entitic vol] 8.9 fL 6.6-10.1 [facility] Platelets Auto (Bld) [#/Vol] Ordered By: Shahram Vergara on 03-26-2023 Platelets (Bld) [#/Vol] 325 10*3/uL 150-450 [facility] Potassium [Moles/volume] in Serum or PlasmaOrdered By: Shahram Vergara on 03-26-2023 Potassium [Moles/Vol] 3.7 mmol/L 3.5-5.1 [facility] Protein [Mass/volume] in Ser um or PlasmaOrdered By: Shahram Vergara on 03-26-2023 Protein [Mass/Vol] 7.6 g/dL 6.4-8.9 [facility] RBC Auto (Bld) [#/Vol]Ordere d By: Shahram Vergara on 03-26-2023 RBC (Bld) [#/Vol] 5.69 10*6/uL 3.90-5.60 [facility] Serum or plasma albumin/glob ulin mass ratioOrdered By: Shahram Vergara on 03-26-2023 Albumin/Globulin [Mass ratio] 1.3 {ratio} [facility] Serum or plasma anion gap de terminationOrdered By: Shahram Vergara on 03-26-2023 Anion gap [Moles/Vol] 14.7 mmol/L 6.0-15.0 [facility] Sodium [Moles/volume] in Ser um or PlasmaOrdered By: Shahram Vergara on 03-26-2023 Sodium [Moles/Vol] 133 mmol/L 136-145 [facility] Urea nitrogen [Mass/volume] in Serum or PlasmaOrdered By: Shahram Vergara on 03-26-2023 Urea nitrogen [Mass/Vol] 13 mg/dL 7-25 [facility] WBC Auto (Bld) [#/Vol]Ordere d By: Shahram Vergara on 03-26-2023 WBC (Bld) [#/Vol] 9.5 10*3/uL 4.1-10.5 [facility] XR knee LT 3Von 02-25-2023 XR knee LT 3V [facility] [employer] Other XR knee LT 3V [facility] [employer] Other XR knee LT 3V [address] [place] [address] [employer] Other XR knee LT 3V [place], [place] [id number] [place] [address] [employer] Other XR knee LT 3V XRay Report [employer] Other XR knee LT 3V Signed [employer] Other XR knee LT 3V Patient: Merlin Fish MR#: [id number] Newborn [employer] Other XR knee LT 3V 4318 Newborn [employer] Other XR knee LT 3V : 1970 Acct:[id number] [employer] Other XR knee LT 3V Age/Sex: 52 / M ADM Date: 02/25/23 [employer] Other XR knee LT 3V Loc: [facility] Room: Type: REG CLI [employer] Other XR knee LT 3V Attending Dr: Shahram Vergara DO [employer] Other XR knee LT 3V Copies to: Shahram Vergara DO [employer] Other XR knee LT 3V Ordering Provider: Shahram Vergara DO [employer] Other XR knee LT 3V Date of Service: 02/25/23 [employer] Other XR knee LT 3V XR/XR knee LT 3V - NOT FOR ER USE: PAIN [employer] Other XR knee LT 3V LEFT KNEE - 3 views No rt [employer] Other XR knee LT 3V CLINICAL HISTORY: Left knee pain for one year. [employer] Other XR knee LT 3V COMPARISON: None [employer] Other XR knee LT 3V FINDINGS: [employer] Other XR knee LT 3V No knee joint effusion. Mild degenerative changes without acute bony process. Calcification is [employer] Other XR knee LT 3V seen along the medial condyle of the femur suggestive of prior injury. [employer] Other XR knee LT 3V XR/XR knee LT 3V - NOT FOR ER USE [employer] Other XR knee LT 3V IMPRESSION: [employer] Other XR knee LT 3V MILD DEGENERATIVE CHANGES WITHOUT ACUTE BONY PROCESS. [employer] Other XR knee LT 3V Impression dictated by: Mauro Dominguez Jr. D.OAbraham02/25/2023 4:20 PM [employer] Other XR knee LT 3V Dictation Location: [facility] [employer] Other XR knee LT 3V Transcribed By: PWS 02/25/23 1620 [employer] Other XR knee LT 3V Dictated By: Mauro Dominguez Jr, DO 02/25/23 1619 [employer] Other XR knee LT 3V Signed By: [employer] Other XR knee LT 3V 02/25/23 1621 [employer] Other US ANGELITO DOP LEG RTon 05-21-20 22 US ANGELITO DOP LEG RT EXAMINATION: US [...] by: PEG BANERJEE Date: 2022-05-21 15:19 Normal [facility] Vital Signs Date Time Vital Sign Value Performing Clinician Facility 12-16-2024 11:53-0400 Body height 170.2 cm Janet Ventura APRN-TWO WAY RADIO TECHNICIAN Work Phone: [employer] 12-16-2024 11:53-0400 Body mass index (BMI) [Ratio] 32.2 kg/m2 Janet Ventura REVENUE INTEGRITY ANALYST-TWO WAY RADIO TECHNICIAN Work Phone: [employer] 12-16-2024 11:53-0400 Body weight 93.26 kg Janet Ventura APRN-TWO WAY RADIO TECHNICIAN Work Phone: [employer] 12-16-2024 11:53-0400 Diastolic blood pressure 80 mm[Hg] Janet Ventura REVENUE INTEGRITY ANALYST-TWO WAY RADIO TECHNICIAN Work Phone: [employer] 12-16-2024 11:53-0400 Heart rate 83 /min Janet Kregel REVENUE INTEGRITY ANALYST-TWO WAY RADIO TECHNICIAN Work Phone: [facility] 12-16-2024 11:53-0400 SaO2% (BldA) [Mass fraction] 97 % Janet Ventura REVENUE INTEGRITY ANALYST-TWO WAY RADIO TECHNICIAN Work Phone: [facility] 12-16-2024 11:53-0400 Systolic blood pressure 131 mm[Hg] Janet Ventura REVENUE INTEGRITY ANALYST-TWO WAY RADIO TECHNICIAN Work Phone: [facility] 09-28-2024 20:26-0400 Body height 170.2 cm Pm 3 [facility] 09-28-2024 20:26-0400 Body mass index (BMI) [Ratio] 34.46 kg/m2 Pm 3 [facility] 09-28-2024 20:26-0400 Body weight 99.79 kg Pm 3 [facility] 07-22-2024 13:52-0500 Body height 170.18 cm Parker SHOEMAKERC Work Phone: [facility] 07-22-2024 13:52-0500 Body mass index (BMI) [Ratio] 34.2 kg/m2 Parker AARON-C Work Phone: [facility] 07-22-2024 13:52-0500 Body weight 99 kg Parker AARON-C Work Phone: [facility] 06-08-2024 11:32-0500 Body height 170.2 cm Karine Baltazar MD Work Phone: [facility] 06-08-2024 11:32-0500 Body mass index (BMI) [Ratio] 34.46 kg/m2 Karine Baltazar MD Work Phone: [facility] 06-08-2024 11:32-0500 Body weight 99.79 kg Karine Baltazar MD Work Phone: [facility] 06-08-2024 11:32-0500 Diastolic blood pressure 76 mm[Hg] Karine Baltazar MD Work Phone: [facility] 06-08-2024 11:32-0500 Heart rate 76 /min Karine Baltazar MD Work Phone: [facility] 06-08-2024 11:32-0500 SaO2% (BldA) [Mass fraction] 95 % Karine Baltazar MD Work Phone: [facility] 06-08-2024 11:32-0500 Systolic blood pressure 110 mm[Hg] Karine Baltazar MD Work Phone: [facility] 03-31-2024 08:30-0400 Body height 170.18 cm [facility] 03-31-2024 08:30-0400 Body mass index (BMI) [Ratio] 34.4 kg/m2 [facility] 03-31-2024 08:30-0400 Body weight 99.79 kg [facility] 12-03-2023 10:40-0400 Body height 170.2 cm Sara Carrizales MD Work Phone: [facility] 12-03-2023 10:40-0400 Body mass index (BMI) [Ratio] 34.46 kg/m2 Sara Carrizales MD Work Phone: [facility] 12-03-2023 10:40-0400 Body weight 99.79 kg Sara Carrizales MD Work Phone: [facility] 12-03-2023 10:40-0400 Diastolic blood pressure 78 mm[Hg] Sara Carrizales MD Work Phone: [facility] 12-03-2023 10:40-0400 Heart rate 81 /min Sara Carrizales MD Work Phone: [facility] 12-03-2023 10:40-0400 SaO2% (BldA) [Mass fraction] 97 % Sara Carrizales MD Work Phone: [facility] 12-03-2023 10:40-0400 Systolic blood pressure 120 mm[Hg] Sara Carrizales MD Work Phone: [facility] 11-08-2023 11:37-0400 Body temperature 97.5 [degF] aSra Carrizales MD Work Phone: [facility] 11-08-2023 11:37-0400 Diastolic blood pressure 83 mm[Hg] Sara Carrizales MD Work Phone: [facility] 11-08-2023 11:37-0400 Heart rate 76 /min Sara Carrizales MD Work Phone: [facility] 11-08-2023 11:37-0400 SaO2% (BldA) [Mass fraction] 95 % Sara Carrizales MD Work Phone: [facility] 11-08-2023 11:37-0400 Systolic blood pressure 116 mm[Hg] Sara Carrizales MD Work Phone: [facility] 11-08-2023 09:40-0400 Respiratory rate 14 /min Sara Carrizales MD Work Phone: [facility] 11-08-2023 05:00-0400 Body mass index (BMI) [Ratio] 33.91 kg/m2 Sara Carrizales MD Work Phone: [facility] 11-08-2023 05:00-0400 Body weight 98.2 kg Sara Carrizales MD Work Phone: [facility] 11-07-2023 10:54-0400 Body height 170.2 cm Sara Carrizales MD Work Phone: [facility] 10-09-2023 15:07-0400 Body height 170.2 cm Nelly Don MD Work Phone: [facility] [employer] [facility] 10-09-2023 15:07-0400 Body mass index (BMI) [Ratio] 34.07 kg/m2 Nelly Don MD Work Phone: [facility] 10-09-2023 15:07-0400 Body weight 98.66 kg Nelly Don MD Work Phone: [facility] 10-09-2023 15:07-0400 Diastolic blood pressure 80 mm[Hg] Nelly Don MD Work Phone: [facility] 10-09-2023 15:07-0400 Heart rate 49 /min Nelly Don MD Work Phone: [facility] 10-09-2023 15:07-0400 SaO2% (BldA) [Mass fraction] 96 % Nelly Don MD Work Phone: [facility] 10-09-2023 15:07-0400 Systolic blood pressure 126 mm[Hg] Nelly Don MD Work Phone: [facility] 09-02-2023 13:24-0400 Body height 170.18 cm [facility] 09-02-2023 13:24-0400 Body mass index (BMI) [Ratio] 32.9 kg/m2 [facility] 09-02-2023 13:24-0400 Body weight 95.33 kg [facility] 07-23-2023 14:21-0500 Diastolic blood pressure 78 mm[Hg] [facility] 07-23-2023 14:21-0500 Heart rate 80 /min [facility] 07-23-2023 14:21-0500 Respiratory rate 16 /min [facility] 07-23-2023 14:21-0500 SaO2% (BldA) [Mass fraction] 90 % [facility] 07-23-2023 14:21-0500 Systolic blood pressure 117 mm[Hg] [facility] 07-23-2023 13:20-0500 Inhaled oxygen flow rate 8 L/min [facility] 07-23-2023 13:05-0500 Body temperature 97.3 [degF] [facility] 07-23-2023 10:36-0500 Body height 170.18 cm [facility] 07-23-2023 10:36-0500 Body mass index (BMI) [Ratio] 32.8 kg/m2 [facility] 07-23-2023 10:36-0500 Body weight 95.25 kg [facility] 07-17-2023 14:45-0500 Body height 170.18 cm Shahram Vergara Other [facility] 07-17-2023 14:45-0500 Body mass index (BMI) [Ratio] 32.89 kg/m2 Shahram Vergara Other [facility] [employer] Other 07-17-2023 14:45-0500 Body weight 95.26 kg Shahram Vergara Other [facility] [employer] Other 07-17-2023 14:45-0500 Body weight 95.25 kg [facility] 03-26-2023 14:38-0400 Body height 170.18 cm MERLE Gorman Work Phone: [facility] 03-26-2023 14:38-0400 Body temperature 98.2 [degF] MERLE Gorman Work Phone: [facility] 03-26-2023 14:38-0400 Body weight 93.6 kg MERLE Gorman Work Phone: [facility] 03-26-2023 14:38-0400 Diastolic blood pressure 81 mm[Hg] MERLE Gorman Work Phone: [facility] 03-26-2023 14:38-0400 Heart rate 79 /min MERLE Gorman Work Phone: [facility] 03-26-2023 14:38-0400 Respiratory rate 16 /min MERLE Gorman Work Phone: [facility] 03-26-2023 14:38-0400 SaO2% (BldA) [Mass fraction] 97 % MERLE Gorman Work Phone: [facility] 03-26-2023 14:38-0400 Systolic blood pressure 117 mm[Hg] MERLE Gorman Work Phone: [facility] 03-25-2023 14:15-0400 Body height 170.18 cm Shahram Vergara Other [facility] Other 03-25-2023 14:15-0400 Body mass index (BMI) [Ratio] 30.07 kg/m2 Shahram Vergara Other [employer] Other 03-25-2023 14:15-0400 Body weight 87.09 kg Shahram Vergara Other [employer] Other 02-25-2023 15:30-0400 Body height 170.18 cm Shahram Vergara Other [employer] Other 02-25-2023 15:30-0400 Body mass index (BMI) [Ratio] 32.89 kg/m2 Shahram Vergara Other [employer] Other 02-25-2023 15:30-0400 Body weight 95.26 kg Shahram Vergara Other [employer] Other Encounters Encounter Date Encounter Type Care Provider Facility Start: 12-17-2024 End: 12-17-2024 Telephone encounter [facility] Start: 12-16-2024 End: 12-16-2024 Office outpatient visit 25 minutes Janet Ventura REVENUE INTEGRITY ANALYST-TWO WAY RADIO TECHNICIAN Work Phone: [facility] Comment on above: CINTHYA (obstructive sle ep apnea) (Primary Dx); CINTHYA treated with BiPAP; Obesity (BMI 30-39.9); BMI 32.0-32.9,adult Start: 12-16-2024 End: 12-16-2024 ambulatory JANETZi VENTURA [facility] Start: 12-10-2024 End: 12-10-2024 Telephone encounter [facility] Start: 11-19-2024 End: 12-09-2024 Telephone encounter [facility] Start: 10-08-2024 End: 10-08-2024 Telephone encounter Hedy Us MD Work Phone: [facility] Start: 09-28-2024 End: 09-28-[address]24 Clinical [address] [facility] Sleep Lab 3 [place] [facility] - Sleep Disorders Comment on above: CINTHYA (obstructive sle ep apnea) Start: 09-15-2024 ambulatory SHAHRAM VERGARA [facility] Start: 09-09-2024 End: 09-09-2024 ambulatory Parker SHOEMAKERC Work Phone: [facility] Work Phone: Start: 09-09-2024 End: 09-09-2024 Patient encounter procedure Parker Gorman PA-C Work Phone: [facility] Work Phone: Start: 09-09-2024 End: 09-09-2024 Patient encounter procedure Parker Gorman PA-C Work Phone: [facility] Start: 09-09-2024 End: 09-09-2024 ambulatory Parker SHOEMAKERC Work Phone: [facility] Work Phone: Start: 09-04-2024 End: 09-04-2024 Orders Only Janet Ventura REVENUE INTEGRITY ANALYST-TWO WAY RADIO TECHNICIAN [facility]: [facility] Comment on above: CINTHYA (obstructive sle ep apnea) (Primary Dx) Start: 09-02-2024 End: 09-02-2024 ambulatory JANET VENTURA [facility] Start: 08-24-2024 ambulatory SHAHRAM So [facility] Start: 08-19-2024 End: 08-19-2024 ambulatory Parker SHOEMAKERC Work Phone: [facility] Work Phone: Start: 08-19-2024 End: 08-19-2024 Patient encounter procedure Parkre Gorman PA-C Work Phone: [facility] Physician [facility] Work Phone: Start: 07-31-2024 End: 07-31-2024 ambulatory Parker SHOEMAKERC Work Phone: [facility] Work Phone: Start: 07-31-2024 End: 07-31-2024 Patient encounter procedure Parker SHOEMAKERC Work Phone: [facility] Work Phone: Start: 07-29-2024 End: 07-29-2024 Patient encounter procedure Parker SHOEMAKERC Work Phone: [facility] [address] [facility] Work Phone: Start: 07-29-2024 End: 07-29-2024 ambulatory Parker SHOEMAKERC Work Phone: [facility] Work Phone: Start: 07-22-2024 End: 07-22-2024 Patient encounter procedure Parker Gorman PA-C Work Phone: [facility] [place] Work Phone: Start: 07-22-2024 End: 07-22-2024 ambulatory Parker Gorman PA-C Work Phone: [facility] Work Phone: Start: 07-22-2024 End: 07-22-2024 ambulatory Parker AARON-C Work Phone: [facility] Work Phone: Start: 07-22-2024 End: 07-22-2024 Patient encounter procedure Parker SHOEMAKERC Work Phone: [facility] Work Phone: Start: 07-17-2024 End: 07-17-2024 Emergency department patient visit [facility] Start: 07-03-2024 End: 07-03-2024 Emergency department patient visit [facility] Start: 07-01-2024 Non-patient / Non-visit Parker Gorman PA-C Work Phone: [facility] Work Phone: Start: 06-23-2024 End: 06-23-2024 Orders Only Yolanda Jean Baptiste [facility] Comment on above: CINTHYA (obstructive sle ep apnea) (Primary Dx); Hypoxemia associated with sleep Start: 06-08-2024 End: 06-08-2024 Telephone encounter Hedy Us MD Work Phone: [facility] Comment on above: Obstructive sleep ap pito (adult) (pediatric) (Primary Dx); Hypoxemia associated with sleep Sleep Lab (PAP) Start: 06-08-2024 End: 06-08-2024 Office outpatient visit 15 minutes Karine Baltazar MD Work Phone: [facility] Comment on above: Primary hypertension (Primary Dx); Hyperlipidemia, unspecified hyperlipidemia type; Obesity (BMI 30.0-34.9) Start: 06-08-2024 End: 06-08-2024 ambulatory [facility] Start: 06-05-2024 End: 06-05-2024 Telephone encounter Nicci Dyer CMA [facility] Start: 06-01-2024 ambulatory JANET VENTURA [facility] Start: 05-12-2024 End: 05-12-2024 Telephone encounter Janet Ventura REVENUE INTEGRITY ANALYST-TWO WAY RADIO TECHNICIAN Work Phone: [facility] - Sleep Disorders Comment on above: Sleep Lab (HST) CINTHYA (obstructive sle ep apnea) (Primary Dx) Start: 04-01-2024 End: 04-01-2024 ambulatory [facility] Work Phone: Start: 04-01-2024 End: 04-01-2024 Patient encounter procedure [facility] Work Phone: Start: 01-22-2024 End: 02-05-2024 Telephone encounter Mackenzie Omalley RN [facility] Start: 01-02-2024 End: 01-02-2024 ambulatory MYNOR JOSHUA Not Available Start: 12-24-2023 End: 12-24-2023 Telephone encounter Yolanda Jean Baptiste [facility] Pul[facility]Sleep Medicine Start: 12-16-2023 End: 12-16-2023 Telephone encounter Janet Ventura REVENUE INTEGRITY ANALYST-TWO WAY RADIO TECHNICIAN Work Phone: [facility] -[facility] Comment on above: Sleep Lab (Split nig ht ) Start: 12-13-2023 End: 12-13-2023 Telephone encounter Janet Ventura REVENUE INTEGRITY ANALYST-TWO WAY RADIO TECHNICIAN Work Phone: [facility] - Sleep Disorders Comment on above: Sleep Lab (PT Inquir y) Start: 12-12-2023 End: 12-13-2023 Emergency department patient visit MASONSaray AMAYA [facility] Start: 12-12-2023 End: 12-12-2023 ambulatory SARA Guerra [facility] Start: 12-05-2023 End: 12-05-2023 ambulatory MYNOR JOSHUA Not Available Start: 12-03-2023 End: 12-03-2023 Office outpatient visit 15 minutes Sara Carrizales MD Work Phone: [facility] Comment on above: NSTEMI (non-ST eleva nataliia myocardial infarction) ([facility]) (Primary Dx); Essential hypertension; Shortness of breath Start: 12-03-2023 End: 12-03-2023 ambulatory SARA Guerra [facility] Start: 12-02-2023 End: 12-02-2023 Telephone encounter Yesenia Babcock CMA [facility] Start: 11-13-2023 End: 11-13-2023 ambulatory MYNOR JOSHUA Not Available Start: 11-08-2023 End: 11-08-2023 ambulatory SARA WALKER [facility] Start: 11-07-2023 End: 11-08-2023 Evaluation and management of inpatient [facility] Cristina [facility] Start: 11-07-2023 End: 11-08-2023 Evaluation and management of inpatient Fermin Thad Mejía MD Work Phone: [facility] - GEN 5 Acute Start: 11-06-2023 End: 11-08-2023 Emergency department patient visit SVETA CORNELL [facility] Start: 10-30-2023 End: 11-05-2023 Telephone encounter Gayatri [facility] Comment on above: Abnormal Stress Test Start: 10-29-2023 End: 10-29-2023 ambulatory [facility] Start: 10-29-2023 End: 10-29-2023 ambulatory [facility] Start: 10-28-2023 End: 10-28-2023 ambulatory [facility] Work Phone: Start: 10-28-2023 End: 10-28-2023 Patient encounter procedure [facility] Work Phone: Start: 10-23-2023 End: 10-23-2023 ambulatory MYNOR So [facility] Not Available Start: 10-09-2023 End: 10-09-2023 ambulatory NELLY DON [facility] Start: 10-09-2023 End: 10-09-2023 Office outpatient visit 15 minutes Nelly Don MD Work Phone: [facility] Comment on above: Essential hypertensi on (Primary Dx); Shortness of breath Start: 10-08-2023 End: 10-08-2023 Telephone encounter Yesenia [facility] Start: 09-02-2023 End: 09-02-2023 ambulatory [facility] Work Phone: Start: 09-02-2023 End: 09-02-2023 Patient encounter procedure [facility] Work Phone: Start: 08-05-2023 End: 08-05-2023 ambulatory [facility] Work Phone: Start: 08-05-2023 End: 08-05-2023 Patient encounter procedure [facility] Physician [facility] Work Phone: Start: 07-23-2023 Non-patient / Non-visit [facility] Work Phone: Start: 07-17-2023 End: 07-17-2023 ambulatory Shahram Vergara Other [employer] Other Start: 07-17-2023 Encounter for other preprocedural examination Shahram Vergara [facility] Start: 07-17-2023 Office outpatient vi sit 25 minutes Shahram Vergara [facility] Start: 07-17-2023 End: 07-17-2023 Patient encounter procedure [facility]- Start: 04-04-2023 End: 04-04-2023 ambulatory MERLE Gorman Work Phone: [facility] Work Phone: Start: 04-04-2023 End: 04-04-2023 Departed Referred MERLE Gorman Work Phone: [facility] [place] Start: 03-26-2023 End: 03-26-2023 ambulatory NON STAFF [facility] Work Phone: Start: 03-26-2023 End: 03-26-2023 Patient encounter procedure DO Shahram Vergara Work Phone: [facility]-Pre-Surgical Testing Work Phone: Start: 03-25-2023 End: 03-25-2023 ambulatory Shahram Vergara Other [employer] Other Start: 03-25-2023 Office outpatient vi sit 25 minutes Shahram Vergara [facility] Start: 03-20-2023 End: 03-20-2023 ambulatory NON STAFF [facility] Work Phone: Start: 03-20-2023 End: 03-20-2023 Patient encounter procedure DO Shahram Vergara Work Phone: [facility] [place] Work Phone: Start: 02-25-2023 End: 02-25-2023 ambulatory Shahram Vergara Other Loc[facility] [employer] Other Start: 02-25-2023 Office outpatient ne w 45 minutes Shahram Vergara [facility] Start: 02-25-2023 End: 02-25-2023 Patient encounter procedure DO Shahram Vergara Work Phone: [facility] Start: 05-21-2022 End: 05-21-[address] CARL LAINEZ Facility:[facility] Start: 11-03-2021 End: 11-03-2021 ambulatory GALEN MCKAY Facility:[facility] Procedures Date Procedure Procedure Detail Performing Clinician Start: 09-09-2024 Plain X-ray of right wrist Parker Gorman PA-C Work Phone: Start: 07-29-2024 MRI of right forearm Th manjinder Vita AARON-C Work Phone: Start: 07-22-2024 Plain X-ray of right elbow Parker Gorman PA-C Work Phone: Start: 07-22-2024 Plain X-ray of right wrist Parker Gorman PA-C Work Phone: Start: 12-03-2023 Follow-up visit Follow-up SARA CARRIZALES Start: 11-08-2023 CARDIAC INVASIVE Sara Carrizales MD Work Phone: Start: 11-08-2023 CARDIAC INVASIVE Sara Carrizales MD Work Phone: Start: 11-08-2023 End: 11-08-2023 Comprehensive metabolic panel Hue Eller APRN-TWO WAY RADIO TECHNICIAN Work Phone: Start: 11-07-2023 Gluc bld gluc mntr d ev cleared fda spec home use Fermin Mejía MD Work Phone: Start: 11-07-2023 Assay of magnesium Fermin Mejía MD Work Phone: Start: 11-07-2023 Gluc bld gluc mntr d ev cleared fda spec home use Fermin Mejía MD Work Phone: Start: 11-07-2023 Comprehensive metabo lic panel Hue Eller REVENUE INTEGRITY ANALYST-TWO WAY RADIO TECHNICIAN Work Phone: Start: 11-07-2023 Adult depression scr eening assessment Yesenia Babcock CMA Start: 10-09-2023 Follow-up visit Follow-up PAVEL DON Start: 03-20-2023 MRI of left knee DO Masoud Vergara Work Phone: Start: 02-25-2023 X-ray of left knee DO Jimmy Vergara Work Phone: Plan of Treatment Date Care Activity Detail Author Start: 12-16-2025 Adult BMI Screening Adult BMI Screen ing [facility] Start: 12-16-2025 Tobacco Screening Tobacco Screening [facility] Start: 12-15-2025 End: 12-15-2025 Patient encounter procedure 12/15/2025 3:30 PM EDT Office Visit [facility] [address] [address] Janet Ventura, REVENUE INTEGRITY ANALYST-TWO WAY RADIO TECHNICIAN [address], [address] [place] [address] [facility] Start: 09-28-2025 Adult BMI Screening Adult BMI Screen ing [facility] Start: 09-02-2025 Adult BMI Screening Adult BMI Screen ing [facility] Start: 09-02-2025 Tobacco Screening Tobacco Screening [facility] Start: 06-08-2025 Adult BMI Screening Adult BMI Screen ing [facility] Start: 06-08-2025 Tobacco Screening Tobacco Screening [facility] Start: 06-01-2025 Adult BMI Screening Adult BMI Screen ing [facility] Start: 06-01-2025 Tobacco Screening Tobacco Screening [facility] Start: 03-10-2025 End: 03-10-2025 Patient encounter procedure 03/10/2025 2:45 PM EDT Office Visit [facility] [place] [address] Janet Ventura, REVENUE INTEGRITY ANALYST-TWO WAY RADIO TECHNICIAN [address] [facility], [address] [address] [facility] Start: 02-15-2025 Influenza vaccination Influenza Vacc ine [facility] Start: 12-16-2024 End: 12-16-2024 Patient encounter procedure 12/16/2024 12:00 PM EDT Office Visit [facility] [place] [address] Janet Ventura, REVENUE INTEGRITY ANALYST-TWO WAY RADIO TECHNICIAN [address] [address] [facility] Start: 12-15-2024 Tobacco Screening Tobacco Screening [facility] Start: 12-11-2024 Adult BMI Screening Adult BMI Screen ing [facility] Start: 12-11-2024 Tobacco Screening Tobacco Screening [facility] Start: 12-02-2024 Adult BMI Screening Adult BMI Screen ing [facility] Start: 12-02-2024 Tobacco Screening Tobacco Screening [facility] Start: 11-07-2024 Adult BMI Screening Adult BMI Screen ing [facility] Start: 11-06-2024 Depression Screening Depression Scre ening [facility] Start: 11-06-2024 Tobacco Screening Tobacco Screening [facility] Start: 10-28-2024 Adult BMI Screening Adult BMI Screen ing [facility] Start: 10-28-2024 Tobacco Screening Tobacco Screening [facility] Start: 09-28-2024 End: 09-28-2024 Clinical Support 09/28/2024 8:00 PM EDT Clinical Support [facility] [address] [place] [phone] [facility] Start: 09-09-2024 Plain X-ray of right wrist XR wrist RT min 3V* [facility] Start: 09-09-2024 XR Wrist - right GE 3 Views [facility] Start: 09-02-2024 End: 09-02-2024 Patient encounter procedure 09/02/2024 2:45 PM EDT Office Visit [facility] [address] [place] [address] Janet Ventura, REVENUE INTEGRITY ANALYST-TWO WAY RADIO TECHNICIAN [address] [phone] [facility] Start: 08-04-2024 End: 08-04-2024 Clinical Support 08/04/2024 8:00 PM EST Clinical Support [facility] [address] [place] [phone] [facility] Start: 07-22-2024 Plain X-ray of right elbow XR elbow RT 2V [facility] Start: 07-22-2024 XR Elbow - right 2 Views [facility] Start: 07-22-2024 Plain X-ray of right wrist XR wrist RT min 3V* [facility] Start: 07-22-2024 XR Wrist - right GE 3 Views [facility] Start: 06-24-2024 End: 06-24-2024 Patient encounter procedure 06/24/2024 3:15 PM EST Office Visit [facility] [address] [place] [address] Janet Ventura, REVENUE INTEGRITY ANALYST-TWO WAY RADIO TECHNICIAN [address] [facility], [address] [place] [address] [facility] Start: 06-08-2024 End: [...] Office Visit [facility] [address] [phone] Karine Baltazar MD [address] [place] [address] [facility] Start: 06-01-2024 End: 06-01-2024 Clinical Support 06/01/2024 7:00 PM EST Clinical Support [facility] - Sleep Disorders [address] [place] [phone] [facility] Start: 05-20-2024 End: 05-20-2024 Clinical Support 05/20/2024 8:00 PM EST Clinical Support [facility] - Sleep [facility] [address] [place] [phone] [facility] Start: 05-01-2024 End: 05-01-2024 Admission to same day surgery center 05/01/2024 7:30 AM EST - 05/01/2024 9:00 AM EST Surgery [facility] - Surgery [address] [place] [address] Mynor Joshua, DPM [address] [place] [address] REPAIR MUSCLE RECESSION GASTROCNEMIUS [60307 (CPT )] [facility] Surgery Comment on above: REPAIR MUSCLE RECESS ION GASTROCNEMIUS [01055 (CPT )] Start: 05-01-2024 End: 05-01-2024 Gastrocnemius recession REPAIR MUSCLE RECESSION GASTROCNEMIUS GASTROCNEMIUS EQUINUS; insertional calcific tenorrhaphy 05/01/2024 7:30 AM [facility] Start: 05-01-2024 Subsequent hospital visit by physician 05/01/2024 7:30 AM EST Hospital Encounter [facility] - Surgery [address] [place] [phone] Mynor Joshua DPM [address] [place], [place] [phone] [facility] Start: 05-01-2024 End: 05-01-2024 Tenolysis flxr/xtnsr tendon leg&/ankle 1 each TENOLYSIS ANKLE/FOOT GASTROCNEMIUS EQUINUS; insertional calcific tenorrhaphy 05/01/2024 7:30 AM [facility] Start: 04-06-2024 End: 04-06-2024 Patient encounter procedure 04/06/2024 2:15 PM EDT Procedure visit [facility] - Pre Admit [address] [place] [phone] [facility] - Pre Admit Start: 02-16-2024 COVID-19 Vaccine ( season) COVID-19 Vaccine ( season) [facility] Start: 02-16-2024 Influenza vaccination Influenza Vacc ine [facility] Start: 02-15-2024 Adult BMI Screening Adult BMI Screen ing [facility] Start: 01-29-2024 Tobacco Screening Tobacco Screening [facility] Start: 12-11-2023 End: 12-11-2023 Patient encounter procedure 12/11/2023 11:00 AM EDT Office Visit [facility] [address] [place] [phone] Janet Ventura, REVENUE INTEGRITY ANALYST-TWO WAY RADIO TECHNICIAN [address] [facility], [address] [place] [address] [facility] Start: 12-03-2023 End: 12-03-2023 Patient encounter procedure 12/03/2023 10:45 AM EDT Office Visit [facility] [address] [place] [phone] Sara Carrizales MD [address] [place], [place] [phone] [facility] Start: 10-09-2023 End: 10-09-2023 Patient encounter procedure 10/09/2023 3:15 PM EDT Office Visit [facility] [address] [place] [phone] Nelly Don MD [address] [place], [place] [phone] [facility] Start: 07-23-2023 End: 07-23-2023 [facility] Start: 04-04-2023 Arthroscopy of knee OR Knee Ar throscopy (Left) [facility] Start: 02-15-2023 COVID-19 Vaccine ( season) COVID-19 Vaccine ( season) [facility] Start: 2018 Administration of varicella zoster vaccine Zoster (Shingles) Vaccine (1 of 2) [facility] Start: 1987 DTaP,Tdap and Td Vac cines (1 - Tdap) DTaP,Tdap and Td Vaccines (1 - Tdap) [facility] Start: 1986 Adult BMI Follow Up Plan Adult BMI F ollow Up Plan [facility] Start: 1986 Diabetic foot examination Diabetic F oot Exam [employer] Start: 1980 [facility]ening [facility] Start: 1968 Glaucoma screening [facility]abetic [facility] Start: 1968 Statin Use: Cardiovascular Statin Use: Cardiovascular [facility] Start: 1968 Statin Use: Diabetic Statin Use: Chiara betic [facility] Glucose measurement estimated from glycated hemoglobin [facility] Hemoglobin A1c measurement [facility] End: 05-12-2025 Home sleep study Home sleep study Sleep Center Routine CINTHYA (obstructive sleep apnea) 1 Occurrences starting 05/12/2024 until 05/12/2025 [employer] Work Phone: Comment on above: 1 Occurrences starti ng 05/12/2024 until 05/12/2025 End: 06-08-2025 Lipid 1996 panel - Serum or Plasma Lipid profile Lab Routine Primary hypertension Hyperlipidemia, unspecified hyperlipidemia type 1 Occurrences starting 06/08/2024 until 06/08/2025 [employer] Work Phone: Comment on above: 1 Occurrences starti ng 06/08/2024 until 06/08/2025 End: 11-03-2024 Lipid 1996 panel - Serum or Plasma Lipid profile Lab Routine Mixed hyperlipidemia 1 Occurrences starting 11/04/2023 until 11/03/2024 [employer] Work Phone: Comment on above: 1 Occurrences starti ng 11/04/2023 until 11/03/2024 MR Forearm - right W O contrast [facility] Patient referral [facility] Work Phone: End: 12-02-2024 Pulmonary function test Complete PFT w/ BD (Spirometry (Flow Volume Loop) pre/post short acting bronchodilator w/ DLCO (diffusion study) and Lung Volume) Pulmonary function test Complete PFT w/ BD (Spirometry (Flow Volume Loop) pre/post short acting bronchodilator w/ DLCO (diffusion study) and Lung Volume) PFT Routine Shortness of breath 1 Occurrences starting 12/03/2023 until 12/02/2024 [employer] Work Phone: Comment on above: 1 Occurrences starti ng 12/03/2023 until 12/02/2024 [facility] Immunizations Immunization Date Immunization Notes Care Provider Fa cility 04-18-2021 COVID-19 mRNA Comirnaty (Pfizer) DO Shahram Vergara Work Phone: [facility] 03-28-2021 COVID-19 mRNA, Comirnaty (Pfizer) DO Shahram Vergara Work Phone: [facility] Payers Date Payer Category Payer Self-pay 2022 Medicaid [id number] 1968 Unknown [id number] 2.16.84 0.1.878493.3.579.2.593 1968 Unknown [id number] 2.16.84 0.1.749803.3.579.2.593 1968 Unknown [id number] 2.16.8 40.1.503213.3.579.2.1286 1968 Unknown [id number] 2.16.8 40.1.069331.3.579.2.1286 1968 Unknown [id number] 2.16.8 40.1.297948.3.579.2.1286 1968 Unknown [id number] 2.16.84 0.1.989932.3.579.2.1259 1968 Unknown [id number] 2.16.84 0.1.520679.3.579.2.1259 1968 Unknown [id number] 2.16.84 0.1.863556.3.579.2.1259 1968 Unknown [id number] 2.16.84 0.1.952293.3.579.2.1259 1968 Unknown [id number] 2.16.84 0.1.678229.3.579.2.1259 1968 Unknown [id number] 2.16. 840.1.811399.3.579.2.1286 1968 Unknown [id number] 2.16. 840.1.577131.3.579.2.1285 1968 Unknown [id number] 2.16. 840.1.633054.3.579.2.1285 1968 Unknown [id number] 2.16. 840.1.571670.3.579.2.1285 1968 Unknown [id number] 2.16. 840.1.301032.3.579.2.1285 1968 Unknown [id number] 2.16.8 40.1.891795.3.579.2.1285 1968 Unknown [id number] 2.16.8 40.1.300021.3.579.2.1285 1968 Unknown [id number] 2.16.8 40.1.391853.3.579.2.1285 1968 Unknown [id number] 2.16.8 40.1.055607.3.579.2.1285 1968 Unknown [id number] 2.16.8 40.1.820364.3.579.2.1285 1968 Unknown [id number] 2.16.8 40.1.541323.3.579.2.1285 1968 Unknown [id number] 2.16.8 40.1.902148.3.579.2.1285 1968 Unknown [id number] 2.16.8 40.1.393394.3.579.2.1285 1968 Unknown [id number] 2.16.8 40.1.392815.3.579.2.1285 1968 Unknown [id number] 2.16.8 40.1.602149.3.579.2.1285 1968 Unknown [id number] 2.16.8 40.1.718328.3.579.2.1285 1968 Unknown [id number] 2.16.8 40.1.536967.3.579.2.1286 1968 Unknown [id number] 2.16. 840.1.495075.3.579.2.1286 1968 Unknown [id number] 2.16. 840.1.125853.3.579.2.1286 1961 Medicaid [id number] 1959 Unknown [id number] Unknown [id number] 2.16.8 40.1.713155.3.579.2.531 Unknown [id number] 2.16.8 40.1.393018.3.579.2.531 Unknown [id number] 2.16.8 40.1.139004.3.579.2.531 Unknown [id number] 2.16.8 40.1.391743.3.579.2.531 Social History Date Type Detail Facility Start: 07-28-2020 End: 11-07-2023 Sex Assigned At Located Within [facility] [employer] Other Start: 1970 Sex Assigned At Male [facility] Start: 09-06-2022 End: 03-26-2023 Tobacco smoking status AKIS Never smoked tobacco (finding) [facility] Start: 09-06-2022 Tobacco use and exposure Smokeless tobacco non-user [facility] Start: 06-01-2024 End: 12-16-2024 Alcoholic beverage intake Current drinker of alcohol (finding) [facility] Start: 07-28-2020 End: 11-07-2023 History of Social function [facility] Has the [employer], or [employer] threatened to shut off services in your home in past 12Mo No [facility] How often to you hav e a drink containing alcohol? Monthly or less [facility] How many standard drinks containing alcohol do you have on a typical day? 1 or 2 [facility] How often do you hav e 6 or more drinks on 1 occasion? Never [facility] How hard is it for y ou to pay for the very basics like food, housing, medical care, and heating Not hard at all [facility] Start: 11-05-2022 Alcohol Comment occasional [facility] Start: 1970 Sex assigned at Not on file P Melanie [facility] Start: 01-20-2015 End: 09-10-2024 Sex Male (finding) [facility] Medical Equipment Procedure Code Equipment Code Equipment Origin al Text Equipment Identifier Dates Acrysof Iq Vivit y Uv Iol [id number] Start: 11-29-2022 Clinical Notes 05-21-2022 to 12-17-2024 Telephone Encounter - RADHA Barbosa - 12/17/2024 9:57 AM EDTTelephone Encounter - RADHA Barbosa - 12/17/2024 9:57 AM EDTSJONAS Mosqueda - 12/16/2024 12:00 PM EDT Note Date & Type Note Facility 12-17-2024 Miscellaneous Notes Formattin g of this note might be different from the original. PAP mask and supplies order with supportive documentation faxed to [facility]. documented in this encounter [facility] 12-17-2024 Telephone encount er Note PAP mask and supplies order with supportive documentation faxed to [facility]. [facility] 12-16-2024 History of Presen t illness Narrative Images from the original note were not included. Chief Complaint: Merlin Fish [facility] to the [facility] for follow up on 12/16/2024. He is a 54 y.o. male followed at the [facility] for CINTHYA, for which BPAP 25/19 cm H2O was prescribed. At the time of the last visit on 09/02/24, the plan was to continue BIPAP. HPI: The patient reports that he is adherent to his nocturnal ventilatory support for 8 hours a night 7 days per week. He reports feeling the benefits of wearing it nightly and denies any am fatigue or excessive daytime sleepiness. Denies any aerophagia. Denies any issues with mask fit or PAP machine; He denies any dyspnea, fevers, chills, hemoptysis, wheezing, or chest pain. Overall, he is very pleased with his current status. He denies sleepiness while driving. Supplemental O2 use: none Current PAP interface: He uses a Full Face Mask. He does not use a chinstrap. He does use the heated inline humidifier. Cleaning supplies with soap and water. [place] Sleepiness Scale: Sitting and Reading: Never Watching TV: Never Sitting inactive in a public place (theater, meeting): Never As a passenger in a car for an hour without a break: Never Lying down in the afternoon to rest: Never Sitting and talking to someone: Never Sitting quietly after lunch (without alcohol): Never In a car, while stopped for a few minutes in traffic: Never Total: 0 OARRS: Reviewed: no PMH: Pertinent History: His pertinent medical history includes Past Medical History: Diagnosis Date Abnormal EKG Arthritis Asthma Cataract Diabetes [place] Diabetes mellitus type 2, controlled [place] Headache Hyperlipidemia Hypertension Sleep apnea Visual impairment Medications: Reviewed with patient. Current Outpatient Medications: carvediloL (COREG) 12.5 mg tablet, Take 1 tablet (12.5 mg total) by mouth in the morning and 1 tablet (12.5 mg total) before bedtime., Disp: 180 tablet, Rfl: 3 metFORMIN (GLUCOPHAGE) 1000 mg tablet, Take 1 tablet (1,000 mg total) by mouth in the morning and 1 tablet (1,000 mg total) in the evening. Take with meals., Disp: , Rfl: pantoprazole (PROTONIX) 40 mg EC tablet, Take 1 tablet (40 mg total) by mouth every morning before breakfast., Disp: , Rfl: albuterol (PROVENTIL HFA;VENTOLIN HFA) 90 mcg/actuation inhaler, Inhale 2 puffs every 6 (six) hours as needed for wheezing. (Patient not taking: Reported on 12/16/2024), Disp: , Rfl: atorvastatin (LIPITOR) 40 mg tablet, Take 1 tablet (40 mg total) by mouth nightly. (Patient not taking: Reported on 12/16/2024), Disp: 30 tablet, Rfl: 0 docosahexaenoic acid/epa (FISH OIL ORAL), Take by mouth. (Patient not taking: Reported on 12/16/2024), Disp: , Rfl: empagliflozin (JARDIANCE) 25 mg tablet tablet, TAKE 1 TABLET BY MOUTH ONCE DAILY Oral for 90 Days (Patient not taking: Reported on 12/16/2024), Disp: , Rfl: lidocaine (LIDODERM) 5 %, Place 1 patch on the skin daily. Remove & Discard patch within 12 hours or as directed by MD (Patient not taking: Reported on 12/16/2024), Disp: 30 patch, Rfl: 0 losartan-hydroCHLOROthiazide (HYZAAR) 100-12.5 mg per tablet, Take 1 tablet by mouth in the morning. (Patient not taking: Reported on 12/16/2024), Disp: , Rfl: SITagliptin phosphate (JANUVIA) 100 mg tablet, Take 1 tablet (100 mg total) by mouth in the morning. (Patient not taking: Reported on 12/16/2024), Disp: , Rfl: Vitals: 12/16/24 1153 Weight: 93.3 kg (205 lb 9.6 oz) Height: 170.2 cm (5' 7 ) Allergies: Reviewed with patient. Patient has no known allergies. Family History: Family History Problem Relation Age of Onset Diabetes Mother Heart disease Father Diabetes Father Social History: Social History Socioeconomic History Marital status: Legally Tobacco Use Smoking status: Never Smokeless tobacco: Never Vaping Use Vaping status: Never Used Substance and Sexual Activity Alcohol use: Yes Comment: occasional Drug use: Never Sexual activity: Defer Partners: Female Other Topics Concern Caffeine Use Yes Social Drivers of Health Financial Resource Strain: Low Risk (11/07/2023) Overall Financial Resource Strain (CARDIA) Difficulty of Paying Living Expenses: Not hard at all Food Insecurity: No Food Insecurity (07/17/2024) Hunger Screening Food Insecurity - Worry: Never True Food Insecurity - Inability: Never True Transportation Needs: No Transportation Needs (11/07/2023) PRAPARE - Transportation Lack of Transportation (Medical): No Lack of Transportation (Non-Medical): No Interpersonal Safety: Not At Risk (11/07/2023) Humiliation, Afraid, Rape, and Kick questionnaire Fear of Current or Ex-Partner: No Emotionally Abused: No Physically Abused: No Sexually Abused: No Housing Instability: Low Risk (11/07/2023) Housing Instability Housing Instability: No Travel History: Denies recent travel. ROS: All 11 systems have been reviewed: Review of Systems Constitutional: Negative for chills, fatigue and fever. Respiratory: Negative for cough, shortness of breath and wheezing. Cardiovascular: Negative for chest pain/discomfort. All other systems are reviewed and are negative except as noted. Physical Examination: Vital signs Ht 170.2 cm (5' 7 ) Wt 93.3 kg (205 lb 9.6 oz) BMI 32.20 kg/m Physical Exam Vitals and nursing note reviewed. Constitutional: Appearance: Normal appearance. He is obese. Cardiovascular: Heart sounds: Normal heart sounds. Pulmonary: Breath sounds: Normal breath sounds. Musculoskeletal: Cervical back: Neck supple. Skin: General: Skin is warm and dry. Neurological: Mental Status: He is alert and oriented to person, place, and time. Psychiatric: Mood and Affect: Mood normal. Behavior: Behavior normal. Laboratory DATA: Lab Results Component Value Date CO2 25 11/08/2023 Lab Results Component Value Date WBC 16.2 (H) 11/08/2023 HGB 16.2 11/08/2023 HCT 49.2 (H) 11/08/2023 MCV 80 11/08/2023 PLT 273 11/08/2023 No results found for: FERRITIN Chemistry Component Value Date/Time K 4.3 11/08/2023 0701 CL 100 11/08/2023 0701 CO2 25 11/08/2023 0701 BUN 20 11/08/2023 0701 CREATININE 1.04 11/08/2023 0701 GLU 157 (H) 11/08/2023 0743 GLU 164 (H) 11/08/2023 0701 Component Value Date/Time CALCIUM 9.3 11/08/2023 0701 ALKPHOS 76 11/08/2023 0701 AST 14 11/08/2023 0701 ALT 21 11/08/2023 0701 No results found for: TSH Echo complete W/O contrast Result Date: 02/15/2023 Left Ventricle: There is mild concentric increased wall thickness/hypertrophy. Systolic function is normal with an ejection fraction of 55-60%. Right Ventricle: Right ventricular size appears normal. The right ventricular basal diameter is 34.0 mm. Systolic function is normal. Aortic Valve: There is no regurgitation or stenosis. Mitral Valve: There is trace regurgitation. There is no evidence of mitral valve stenosis. DATA: DME: [facility] Data card was available for PAP usage data download. PAP compliance is excellent. IMAGING/PFT Echo complete W/O contrast Result Date: 02/15/2023 Left Ventricle: There is mild concentric increased wall thickness/hypertrophy. Systolic function is normal with an ejection fraction of 55-60%. Right Ventricle: Right ventricular size appears normal. The right ventricular basal diameter is 34.0 mm. Systolic function is normal. Aortic Valve: There is no regurgitation or stenosis. Mitral Valve: There is trace regurgitation. There is no evidence of mitral valve stenosis. Impression: There are no diagnoses linked to this encounter. CINTHYA with adherence to nocturnal ventilatory support on a nightly basis. Obesity Body mass index is 32.2 kg/m . Essential HTN Plan: Discussed diagnosis, its evaluation, treatment and usual course. All questions answered. Educational material distributed. No orders of the defined types were placed in this encounter. Orders Placed or Reconciled This Encounter Medications pantoprazole (PROTONIX) 40 mg EC tablet Sig: Take 1 tablet (40 mg total) by mouth every morning before breakfast. He is to continue BIPAP 25/19 cm H20 on a nightly basis. New mask and supplies as needed. Independently reviewed and interpreted data download and ESS Diet and exercise were discussed in detail. Any age appropriate or routine screening per PCP. Follow up in 12 Months time. If his condition should change prior to this he is encouraged to give our office a call. Discussed triggers to call back before follow up including weight change > 10%, major medical issues including stroke, arrhythmia or heart attack, or significant change in symptoms. EDUCATION: Driving precautions were reviewed. I advised the patient not to drive if sleepy, and to tobacco sample puller if sleepiness occurs while driving. Above plan as discussed with the patient who acknowledged understanding and agreement. Health risks associated with untreated CINTHYA were discussed (cardiopulmonary, cerebrovascular, and anesthesia/sedative-related). Discussed triggers to call back before next visit including weight change > 10%, major medical issues including stroke, arrhythmia or heart attack, or significant change in symptoms. This note is dictated with the use of [employer]*Modal.Please note that this dictation was completed with computer voice recognition software. Quite often unanticipated grammatical, syntax, homophones, and other interpretive errors are inadvertently transcribed by the computer software. Please disregard these errors. Please excuse any errors that have escaped final proofreading. Janet Queen [facility] Office: [phone] 12:03 PM on 12/16/2024 CC: [facility] JONAS Archuleta 12/16/24 1242 documented in this encounter [facility] 12-16-2024 Instructions JONAS Archuleta - 12/16/2024 12:00 PM EDT If you re looking for general health and wellness resources, please visit [email or web address]. documented in this encounter [facility] 12-10-2024 Miscellaneous Notes Formattin g of this note might be different from the original. Digital Sales Planner called patient and left voicemail informing him that he has an appointment on 12/16/2024 with SK at 12:00pm (noon), technical writer asked if patient could come in at 11:45am instead, technical writer provided office call back number for patient. documented in this encounter [facility] 12-10-2024 Telephone encount er Note Digital Sales Planner called patient and left voicemail informing him that he has an appointment on 12/16/2024 with SK at 12:00pm (noon), technical writer asked if patient could come in at 11:45am instead, technical writer provided office call back number for patient. [facility] 11-19-2024 Miscellaneous Notes Formattin g of this note might be different from the original. This PT called for a compliance visit, he got his machine November 11, 2024. I do not see any available appts within the 31-90 day timeframe. Could you review and advise, I am to call PT back with appt. Thanks Patient can be scheduled for a video visit with SK at different location or with Christy on a video visit. PT scheduled 12/16 @ 12pm per Kailyn. Appt reminder sent in mail to PT documented in this encounter [facility] 11-19-2024 Telephone encount er Note This PT called for a compliance visit, he got his machine November 11, 2024. I do not see any available appts within the 31-90 day timeframe. Could you review and advise, I am to call PT back with appt. Thanks [facility] 11-19-2024 Telephone encount er Note Patient can be scheduled for a video visit with SK at different location or with Christy on a video visit. [facility] 11-19-2024 Telephone encount er Note PT scheduled 12/16 @ 12pm per Kailyn. Appt reminder sent in mail to PT [facility] 10-08-2024 Miscellaneous Notes Formattin g of this note might be different from the original. Patient of SK Please let him know results BiPAP ordered Titration study on 09/28/2024 (Rwsoqz=539.0 lbs; BMI=34.5 kg/m2) DIAGNOSIS: Obstructive Sleep Apnea [...] periodic leg movements. Faxed all information to [facility] for switch to BiPAP setup. Patient informed through DME letter and lvm. Recall placed for RV with SK for compliance as current 03/10/25 likely too far out. documented in this encounter [facility] 10-08-2024 Telephone encount er Note Patient of SK Please let him know results BiPAP ordered Titration study on 09/28/2024 (Lhudoj=702.0 lbs; BMI=34.5 kg/m2) DIAGNOSIS: Obstructive Sleep Apnea [...] were clusters of frequent periodic leg movements. [facility] Work Phone: 10-08-2024 Telephone encount er Note Faxed all information to [facility] for switch to BiPAP setup. Patient informed through DME letter and lvm. Recall placed for RV with SK for compliance as current 03/10/25 likely too far out. [facility] 09-04-2024 Miscellaneous Notes Formattin g of this note might be different from the original. PAP mask and supplies order with supportive documentation faxed to [facility]. documented in this encounter [facility] 09-04-2024 Telephone encount er Note PAP mask and supplies order with supportive documentation faxed to [facility]. [facility] 07-22-2024 Evaluation note Diagnosis Onset Date Resolution Right forearm pain acute Febr2024 1:50pm [facility] Work Phone: 1(432) 189-753502-05-2025 Evaluation note* Diagnosis Onset Date Resolution Status Admit Date Right forearm pain acute Febr2024 1:50pm Gout acute July 31, 2024 9:12am Right forearm pain acute 2024 9:12am [facility] Work Phone: 1(332) 603-754802-05-2025 Evaluation note* Diagnosis Onset Date Resolution Status Admit Date Right forearm pain acute 2024 1:50pm Gout acute July 31, 2024 9:12am Right forearm pain acute Februa 2024 9:12am Gout acute August 19 1:33pm Right forearm pain acute August 19, 2024 1:33pm Right wrist pain acute August 1:33pm [facility] Work Phone: 1(825) 127-447802-05-2025 Evaluation note* Diagnosis Onset Date Resolution Status Admit Date Right forearm pain acute Februa 2024 1:50pm Gout acute July 31, 2024 9:12am Right forearm pain acute Februa 2024 9:12am Gout acute August 19 1:33pm Right forearm pain acute August 19, 2024 1:33pm Right wrist pain acute August 1:33pm Gout acute September 09 2:43pm Right forearm pain acute September 09, 2024 2:43pm Right wrist pain acute September 092024 2:43pm [facility] Work Phone: 1(188) 218-686101-07-2025 Miscellaneous Notes* Telephone Encounter - Yolanda Jean [...] all info for APAP setupto Zena at [facility] for amber setup due to severity. Fax confirmation received. documented in this encounterJoint [facility] HospitalTappx [id number] Telephone encounter Note* Telephone Encounter - Yolanda [...] all info for APAP setupto Zena at [facility] for amber setup due to severity. Fax confirmation received. [facility]12-23-2024 History of Present illness Narrative* Karine Baltazar MD - 06/08/2024 11:45 AM EST Merlin Fish Date of visit: 06/08/2024 Date of : 1970 Age: 54 y.o. Patient Active Problem List Diagnosis Chronic sinusitis DNS (deviated nasal septum) Hypertrophy of both inferior nasal turbinates Obstructive sleep apnea syndrome Abnormal EKG Essential hypertension Shortness of breath NSTEMI (non-ST elevated myocardial infarction) ([facility]) No Known Allergies Current Outpatient Medications Medication [...] Date Abnormal EKG Arthritis Asthma Cataract Diabetes [place] Diabetes mellitus type 2, controlled ([facility]) Headache Hyperlipidemia Hypertension Sleep apnea Visual impairment No data recorded No data recorded No data recorded Past Surgical History: Procedure Laterality Date APPENDECTOMY Cardiac Invasive N/A 11/08/2023 Performed by Sara Carrizales MD at [facility]ATH [facility] Coronary angiogram and left ventricular gram/pressure N/A 11/08/2023 Performed by Sara Carrizales MD at [facility] CARDIAC CATH [facility] EXTRACTION CATARACT INTRAOCULAR LENS [...] chest pain Hypertension Angiographically normal coronary arteries [facility] 10/2023 Normal EF TTE 02/2023 Hyperlipidemia -07/2022: Total cholesterol 176, HDL 38, LDL 67, triglycerides 357 Type 2 diabetes mellitus Asthma Sleep apnea/ scheduled for sleep study 07/2023 Obesity, BMI 34 Patient here for follow-up visit. Has some noncardiac type chest pain which could be GI in nature. Recommended considering seeing director integrated if discomfort becomes more frequent and to [...] symptoms worsen or fail to improve. PCP: DESIREE Duque Referring Physician: No referring provider defined for this encounter. documented in this encounterK[facility]12[facility] Miscellaneous Notes* Telephone Encounter - Jeannine Peres - 06/08/2024 11:42 AM EST 06/08 Order received STAT Scheduled PAP at [facility] on 08/04/24 Chat to pre auth [place] PAP Order and use 12/11/23 [employer] Notes STAT due to Severe CINTHYA, Run with TCO2, wakeful baseline to start * Telephone Encounter - Marci Carroll - 06/08/2024 11:42 AM EST Pt has a previously denied auth (SN from ) with same code 40548 within the past 90 days.. Ins can not submit another auth until 08/04/24 There is an option for an appeal to be filed for the [address] will have to either call [phone] Or fax a request and clinicals to [phone] C#[id number] [facility] Rhoda Miguel Cr# [id number] Thank you documented in this encounterK[facility]12-[facility]-2024 Telephone encounter Note* Telephone Encounter - Jeannine Peres - 06/08/2024 11:42 AM EST 06/08 Order received STAT Scheduled PAP at [facility] on 08/04/24 Chat to pre auth [place] [employer] PAP Order and use 12/11/23 [employer] Notes STAT due to Severe CINTHYA, Run with TCO2, wakeful baseline to start [facility] [employer] [id number] Telephone encounter Note* Telephone Encounter - Marci Carroll - 06/08/2024 11:42 AM EST Pt has a previously denied auth (SN from ) with same code 49901 within the past 90 days.. Ins can not submit another auth until 08/04/24 There is an option for an appeal to be filed for the 91502 code will have to either call [phone] Or fax a request and clinicals to [phone] #[id number] [facility] Rhoda [facility]# [id number] Thank you [facility] [id number] Miscellaneous Notes* Telephone Encounter - Hedy Us MD - 06/08/2024 10:03 AM EST Patient of Janet Ventura Please let him know results. IN Lab CPAP titration recommended with TCO2 Janet, he will need the order, would add comments to expedite due to severity and his ESS Home sleep apnea test on 2024-06-01 (WARD (3%)=83.1 events/hour; WARD (4%)=76.1 events/hour; Alfredo SpO2=68.0%; Ukfopa=056.0 lbs; BMI=34.5 kg/m2) DIAGNOSIS: Obstructive Sleep Apnea [...] mixed events. * Telephone Encounter - Jennifer Renee - 06/08/2024 10:03 AM EST LVM with HST results, recommended sleeping Sides only and/or partially elevated while waiting for treatment. Digital Sales Planner provided her direct number for call back if questions and Sleep Lab number to schedule. Order placed and note to HUB for scheduling. documented in this encounterNort[facility] Hospitaltreadalong12-23-2024 Telephone encounter Note* Telephone Encounter - Hedy Us MD - 06/08/2024 10:03 AM EST Patient of Janet Ventura Please let him know results. IN Lab CPAP titration recommended with TCO2 Janet, he will need the order, would add comments to expedite due to severity and his ESS Home sleep apnea test on 2024-06-01 (WARD (3%)=83.1 events/hour; WARD (4%)=76.1 events/hour; Alfredo SpO2=68.0%; Epjdtx=349.0 lbs; BMI=34.5 kg/m2) DIAGNOSIS: Obstructive Sleep Apnea [...] the degree of central and mixed events. [employer] Work Phone: 1(928) 296-428712-23-2024 Telephone encounter Note* Telephone Encounter - Jennifer Duran - 06/08/2024 10:03 AM EST LVM with HST results, recommended sleeping Sides only and/or partially elevated while waiting for treatment. Digital Sales Planner provided her direct number for call back if questions and Sleep Lab number to schedule. Order placed and note to HUB for scheduling. [facility] [employer] [id number] Miscellaneous Notes* Telephone Encounter - Nicci Dyer CMA - 06/05/2024 9:21 AM EST Left message for patient to remind them to bring their most current medication list with them to their appointment. documented in this encounterK[facility]12-[facility]-2024 Telephone encounter Note* Telephone Encounter - Nicci Dyer CMA - 06/05/2024 9:21 AM EST Left message for patient to remind them to bring their most current medication list with them to their appointment. [facility]11-26-2024 Miscellaneous Notes* Telephone Encounter - Hue Helm - 05/12/2024 10:01 AM EST 05/12 HST order received Called PT LM to schedule sleep study. HST order & 12/10 Lorenzo notes in epic * Telephone Encounter - Jeannine Peres - 05/12/2024 10:01 AM EST Scheduled HST at [facility] on 06/01 7:00 pm Confirmation emailed [employer] HST order & 12/10 Kregel notes in epic documented in this encounterKettering [facility]11-26-2024 Telephone encounter Note* Telephone Encounter - Hue Helm - 05/12/2024 10:01 AM EST 05/12 HST order received Called PT LM to schedule sleep study. HST order & 12/10 Kregel notes in epic [facility] [employer] [id number] Telephone encounter Note* Telephone Encounter - Jeannine Peres - 05/12/2024 10:01 AM EST Scheduled HST at PM on 06/01 7:00 pm Confirmation emailed [employer] HST order & 12/10 Kregel notes in epic [facility]08-07-2024 Miscellaneous Notes* Telephone Encounter - Mackenzie Omalley RN - 01/22/2024 11:10 AM EDT Surgeon: Dr Joshua Type of surgery:Robby Lt foot viaflow injection Date of surgery: 05/01/24 Surgery location: [place] Type of anesthesia: general On a blood [...] Faxed clearance letter to Dr Joshua in [email or web address] documented in this encounterKettering [facility]08-07-2024 Telephone encounter Note* Telephone Encounter - Mackenzie Omalley RN - 01/22/2024 11:10 AM EDT Surgeon: Dr Joshua Type of surgery:Robby Lt foot viaflow injection Date of surgery: 05/01/24 Surgery location: [place] Type of anesthesia: general On a blood thinner?: no On an antiplatelet?: no Date of last EK11/11/23 Last office visit date and who they saw: 12/03/23 History of CVA/TIA, DVT/PE? Not documented ATTN: Do they need any additional info faxed(such as office note, ekg, testing, Etc?) Please review upon your return. Pt needs pre-op clearance.slm [facility]08-07-2024 Telephone encounter Note* Telephone Encounter - Sara Carrizales MD - 01/22/2024 11:10 AM EDT Medically optimized and OK to proceed at low risk. [facility]08-07-2024 Telephone encounter Note* Telephone Encounter - Mackenzie Omalley RN - 01/22/2024 11:10 AM EDT Faxed clearance letter to Dr Joshua in [place].[email or web address] [facility]07-09-2024 Miscellaneous Notes* Telephone Encounter - Yolanda Jean Baptiste - 12/24/2023 12:40 PM EDT Images from the original note were not included. Per Ya, trying to locate previous sleep studies. Appears Dr Woods did interp so emailed Devin at [facility] to see if has copy. Devin responded that office does not have copy of diagnostic study on file. Forwarded emailed to [place] to inform. * Telephone Encounter - JONAS Archuleta - 12/24/2023 12:40 PM EDT That is fine documented in this encounterKettering [facility]07-09-2024 Telephone encounter Note* Telephone Encounter - Yolanda Jean Baptiste - 12/24/2023 12:40 PM EDT Images from the original note were not included. Per Ya, trying to locate previous sleep studies. Appears Dr Woods did interp so emailed Devin at [facility] to see if has copy. Devin responded that office does not have copy of diagnostic study on file. Forwarded emailed to [place] to inform. [facility]07-09-2024 Telephone encounter Note* Telephone Encounter - JONAS Archuleta - 12/24/2023 12:40 PM EDT That is fine [facility]07-01-2024 Miscellaneous Notes* Telephone Encounter - Carrie Saldana - 12/16/2023 2:48 PM EDT 12/15 order received Called PT LM to schedule sleep study. Split night order & 12/10 Lorenzo notes in epic documented in this encounterKettering [facility]07-01-2024 Telephone encounter Note* Telephone Encounter - Carrie Saldana - 12/16/2023 2:48 PM EDT 12/15 order received Called PT LM to schedule sleep study. Split night order & 12/10 Kregel notes in epic [facility]06-28-2024 Miscellaneous Notes* Telephone Encounter - Hue Helm - 12/13/2023 3:34 PM EDT PT called to schedule, he was seen on 12/10 with Lorenzo he stated. Routed documented in this encounterKettering Health [facility]06-28-2024 Telephone encounter Note* Telephone Encounter - Hue Helm - 12/13/2023 3:34 PM EDT PT called to schedule, he was seen on 12/10 with Lorenzo he stated. Routed Dr [facility]06-18-2024 History of Present illness Narrative* Sara Carrizales MD - 12/03/2023 10:45 AM EDT Merlin Fish Date of visit: 12/03/2023 Date of : 1970 Age: 53 y.o. Patient Active Problem List Diagnosis Chronic sinusitis DNS (deviated nasal septum) Hypertrophy of both inferior nasal turbinates Obstructive sleep apnea syndrome Abnormal EKG Essential hypertension Shortness of breath NSTEMI (non-ST elevated myocardial infarction) ([facility]) No Known Allergies Current Outpatient Medications Medication [...] He had a cardiac catheterization performed at [facility]. He had angiographically normal coronary arteries with [...] Date Abnormal EKG Arthritis Asthma Cataract Diabetes ([facility]) Diabetes mellitus type 2, controlled [place] Headache Hyperlipidemia Hypertension Sleep apnea Visual impairment No data recorded No data recorded No data recorded Past Surgical History: Procedure Laterality Date APPENDECTOMY Cardiac Invasive N/A 11/08/2023 Performed by Sara Carrizales MD at [facility] CARDIAC CATH LABS Coronary angiogram and left ventricular gram/pressure N/A 11/08/2023 Performed by Sara Carrizales MD at [facility] CARDIAC CATH LABS EXTRACTION CATARACT INTRAOCULAR LENS [...] IMPRESSIONS/PLAN 1. NSTEMI (non-ST elevated myocardial infarction) ([facility]) 2. Essential hypertension 3. Shortness of breath [...] in about 6 months (around 06/03/2024). PCP: [facility] Referring Physician: Parker Gorman PA-C [address] [place] [address] documented in this encounterKettering Health [facility]06-17-2024 Miscellaneous Notes* Telephone Encounter - Yesenia Babcock CMA - 12/02/2023 9:05 AM EDT Called patient to remind them to bring their most current copy of their medication list with them to their appt. Patient verbalizes understanding. documented in this encounterKettering Health [facility]06-17-2024 Telephone encounter Note* Telephone Encounter - Yesenia Babcock CMA - 12/02/2023 9:05 AM EDT Called patient to remind them to bring their most current copy of their medication list with them to their appt. Patient verbalizes understanding. [facility]05-24-[facility]24 Hospital course Narrative* Mary Jane Henry, REVENUE INTEGRITY ANALYST-TWO WAY RADIO TECHNICIAN - 11/08/2023 9:14 AM EDT Images from the original note were not included. [facility] [address] [place] [address] DISCHARGE SUMMARY Merlin Cabelloes Primary Overhead Cleaner Maintainer: ISSAC PCP: [facility] Admission Date: 11/07/2023 Discharge Date: 11/08/2023 Reason for Admission: Principal Problem: NSTEMI (non-ST elevated myocardial infarction) ([facility]) Chest discomfort HOSPITAL SUMMARY This is a 53-year-old male with a past medical history of primary hypertension, hypertriglyceridemia, type 2 diabetes, CINTHYA. Patient initially presented to [facility] with complaints of stabbing chest discomfort along [...] lateral wall. He was then transferred to [facility] for diagnostic cardiac catheterization. Cardiac catheterization completed [...] 7 days Lab Units 11/08/23 0701 11/07/23 18411/07/23 1205 11/06/23 1520 SODIUM mmol/L 137 -- [...] This note was completed using a voice aircraft refueller system. Every effort was made to ensure accuracy. However, inadvertent computerized aircraft refueller errors may be present. JONAS Shi 11/08/23 0917 documented in this encounterKettering Health [facility]05-24-2024 Procedure note* Pre-Sedation Documentation - Sara Carrizales MD - 11/08/2023 8:12 AM EDT Pre Procedure Evaluation: H&P was reviewed and the patient was examined. No change has occurredin the patient's condition since the H&P was completed. ASA: 2 Mallampati: II Sedation plan and risks discussed with: patient Indication(s) for Boat Rental Clerk Visit: New Onset Angina <= 2 months Chest Pain Symptom Assessment: atypical Cardiovascular Instability: No Heart Failure: No Electrocardiac Assessment Method: ECG Results: normal Stress Test Performed: No Cardiac CTA: No CSHA Clinical Frailty Scale (Assessment immediately prior to procedure): 2: Well Cardiac Arrest Out of Hospital: No Cardiac Arrest at Transferring Facility: No [facility]05-24-2024 Miscellaneous Notes* Pre-Sedation Documentation - Sara Carrizales MD - 11/08/2023 8:12 AM EDT Pre Procedure Evaluation: H&P was reviewed and the patient was examined. No change has occurredin the patient's condition since the H&P was completed. 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 Encourage patient or legal pharmaceutical representative to report early pain and ask [...] per policy 9. Teach patient or legal pharmaceutical representative interventions for comforting Outcome: Progressing Note: [...] at the bedside 7. Instruct patient/ patient pharmaceutical representative about use of safety devices 8. Include patient/ patient pharmaceutical representative in decisions related to safety Outcome: [...] hygiene technique 7. Identify and instruct patient/patient pharmaceutical representative in use of appropriate isolation precautionsfor identified infection/symptoms 8. Provide and discuss with patient/patient pharmaceutical representative on educational MDRO sheet 9. Encourage and monitor nutritional status daily and consult import customer service manager if indicated 10. Implement neutropenic guidelines as needed 11. Review exposure to history of communicable disease and recent travel history on admission 12. Encourage annual influenza vaccine 13. Encourage pneumonia vaccine Outcome: Progressing Note: Evaluation of progress towards goal: Patient remains free from and new infections at this point during their stay. Problem: Knowledge Deficit Goal: Patient/patient pharmaceutical representative demonstrates understanding of disease process, treatment [...] Collaborate with ancillary departments 14. Include patient/patient pharmaceutical representative in decisions related to anxiety Outcome: [...] providing care 6. Collaborate with pastoral/spiritual care, long term care social worker, mental health counselor as needed. 7. Instruct patient on diversional activities such as physical activity, distraction, and deep breathing exercises to assist with coping 8. Involve patient's pharmaceutical representative in care Outcome: Progressing Note: Evaluation [...] supplement as ordered 13. Collaborate with clinical import customer service manager 14. Include patient/ patient's pharmaceutical representative in decisions related to nutrition Outcome: Progressing Note: Evaluation of progress towards goal: Nutrition is adequate at this time. Problem: Low Risk Fall Score Description: Zambrano Fall Score of 0 - 24 or indicated by [facility] Assessment Goal: Patient should be free from fall Description: Interventions: 1. [place] to environment 2. Hourly rounds addressing the [...] non-skid footwear 11. Teach patient and patient pharmaceutical representative to maintain environment for safety and [...] discharge planning process 5. Communicate referral to telehealth nurse educator as appropriate 6. Communicate referral to import customer service manager as appropriate 7. Collaborate with case management/long term care social worker for discharge needs Outcome: Progressing Note: Evaluation of progress towards goal: Will continue to monitor * Plan of Care - Marina Boo RN - 11/07/2023 1:29 PM EDT Problem: Pain Goal: Patient goal is pain score less than 4, able to rest, and participant in treatment plan as appropriate Description: INTERVENTIONS: 1. Encourage patient or legal pharmaceutical representative to report early pain and ask [...] per policy 9. Teach patient or legal pharmaceutical representative interventions for comforting Outcome: Progressing Note: [...] at the bedside 7. Instruct patient/ patient pharmaceutical representative about use of safety devices 8. Include patient/ patient pharmaceutical representative in decisions related to safety Outcome: [...] hygiene technique 7. Identify and instruct patient/patient pharmaceutical representative in use of appropriate isolation precautionsfor identified infection/symptoms 8. Provide and discuss with patient/patient pharmaceutical representative on educational MDRO sheet 9. Encourage and monitor nutritional status daily and consult import customer service manager if indicated 10. Implement neutropenic guidelines as needed 11. Review exposure to history of communicable disease and recent travel history on admission 12. Encourage annual influenza vaccine 13. Encourage pneumonia vaccine Outcome: Progressing Note: Evaluation of progress towards goal: Patient remains free from s/s of infection as evidence by labs and VS. Problem: Knowledge Deficit Goal: Patient/patient pharmaceutical representative demonstrates understanding of disease process, treatment [...] of 0 - 24 or indicated by [facility] Assessment Goal: Patient should be free from fall Description: Interventions: 1. [place] to environment 2. Hourly rounds addressing the [...] non-skid footwear 11. Teach patient and patient pharmaceutical representative to maintain environment for safety and engage in all aspects of fall prevention program Outcome: Progressing Note: Evaluation of progress towards goal: Patient remains free from falls. Area is clear of hazards and call light is within reach. [facility] Attending History and physical note* Sara Carrizales MD - 11/08/2023 8:11 AM EDT HISTORY AND PHYSICAL INTERVAL NOTE: Merlin Fish 1970 [id number] H&P reviewed. The patient was examined and there are no changes to the H&P. SARA CARRIZALES MD Source Note - Sara Carrizales MD - 11/07/2023 12:18 PM EDT Images from the original note were not included. [facility] [address] [place], [place] [id number] CONSULT NOTE Merlin Fish PCP: [facility] [place] Date of Admission: 11/07/2023 Date of Consultation: 11/07/2023 12:18 PM Consult for NSTEMI, Unstable Angina SUBJECTIVE History of Present Illness: Merlin Fish is a 53 y.o. male who is known to our service and was seen on 10/09/[address] Don. Past medical history of hypertension, hypertriglyceridemia, diabetes mellitus, obstructive sleep apnea, obesity. Tells me he presented to [facility] for symptoms of stabbing chest discomfort along [...] Date Abnormal EKG Arthritis Asthma Cataract Diabetes [place] Diabetes mellitus type 2, controlled ([facility] Headache Hyperlipidemia Hypertension Sleep apnea Visual impairment Previous Surgical History: Past Surgical History: Procedure Laterality Date APPENDECTOMY EXTRACTION CATARACT INTRAOCULAR LENS Right 11/29/2022 Performed by Marya Robbins MD at [facility] K[facility]EE SURGERY x4 WISDOM TOOTH EXTRACTION Allergies: No Known Allergies Hospital Meds: Current Facility-Administered Medications Medication Dose Route Frequency Provider Last Rate Last Admin acetaminophen (TYLENOL) tablet 650 mg 650 mg oral Q4H PRN Hue L Veselka, REVENUE INTEGRITY ANALYST-TWO WAY RADIO TECHNICIAN [START ON 11/08/2023] amLODIPine (NORVASC) tablet 10 mg 10 mg oral Daily Hue L Veselka, REVENUE INTEGRITY ANALYST-TWO WAY RADIO TECHNICIAN calcium gluconate 3,000 mg in sodium chloride 0.9 % 100 mL IVPB 3,000 mg intravenous PRN Hue L Veselka, REVENUE INTEGRITY ANALYST-TWO WAY RADIO TECHNICIAN calcium gluconate 4,000 mg in sodium chloride 0.9 % 250 mL IVPB 4,000 mg intravenous PRN Hue L Veselka, REVENUE INTEGRITY ANALYST-TWO WAY RADIO TECHNICIAN calcium gluconate IVPB 2000 mg/100 mL (20 mg/mL premix) 2,000 mg intravenous PRN Hue L Veselka, REVENUE INTEGRITY ANALYST-TWO WAY RADIO TECHNICIAN dextrose (GLUTOSE) 40 % gel 15 g 15 g oral PRN Hue L Veselka, REVENUE INTEGRITY ANALYST-TWO WAY RADIO TECHNICIAN dextrose 5 % (D5W) infusion 100 mL/hr intravenous Continuous PRN Hue L Veselka, REVENUE INTEGRITY ANALYST-TWO WAY RADIO TECHNICIAN dextrose 50 % in water (D50W) 50% solution 25 mL 25 mL intravenous PRN Hue Eller, REVENUE INTEGRITY ANALYST-TWO WAY RADIO TECHNICIAN [START ON 11/08/2023] empagliflozin (JARDIANCE) tablet 25 mg 25 mg oral Daily Hue Eller, REVENUE INTEGRITY ANALYST-TWO WAY RADIO TECHNICIAN glucagon HCL injection 1 mg 1 mg intramuscular PRN Hue Eller, REVENUE INTEGRITY ANALYST-TWO WAY RADIO TECHNICIAN [START ON 11/08/2023] losartan (COZAAR) 50 mg, hydroCHLOROthiazide (HYDRODIURIL) 12.5 mg for HYZAAR 50/12.5 oral Daily Hue Eller, REVENUE INTEGRITY ANALYST-TWO WAY RADIO TECHNICIAN magnesium sulfate IVPB 2000 mg/50 mL in iso-osmotic water (40 mg/mL premix) 2,000 mg intravenous PRN Heu Eller, REVENUE INTEGRITY ANALYST-TWO WAY RADIO TECHNICIAN magnesium sulfate IVPB 4000 mg/100 mL in iso-osmotic water (40 mg/mL premix) 4,000 mg intravenous PRN Hue Eller, REVENUE INTEGRITY ANALYST-TWO WAY RADIO TECHNICIAN ondansetron (PF) (ZOFRAN) injection 4 mg 4 mg intravenous Q8H PRN Hue Eller, REVENUE INTEGRITY ANALYST-TWO WAY RADIO TECHNICIAN potassium chloride (K-TAB,KLOR-CON) CR tablet 30-50 mEq 30-50 mEq oral PRN Hue Eller, REVENUE INTEGRITY ANALYST-TWO WAY RADIO TECHNICIAN Or potassium chloride (KAYCIEL) 20 mEq/15 mL solution 30-50 mEq 30-50 mEq oral PRN Hue Eller, REVENUE INTEGRITY ANALYST-TWO WAY RADIO TECHNICIAN sennosides-docusate sodium (SENOKOT-S) 8.6-50 mg 1 tablet 1 tablet oral Q12H PRN Hue Eller, REVENUE INTEGRITY ANALYST-TWO WAY RADIO TECHNICIAN [START ON 11/08/2023] SITagliptin phosphate (JANUVIA) tablet 100 mg 100 mg oral Daily Hue Eller, REVENUE INTEGRITY ANALYST-TWO WAY RADIO TECHNICIAN sodium phosphate 20 mmol in sodium chloride 0.9 % 250 mL IVPB 20 mmol intravenous PRN Hue Eller, REVENUE INTEGRITY ANALYST-TWO WAY RADIO TECHNICIAN Or sodium phosphate 20 mmol in sodium chloride 0.9 % 100 mL IVPB 20 mmol intravenous PRN Hue Eller, REVENUE INTEGRITY ANALYST-TWO WAY RADIO TECHNICIAN Or sod phos di, mono-K phos mono (K-PHOS NEUTRAL) 250 mg tablet 2 tablet 2 tablet oral PRN Hue LVeselka, REVENUE INTEGRITY ANALYST-TWO WAY RADIO TECHNICIAN sodium chloride 0.9 % flush 3 mL 3 mL intravenous PRN Hue L Veselka, REVENUE INTEGRITY ANALYST-TWO WAY RADIO TECHNICIAN sodium chloride 0.9 % flush 3 mL 3 mL intravenous Q12H MIGDALIA Hue L Veselka, REVENUE INTEGRITY ANALYST-TWO WAY RADIO TECHNICIAN sodium chloride 0.9 % flush bag 25 mL intravenous PRN Hue L Veselka, REVENUE INTEGRITY ANALYST-TWO WAY RADIO TECHNICIAN sodium chloride 0.9 % infusion 20 mL/hr intravenous Continuous PRN Hue L Veselka, REVENUE INTEGRITY ANALYST-TWO WAY RADIO TECHNICIAN Home Meds: Prior to Admission medications Medication [...] minute. 2. Rare PACs. 3. Frequent PVCs. [place] is 7.5%. Two morphologies but 1 dominant [...] This note was completed using a voice aircraft refueller system. Every effort was made to ensure accuracy. However, inadvertent computerized aircraft refueller errors may be present. JONAS Limon 11/07/23 1309 CARDIOLOGY ATTENDING NOTE Patient interviewed and evaluated by our certified nurse practitioner or certified physician's advertising assistant and discussed in detail with me. [...] proceed. Will plan for early tomorrow morning. [employer] [place] [facility] Work Phone: [phone] History and physical note* Sara Carrizales MD - 11/08/2023 8:11 AM EDT HISTORY AND PHYSICAL INTERVAL NOTE: Merlin Fish 1970 [id number] H&P reviewed. The patient was examined and there are no changes to the H&P. SARA CARRIZALES MD Source Note - Sara Carrizales MD - 11/07/2023 12:18 PM EDT Images from the original note were not included. [facility] [address] [place], [place] [id number] CONSULT NOTE Merlin Fish PCP: [facility] Date of Admission: 11/07/2023 Date of Consultation: 11/07/2023 12:18 PM Consult for NSTEMI, Unstable Angina SUBJECTIVE History of Present Illness: Merlin Fish is a 53 y.o. male who is known to our service and was seen on 10/09/[address] Don. Past medical history of hypertension, hypertriglyceridemia, diabetes mellitus, obstructive sleep apnea, obesity. Tells me he presented to [facility] for symptoms of stabbing chest discomfort along [...] Date Abnormal EKG Arthritis Asthma Cataract Diabetes [place] Diabetes mellitus type 2, controlled [place] Headache Hyperlipidemia Hypertension Sleep apnea Visual impairment Previous Surgical History: Past Surgical History: Procedure Laterality Date APPENDECTOMY EXTRACTION CATARACT INTRAOCULAR LENS Right 11/29/2022 Performed by Marya Robbins MD at [facility] SURGERY x4 WISDOM TOOTH EXTRACTION Allergies: No Known Allergies Hospital Meds: Current Facility-Administered Medications Medication Dose Route Frequency Provider Last Rate Last Admin acetaminophen (TYLENOL) tablet 650 mg 650 mg oral Q4H PRN Hue Eller APRN-TWO WAY RADIO TECHNICIAN [START ON 11/08/2023] amLODIPine (NORVASC) tablet 10 mg 10 mg oral Daily Hue L Veselka, REVENUE INTEGRITY ANALYST-TWO WAY RADIO TECHNICIAN calcium gluconate 3,000 mg in sodium chloride 0.9 % 100 mL IVPB 3,000 mg intravenous PRN Hue L Veselka, REVENUE INTEGRITY ANALYST-TWO WAY RADIO TECHNICIAN calcium gluconate 4,000 mg in sodium chloride 0.9 % 250 mL IVPB 4,000 mg intravenous PRN Hue L Veselka, REVENUE INTEGRITY ANALYST-TWO WAY RADIO TECHNICIAN calcium gluconate IVPB 2000 mg/100 mL (20 mg/mL premix) 2,000 mg intravenous PRN Hue L Veselka, REVENUE INTEGRITY ANALYST-TWO WAY RADIO TECHNICIAN dextrose (GLUTOSE) 40 % gel 15 g 15 g oral PRN Hue L Veselka, REVENUE INTEGRITY ANALYST-TWO WAY RADIO TECHNICIAN dextrose 5 % (D5W) infusion 100 mL/hr intravenous Continuous PRN Hue L Veselka, REVENUE INTEGRITY ANALYST-TWO WAY RADIO TECHNICIAN dextrose 50 % in water (D50W) 50% solution 25 mL 25 mL intravenous PRN Hue L Veselka, REVENUE INTEGRITY ANALYST-TWO WAY RADIO TECHNICIAN [START ON 11/08/2023] empagliflozin (JARDIANCE) tablet 25 mg 25 mg oral Daily Hue L Veselka, REVENUE INTEGRITY ANALYST-TWO WAY RADIO TECHNICIAN glucagon HCL injection 1 mg 1 mg intramuscular PRN Hue L Veselka, REVENUE INTEGRITY ANALYST-TWO WAY RADIO TECHNICIAN [START ON 11/08/2023] losartan (COZAAR) 50 mg, hydroCHLOROthiazide (HYDRODIURIL) 12.5 mg for HYZAAR 50/12.5 oral Daily Hue L Veselka, REVENUE INTEGRITY ANALYST-TWO WAY RADIO TECHNICIAN magnesium sulfate IVPB 2000 mg/50 mL in iso-osmotic water (40 mg/mL premix) 2,000 mg intravenous PRN Hue L Veselka, REVENUE INTEGRITY ANALYST-TWO WAY RADIO TECHNICIAN magnesium sulfate IVPB 4000 mg/100 mL in iso-osmotic water (40 mg/mL premix) 4,000 mg intravenous PRN Hue L Veselka, REVENUE INTEGRITY ANALYST-TWO WAY RADIO TECHNICIAN ondansetron (PF) (ZOFRAN) injection 4 mg 4 mg intravenous Q8H PRN Hue L Veselka, REVENUE INTEGRITY ANALYST-TWO WAY RADIO TECHNICIAN potassium chloride (K-TAB,KLOR-CON) CR tablet 30-50 mEq 30-50 mEq oral PRN Hue L Veselka, REVENUE INTEGRITY ANALYST-TWO WAY RADIO TECHNICIAN Or potassium chloride (KAYCIEL) 20 mEq/15 mL solution 30-50 mEq 30-50 mEq oral PRN Hue L Veselka, REVENUE INTEGRITY ANALYST-TWO WAY RADIO TECHNICIAN sennosides-docusate sodium (SENOKOT-S) 8.6-50 mg 1 tablet 1 tablet oral Q12H PRN Hue L Veselka, REVENUE INTEGRITY ANALYST-TWO WAY RADIO TECHNICIAN [START ON 11/08/2023] SITagliptin phosphate (JANUVIA) tablet 100 mg 100 mg oral Daily Hue L Veselka, REVENUE INTEGRITY ANALYST-TWO WAY RADIO TECHNICIAN sodium phosphate 20 mmol in sodium chloride 0.9 % 250 mL IVPB 20 mmol intravenous PRN Hue L Veselka, REVENUE INTEGRITY ANALYST-TWO WAY RADIO TECHNICIAN Or sodium phosphate 20 mmol in sodium chloride 0.9 % 100 mL IVPB 20 mmol intravenous PRN Hue L Veselka, REVENUE INTEGRITY ANALYST-TWO WAY RADIO TECHNICIAN Or sod phos di, mono-K phos mono (K-PHOS NEUTRAL) 250 mg tablet 2 tablet 2 tablet oral PRN Hue LVeselka, REVENUE INTEGRITY ANALYST-TWO WAY RADIO TECHNICIAN sodium chloride 0.9 % flush 3 mL 3 mL intravenous PRN Hue L Veselka, REVENUE INTEGRITY ANALYST-TWO WAY RADIO TECHNICIAN sodium chloride 0.9 % flush 3 mL 3 mL intravenous Q12H MIGDALIA Hue L Veselka, REVENUE INTEGRITY ANALYST-TWO WAY RADIO TECHNICIAN sodium chloride 0.9 % flush bag 25 mL intravenous PRN Hue L Veselka, REVENUE INTEGRITY ANALYST-TWO WAY RADIO TECHNICIAN sodium chloride 0.9 % infusion 20 mL/hr intravenous Continuous PRN Hue L Veselka, REVENUE INTEGRITY ANALYST-TWO WAY RADIO TECHNICIAN Home Meds: Prior to Admission medications Medication [...] minute. 2. Rare PACs. 3. Frequent PVCs. [place] is 7.5%. Two morphologies but 1 dominant [...] This note was completed using a voice aircraft refueller system. Every effort was made to ensure accuracy. However, inadvertent computerized aircraft refueller errors may be present. JONAS Limon 11/07/23 1309 CARDIOLOGY ATTENDING NOTE Patient interviewed and evaluated by our certified nurse practitioner or certified physician's advertising assistant and discussed in detail with me. [...] from the original note were not included. [facility] INTERNAL MEDICINE [facility] - GEN 5 ACUTE [address] [facility] [id number] Hospital Medicine History & Physical Patient: Merlin Fish Date of : 1970 Room: [place] [address] PCP: DESIREE Duque Admission date: 11/07/2023 10:53 [...] of Abnormal EKG, Arthritis, Asthma, Cataract, Diabetes ([facility]), Diabetes mellitus type 2, controlled ([facility] Headache, Hyperlipidemia, Hypertension, Sleep apnea, and Visual impairment. Past Surgical History: Patient has a past surgical history that includes Knee surgery; Appendectomy; Mallory tooth extraction; and Cataract extraction w/ intraocular [...] tenderness or frontal sinus tenderness. Mouth/Throat: Lips: [place]. Mouth: Mucous membranes are moist. Pharynx: Oropharynx [...] Principal Problem: NSTEMI (non-ST elevated myocardial infarction) ([facility]) ASSESSMENT & PLAN Chest pressure with stress test showing lateral wall ischemia ASA lipitor cath am Admission orders placed and home medications reconciled. Fermin Mejía MD 11/07/2023 9:12 PM [facility] Internal Medicine 7AM-7PM (all facilities): EpicChat or page through Vocera. 7PM-7AM ([facility], [facility]): EpicChat or page, [phone]. 7PM-7AM ([facility], [place], [place] and [facility] Rehab): EpicChat or page through Vocera. documented [facility] Nurse Note* Perioperative Nursing Note - Leslie Mayer RN - 11/08/2023 7:56 AM EDT Patient arrived to CVU, analytical lab technician taking patient before pre procedure complete. [facility] Nurse Note* Perioperative Nursing Note - Jeannine [...] 74.65 mL/min/1.73m2 Serum Creatinine (SCr) 1.09 mg/dL [facility]05-24-[facility]24 Plan of care note* Plan of Care - Lenora Arthur RN - 11/08/2023 12:49 AM EDT Problem: Pain Goal: Patient goal is pain score less than 4, able to rest, and participant in treatment plan as appropriate Description: INTERVENTIONS: 1. Encourage patient or legal pharmaceutical representative to report early pain and ask [...] per policy 9. Teach patient or legal pharmaceutical representative interventions for comforting Outcome: Progressing Note: [...] at the bedside 7. Instruct patient/ patient pharmaceutical representative about use of safety devices 8. Include patient/ patient pharmaceutical representative in decisions related to safety Outcome: [...] hygiene technique 7. Identify and instruct patient/patient pharmaceutical representative in use of appropriate isolation precautionsfor identified infection/symptoms 8. Provide and discuss with patient/patient pharmaceutical representative on educational MDRO sheet 9. Encourage and monitor nutritional status daily and consult import customer service manager if indicated 10. Implement neutropenic guidelines as needed 11. Review exposure to history of communicable disease and recent travel history on admission 12. Encourage annual influenza vaccine 13. Encourage pneumonia vaccine Outcome: Progressing Note: Evaluation of progress towards goal: Patient remains free from and new infections at this point during their stay. Problem: Knowledge Deficit Goal: Patient/patient pharmaceutical representative demonstrates understanding of disease process, treatment [...] Collaborate with ancillary departments 14. Include patient/patient pharmaceutical representative in decisions related to anxiety Outcome: [...] providing care 6. Collaborate with pastoral/spiritual care, long term care social worker, mental health counselor as needed. 7. Instruct patient on diversional activities such as physical activity, distraction, and deep breathing exercises to assist with coping 8. Involve patient's pharmaceutical representative in care Outcome: Progressing Note: Evaluation [...] supplement as ordered 13. Collaborate with clinical import customer service manager 14. Include patient/ patient's pharmaceutical representative in decisions related to nutrition Outcome: Progressing Note: Evaluation of progress towards goal: Nutrition is adequate at this time. Problem: Low Risk Fall Score Description: Zam[place]ano Fall Score of 0 - 24 or indicated by [facility] Assessment Goal: Patient should be free from fall Description: Interventions: 1. [place] to environment 2. Hourly rounds addressing the [...] non-skid footwear 11. Teach patient and patient pharmaceutical representative to maintain environment for safety and [...] discharge planning process 5. Communicate referral to telehealth nurse educator as appropriate 6. Communicate referral to import customer service manager as appropriate 7. Collaborate with case management/long term care social worker for discharge needs Outcome: Progressing Note: Evaluation of progress towards goal: Will continue to monitor [facility]05-23-2024 Consult note* Valente Lilli - 11/07/2023 9:18 PM EDTAssociated Order(s): IP CONSULT TO SPIRITUAL CARE Summary: Spiritual Care Consult for Advance Directives Assistance Spiritual Care Consult for Advance Directives Assistance Advance Directive: Interpreter Translator assisted patient in completing the advance directives. Patient completed and signed a healthcare power of admitted attorneys. Patient named only 1 of 4 children as a Health care power of admitted attorneys. Patient also nominated his daughter Anusha as a possible guardian of his person and his estate ifever such a need should arise, Patient was given the original and a copy. One copy placed in patient's chart. A social organization professor is available 07/01 to offer spiritual and emotional support and may be reached through the [facility] well drill operator cable tool at [phone]. [facility]05-[facility] Consult note* Valente Reeder - 11/07/2023 9:18 PM EDTAssociated Order(s): IP CONSULT TO SPIRITUAL CARE Summary: Spiritual Care Consult for Advance Directives Assistance Spiritual Care Consult for Advance Directives Assistance Advance Directive: Interpreter Translator assisted patient in completing the advance directives. Patient completed and signed a healthcare power of admitted attorneys. Patient named only 1 of 4 children as a Health care power of admitted attorneys. Patient also nominated his daughter Anusha as a possible guardian of his person and his estate ifever such a need should arise, Patient was given the original and a copy. One copy placed in patient's chart. A social organization professor is available 07/01 to offer spiritual and emotional support and may be reached through the [facility] well drill operator cable tool at [phone]. * Saar Carrizales MD - 11/07/2023 12:18 PM EDTAssociated Order(s): IP CONSULT TO CARDIOLOGY Images from the original note were not included. [facility] [address] [place], [place] [id number] CONSULT NOTE Merlin Fish PCP: [facility] Date of Admission: 11/07/2023 Date of Consultation: 11/07/2023 12:18 PM Consult for NSTEMI, Unstable Angina SUBJECTIVE History of Present Illness: Merlin Fish is a 53 y.o. male who is known to our service and was seen on 10/09/[address] Don. Past medical history of hypertension, hypertriglyceridemia, diabetes mellitus, obstructive sleep apnea, obesity. Tells me he presented to [facility] for symptoms of stabbing chest discomfort along [...] Date Abnormal EKG Arthritis Asthma Cataract Diabetes [place] Diabetes mellitus type 2, controlled ([facility] Headache Hyperlipidemia Hypertension Sleep apnea Visual impairment Previous Surgical History: Past Surgical History: Procedure Laterality Date APPENDECTOMY EXTRACTION CATARACT INTRAOCULAR LENS Right 11/29/2022 Performed by Marya Robbins MD at [facility] K[facility] SURGERY x4 WISDOM TOOTH EXTRACTION Allergies: No Known Allergies Hospital Meds: Current Facility-Administered Medications Medication Dose Route Frequency Provider Last Rate Last Admin acetaminophen (TYLENOL) tablet 650 mg 650 mg oral Q4H PRN Hue L Veselka, REVENUE INTEGRITY ANALYST-TWO WAY RADIO TECHNICIAN [START ON 11/08/2023] amLODIPine (NORVASC) tablet 10 mg 10 mg oral Daily Hue L Veselka, REVENUE INTEGRITY ANALYST-TWO WAY RADIO TECHNICIAN calcium gluconate 3,000 mg in sodium chloride 0.9 % 100 mL IVPB 3,000 mg intravenous PRN Hue L Veselka, REVENUE INTEGRITY ANALYST-TWO WAY RADIO TECHNICIAN calcium gluconate 4,000 mg in sodium chloride 0.9 % 250 mL IVPB 4,000 mg intravenous PRN Hue L Veselka, REVENUE INTEGRITY ANALYST-TWO WAY RADIO TECHNICIAN calcium gluconate IVPB 2000 mg/100 mL (20 mg/mL premix) 2,000 mg intravenous PRN Hue L Veselka, REVENUE INTEGRITY ANALYST-TWO WAY RADIO TECHNICIAN dextrose (GLUTOSE) 40 % gel 15 g 15 g oral PRN Hue L Veselka, REVENUE INTEGRITY ANALYST-TWO WAY RADIO TECHNICIAN dextrose 5 % (D5W) infusion 100 mL/hr intravenous Continuous PRN Hue L Veselka, REVENUE INTEGRITY ANALYST-TWO WAY RADIO TECHNICIAN dextrose 50 % in water (D50W) 50% solution 25 mL 25 mL intravenous PRN Hue L Veselka, REVENUE INTEGRITY ANALYST-TWO WAY RADIO TECHNICIAN [START ON 11/08/2023] empagliflozin (JARDIANCE) tablet 25 mg 25 mg oral Daily Hue Eller, REVENUE INTEGRITY ANALYST-LORI glucagon HCL injection 1 mg 1 mg intramuscular PRN Hue Eller, REVENUE INTEGRITY ANALYST-TWO WAY RADIO TECHNICIAN [START ON 11/08/2023] losartan (COZAAR) 50 mg, hydroCHLOROthiazide (HYDRODIURIL) 12.5 mg for HYZAAR 50/12.5 oral Daily Hue Eller, REVENUE INTEGRITY ANALYST-TWO WAY RADIO TECHNICIAN magnesium sulfate IVPB 2000 mg/50 mL in iso-osmotic water (40 mg/mL premix) 2,000 mg intravenous PRN Hue Eller, REVENUE INTEGRITY ANALYST-TWO WAY RADIO TECHNICIAN magnesium sulfate IVPB 4000 mg/100 mL in iso-osmotic water (40 mg/mL premix) 4,000 mg intravenous PRN Hue Eller, REVENUE INTEGRITY ANALYST-TWO WAY RADIO TECHNICIAN ondansetron (PF) (ZOFRAN) injection 4 mg 4 mg intravenous Q8H PRN Hue Eller, REVENUE INTEGRITY ANALYST-TWO WAY RADIO TECHNICIAN potassium chloride (K-TAB,KLOR-CON) CR tablet 30-50 mEq 30-50 mEq oral PRN Hue Eller, REVENUE INTEGRITY ANALYST-TWO WAY RADIO TECHNICIAN Or potassium chloride (KAYCIEL) 20 mEq/15 mL solution 30-50 mEq 30-50 mEq oral PRN Hue Eller, REVENUE INTEGRITY ANALYST-TWO WAY RADIO TECHNICIAN sennosides-docusate sodium (SENOKOT-S) 8.6-50 mg 1 tablet 1 tablet oral Q12H PRN Hue Eller, REVENUE INTEGRITY ANALYST-TWO WAY RADIO TECHNICIAN [START ON 11/08/2023] SITagliptin phosphate (JANUVIA) tablet 100 mg 100 mg oral Daily Hue Eller, REVENUE INTEGRITY ANALYST-TWO WAY RADIO TECHNICIAN sodium phosphate 20 mmol in sodium chloride 0.9 % 250 mL IVPB 20 mmol intravenous PRN Hue Eller, REVENUE INTEGRITY ANALYST-TWO WAY RADIO TECHNICIAN Or sodium phosphate 20 mmol in sodium chloride 0.9 % 100 mL IVPB 20 mmol intravenous PRN Hue Eller, REVENUE INTEGRITY ANALYST-TWO WAY RADIO TECHNICIAN Or sod phos di, mono-K phos mono (K-PHOS NEUTRAL) 250 mg tablet 2 tablet 2 tablet oral PRN Hue LVeselka, REVENUE INTEGRITY ANALYST-TWO WAY RADIO TECHNICIAN sodium chloride 0.9 % flush 3 mL 3 mL intravenous PRN Hue L Veselka, REVENUE INTEGRITY ANALYST-TWO WAY RADIO TECHNICIAN sodium chloride 0.9 % flush 3 mL 3 mL intravenous Q12H [facility] Hue L Veselka, REVENUE INTEGRITY ANALYST-TWO WAY RADIO TECHNICIAN sodium chloride 0.9 % flush bag 25 mL intravenous PRN Hue L Veselka, REVENUE INTEGRITY ANALYST-TWO WAY RADIO TECHNICIAN sodium chloride 0.9 % infusion 20 mL/hr intravenous Continuous PRN Hue L Veselka, REVENUE INTEGRITY ANALYST-TWO WAY RADIO TECHNICIAN Home Meds: Prior to Admission medications Medication [...] minute. 2. Rare PACs. 3. Frequent PVCs. Azalea is 7.5%. Two morphologies but 1 dominant [...] This note was completed using a voice aircraft refueller system. Every effort was made to ensure accuracy. However, inadvertent computerized aircraft refueller errors may be present. JONAS Limon 11/07/23 1309 CARDIOLOGY ATTENDING NOTE Patient interviewed and evaluated by our certified nurse practitioner or certified physician's advertising assistant and discussed in detail with me. [...] for early tomorrow morning. documented in this encounterK[facility] History and physical note* Fermin Mejía MD - 11/07/2023 9:12 PM EDT Images from the original note were not included. [facility] - GEN 5 ACUTE [address] [facility] [id number] Hospital Medicine History & Physical Patient: Merlin Fish Date of : 1970 Room: 23[facility] PCP: DESIREE Duque Admission date: 11/07/2023 10:53 AM Encounter date: 11/07/23 Hospital Day: 1 ROVERTO Fish is a 53 y.o. male who [...] of Abnormal EKG, Arthritis, Asthma, Cataract, Diabetes ([facility]), Diabetes mellitus type 2, controlled ([facility]), Headache, Hyperlipidemia, Hypertension, Sleep apnea, and Visual impairment. Past Surgical History: Patient has a past surgical history that includes Knee surgery; Appendectomy; Mallory tooth extraction; and Cataract extraction w/ intraocular [...] L/min Intake/Output Summary (Last 24 hours) at 11/07/20232 Last data filed at 11/07/2023 1617 Gross [...] tenderness or frontal sinus tenderness. Mouth/Throat: Lips: [place]. Mouth: Mucous membranes are moist. Pharynx: Oropharynx [...] Principal Problem: NSTEMI (non-ST elevated myocardial infarction) ([facility]) ASSESSMENT & PLAN Chest pressure with stress test showing lateral wall ischemia ASA lipitor cath am Admission orders placed and home medications reconciled. Fermin Mejía MD 11/07/2023 9:12 PM [facility] Internal Medicine 7AM-7PM (all facilities): EpicChat or page through Vocera. 7PM-7AM ([facility], [facility] and [facility]patient [facility]): EpicChat or page, [phone]. 7PM-7AM ([facility], [place], [place], [place] [facility]): EpicChat or page through [email or web address]. [facility] [place] [phone] Plan of care note* Plan of Care - Marina Boo RN - 11/07/2023 1:29 PM EDT Problem: Pain Goal: Patient goal is pain score less than 4, able to rest, and participant in treatment plan as appropriate Description: INTERVENTIONS: 1. Encourage patient or legal pharmaceutical representative to report early pain and ask [...] per policy 9. Teach patient or legal pharmaceutical representative interventions for comforting Outcome: Progressing Note: [...] at the bedside 7. Instruct patient/ patient pharmaceutical representative about use of safety devices 8. Include patient/ patient pharmaceutical representative in decisions related to safety Outcome: [...] hygiene technique 7. Identify and instruct patient/patient pharmaceutical representative in use of appropriate isolation precautionsfor identified infection/symptoms 8. Provide and discuss with patient/patient pharmaceutical representative on educational MDRO sheet 9. Encourage and monitor nutritional status daily and consult import customer service manager if indicated 10. Implement neutropenic guidelines as needed 11. Review exposure to history of communicable disease and recent travel history on admission 12. Encourage annual influenza vaccine 13. Encourage pneumonia vaccine Outcome: Progressing Note: Evaluation of progress towards goal: Patient remains free from s/s of infection as evidence by labs and VS. Problem: Knowledge Deficit Goal: Patient/patient pharmaceutical representative demonstrates understanding of disease process, treatment [...] of 0 - 24 or indicated by [facility] Assessment Goal: Patient should be free from fall Description: Interventions: 1. [place] to environment 2. Hourly rounds addressing the [...] non-skid footwear 11. Teach patient and patient pharmaceutical representative to maintain environment for safety and engage in all aspects of fall prevention program Outcome: Progressing Note: Evaluation of progress towards goal: Patient remains free from falls. Area is clear of hazards and call light is within reach. [facility]05-23-2024 Consult note* Sara Carrizales MD - 11/07/2023 12:18 PM EDTAssociated Order(s): IP CONSULT TO CARDIOLOGY Images from the original note were not included. [facility] [address] [place], [place] [id number] CONSULT NOTE Merlin Fish PCP: [facility] Date of Admission: 11/07/2023 Date of Consultation: 11/07/2023 12:18 PM Consult for NSTEMI, Unstable Angina SUBJECTIVE History of Present Illness: Merlin Fish is a 53 y.o. male who is known to our service and was seen on 10/09/[address] Don. Past medical history of hypertension, hypertriglyceridemia, diabetes mellitus, obstructive sleep apnea, obesity. Tells me he presented to [facility] for symptoms of stabbing chest discomfort along [...] Date Abnormal EKG Arthritis Asthma Cataract Diabetes ([facility]) Diabetes mellitus type 2, controlled ([facility]) Headache Hyperlipidemia Hypertension Sleep apnea Visual impairment Previous Surgical History: Past Surgical History: Procedure Laterality Date APPENDECTOMY EXTRACTION CATARACT INTRAOCULAR LENS Right 11/29/2022 Performed by Marya Robbins MD at [facility] KNEE SURGERY x4 WISDOM TOOTH EXTRACTION Allergies: No Known Allergies Hospital Meds: Current Facility-Administered Medications Medication Dose Route Frequency Provider Last Rate Last Admin acetaminophen (TYLENOL) tablet 650 mg 650 mg oral Q4H PRN Hue Eller APRN-TWO WAY RADIO TECHNICIAN [START ON 11/08/2023] amLODIPine (NORVASC) tablet 10 mg 10 mg oral Daily Hue Eller APRN-TWO WAY RADIO TECHNICIAN calcium gluconate 3,000 mg in sodium chloride 0.9 % 100 mL IVPB 3,000 mg intravenous PRN Hue L Veselka, REVENUE INTEGRITY ANALYST-TWO WAY RADIO TECHNICIAN calcium gluconate 4,000 mg in sodium chloride 0.9 % 250 mL IVPB 4,000 mg intravenous PRN Hue L Veselka, REVENUE INTEGRITY ANALYST-TWO WAY RADIO TECHNICIAN calcium gluconate IVPB 2000 mg/100 mL (20 mg/mL premix) 2,000 mg intravenous PRN Hue L Veselka, REVENUE INTEGRITY ANALYST-TWO WAY RADIO TECHNICIAN dextrose (GLUTOSE) 40 % gel 15 g 15 g oral PRN Hue L Veselka, REVENUE INTEGRITY ANALYST-TWO WAY RADIO TECHNICIAN dextrose 5 % (D5W) infusion 100 mL/hr intravenous Continuous PRN Hue L Veselka, REVENUE INTEGRITY ANALYST-TWO WAY RADIO TECHNICIAN dextrose 50 % in water (D50W) 50% solution 25 mL 25 mL intravenous PRN Hue L Veselka, REVENUE INTEGRITY ANALYST-TWO WAY RADIO TECHNICIAN [START ON 11/08/2023] empagliflozin (JARDIANCE) tablet 25 mg 25 mg oral Daily Hue L Veselka, REVENUE INTEGRITY ANALYST-TWO WAY RADIO TECHNICIAN glucagon HCL injection 1 mg 1 mg intramuscular PRN Hue L Veselka, REVENUE INTEGRITY ANALYST-TWO WAY RADIO TECHNICIAN [START ON 11/08/2023] losartan (COZAAR) 50 mg, hydroCHLOROthiazide (HYDRODIURIL) 12.5 mg for HYZAAR 50/12.5 oral Daily Hue L Geraka, REVENUE INTEGRITY ANALYST-TWO WAY RADIO TECHNICIAN magnesium sulfate IVPB 2000 mg/50 mL in iso-osmotic water (40 mg/mL premix) 2,000 mg intravenous PRN Hue L Veselka, REVENUE INTEGRITY ANALYST-TWO WAY RADIO TECHNICIAN magnesium sulfate IVPB 4000 mg/100 mL in iso-osmotic water (40 mg/mL premix) 4,000 mg intravenous PRN Hue L Veselka, REVENUE INTEGRITY ANALYST-TWO WAY RADIO TECHNICIAN ondansetron (PF) (ZOFRAN) injection 4 mg 4 mg intravenous Q8H PRN Hue L Veselka, REVENUE INTEGRITY ANALYST-TWO WAY RADIO TECHNICIAN potassium chloride (K-TAB,KLOR-CON) CR tablet 30-50 mEq 30-50 mEq oral PRN Hue L Veselka, REVENUE INTEGRITY ANALYST-TWO WAY RADIO TECHNICIAN Or potassium chloride (KAYCIEL) 20 mEq/15 mL solution 30-50 mEq 30-50 mEq oral PRN Hue L Veselka, REVENUE INTEGRITY ANALYST-TWO WAY RADIO TECHNICIAN sennosides-docusate sodium (SENOKOT-S) 8.6-50 mg 1 tablet 1 tablet oral Q12H PRN Hue L Veselka, REVENUE INTEGRITY ANALYST-TWO WAY RADIO TECHNICIAN [START ON 11/08/2023] SITagliptin phosphate (JANUVIA) tablet 100 mg 100 mg oral Daily Hue L Veselka, REVENUE INTEGRITY ANALYST-TWO WAY RADIO TECHNICIAN sodium phosphate 20 mmol in sodium chloride 0.9 % 250 mL IVPB 20 mmol intravenous PRN Hue L Veselka, REVENUE INTEGRITY ANALYST-TWO WAY RADIO TECHNICIAN Or sodium phosphate 20 mmol in sodium chloride 0.9 % 100 mL IVPB 20 mmol intravenous PRN Hue L Veselka, REVENUE INTEGRITY ANALYST-TWO WAY RADIO TECHNICIAN Or sod phos di, mono-K phos mono (K-PHOS NEUTRAL) 250 mg tablet 2 tablet 2 tablet oral PRN Hue LVeselka, REVENUE INTEGRITY ANALYST-TWO WAY RADIO TECHNICIAN sodium chloride 0.9 % flush 3 mL 3 mL intravenous PRN Hue L Veselka, REVENUE INTEGRITY ANALYST-TWO WAY RADIO TECHNICIAN sodium chloride 0.9 % flush 3 mL 3 mL intravenous Q12H [facility] Hue L Veselka, REVENUE INTEGRITY ANALYST-TWO WAY RADIO TECHNICIAN sodium chloride 0.9 % flush bag 25 mL intravenous PRN Hue L Veselka, REVENUE INTEGRITY ANALYST-TWO WAY RADIO TECHNICIAN sodium chloride 0.9 % infusion 20 mL/hr intravenous Continuous PRN Hue L Veselka, REVENUE INTEGRITY ANALYST-TWO WAY RADIO TECHNICIAN Home Meds: Prior to Admission medications Medication [...] minute. 2. Rare PACs. 3. Frequent PVCs. Azalea is 7.5%. Two morphologies but 1 dominant [...] Last 3 Weights Last 3 Weight Readings 05/23/24 1054 Weight: 99.6 kg (219 lb 9.3 [...] This note was completed using a voice aircraft refueller system. Every effort was made to ensure accuracy. However, inadvertent computerized aircraft refueller errors may be present. JONAS Limon 11/07/23 1309 CARDIOLOGY ATTENDING NOTE Patient interviewed and evaluated by our certified nurse practitioner or certified physician's advertising assistant and discussed in detail with me. [...] proceed. Will plan for early tomorrow morning. [facility] CampusVILOOP [id number] Miscellaneous Notes* Telephone Encounter - Gayatri Flores RN - 10/30/2023 2:48 PM EDT Images from the original note were not included. P/c from nurse Noel at PCP office. Pt had an abnormal stress result 10/29/23 (in epic) and they would like a school photograph editor to review and advise. Pt l/s FRS 10/09/23. FRS (off) will message [facility] to advise. * Telephone Encounter - Gayatri Flores RN - 10/30/2023 2:48 PM EDT Digital Sales Planner called patient to review abnormal stress results. S/s of MD reviewed and pt advised to report to [...] Lipid order placed. Will send message to [facility] office schedulers for a f/u appt. Digital Sales Planner called PCP office to update Nurse Noel. She will update Dr. De Oliveira with FRSs response. Digital Sales Planner called pt to update on FRSs abnormal stress recommendations. Pt agreeable to fasting labs and will do this week. He v/u a auriculotherapist will call him to schedule. * Telephone Encounter - Nicci Dyer CMA - 10/30/2023 2:48 PM EDT PHONED PT AND LM ON TO CALL OFFICE TO SCHEDULE APPT documented in this encounterK[facility]05-15-2024 Telephone encounter Note* Telephone Encounter - Gayatri Flores RN - 10/30/2023 2:48 PM EDT Images from the original note were not included. P/c from nurse Noel at PCP office. Pt had an abnormal stress result 10/29/23 (in epic) and they would like a school photograph editor to review and advise. Pt l/s FRS 10/09/23. FRS (off) will message [facility] to advise. [facility]05-15-2024 Telephone encounter Note* Telephone Encounter - Gayatri Flores RN - 10/30/2023 2:48 PM EDT Digital Sales Planner called patient to review abnormal stress results. S/s of MD reviewed and pt advised to report to ER/call 911 for worsening symptoms. Pt v/u we will message [facility] and call back with any further recommendations. [facility]05-15-2024 Telephone encounter Note* Telephone Encounter - Mateo [...] Dr. Don upon his return Thank you [facility] HospitalCloud[facility] Work Phone: [phone] Telephone encounter Note* Telephone Encounter - Gayatri Flores RN - 10/30/2023 2:48 PM EDT Noted. Message sent to [facility] to review upon return. [facility]05-15-2024 Telephone encounter Note* Telephone Encounter - Nelly Don MD - 10/30/2023 2:48 PM EDT I would keep him on the Jardiance, Hyzaar and amlodipine and follow expectantly. Should have follow-up sometime in the next couple of months. Needs a lipid profile done F RS [facility] [place] [id number] Telephone encounter Note* Telephone Encounter - Gayatri Flores RN - 10/30/2023 2:48 PM EDT Noted. Lipid order placed. Will send message to [facility] office schedulers for a f/u appt. Digital Sales Planner called PCP office to update Nurse Sadie. She will update Dr. De Oliveira with FRSs response. Digital Sales Planner called pt to update on FRSs abnormal stress recommendations. Pt agreeable to fasting labs and will do this week. He v/u a auriculotherapist will call him to schedule. [facility] [place] [id number] Telephone encounter Note* Telephone Encounter - Nicci Dyer CMA - 10/30/2023 2:48 PM EDT PHONED PT AND LM ON TO CALL OFFICE TO SCHEDULE APPT [facility] [place] [id number] History of Present illness Narrative* Nelly Don [...] Fish was seen in follow-up in the [place] office. Records are reviewed. Overall he is [...] Date Abnormal EKG Arthritis Asthma Cataract Diabetes ([facility]) Diabetes mellitus type 2, controlled ([facility]) Headache Hyperlipidemia Hypertension Sleep apnea Visual impairment No data recorded No data recorded No data recorded Past Surgical History: Procedure Laterality Date APPENDECTOMY EXTRACTION CATARACT INTRAOCULAR LENS Right 11/29/2022 Performed by Marya Robbins MD at [facility] KNEE SURGERY x4 WISDOM TOOTH EXTRACTION [...] Gorman PA-C Referring Physician: Parker Gorman PA-C [address] [place] [address] documented in this encounterNortheastern Vermont [facility] Hospitaltreadalong04-23-2024 Miscellaneous Notes* Telephone Encounter - Yesenia Babcock CMA - 10/08/2023 3:09 PM EDT Left message for patient to remind them to bring their most current medication list with them to their appointment. documented in this encounterNortheastern [facility] Hospitaltreadalong04-23-2024 Telephone encounter Note* Telephone Encounter - Yesenia Babcock CMA - 10/08/2023 3:09 PM EDT Left message for patient to remind them to bring their most current medication list with them to their appointment. [facility] [place] [id number] Evaluation note* Encounter Date Diagnosis Assessment Notes [...] poor healing. I have advised against the long term care social worker use of narcotic pain medication. 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 I have advised against the long term care social worker use of narcotic pain medication. I have [...] set up for a left knee arthroscopy [facility] Other 09-11-2023 Evaluation note* Encounter Date Diagnosis [...] derangement of left knee (ICD-10 - M23.92) eMrlin presents with left knee pain, instability and [...] as documented in the electronic medical record. [facility] Other 12-05-2022 NotePROCEDURE: XR KNEE RT 4V or > COMPARISON: None. HISTORY: Bone injury FINDINGS: BONES:Corticated bone fragment medial femoral condyle, remote injury. No acute fracture or dislocation. Mild enthesopathic spurring of the patella at the quadriceps insertion SOFT TISSUES:Negative. No visible soft tissue swelling. EFFUSION:Small suprapatellar joint effusion OTHER: Negative. IMPRESSION: Small joint effusion Electronically authenticated by: PEG BANERJEE Date: 2022-05-21 14:23[facility] noteNo assessment information availableKettering Health Behavioral Medical Center Work Phone: Evaluation note* Diagnosis Onset Date Resolution Status Chondromalacia of medial condyle of right femur acute Other specified postprocedural states acute Visit for suture removal non [facility] Work Phone: Evaluation note* Diagnosis Onset Date Resolution Status Chondromalacia of medial condyle of right femur acute Other specified postprocedural states acute Visit for suture removal non eactive 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 acute Other specified postprocedural states acute Visit for suture removal non [facility] Work Phone: evaluation note* Diagnosis Onset Date [...] acute Visit for suture removal non eactive [facility] Work Phone: evaluation note* Diagnosis Onset Date Resolution Status 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 acute Other specified postprocedural states acute [facility] Work Phone: evaluation note* Diagnosis Obstructive sleep apnea (adult) (pediatric)- Primary Hypoxemia associated with sleep documented in this encounter [facility]* Diagnosis Primary hypertension- Primary Unspecified essential hypertension Hyperlipidemia, unspecified hyperlipidemia type Obesity (BMI 30.0-34.9) documented in this encounter [facility]* Diagnosis CINTHYA (obstructive sleep apnea)- Primary Obstructive sleep apnea (adult) (pediatric) Hypoxemia associated with sleep documented in this encounter [facility] [place] SystemEvaluation note* Diagnosis Onset Date Resolution Status Admit Date Right forearm pain acute 2024 1:50pm [facility] Work Phone: evaluation note* Diagnosis Essential hypertension- Primary Unspecified essential hypertension Shortness of breath documented in this encounter [facility]* Diagnosis Mixed hyperlipidemia- Primary documented in this encounter [facility]* Diagnosis NSTEMI (non-ST elevated myocardial infarction) ([facility])- Primary Acute myocardial infarction, subendocardial infarction, episode of care unspecified Elevated troponin Other abnormal blood chemistry documented in this encounter [facility]* Diagnosis NSTEMI (non-ST elevated myocardial infarction) ([facility])- Primary Acute myocardial infarction, subendocardial infarction, episode of care unspecified Essential hypertension Unspecified essential hypertension Shortness of breath documented in this encounter [facility]* Diagnosis CINTHYA (obstructive sleep apnea)- Primary Obstructive sleep apnea (adult) (pediatric) documented in this encounter [facility] [place] [facility] SystemEvaluation note* Diagnosis CINTHYA (obstructive sleep apnea)- Primary Obstructive sleep apnea (adult) (pediatric) documented in this encounter [facility] [place] SystemEvaluation note* Diagnosis CINTHYA (obstructive sleep apnea) Obstructive sleep apnea (adult) (pediatric) documented in this encounter [facility] [place] SystemEvaluation note* Diagnosis CINTHYA (obstructive sleep apnea)- Primary Obstructive sleep apnea (adult) (pediatric) CINTHYA treated with BiPAP Obesity (BMI 30-39.9) BMI 32.0-32.9,adult documented in this encounter [facility] [place] [facility]winHistory general Narrative - Reported* Type Description Date Medical History Hypertension Medical History Diabetes Surgical History Left Knee Scope x 2 Surgical History Right Knee Scope x 2 Surgical History Appendix Surgical History Mallory Teeth COM DEV [facility] Other History general Narrative - Reported* Type Description Date Medical History Hypertension Medical History Diabetes Surgical History Left Knee Scope x 2 Surgical History Right Knee Scope x 2 Surgical History Appendix Surgical History Mallory Teeth Surgical History nasal reconstruction COM DEV [facility] Other Hospital Discharge instructions Additional Instructions Orthopedic [...] prescribed. You may take Tylenol or ibuprofen [id number] as instructed. You should take aspirin 81 mg twice daily for 3 weeks for DVT prophylaxis. If you have any increasing pain, fever chills, or abnormal drainage or surgical wound problems you should call the office. Your follow-up should be scheduled with Dr. Vergara's office at [facility]. Please call to confirm your follow-up appointment. Dr. Shahram Vergara [facility] [address] [place], [place] [address] [phone] Health Behavioral Medical Center Work Phone: Hospital Discharge instructions* Attachments The following attachments cannot be sent through Care Everywhere. * Heart Attack Discharge Instructions (South African) documented in this encounterProClermont County Hospital SystemInstructionsNot on file documented in this encounterProDekalb Regional Medical Center [place]as[place] Water SystemInstructionsNot on file documented in this encounterProClermont County Hospital SystemInstructionsNot on file documented in this encounterProClermont County Hospital SystemInstructionsNot on file documented in this encounterProClermont County Hospital SystemInstructionsNot on file documented in this encounterProClermont County Hospital SystemInstructionsNot on file documented in this encounterProClermont County Hospital SystemInstructionsNot on file documented in this encounterProClermont County Hospital SystemInstructionsNot on file documented in this encounterProClermont County Hospital SystemInstructionsNot on file documented in this encounterSelect Medical Specialty Hospital [facility] Tr[facility]ull SystemReason for visit Narrative* Misc (Routine) - Closed Specialty Diagnoses / Procedures Referred By Ivet t Referred To Contact Diagnoses CINTHYA (obstructive sleep apnea) Procedures Polysomnography 4 or more parameters with PAP titration Janet Ventura, ANTONIO-LORI [address] [facility], [address] [place] [id number] Phone: tel: fax: Referral ID Status Reason Start Date Expiration Date Visits Re quested Visits Authorized [id number] Closed 09/02/2024 09/02/2025 1 1 Quture Summary Purpose Family History No Family History Records Found Relationship Condition Age at Onset Recorded Date/T wallace sister Malignant neoplasm Unknown Not Specified Diabetes mellitus Unknown father Myocardial infarction Unknown brother Diabetes mellitus Unknown Relationship Condition Age at Onset Recorded Date/T wallace sister Malignant neoplasm Unknown mother Diabetes mellitus Unknown father Myocardial infarction Unknown brother Diabetes mellitus Unknown Advance Directives No Advanced Directives Records Found Advance Directive Response Recorded Date/ Time Advance Directives No February 11:00am Advance Directive Response Recorded Date/ Time Advance Directives No February 10:00am Documents on File Type Date Recorded Patient Sulfide Head Operator Expl anation Durable Power of Senior Accounting Specialist 11/19/2023 7:19 AM Durable Power of Senior Accounting Specialist 11/07/2023 9:14 PM [facility]ly [facility] er of Senior Accounting Specialist Date Activated Date Inactivated Comments 11/07/2023 11:36 AM 11/08/2023 4:01 PM Healthcare Agents on File Name Relationship Healthcare Agent [facility] p Communication Anusha Brannon Daughter Health Care Agent Healthcare Agents on File Name Relationship Healthcare Agent Relationshi p Communication Anusha Brannon Daughter Health Care Agent [id number] (Mobile) Documents on File Type Date Recorded Patient Sulfide Head Operator Expl anation Durable Power of Senior Accounting Specialist 11/19/2023 7:19 AM Durable Power of Senior Accounting Specialist 11/07/2023 9:14 PM [facility] Pow er of Senior Accounting Specialist Date Activated Date Inactivated Comments 11/07/2023 11:36 [...] Documents on File Type Date Recorded Patient Sulfide Head Operator Expl anation Durable Power of Senior Accounting Specialist 11/07/2023 9:14 PM [facility] er of Senior Accounting Specialist Healthcare Agents on File Name Relationship Healthcare [...] Brannon Daughter Health Care Agent [id number] (Mobile) Chief Complaint and Reason for Visit [...] postprocedural states Chief Complaint Admit Date OP CHARGE HISTOTECHNOLOGIST RT WRIST PAIN [facility] Feb[facility] y 2024 1:50pm M25.531 - Pain in right wrist July 222024 2:02pm Reason for Visit Admit Date Right forearm pain July 22, 2024 1 :50pm Chief Complaint Admit Date OP CHARGE HISTOTECHNOLOGIST RT WRIST PAIN WX [facility] Feb[facility] y 2024 1:50pm M25.531 - Pain in right wrist July 222024 2:02pm M79.631, E11.9, I10 July 22, 2024 3 :40pm Chief Complaint Admit Date OP CHARGE HISTOTECHNOLOGIST RT WRIST PAIN WX [facility] Feb[facility] y 2024 1:50pm M25.531 M25.521 July 22, 2024 2 :02pm M79.631, E11.9, I10 July 22, 2024 3 :40pm M79.631 S46.211A July 29, 2024 7:09am Chief Complaint Admit Date OP CHARGE HISTOTECHNOLOGIST RT WRIST PAIN WX [facility] Feb[facility] y [...] 2024 9:12am Chief Complaint Admit Date OP CHARGE HISTOTECHNOLOGIST RT WRIST PAIN WX [facility] Feb[facility] y [...] 1:33 pm Chief Complaint Admit Date OP CHARGE HISTOTECHNOLOGIST RT WRIST PAIN WX [facility] Feb[facility] y [...] and content) DATE CREATED AUTHOR 05/23/2022 [facility] DATE CREATED AUTHOR AUTHOR'S ORGANIZ ATION 10/11/2023 [facility] DATE CREATED AUTHOR AUTHOR'S ORGANIZ ATION 11/09/2023 [facility] DATE CREATED AUTHOR AUTHOR'S ORGANIZ ATION 01/06/2024 [facility] EPIC DATE CREATED AUTHOR AUTHOR'S ORGANIZ ATION 09/10/2024 [facility] DATE CREATED AUTHOR AUTHOR'S ORGANIZ ATION 09/30/2024 [facility] DATE CREATED AUTHOR AUTHOR'S ORGANIZ ATION 12/19/2024 [facility] REASON FOR VISIT (unrecogniz ed section and content) Reason Onset Date Comments Med Refill 06/08/2024 Reason Onset Date Comments Sleep Lab 06/08/2024 PAP Reason Comments Follow-up 6 mo f/u-l/s TLM-no labs or testing-sched appt wpt Reason Comments Follow-up EST PT, 6 MO FU, L/S MAS, SCHED W/ PT Reason Onset Date Comments Abnormal Stress Test 10/30/2023 Specialty Diagnoses / Procedures Referred By Ivet bond Referred To Contact Diagnoses NSTEMI (non-ST elevated myocardial infarction) ([facility]) NSTEMI Fermin Mejía MD [address] [place] [address] Referral ID Status Reason Start Date Expiration Date Visits Re quested Visits Authorized [id number] 1 1 Reason Comments Follow-up EST PT EARLY SCHED W /PT*CATH 11/08/2023 W/TLM*KCS Reason Onset Date Comments Sleep Lab 12/13/2023 PT Inquiry Reason Onset Date Comments Sleep Lab 12/16/2023 Split night Reason Onset Date Comments Sleep Lab 05/12/2024 HST Reason Comments Sleep Apnea Compliance/Setup: DL-ResMedDME: [facility] Care Teams (unrecognized sec tion and content) [...] Primary Care Provider Activ e Shahram Vergara DO Attending Provider Active Team Status: Inactive Member Role Status Dates Shahram Vergara DO Attending Provider Active S tart: July 17, 2023 End: July 17, 2023 Team Status: Active Member Role Status Dates Parker Gorman PA-C Primary Care Provider Active Start: July Shahram Vergara , DO Attending Provider, Other Provider Active Start: July 23, 2023 Team Status: Inactive Member Role Status Tyler Gorman PA-C Primary Care Provider Activ e Start: August 05, 2023 End: August 05, 2023 Shahram Vergara DO Attending Provider Active S tart: August 05, 2023 End: August 05, 2023 Team Status: Inactive Member Role Status Tyler Gorman PA-C Primary Care Provider Activ e Start: September 02, 2023 End: September 02, 2023 Shahram Vergara DO Attending Provider Active S tart: September 02, 2023 End: September 02, 2023 Team Status: Inactive Member Role Status Tyler Gorman PA-C Primary Care Provider Activ e Start: October 28, 2023 End: October 28, 2023 Shahram Vergara , Attending Provider Active S tart: October 28, 2023 End: October 28, 2023 Team Status: Inactive Member Role Status Tyler Gorman PA-C Primary Care Provider Activ e Start: April 01, 2024 End: April 01, 2024 Shahram Vergara DO Attending Provider Active S tart: April 01, 2024 End: April 01, 2024 Leather Flesher Relationship Specialty Start Date End Date Services, [facility] [address] [place] - General Family Medicine 12/12/23 Leather Flesher Relationship Specialty Start Date End Date [facility] [address] [place] - General Family Medicine 12/12/23 Leather Flesher Relationship Specialty Start Date End Date [facility] [address] [place] - General Family Medicine 12/12/23 Leather Flesher Relationship Specialty Start [facility] [address] [place] - General Family Medicine 12/12/23 Leather Flesher Relationship Specialty Start Date End Date Services, [facility] [address] [facility] [place] [place] PCP - General Family Medicine 12/12/23 Team Status: Active Member Role Status Dates Shahram Vergara DO Attending Provider Active S tart: July 22, 2024 Parker Gorman PA-C Primary Care Provider Activ e Start: July 22, 2024 Leather Flesher Relationship Specialty Start Date End Date Parker Gorman PA-C [address] [place] [id number] PCP - General Physician Fixing Carpenter 06/26/22 Leather Flesher Relationship Specialty Start Date End Date Parker Gorman PA-C [address] [place] [id number] PCP - General Physician Fixing Carpenter 06/26/22 Team Status: Inactive Member Role Status Dates Parker Gorman PA-C Primary Care Provider Activ e Start: July 31, 2024 End: July 31, 2024 Shahram Vergara DO Attending Provider Active S tart: July 31, 2024 End: July 31, 2024 Leather Flesher Relationship Specialty Start Date End Date Parker Gorman PA-C [address] [place] [address] PCP - General Physician Fixing Carpenter 06/26/22 Leather Flesher Relationship Specialty Start Date End Date Services, [facility] [address] [place], [place] PCP - General Family Medicine 11/06/23 Leather Flesher Relationship Specialty Start Date End Date [facility] [address] [facility] [place] [place] PCP - General Family Medicine 11/06/23 Leather Flesher Relationship Specialty Start Date End Date Services, [facility] [address] [facility] [place] PCP - General Family Medicine 11/06/23 Leather Flesher Relationship Specialty Start Date End Date Services, [facility] [address] [place], [place] PCP - General Family Medicine 12/12/23 Leather Flesher Relationship Specialty Start Date End Date Services, [facility] [address] [place], [place] PCP - General Family Medicine 12/12/23 Leather Flesher Relationship Specialty Start Date End Date Services, [facility] [address] [place], [place] PCP - General Family Medicine 12/12/23 Leather Flesher Relationship Specialty Start Date End Date Services, [facility] [address] [place], [place] PCP - General Family Medicine 12/12/23 Team Status: Inactive Member Role Status Dates Parker Gorman PA-C Primary Care Provider Activ e Start: August 19, 2024 End: August 19, 2024 Shahram Vergara DO Attending Provider Active S tart: August 19, 2024 End: August 19, 2024 Leather Flesher Relationship Specialty Start Date End Date Services, [facility] [address] [place], [place] PCP - General [...] 09, 2024 End: September 09, 2024 Parker Carter Gorman , PA-C Primary Care Provider Activ e Start: September 09, 2024 End: September 09, 2024 Leather Flesher Relationship Specialty Start Date End Date Services, [facility] [address] [place], [place] PCP - General Family Medicine 07/03/24 Leather Flesher Relationship Specialty Start Date End Date Services, [facility] [address] [place], [place] PCP - General Family Medicine 07/03/24 Leather Flesher Relationship Specialty Start Date End Date Services, [facility] [address] [place], [place] PCP - General Family Medicine 07/03/24 Leather Flesher Relationship Specialty Start Date End Date Services, [facility] [address] [place], [place] PCP - General Family Medicine 07/03/24 Leather Flesher Relationship Specialty Start Date End Date Services, [facility] [address] [place], [place] PCP - General Family Medicine 07/03/24 Goals [...] heart cath)0802 (MAR Hold - Provider: User [employer]Point - Reason: Patient not available)0900 (Canceled Entry [...] Boo RN - Comment: see other admin)1352 ([facility] Unhold - Provider: User Epic) atorvastatin (LIPITOR) tablet 40 mg 40 mg, oral, Nightly, First dose on Sat11/07/23 at 2200, Look-alike/sound-alike medication - verify indication for use. 2228 (Given - Provider: Lenora Arthur RN) 0802 (AUG Hold - Provider: User [...] admin)1352 (MAR Unhold - Provider: User Epic) insulin lispro [...] after a meal. 0747 (Given - Provider: Lakeiya C Osley, RN - Comment: BG 157)0802 (AUG Hold - Provider: User Epic - Reason: Patient not available)1200 (Dose Auto Held - Provider: User Epic)1352 (AUG Unhold - Provider: User Epic) insulin lispro (HumaLOG) injection 2-8 Units 2-8 Units, subcutaneous, Nightly, First dose on Alyx 11/07/23 at 2200, Bedtime hyperglycemia dosing. For blood [...] admin)1352 (MAR Unhold - Provider: User Epic) sodium chloride 0.9 % flush 3 mL 3 mL, intravenous, Every 12 hours scheduled, First dose on Alyx 11/07/23 at 1145 1145 (Given - Provider: Marina Boo RN)2046 (Given - Provider: Lenora Arthur RN) 0746 (Given - Provider: Marina Boo RN - Comment: pt going for heart cath)0802 (MAR Hold - Provider: User Epic - Reason: Patient not available)0900 (Canceled Entry - Provider: Marina Boo RN - Comment: see other admin)1352 (MAR Unhold - Provider: User Epic) sodium chloride 0.9 % flush 3 mL 3 mL, intravenous, Every 12 hours, First dose on Sat11/08/23 at 0900 0900 (Due) Continuous Medication Order 11/06/2023 11/07/2023 11/08/2023 sodium chloride 0.9 % infusion 250 mL/hr, intravenous, Continuous, Starting on Sat11/08/23 at 0900, For 2 hours 0900 (Rate/Dose Gordon ge - Provider: Nikki Sanchez RN)1000 (Stop Bag - Provider: Nikki Sanchez RN) [...] grams (4000 mg) in 24 hours] 0802 (MAR Hold - Provider: User Epic - Reason: Patient not available)1352 (MAR Unhold - Provider: User Epic) calcium gluconate 3,000 mg in sodium chloride 0.9 % 100 mL IVPB 3,000 mg, intravenous, at 43.3 mL/hr, Administer over 3 Hours, As needed, ionized calcium 3.5 to 3.9 mg/dL, Starting on Alyx 11/07/23 at 1135, IV Administration of calcium via a central or deep vein preferred. Avoid administration in small hand veins VESICANT (RED) 0802 ([facility] Hold - Provider: User Epic - Reason: Patient not available)1352 ([facility] Unhold - Provider: User Epic) calcium gluconate 4,000 mg in sodium chloride 0.9 % 250 mL IVPB 4,000 mg, intravenous, at 72.5 mL/hr, Administer over 4 Hours, As needed, ionized calcium 3.4 mg/dL or less, Starting on Alyx 11/07/23 at 1135, IV administration of calcium via a central or deep vein is preferred. Avoid administration in small hand veins. VESICANT (RED) 0802 ([facility] Hold - Provider: User Epic - Reason: Patient not available)1352 ([facility] Unhold - Provider: User Epic) calcium gluconate IVPB 2000 mg/100 mL (20 mg/mL premix) 2,000 mg, intravenous, at 50 mL/hr, Administer over 2 Hours, As needed, ionized calcium 4 to 4.3 mg/dL, Starting on Alyx 11/07/23 at 1135, IV Administration of calcium via a central or deep vein preferred. Avoid administration in small hand veins VESICANT (RED) 0802 ([facility] Hold - Provider: User Epic - Reason: Patient not available)1352 ([facility] Unhold - Provider: User Epic) dextrose (GLUTOSE) 40 % gel 15 g 15 g, oral, As needed, low blood sugar, blood glucose less than 70 mg/dL, Starting on Alyx 11/07/23 at 1135, If patient conscious and taking PO. If blood glucose is not greater than 70 mg/dL after initial treatment, repeat treatment. 0802 ([facility] Hold - Provider: User Epic - Reason: Patient not available)1352 ([facility] Unhold - Provider: User Epic) dextrose 5 % (D5W) infusion 100 mL/hr, intravenous, Continuous PRN, blood glucose less than 70 mg/dL, Starting on Alyx 11/07/23 at 1135, Use immediately following dextrose 50% or glucagon treatment for patients who are unconscious or NPO. Contact prescriber for additional orders. If blood glucose is not greater than 70 mg/dL after initial treatment, repeat treatment. 801 ([facility] Hold - Provider: User Epic - Reason: Patient not available)1351 ([facility] Unhold - Provider: User Epic) dextrose 50 [...] repeat treatment. VESICANT (RED) Warning: HYPERTONIC solution. 801 ([facility] - Provider: User Epic - Reason: Patient not available)1351 ([facility] Unhold - Provider: User Epic) fentaNYL (SUBLIMAZE) [...] 70 mg/dL after initial treatment, repeat treatment. 801 ([facility] Hold - Provider: User Epic - Reason: Patient not available)1351 ([facility] Unhold - Provider: User Epic) heparin (porcine) [...] needed. 1418 (New Bag - Provider: Marina Boo RN)1618 (Stop Bag - Provider: Marina Boo RN) 0802 (AUG Hold - Provider: User Epic - Reason: Patient not available)1352 ([facility] Unhold - Provider: User Epic) magnesium sulfate [...] User Epic - Reason: Patient not available)1352 ([facility] Unhold - Provider: User Epic) midazolam (PF) (VERSED) injection (CANCELED) Code/trauma/sedation medication, Starting on Sat11/08/23 at 0818, Intra-Procedure (CV) 0818 (Given - Provid er: Li Garcia RN) nitroglycerin 2 mg/10 mL (200 mcg/ml) syringe (cath) (CANCELED) Code/trauma/sedation medication, Starting on Sat11/08/23 at 0821, Intra-Procedure (CV) 0821 (Given - Provid er: Sara Carrizales MD) ondansetron (PF) (ZOFRAN) injection 4 mg 4 mg, intravenous, Every 8 hours PRN, nausea, vomiting, Starting on Alyx 11/07/23 at 1135, Administer over 2-5 minutes. 0802 ([facility] Hold - Provider: User Epic - Reason: Patient not available)1352 ([facility] Unhold - Provider: User Epic) potassium chloride [...] (Given - Provider: Marina Boo RN) 0802 ([facility] Hold - Provider: User Epic - Reason: Patient not available)1352 ([facility] Unhold - Provider: User Epic) potassium chloride [...] levels 1413 (See Alternative - Provider: Marina Boo, RN) 0802 ([facility] Hold - Provider: User Epic - Reason: Patient not available)1352 ([facility] Unhold - Provider: User Epic) sennosides-docusate sodium (SENOKOT-S) 8.6-50 mg 1 tablet 1 tablet, oral, Every 12 hours PRN, constipation, Starting on Sat11/07/23 at 1135 0802 ([facility] Hold - Provider: User Epic - Reason: Patient not available)1352 ([facility] Unhold - Provider: User Epic) sod phos di, mono-K phos mono (K-PHOS NEUTRAL) 250 mg tablet 2 tablet(Linked Group 2) 2 tablet, oral, As needed, for phosphorus level 2.3 mg/dL or less., Starting on Sat11/07/23 at 1135, If dose administered, recheck phosphorus level 4 hours after last dose. Look-alike/sound-alike medication - verify indication for use. Give with a full glass of water. 0802 ([facility] Hold - Provider: User Epic - Reason: Patient not available)1352 ([facility] Unhold - Provider: User Epic) sodium chloride 0.9 % flush 3 mL 3 mL, intravenous, As needed, line care, before and after each intermittent use, Starting on Sat11/07/23 at 1135 0802 ([facility] Hold - Provider: User Epic - Reason: Patient not available)1352 ([facility] Unhold - Provider: User Epic) sodium chloride 0.9 % flush 3 mL 3 mL, intravenous, As needed, line care, before and after each intermittent use, Starting on Sat11/08/23 at 0853 sodium chloride 0.9 % flush bag 25 mL, intravenous, at 100 mL/hr, Administer over 15 Minutes, As needed, line care, line care after IVPB administration, Starting on Sat11/07/23 at 1135 0802 ([facility] Hold - Provider: User Epic - Reason: Patient not available)1352 ([facility] Unhold - Provider: User Epic) sodium chloride 0.9 % infusion 20 mL/hr, intravenous, Continuous PRN, to maintain patency of lines, Starting on Sat11/07/23 at 1135 1417 (New Bag - Provider: Marina Boo RN) 0802 ([facility] Hold - Provider: User Epic - Reason: [...] User Epic - Reason: Patient not available)1352 ([facility] Unhold - Provider: User Epic) sodium phosphate [...] User Epic - Reason: Patient not available)1352 ([facility] Unhold - Provider: User Epic) verapamiL (ISOPTIN) [...] BE BASED ON THE PRIMARY CLINICAL RECORDS. [employer] [facility]. provides no warranty or guarantee of the accuracy or completeness of information in this document.
--- NOTE | 2024-12-19 13:32 | CT_ITS ---
The [address] [address] Patient Name: GIDEON JOSUE MRN: [id number] date: 1970 Sex: M Assigned Patient Location: ER Current Patient Location: ER Accession/Order Number: [id number] Exam Date: 12/19/2024 14:15 Report Date: 12/19/2024 14:21 At the request of: CINDI LOERA MD Procedure: CT abdomen pelvis wo con CT Abdomen and Pelvis withoutcontrast TECHNIQUE: Axial imaging with 2-D reconstruction. . The CT exam was performed using one or more the following dose reduction techniques: Automated exposure control, adjustment of the MA and/or Kv according to patient size, or use of the iterative reconstruction technique. COMPARISON: None History: Left flank pain LIMITATIONS: None LOWER THORAX Unremarkable LIVER: Unremarkable GALLBLADDER: No gallbladder abnormality identified. BILE DUCTS: No dilatation SPLEEN: Unremarkable PANCREAS: Unremarkable ADRENAL GLANDS: Unremarkable KIDNEYS:Unremarkable AORTA: No abdominal aortic aneurysm identified. RETROPERITONEUM: No significant retroperitoneal abnormalities identified. MESENTERY:Unremarkable STOMACH:Unremarkable SMALL BOWEL: The small bowel loops are nondistended. APPENDIX: Appendectomy changes identified. COLON: Left diverticulosis. No colitis or diverticulitis. Mild constipation. URINARY BLADDER: Urinary bladder is unremarkable. REPRODUCTIVE SYSTEM: Reproductive structures are unremarkable. PNEUMOPERITONEUM: None PERITONEAL FLUID:None BONY STRUCTURES: Extensive L5-S1 spondylosis. ABDOMINAL WALL: Right lower quadrant fat-containing anterior abdominal wall herniation. CT/CT abdomen pelvis wo con IMPRESSION: No acute findings. No nephrolithiasis or obstructive uropathy. Left: diverticulosis Impression dictated by: Carl Quiñones M.D. 12/19/2024 2:21 PM Dictation Location: [employer] Electronically authenticated by: [id number] Y Date: 12/19/2024 14:21
--- NOTE | 2024-12-19 13:33 | ED.GENADUL1 ---
HPI HPI - General Adult General Chief complaint: Abdominal Pain Stated complaint: flank pain Time Seen by Provider: 12/19/24 13:25 Source: patient Mode of arrival: walk-in Limitations: no limitations History of Present Illness HPI narrative: 54-year-old male presents for left flank pain. He has had it essentially continuously for 2 and half weeks. He has a history of kidney stones. No dysuria or hematuria. No constipation or diarrhea or trauma. No fever. He has had no unusual activity or any sort of injury Related Data Home Medications �Medication �Instructions �Recorded �Confirmed metformin 1,000 mg tablet 1,000 mg PO BID 09/03/23 12/19/24 carvedilol 12.5 mg tablet 12.5 mg PO DAILY 11/14/24 12/19/24 Previous Rx's �Medication �Instructions �Recorded pantoprazole 40 mg tablet,delayed 40 mg PO DAILY 8 weeks #56 tabs 11/14/24 release (Protonix) polyethylene glycol 3350 17 17 g PO DAILY 4 days #68 grams 11/14/24 gram/dose oral powder (Miralax) Allergies Allergy/AdvReac Type Severity Reaction Status Date / Time No Known Drug Allergies Allergy Verified 11/14/24 23:41 Opioid HPI Opioid Management Most Recent Opioid Data: Last Pain Scale 9 09/10/23, 21:30 Review of Systems ROS Narrative A ten point review of systems is negative except as noted above. [facility] Medical History (Updated 12/19/24 @ 15:09 by Adams Kowalski MD) Cataracts, bilateral �H26.9 - Unspecified cataract (ICD-10) Respiratory arrest �R09.2 - Respiratory arrest (ICD-10) Acquired equinus deformity of right foot �M21.6X1 - Other acquired deformities of right foot (ICD-10) Broken finger �S62.609A - Fracture of unspecified phalanx of unspecified finger, initial encounter for closed fracture (ICD-10) COVID-19 �U07.1 - COVID-19 (ICD-10) Arthritis �M19.90 - Unspecified osteoarthritis, unspecified site (ICD-10) Dog bite �W54.0XXA - Bitten by dog, initial encounter (ICD-10) Facial laceration �S01.81XA - Laceration without foreign body of other part of head, initial encounter (ICD-10) Hypertension �I10 - Essential (primary) hypertension (ICD-10) Hyperlipidemia �E78.5 - Hyperlipidemia, unspecified (ICD-10) Diabetes �E11.9 - Type 2 diabetes mellitus without complications (ICD-10) Derangement of right knee �M23.91 - Unspecified internal derangement of right knee (ICD-10) Arthritis of knee �M17.10 - Unilateral primary osteoarthritis, unspecified knee (ICD-10) Hypertrophy of both inferior nasal turbinates �J34.3 - Hypertrophy of nasal turbinates (ICD-10) Deviated septum �J34.2 - Deviated nasal septum (ICD-10) Chronic sinusitis �J32.9 - Chronic sinusitis, unspecified (ICD-10) Sleep apnea �G47.30 - Sleep apnea, unspecified (ICD-10) Surgical History (Updated 01/15/23 @ 14:32 by Mackenzie Dickson RN) H/O wisdom tooth extraction �K08.409 - Partial loss of teeth, unspecified cause, unspecified class (ICD-10) History of phacoemulsification of cataract of right eye with intraocular lens implantation �Z98.41 - Cataract extraction status, right eye (ICD-10) �Z96.1 - Presence of intraocular lens (ICD-10) H/O knee surgery �Z98.890 - Other specified postprocedural states (ICD-10) H/O facial fracture repair �Z98.890 - Other specified postprocedural states (ICD-10) �Z87.81 - Personal history of (healed) traumatic fracture (ICD-10) History of appendectomy �Z90.49 - Acquired absence of other specified parts of digestive tract (ICD-10) Family History (Updated 01/15/23 @ 14:35 by Mackenzie Dickson RN) Other Family history of diabetes mellitus Heart disease Hyperlipidemia Kidney failure Social History Within the past year, how often did you have a drink containing alcohol: monthly or less Within the past year, how many standard drinks containing alcohol did you have on a typical day: 1 or 2 Within the past year, how often did you have six or more drinks on one occasion: less than monthly Total score: 1 Score interpretation: A score less than 4 is consistent with normal alcohol consumption. Smoking status: Never smoker Second hand tobacco smoke exposure: Yes Non-prescribed substance use: denies use Previous occupational history: unemployed Known occupational exposures/hazards: No Highest level of school completed/degree received: high school graduate Are you now , , , , never or living with a partner: In a typical week, how many times do you talk on the telephone with family, friends, or neighbors: twice per week How often do you get together with friends or relatives: once per week Little interest or pleasure in doing things: not at all Feeling down, depressed, or hopeless: not at all Feel stressed/tense/nervous/anxious/difficulty sleeping: decline to answer Life stressors: divorce/separation Do you think of yourself as: straight/heterosexual Gender Identity: male Exam Narrative Exam Narrative: Nurses note and vital signs reviewed and patient is not hypoxic. General: The patient appears well and in no apparent distress. Patient is resting comfortably on cart. Skin: Warm, dry, no pallor noted. There is no rash noted. Head: Normocephalic, atraumatic Eye: Normal conjunctiva, no drainage Ears, Nose, Mouth, and Throat: oral mucosa is moist. Nares patent. Cardiovascular: Regular Rate and Rhythm Respiratory: Patient is in no distress, no accessory muscle use, lungs are clear to auscultation, no wheezing, rales or rhonchi Back: non-tender, no CVA tenderness bilaterally to percussion. GI: Obese and nontender Musculoskeletal: The patient has no evidence of calf tenderness, no pitting edema, symmetrical pulses noted bilaterally Neurological: A&O, normal speech Psychiatric: Cooperative Constitutional Vital Signs, click to edit/add: Last Vital Signs Temp 98.0 F 12/19/24 13:25 Pulse 68 12/19/24 14:53 Resp 16 12/19/24 14:53 BP 127/61 12/19/24 14:53 Pulse Ox 99 12/19/24 14:53 O2 Del Method Room Air 12/19/24 14:53 Course Vital Signs Vital signs: Vital Signs Temperature 98.0 F 12/19/24 13: Pulse Rate 84 12/19/24 13:25 Respiratory Rate 18 12/19/24 13:25 Blood Pressure 158/95 H 12/19/24 13:25 Pulse Oximetry 97 12/19/24 13:25 Oxygen Delivery Method Room Air 12/19/24 13:25 Temperature 98.0 F 12/19/24 13:25 Pulse Rate 68 12/19/24 14:53 Respiratory Rate 16 12/19/24 14:53 Blood Pressure 127/61 12/19/24 14:53 Pulse Oximetry 99 12/19/24 14:53 Oxygen Delivery Method Room Air 12/19/24 14:53 Medical Decision Making MDM Narrative Medical decision making narrative: CAT scan indicates mild constipation. No other acute findings are present. Blood sugar however was quite elevated at 600. The patient tells me he has been taking his medication. He tells me that he was advised that he would need to be on insulin but apparently he refused to do so. He is given IV insulin and IV fluids. His blood sugar has come down and he is being discharged home. He was recommended prompt follow-up with his doctor to discuss his medications including the possible use of insulin. He was also recommended MiraLAX for constipation. Treatment diagnosis and follow-up were discussed with the patient. Differential Diagnosis Differential Diagnosis: Constipation, kidney stone, UTI, diverticulitis Lab Data Lab results reviewed: Yes I reviewed the patient's lab results Labs: Lab Results 12/19/24 12/19/24 Range/Units 13:40 14:58 WBC 8.1 (4.0-11.0) 10^3/uL RBC 5.47 (4.70-6.10) 10^6/uL Hgb 15.3 (14.0-18.0) g/dL Hct 43.6 (42.0-54.0) % MCV 79.7 L (80.0-94.0) fL MCH 28.0 (25.9-34.0) pg MCHC 35.1 (29.9-35.2) g/dL RDW 12.3 (11.0-15.0) % Plt Count 245 (150-450) 10^3/uL MPV 12.0 (9.5-13.5) fL Neut % (Auto) 59.9 (43.0-75.0) % Lymph % (Auto) 28.7 (20.5-60.0) % [place] % (Auto) 7.3 (1.7-12.0) % Eos % (Auto) 3.2 (0.9-7.0) % Baso % (Auto) 0.7 (0.2-2.0) % Neut # (Auto) 4.9 (1.4-6.5) 10^3/uL Lymph # (Auto) 2.3 (1.2-3.8) 10^3/uL [place] # (Auto) 0.6 (0.3-0.8) 10^3/uL Eos # (Auto) 0.3 (0.0-0.7) 10^3/uL Baso # (Auto) 0.1 (0.0-0.1) 10^3/uL Abs Immat Gran (auto) 0.02 (0.00-0.03) 10^3/uL Imm/Tot Granulo (auto) 0.2 (0.0-0.5) % VBG pH 7.372 (7.330-7.430) VBG pCO2 39.0 L (40.0-52.0) mmHg Sodium 130 L (136-145) mmol/L Potassium 4.3 (3.5-5.1) mmol/L Chloride 94 L (98-107) mmol/L Carbon Dioxide 24.7 (21.0-32.0) mmol/L Anion Gap 15.6 BUN 19.0 H (7.0-18.0) mg/dL Creatinine 1.26 (0.70-1.30) mg/dL Est GFR ( Amer) >60 (>=60 mL/min/1.73m^2) Est GFR (Non-Af Amer) 59 L (>=60 mL/min/1.73m^2) BUN/Creatinine Ratio 15.1 Glucose 600 H* (74-106) mg/dL Calcium 8.7 (8.5-10.1) mg/dL Urine Color Lt. yellow (YELLOW) Urine Clarity Clear (CLEAR) Urine pH 6.0 (5.0-9.0) Ur Specific [place] <=1.005 A (1.005-1.025) Urine Protein Negative (NEG/TRACE) mg/dL Urine Glucose (UA) >=1000 A (NEGATIVE) mg/dL Urine Ketones 15 A (NEGATIVE) mg/dL Urine Occult Blood Negative (NEGATIVE) Urine Nitrite Negative (NEGATIVE) Urine Bilirubin Negative (NEGATIVE) Urine Urobilinogen 0.2 (0.2-1.0) EU/dL Ur Leukocyte Esterase Negative (NEGATIVE) Urine RBC 0-2 (0-2) #/HPF Urine WBC 0-2 A (NONE SEEN) #/HPF Ur Squamous Epith Cells Rare (NONE/RARE) #/LPF Urine Crystals None seen (None Seen) #/HPF Urine Bacteria None seen (NONE SEEN) #/HPF Urine Casts None seen (NONE SEEN) #/LPF Urine Mucus None seen (NONE SEEN) Acetone, Qual Negative (NEGATIVE) Imaging Data CT scan - abdomen: Radiologist's impression: ITS Impressions Abdomen/Pelvis CT 12/19/24 13:32 IMPRESSION: No acute findings. No nephrolithiasis or obstructive uropathy. Left: diverticulosis Impression dictated by: Carl Quiñones M.D. 12/19/2024 2:21 PM Dictation Location: [employer] Electronically authenticated by: [id number] Y Date: 12/19/2024 14:21 Discharge Plan Discharge Chief Complaint: Abdominal Pain Clinical Impression: Constipation, Hyperglycemia Patient Disposition: Home, Self-Care Time of Disposition Decision: 15:09 Condition: Good Mode of Transportation: Private Vehicle Prescriptions / Home Meds: No Action metformin 1,000 mg tablet 1,000 mg PO BID carvedilol 12.5 mg tablet 12.5 mg PO DAILY pantoprazole [Protonix] 40 mg tablet,delayed release (DR/EC) 40 mg PO DAILY 56 Days Qty: 56 0RF polyethylene glycol 3350 [Miralax] 17 gram/dose powder 17 g PO DAILY 4 Days Qty: 68 0RF Print Language: [place] Instructions: Constipation (ED), Diabetic Hyperglycemia (ED) Additional Instructions: Call your doctor Saturday to make an appointment to reassess your diabetes medications. [id number] MiraLAX for constipation Referrals: Alex Gorman [Primary Care Provider] - 1 week
[2024-12-19 13:59] LABS: Hematocrit 43.6 % (42.0-54.0); Hemoglobin 15.3 g/dL (14.0-18.0); Immature Granulocytes Abs Auto 0.02 10^3/uL (0.00-0.03); Immature Granulocytes Pct Auto 0.2 % (0.0-0.5); Lymphocytes Absolute Auto 2.3 10^3/uL (1.2-3.8); Mean Corpuscular HGB Conc 35.1 g/dL (29.9-35.2); Mean Corpuscular Hemoglobin 28.0 pg (25.9-34.0); Mean Corpuscular Volume 79.7 fL (80.0-94.0); Platelet Count 245 10^3/uL (150-450); Red Blood Count 5.47 10^6/uL (4.70-6.10); White Blood Count 8.1 10^3/uL (4.0-11.0)
[2024-12-19 14:04] LABS: Glucose Urine UA >=1000 mg/dL (NEGATIVE)
[2024-12-19 14:09] LABS: Anion Gap 15.6; Blood Urea Nitrogen 19.0 mg/dL (7.0-18.0); Calcium 8.7 mg/dL (8.5-10.1); Carbon Dioxide 24.7 mmol/L (21.0-32.0); Chloride 94 mmol/L (98-107); Estimated GFR (African America >60 (>=60 mL/min/1.73m^2); Estimated GFR (Non-African Ame 59 (>=60 mL/min/1.73m^2); Potassium 4.3 mmol/L (3.5-5.1); Sodium 130 mmol/L (136-145)
[2024-12-19 14:13] LABS: Glucose 600 mg/dL (74-106)
[2024-12-19 14:16] LABS: Cast Seen? NONE SEEN #/LPF (NONE SEEN); Crystals Seen? None Seen #/HPF (None Seen)
[2024-12-19] MEDS: INSULIN REGULAR, HUMAN (100 UNIT/ML) 10 ML MDV 10 UNIT SUBQ (14:38)
[2024-12-19 14:53] VITALS: BP 127/61; PULSE 68; O2SAT 99
[2024-12-19 15:05] LABS: PCO2 VBG 39.0 mmHg (40.0-52.0); pH VBG 7.372 (7.330-7.430)
[2024-12-19] MEDS: 0.9 % SODIUM CHLORIDE 1,000 ML 1000 ML IV (15:07)
[2024-12-19 16:17] VITALS: BP 133/80; PULSE 68; O2SAT 98
== END 2024-12-19 16:21 | disposition home or self-care (01) ==
PROVIDERS: Emergency Provider Emergency Medicine; PCP Physician Assistant
DX: K59.00 Constipation, unspecified (principal); R73.9 Hyperglycemia, unspecified; K57.90 Diverticulosis of intestine, part unspecified, without perforation or abscess without bleeding; Z87.442 Personal history of urinary calculi; Z90.49 Acquired absence of other specified parts of digestive tract
CPT/HCPCS: 36415; 74176; 80048; 81001; 82009; 82800; 82948; 85025; 99284; J1817